=== PATIENT | male | born 1985 | race Caucasian/White ===

== ENCOUNTER → 2018-09-11 | Outpatient (CLI) | payer SELFPAY | LOC: M WUC 11:23 | DX: S63.502A Unspecified sprain of left wrist, initial encounter (principal); X58.XXXA Exposure to other specified factors, initial encounter; Y92.9 Unspecified place or not applicable | CPT/HCPCS: 73110 ==

== ENCOUNTER 2022-01-22 19:00 | Emergency (ER) | payer MEDICAID, SELFPAY ==
[~2022-01-22] VITALS: Ht 180.3 cm; Wt 94.8 kg
[2022-01-22 19:13] VITALS: BP 147/95
[2022-01-22] MEDS ORDERED: OMEP40CA4 PO (19:13)
[2022-01-22] MEDS ORDERED: KETOROLAC 30 MG/ML 1ML VIAL IV ONE (19:35)
[2022-01-22] MEDS ORDERED: NS 1,000 ML IV ONE (19:35)
[2022-01-22 20:32] LABS: BASO # 0.1 10^3/uL (0.0-0.2); BASO % 0.6 % (0.0-1.0); EOS # 0.3 10^3/uL (0.0-0.5); EOS % 2.5 % (0.0-3.0); HEMATOCRIT 43.9 % (42.0-52.0); HEMOGLOBIN 14.5 g/dl (13.5-17.5); LYMPH % 19.6 % (24.0-44.0); MEAN CORPUSCULAR HEMOGLOBIN 29.4 pg (27.0-33.0); MEAN CORPUSCULAR VOLUME 88.9 fl (80.0-96.0); MONO # 1.2 10^3/uL (0.0-0.8); MONO % 11.6 % (2.0-8.0); NEUTROPHILS # 6.5 10^3/uL (1.5-8.5); NEUTROPHILS % 65.3 % (36.0-66.0); PLATELET COUNT, AUTOMATED 345 10^3/uL (150-450); RED BLOOD COUNT 4.94 10^6/uL (4.30-6.10); WHITE BLOOD COUNT 9.9 10^3/uL (4.0-10.0)
[2022-01-22 21:02] LABS: ALBUMIN 3.8 GM/DL (3.2-5.2); BILIRUBIN,DIRECT 0.1 MG/DL (0.0-0.2); BILIRUBIN,TOTAL 0.7 MG/DL (0.2-1.0); TOTAL PROTEIN 8.1 GM/DL (6.4-8.2)
[2022-01-22] MEDS ORDERED: ISOVUE-370 76% 100ML VIAL As Ordered ONE (21:23)
[2022-01-22 22:10] LABS: APPEARANCE, URINE CLEAR (CLEAR); BACTERIA, URINE AUTO NEGATIVE (NEGATIVE); BILIRUBIN, URINE AUTO NEGATIVE (NEGATIVE); BLOOD, URINE BLOOD NEGATIVE (NEGATIVE); COLOR, URINE YELLOW (YELLOW); GLUCOSE, URINE (UA) AUTO NEGATIVE (NEGATIVE); KETONE, URINE AUTO NEGATIVE (NEGATIVE); LEUKOCYTE ESTERASE, URINE AUTO NEGATIVE (NEGATIVE); MUCUS, URINE SMALL (NEGATIVE); NITRITE, URINE AUTO NEGATIVE (NEGATIVE); PROTEIN, URINE AUTO NEGATIVE (NEGATIVE); RBC, URINE AUTO 0 /HPF (0-3); SPECIFIC GRAVITY URINE AUTO 1.013 (1.002-1.035); SQUAMOUS EPITHELIAL CELL UR AU 0 /HPF (0-6); UROBILINOGEN, URINE AUTO 0.2 mg/dL (0.0-2.0); WBC, URINE AUTO 0 /HPF (0-3)
[2022-01-22] MEDS ORDERED: MM S100C PO (22:19)
[2022-01-22] MEDS ORDERED: HYDR-3713 PO (22:19)
== END 2022-01-22 22:35 | disposition home or self-care (01) ==
LOC: M ED 19:00
DX: K63.89 Other specified diseases of intestine (principal); R93.2 Abnormal findings on diagnostic imaging of liver and biliary tract; K21.9 Gastro-esophageal reflux disease without esophagitis
CPT/HCPCS: 71046; 74177; 80047; 80076; 81001; 83605; 83690; 85025; 96361; 96374; 99283; J1885; Q9967

== ENCOUNTER 2022-01-26 07:10 | Day surgery (SDC) | payer MEDICAID, SELFPAY ==
[~2022-01-26] VITALS: Ht 180.3 cm; Wt 90.2 kg
[~2022-01-26 07:10] MED LIST: HYDR-3713 PO; LIDOCAINE 2% 100MG/5ML SDV (FOR ANES.) As Ordered ONE; MM S100C PO; OMEP40CA4 PO; propofoL 200 MG/20 ML VIAL As Ordered ONE
[2022-01-26] MEDS ORDERED: propofoL 200 MG/20 ML VIAL As Ordered ONE ×3 (08:23→09:01)
[2022-01-26 09:40] VITALS: BP 135/68
== END 2022-01-26 10:05 | disposition home or self-care (01) ==
LOC: M OPP 07:10
PROVIDERS: ATTEND Surgery
DX: C18.9 Malignant neoplasm of colon, unspecified (principal); K62.5 Hemorrhage of anus and rectum; R93.3 Abnormal findings on diagnostic imaging of other parts of digestive tract

== ENCOUNTER → 2022-05-26 | Outpatient (CLI) | payer MEDICAID, OTHER ==
[~2022-05-26] VITALS: Ht 182.9 cm; Wt 86.5 kg
[~2022-05-26] MED LIST changes: +DOCU100C16 PO; -LIDOCAINE 2% 100MG/5ML SDV (FOR ANES.) As Ordered ONE; +ONDA-84 PO; +POTA-151 PO; +PROC10TA5 PO; +SENN-80 PO; -propofoL 200 MG/20 ML VIAL As Ordered ONE
[2022-05-26 09:45] VITALS: BP 139/88
== END ==
LOC: M PAL 09:19
PROVIDERS: ATTEND Nurse Practitioner Adult Health
DX: C18.9 Malignant neoplasm of colon, unspecified (principal); C78.7 Secondary malignant neoplasm of liver and intrahepatic bile duct; R91.8 Other nonspecific abnormal finding of lung field; Z79.899 Other long term (current) drug therapy; Z92.21 Personal history of antineoplastic chemotherapy; Z51.5 Encounter for palliative care; G89.3 Neoplasm related pain (acute) (chronic)

== ENCOUNTER → 2023-01-09 | Outpatient (CLI) | payer OTHER ==
[~2023-01-09] MED LIST changes: +BACT800T5 PO
== END ==
LOC: M PLARAD 11:23
PROVIDERS: ATTEND Internal Medicine Medical Oncology
DX: C18.7 Malignant neoplasm of sigmoid colon (principal); C78.7 Secondary malignant neoplasm of liver and intrahepatic bile duct
CPT/HCPCS: 78815; A9552

== ENCOUNTER → 2023-01-10 | Outpatient (CLI) | payer OTHER | LOC: M OUTALCOH 09:05 | PROVIDERS: ATTEND Psychiatry & Neurology Psychiatry | DX: F10.10 Alcohol abuse, uncomplicated (principal) ==

== ENCOUNTER → 2023-02-07 | Outpatient (REF) | payer OTHER ==
[~2023-02-07] MED LIST changes: +D 50CAP2 PO; +RA B1TAB2 PO; +SENN-186 PO; -SENN-80 PO; +VITA100065 PO; +[UNRECOGNIZED DRUG - OTHER] PO
[2023-02-07 16:05] LABS: BASO # 0.1 10^3/uL (0.0-0.2); BASO % 0.8 % (0.0-1.0); EOS # 0.2 10^3/uL (0.0-0.5); EOS % 2.7 % (0.0-3.0); HEMATOCRIT 45.1 % (42.0-52.0); HEMOGLOBIN 15.5 g/dl (13.5-17.5); LYMPH # 2.5 10^3/uL (1.5-5.0); LYMPH % 32.3 % (24.0-44.0); MEAN CORPUSCULAR HEMOGLOBIN 32.5 pg (27.0-33.0); MEAN CORPUSCULAR HGB CONC 34.4 g/dl (32.0-36.5); MEAN CORPUSCULAR VOLUME 94.5 fl (80.0-96.0); MONO # 0.7 10^3/uL (0.0-0.8); MONO % 9.6 % (2.0-8.0); NEUTROPHILS # 4.2 10^3/uL (1.5-8.5); PLATELET COUNT, AUTOMATED 227 10^3/uL (150-450); RED BLOOD COUNT 4.77 10^6/uL (4.30-6.10); WHITE BLOOD COUNT 7.7 10^3/uL (4.0-10.0)
[2023-02-07 16:23] LABS: INR 0.96
[2023-02-07 16:24] LABS: PARTIAL THROMBOPLASTIN TIME 26.3 SECONDS (24.8-34.2)
[2023-02-07 16:40] LABS: ALBUMIN 4.2 G/DL (3.2-5.2); ALKALINE PHOSPHATASE 81 U/L (46-116); ALT/SGPT 48 U/L (7.0-40); AST/SGOT 36 U/L (<34); BILIRUBIN,TOTAL 0.6 MG/DL (0.3-1.2); BLOOD UREA NITROGEN 16 MG/DL (9-23); CALCIUM LEVEL 9.7 MG/DL (8.5-10.1); CARBON DIOXIDE LEVEL 27 MMOL/L (20-31); CARCINOEMBRYONIC ANTIGEN < 2.0 NG/ML (<2.5); CHLORIDE LEVEL 106 MMOL/L (98-107); CREATININE FOR GFR 1.12 MG/DL (0.70-1.30); GLOMERULAR FILTRATION RATE > 60.0 (>60); GLUCOSE, FASTING 88 MG/DL (60-100); SODIUM LEVEL 135 MMOL/L (136-145); TOTAL PROTEIN 7.2 G/DL (5.7-8.2)
== END ==
LOC: M LAB REF 15:26
PROVIDERS: ATTEND Internal Medicine Gastroenterology
DX: K72.10 Chronic hepatic failure without coma (principal); Z79.899 Other long term (current) drug therapy; D68.32 Hemorrhagic disorder due to extrinsic circulating anticoagulants

== ENCOUNTER 2023-02-09 13:00 | Day surgery (SDC) | payer OTHER ==
[~2023-02-09] VITALS: Ht 182.9 cm; Wt 91.6 kg
[~2023-02-09 13:00] MED LIST changes: +LIDOCAINE 2% 100MG/5ML SDV (FOR ANES.) As Ordered ONE; +NS 1,000 ML IV ONE; +propofoL 200 MG/20 ML VIAL As Ordered ONE
[2023-02-09] MEDS ORDERED: fentaNYL 100 MCG/2 ML INJECTION As Ordered ONE (14:05)
[2023-02-09] MEDS ORDERED: propofoL 200 MG/20 ML VIAL As Ordered ONE (14:26)
[2023-02-09 14:52] VITALS: BP 122/68
== END 2023-02-09 15:14 | disposition home or self-care (01) ==
LOC: M OPP 13:00
PROVIDERS: ATTEND Surgery
DX: Z01.818 Encounter for other preprocedural examination (principal); Z85.038 Personal history of other malignant neoplasm of large intestine; K21.00 Gastro-esophageal reflux disease with esophagitis, without bleeding; K31.89 Other diseases of stomach and duodenum; F17.200 Nicotine dependence, unspecified, uncomplicated; Z90.49 Acquired absence of other specified parts of digestive tract
CPT/HCPCS: 43239; 45378; 88305; J3010

== ENCOUNTER → 2023-08-28 | Outpatient (REF) | payer OTHER ==
[~2023-08-28] MED LIST changes: +BACTDSTA PO; +LEVO1TAB39 PO; -LIDOCAINE 2% 100MG/5ML SDV (FOR ANES.) As Ordered ONE; +MAGN400C PO; -NS 1,000 ML IV ONE; +PRED5TA PO; +PROG1CAP11 PO; +SULF400T14; -propofoL 200 MG/20 ML VIAL As Ordered ONE
[2023-08-29 14:09] LABS: CARCINOEMBRYONIC ANTIGEN < 2.0 NG/ML (<2.5)
== END ==
LOC: M LAB REF 13:43
PROVIDERS: ATTEND Internal Medicine Gastroenterology
DX: C22.0 Liver cell carcinoma (principal); C18.7 Malignant neoplasm of sigmoid colon; R94.8 Abnormal results of function studies of other organs and systems; K72.10 Chronic hepatic failure without coma; Z79.899 Other long term (current) drug therapy; R79.0 Abnormal level of blood mineral; T86.40 Unspecified complication of liver transplant; Y83.0 Surgical operation with transplant of whole organ as the cause of abnormal reaction of the patient, or of later complication, without mention of misadventure at the time of the procedure

== ENCOUNTER → 2023-09-04 | Outpatient (REF) | payer OTHER ==
[2023-09-04 09:18] LABS: HEMATOCRIT 40.1 % (42.0-52.0); HEMOGLOBIN 13.3 g/dl (13.5-17.5); MEAN CORPUSCULAR HGB CONC 33.2 g/dl (32.0-36.5); MEAN CORPUSCULAR VOLUME 90.5 fl (80.0-96.0); PLATELET COUNT, AUTOMATED 155 10^3/uL (150-450); RED BLOOD COUNT 4.43 10^6/uL (4.30-6.10); WHITE BLOOD COUNT 5.6 10^3/uL (4.0-10.0)
[2023-09-04 09:35] LABS: ALKALINE PHOSPHATASE 121 U/L (46-116); ALT/SGPT 35 U/L (7.0-40); AST/SGOT 44 U/L (<34); BILIRUBIN,TOTAL 0.7 MG/DL (0.3-1.2); BLOOD UREA NITROGEN 19 MG/DL (9-23); CALCIUM LEVEL 9.4 MG/DL (8.5-10.1); CARBON DIOXIDE LEVEL 27 MMOL/L (20-31); CHLORIDE LEVEL 105 MMOL/L (98-107); CREATININE FOR GFR 1.06 MG/DL (0.70-1.30); GLOMERULAR FILTRATION RATE > 60.0 (>60); GLUCOSE, FASTING 88 MG/DL (60-100); POTASSIUM SERUM 3.9 MMOL/L (3.5-5.1); SODIUM LEVEL 143 MMOL/L (136-145); TOTAL PROTEIN 6.5 G/DL (5.7-8.2)
[2023-09-04 09:40] LABS: CARCINOEMBRYONIC ANTIGEN < 2.0 NG/ML (<2.5)
[2023-09-04 10:00] LABS: ATYPICAL LYMPH 7 % (0-5); EOSINOPHILS 1 % (0-3); LYMPHOCYTES 30 % (16-44); MONOCYTES 11 % (0-5); NEUTROPHILS 50 % (28-66)
[2023-09-04 10:01] LABS: PLATELET ESTIMATE NORMAL (NORMAL)
== END ==
LOC: M LAB REF 08:47
PROVIDERS: ATTEND Internal Medicine Gastroenterology
DX: C22.0 Liver cell carcinoma (principal); C18.7 Malignant neoplasm of sigmoid colon; R94.8 Abnormal results of function studies of other organs and systems; K72.10 Chronic hepatic failure without coma; Z79.899 Other long term (current) drug therapy; T86.40 Unspecified complication of liver transplant; R97.0 Elevated carcinoembryonic antigen [CEA]

== ENCOUNTER → 2023-10-02 | Outpatient (REF) | payer OTHER ==
[~2023-10-02] MED LIST changes: +DIPH2.5T15 PO
[2023-10-02 09:31] LABS: HEMATOCRIT 37.2 % (42.0-52.0); HEMOGLOBIN 12.1 g/dl (13.5-17.5); MEAN CORPUSCULAR HGB CONC 32.5 g/dl (32.0-36.5); MEAN CORPUSCULAR VOLUME 92.3 fl (80.0-96.0); PLATELET COUNT, AUTOMATED 234 10^3/uL (150-450); RED BLOOD COUNT 4.03 10^6/uL (4.30-6.10); WHITE BLOOD COUNT 8.3 10^3/uL (4.0-10.0)
[2023-10-02 09:55] LABS: ALBUMIN 3.8 G/DL (3.2-5.2); ALKALINE PHOSPHATASE 154 U/L (46-116); ALT/SGPT 27 U/L (7.0-40); AST/SGOT 28 U/L (<34); BILIRUBIN,TOTAL 0.5 MG/DL (0.3-1.2); BLOOD UREA NITROGEN 16 MG/DL (9-23); CALCIUM LEVEL 8.9 MG/DL (8.5-10.1); CARBON DIOXIDE LEVEL 24 MMOL/L (20-31); CHLORIDE LEVEL 109 MMOL/L (98-107); CREATININE FOR GFR 1.52 MG/DL (0.70-1.30); GLOMERULAR FILTRATION RATE 54.3 (>60); GLUCOSE, FASTING 88 MG/DL (60-100); POTASSIUM SERUM 4.3 MMOL/L (3.5-5.1); SODIUM LEVEL 142 MMOL/L (136-145); TOTAL PROTEIN 6.4 G/DL (5.7-8.2)
[2023-10-02 10:00] LABS: CARCINOEMBRYONIC ANTIGEN < 2.0 NG/ML (<2.5)
[2023-10-02 10:32] LABS: ATYPICAL LYMPH 2 % (0-5); BASOPHILS 1 % (0-1); LYMPHOCYTES 21 % (16-44); METAMYELOCYTES 1 % (0-0); MONOCYTES 4 % (0-5); NEUTROPHILS 68 % (28-66); PLATELET ESTIMATE NORMAL (NORMAL)
== END ==
LOC: M LAB REF 08:59
PROVIDERS: ATTEND Internal Medicine Gastroenterology
DX: C22.0 Liver cell carcinoma (principal); C18.7 Malignant neoplasm of sigmoid colon; R94.8 Abnormal results of function studies of other organs and systems; K72.10 Chronic hepatic failure without coma; Z79.899 Other long term (current) drug therapy; T86.40 Unspecified complication of liver transplant; R97.0 Elevated carcinoembryonic antigen [CEA]

== ENCOUNTER → 2023-10-10 | Outpatient (REF) | payer OTHER ==
[2023-10-10 09:26] LABS: BASO # 0.1 10^3/uL (0.0-0.2); BASO % 1.3 % (0.0-1.0); EOS % 0.6 % (0.0-3.0); HEMATOCRIT 32.9 % (42.0-52.0); HEMOGLOBIN 10.9 g/dl (13.5-17.5); LYMPH # 1.2 10^3/uL (1.5-5.0); LYMPH % 22.7 % (24.0-44.0); MEAN CORPUSCULAR HEMOGLOBIN 30.8 pg (27.0-33.0); MEAN CORPUSCULAR HGB CONC 33.1 g/dl (32.0-36.5); MEAN CORPUSCULAR VOLUME 92.9 fl (80.0-96.0); MONO # 0.8 10^3/uL (0.0-0.8); NEUTROPHILS % 56.5 % (36.0-66.0); PLATELET COUNT, AUTOMATED 106 10^3/uL (150-450); RED BLOOD COUNT 3.54 10^6/uL (4.30-6.10); WHITE BLOOD COUNT 5.2 10^3/uL (4.0-10.0)
[2023-10-10 10:57] LABS: ALBUMIN 3.8 G/DL (3.2-5.2); ALKALINE PHOSPHATASE 179 U/L (46-116); ALT/SGPT 27 U/L (7.0-40); AST/SGOT 24 U/L (<34); BILIRUBIN,TOTAL 0.9 MG/DL (0.3-1.2); BLOOD UREA NITROGEN 27 MG/DL (9-23); CALCIUM LEVEL 8.8 MG/DL (8.5-10.1); CARBON DIOXIDE LEVEL 20 MMOL/L (20-31); CHLORIDE LEVEL 109 MMOL/L (98-107); CREATININE FOR GFR 1.37 MG/DL (0.70-1.30); GLOMERULAR FILTRATION RATE > 60.0 (>60); GLUCOSE, FASTING 94 MG/DL (60-100); POTASSIUM SERUM 4.5 MMOL/L (3.5-5.1); SODIUM LEVEL 138 MMOL/L (136-145); TOTAL PROTEIN 6.3 G/DL (5.7-8.2)
[2023-10-10 11:31] LABS: CARCINOEMBRYONIC ANTIGEN < 2.0 NG/ML (<2.5)
== END ==
LOC: M LAB REF 08:49
PROVIDERS: ATTEND Internal Medicine Gastroenterology
DX: C22.0 Liver cell carcinoma (principal); C18.7 Malignant neoplasm of sigmoid colon; R94.8 Abnormal results of function studies of other organs and systems; K72.10 Chronic hepatic failure without coma; Z79.899 Other long term (current) drug therapy; T86.40 Unspecified complication of liver transplant; R97.0 Elevated carcinoembryonic antigen [CEA]

== ENCOUNTER → 2023-10-16 | Outpatient (REF) | payer OTHER ==
[~2023-10-16] MED LIST changes: +AUGM500T34 PO
[2023-10-16 09:35] LABS: HEMATOCRIT 34.8 % (42.0-52.0); HEMOGLOBIN 11.3 g/dl (13.5-17.5); MEAN CORPUSCULAR HEMOGLOBIN 30.4 pg (27.0-33.0); MEAN CORPUSCULAR HGB CONC 32.5 g/dl (32.0-36.5); MEAN CORPUSCULAR VOLUME 93.5 fl (80.0-96.0); PLATELET COUNT, AUTOMATED 260 10^3/uL (150-450); RED BLOOD COUNT 3.72 10^6/uL (4.30-6.10); WHITE BLOOD COUNT 14.2 10^3/uL (4.0-10.0)
[2023-10-16 10:06] LABS: ALBUMIN 3.9 G/DL (3.2-5.2); ALKALINE PHOSPHATASE 166 U/L (46-116); ALT/SGPT 26 U/L (7.0-40); AST/SGOT 28 U/L (<34); BILIRUBIN,TOTAL 0.4 MG/DL (0.3-1.2); BLOOD UREA NITROGEN 19 MG/DL (9-23); CALCIUM LEVEL 9.1 MG/DL (8.5-10.1); CARBON DIOXIDE LEVEL 23 MMOL/L (20-31); CHLORIDE LEVEL 108 MMOL/L (98-107); CREATININE FOR GFR 1.67 MG/DL (0.70-1.30); GLOMERULAR FILTRATION RATE 48.8 (>60); GLUCOSE, FASTING 93 MG/DL (60-100); POTASSIUM SERUM 4.3 MMOL/L (3.5-5.1); SODIUM LEVEL 141 MMOL/L (136-145); TOTAL PROTEIN 6.4 G/DL (5.7-8.2)
[2023-10-16 10:10] LABS: CARCINOEMBRYONIC ANTIGEN < 2.0 NG/ML (<2.5)
[2023-10-16 10:11] LABS: ATYPICAL LYMPH 15 % (0-5); BASOPHILS 2 % (0-1); EOSINOPHILS 1 % (0-3); LYMPHOCYTES 1 % (16-44); MONOCYTES 14 % (0-5); NEUTROPHILS 65 % (28-66)
[2023-10-16 10:12] LABS: PLATELET ESTIMATE NORMAL (NORMAL)
[2023-10-16 10:13] LABS: POLYCHROMASIA 1+; TOXIC GRANULATION 1+
== END ==
LOC: M LAB REF 09:02
PROVIDERS: ATTEND Internal Medicine Gastroenterology
DX: C22.0 Liver cell carcinoma (principal); C18.7 Malignant neoplasm of sigmoid colon; R94.8 Abnormal results of function studies of other organs and systems; K72.10 Chronic hepatic failure without coma; Z79.899 Other long term (current) drug therapy; T86.40 Unspecified complication of liver transplant; R97.0 Elevated carcinoembryonic antigen [CEA]

== ENCOUNTER → 2023-10-23 | Outpatient (REF) | payer OTHER ==
[2023-10-23 09:16] LABS: BASO # 0.1 10^3/uL (0.0-0.2); BASO % 0.6 % (0.0-1.0); EOS # 0.1 10^3/uL (0.0-0.5); EOS % 1.8 % (0.0-3.0); HEMATOCRIT 30.6 % (42.0-52.0); HEMOGLOBIN 9.8 g/dl (13.5-17.5); LYMPH # 1.3 10^3/uL (1.5-5.0); LYMPH % 16.6 % (24.0-44.0); MEAN CORPUSCULAR HEMOGLOBIN 30.5 pg (27.0-33.0); MEAN CORPUSCULAR VOLUME 95.3 fl (80.0-96.0); MONO # 0.7 10^3/uL (0.0-0.8); MONO % 8.8 % (2.0-8.0); NEUTROPHILS # 5.3 10^3/uL (1.5-8.5); NEUTROPHILS % 68.1 % (36.0-66.0); PLATELET COUNT, AUTOMATED 154 10^3/uL (150-450); RED BLOOD COUNT 3.21 10^6/uL (4.30-6.10); WHITE BLOOD COUNT 7.8 10^3/uL (4.0-10.0)
[2023-10-23 09:37] LABS: ALBUMIN 3.3 G/DL (3.2-5.2); ALKALINE PHOSPHATASE 118 U/L (46-116); ALT/SGPT 24 U/L (7.0-40); AST/SGOT 27 U/L (<34); BILIRUBIN,TOTAL 0.4 MG/DL (0.3-1.2); BLOOD UREA NITROGEN 12 MG/DL (9-23); CALCIUM LEVEL 9.1 MG/DL (8.5-10.1); CARBON DIOXIDE LEVEL 24 MMOL/L (20-31); CHLORIDE LEVEL 109 MMOL/L (98-107); CREATININE FOR GFR 1.16 MG/DL (0.70-1.30); GLOMERULAR FILTRATION RATE > 60.0 (>60); GLUCOSE, FASTING 92 MG/DL (60-100); SODIUM LEVEL 142 MMOL/L (136-145); TOTAL PROTEIN 5.6 G/DL (5.7-8.2)
[2023-10-23 09:42] LABS: CARCINOEMBRYONIC ANTIGEN < 2.0 NG/ML (<2.5)
== END ==
LOC: M LAB REF 08:37
PROVIDERS: ATTEND Internal Medicine Gastroenterology
DX: C22.0 Liver cell carcinoma (principal); C18.7 Malignant neoplasm of sigmoid colon; R94.8 Abnormal results of function studies of other organs and systems; K72.10 Chronic hepatic failure without coma; Z79.899 Other long term (current) drug therapy; T86.40 Unspecified complication of liver transplant; R97.0 Elevated carcinoembryonic antigen [CEA]

== ENCOUNTER → 2023-11-08 | Outpatient (REF) | payer OTHER ==
[2023-11-08 08:23] LABS: BASO # 0.1 10^3/uL (0.0-0.2); BASO % 0.9 % (0.0-1.0); EOS # 0.3 10^3/uL (0.0-0.5); EOS % 3.6 % (0.0-3.0); HEMATOCRIT 38.3 % (42.0-52.0); HEMOGLOBIN 12.2 g/dl (13.5-17.5); LYMPH # 1.7 10^3/uL (1.5-5.0); LYMPH % 21.4 % (24.0-44.0); MEAN CORPUSCULAR HEMOGLOBIN 30.6 pg (27.0-33.0); MEAN CORPUSCULAR HGB CONC 31.9 g/dl (32.0-36.5); MONO # 0.7 10^3/uL (0.0-0.8); MONO % 8.4 % (2.0-8.0); NEUTROPHILS % 64.2 % (36.0-66.0); PLATELET COUNT, AUTOMATED 123 10^3/uL (150-450); RED BLOOD COUNT 3.99 10^6/uL (4.30-6.10); WHITE BLOOD COUNT 7.9 10^3/uL (4.0-10.0)
[2023-11-08 08:51] LABS: ALKALINE PHOSPHATASE 182 U/L (46-116); ALT/SGPT 24 U/L (7.0-40); AST/SGOT 29 U/L (<34); BILIRUBIN,TOTAL 0.6 MG/DL (0.3-1.2); BLOOD UREA NITROGEN 19 MG/DL (9-23); CALCIUM LEVEL 9.2 MG/DL (8.5-10.1); CARBON DIOXIDE LEVEL 24 MMOL/L (20-31); CHLORIDE LEVEL 107 MMOL/L (98-107); CREATININE FOR GFR 1.13 MG/DL (0.70-1.30); GLOMERULAR FILTRATION RATE > 60.0 (>60); GLUCOSE, FASTING 90 MG/DL (60-100); POTASSIUM SERUM 3.9 MMOL/L (3.5-5.1); SODIUM LEVEL 139 MMOL/L (136-145); TOTAL PROTEIN 6.7 G/DL (5.7-8.2)
[2023-11-08 08:53] LABS: CARCINOEMBRYONIC ANTIGEN < 2.0 NG/ML (<2.5)
== END ==
LOC: M LAB REF 08:00
PROVIDERS: ATTEND Internal Medicine Gastroenterology
DX: C22.0 Liver cell carcinoma (principal); C18.7 Malignant neoplasm of sigmoid colon; R94.8 Abnormal results of function studies of other organs and systems; K72.10 Chronic hepatic failure without coma; Z79.899 Other long term (current) drug therapy; T86.40 Unspecified complication of liver transplant; R97.0 Elevated carcinoembryonic antigen [CEA]

== ENCOUNTER → 2023-11-21 | Outpatient (REF) | payer OTHER ==
[2023-11-21 09:37] LABS: BASO % 0.6 % (0.0-1.0); EOS # 0.2 10^3/uL (0.0-0.5); EOS % 3.4 % (0.0-3.0); HEMATOCRIT 36.8 % (42.0-52.0); HEMOGLOBIN 11.6 g/dl (13.5-17.5); LYMPH # 1.3 10^3/uL (1.5-5.0); LYMPH % 20.1 % (24.0-44.0); MEAN CORPUSCULAR HEMOGLOBIN 30.5 pg (27.0-33.0); MEAN CORPUSCULAR HGB CONC 31.5 g/dl (32.0-36.5); MEAN CORPUSCULAR VOLUME 96.8 fl (80.0-96.0); MONO # 0.5 10^3/uL (0.0-0.8); MONO % 7.4 % (2.0-8.0); NEUTROPHILS # 4.4 10^3/uL (1.5-8.5); NEUTROPHILS % 66.7 % (36.0-66.0); PLATELET COUNT, AUTOMATED 141 10^3/uL (150-450); WHITE BLOOD COUNT 6.5 10^3/uL (4.0-10.0)
[2023-11-21 09:45] LABS: ALKALINE PHOSPHATASE 171 U/L (46-116); ALT/SGPT 27 U/L (7.0-40); AST/SGOT 25 U/L (<34); BILIRUBIN,TOTAL 0.5 MG/DL (0.3-1.2); BLOOD UREA NITROGEN 15 MG/DL (9-23); CALCIUM LEVEL 8.8 MG/DL (8.5-10.1); CARBON DIOXIDE LEVEL 25 MMOL/L (20-31); CHLORIDE LEVEL 109 MMOL/L (98-107); GLOMERULAR FILTRATION RATE > 60.0 (>60); GLUCOSE, FASTING 100 MG/DL (60-100); POTASSIUM SERUM 4.2 MMOL/L (3.5-5.1); SODIUM LEVEL 141 MMOL/L (136-145); TOTAL PROTEIN 6.5 G/DL (5.7-8.2)
[2023-11-21 10:53] LABS: CARCINOEMBRYONIC ANTIGEN < 2.0 NG/ML (<2.5)
== END ==
LOC: M LAB REF 08:50
PROVIDERS: ATTEND Internal Medicine Gastroenterology
DX: C22.0 Liver cell carcinoma (principal); C18.7 Malignant neoplasm of sigmoid colon; R94.8 Abnormal results of function studies of other organs and systems; K72.10 Chronic hepatic failure without coma; Z79.899 Other long term (current) drug therapy; T86.40 Unspecified complication of liver transplant; R97.0 Elevated carcinoembryonic antigen [CEA]

== ENCOUNTER → 2023-12-28 | Outpatient (REF) | payer OTHER ==
[2023-12-28 08:43] LABS: HEMOGLOBIN 12.2 g/dl (13.5-17.5); MEAN CORPUSCULAR HEMOGLOBIN 30.9 pg (27.0-33.0); MEAN CORPUSCULAR HGB CONC 32.1 g/dl (32.0-36.5); MEAN CORPUSCULAR VOLUME 96.2 fl (80.0-96.0); RED BLOOD COUNT 3.95 10^6/uL (4.30-6.10)
[2023-12-28 08:55] LABS: PLATELET COUNT, AUTOMATED 85 10^3/uL (150-450)
[2023-12-28 09:21] LABS: ALBUMIN 3.6 G/DL (3.2-5.2); ALKALINE PHOSPHATASE 99 U/L (46-116); ALT/SGPT 23 U/L (7.0-40); AST/SGOT 31 U/L (<34); BILIRUBIN,TOTAL 0.8 MG/DL (0.3-1.2); BLOOD UREA NITROGEN 11 MG/DL (9-23); CALCIUM LEVEL 8.7 MG/DL (8.5-10.1); CARBON DIOXIDE LEVEL 24 MMOL/L (20-31); CHLORIDE LEVEL 109 MMOL/L (98-107); CREATININE FOR GFR 0.83 MG/DL (0.70-1.30); GLOMERULAR FILTRATION RATE > 60.0 (>60); GLUCOSE, FASTING 85 MG/DL (60-100); POTASSIUM SERUM 3.9 MMOL/L (3.5-5.1); SODIUM LEVEL 138 MMOL/L (136-145); TOTAL PROTEIN 6.3 G/DL (5.7-8.2)
[2023-12-28 09:23] LABS: CARCINOEMBRYONIC ANTIGEN < 2.0 NG/ML (<2.5)
== END ==
LOC: M LAB REF 08:24
PROVIDERS: ATTEND Internal Medicine Gastroenterology
DX: C22.0 Liver cell carcinoma (principal); C18.7 Malignant neoplasm of sigmoid colon; R94.8 Abnormal results of function studies of other organs and systems; K72.10 Chronic hepatic failure without coma; R97.0 Elevated carcinoembryonic antigen [CEA]; T86.40 Unspecified complication of liver transplant; Z79.899 Other long term (current) drug therapy

== ENCOUNTER → 2024-02-01 | Outpatient (REF) | payer OTHER ==
[2024-02-01 09:06] LABS: BASO % 0.7 % (0.0-1.0); EOS # 0.3 10^3/uL (0.0-0.5); EOS % 7.5 % (0.0-3.0); HEMATOCRIT 39.4 % (42.0-52.0); HEMOGLOBIN 12.8 g/dl (13.5-17.5); LYMPH % 24.1 % (24.0-44.0); MEAN CORPUSCULAR HGB CONC 32.5 g/dl (32.0-36.5); MEAN CORPUSCULAR VOLUME 92.3 fl (80.0-96.0); MONO # 0.3 10^3/uL (0.0-0.8); MONO % 7.7 % (2.0-8.0); NEUTROPHILS # 2.5 10^3/uL (1.5-8.5); NEUTROPHILS % 59.5 % (36.0-66.0); PLATELET COUNT, AUTOMATED 107 10^3/uL (150-450); RED BLOOD COUNT 4.27 10^6/uL (4.30-6.10); WHITE BLOOD COUNT 4.3 10^3/uL (4.0-10.0)
[2024-02-01 09:25] LABS: ALBUMIN 3.5 G/DL (3.2-5.2); ALKALINE PHOSPHATASE 103 U/L (46-116); ALT/SGPT 20 U/L (7.0-40); AST/SGOT 28 U/L (<34); BILIRUBIN,TOTAL 0.4 MG/DL (0.3-1.2); BLOOD UREA NITROGEN 17 MG/DL (9-23); CALCIUM LEVEL 8.7 MG/DL (8.5-10.1); CARBON DIOXIDE LEVEL 27 MMOL/L (20-31); CHLORIDE LEVEL 109 MMOL/L (98-107); GLOMERULAR FILTRATION RATE > 60.0 (>60); GLUCOSE, FASTING 112 MG/DL (60-100); POTASSIUM SERUM 4.1 MMOL/L (3.5-5.1); SODIUM LEVEL 140 MMOL/L (136-145); TOTAL PROTEIN 6.1 G/DL (5.7-8.2)
== END ==
LOC: M LAB REF 08:34
PROVIDERS: ATTEND Internal Medicine Gastroenterology
DX: C22.0 Liver cell carcinoma (principal); C18.7 Malignant neoplasm of sigmoid colon; R94.8 Abnormal results of function studies of other organs and systems; R97.0 Elevated carcinoembryonic antigen [CEA]; K72.10 Chronic hepatic failure without coma; T86.90 Unspecified complication of unspecified transplanted organ and tissue; Z79.899 Other long term (current) drug therapy

== ENCOUNTER 2024-02-14 10:32 | Emergency (ER) | payer OTHER ==
[~2024-02-14] VITALS: Ht 180.3 cm; Wt 88.1 kg
[~2024-02-14 10:32] MED LIST changes: +DIPH1TAB81 PO; -DIPH2.5T15 PO
[2024-02-14] MEDS ORDERED: MYCO500T (10:40)
[2024-02-14] MEDS ORDERED: ISOVUE-370 76% 100ML VIAL As Ordered ONE (13:03)
[2024-02-14] MEDS: KETOROLAC 30 MG/ML 1ML VIAL IV ONE (13:03)
[2024-02-14 13:16] LABS: BASO % 0.3 % (0.0-1.0); EOS # 0.3 10^3/uL (0.0-0.5); EOS % 4.7 % (0.0-3.0); HEMATOCRIT 44.1 % (42.0-52.0); HEMOGLOBIN 14.2 g/dl (13.5-17.5); LYMPH # 1.1 10^3/uL (1.5-5.0); LYMPH % 14.9 % (24.0-44.0); MEAN CORPUSCULAR HGB CONC 32.2 g/dl (32.0-36.5); MEAN CORPUSCULAR VOLUME 90.2 fl (80.0-96.0); MONO # 0.7 10^3/uL (0.0-0.8); MONO % 9.7 % (2.0-8.0); NEUTROPHILS # 5.1 10^3/uL (1.5-8.5); NEUTROPHILS % 70.1 % (36.0-66.0); PLATELET COUNT, AUTOMATED 141 10^3/uL (150-450); RED BLOOD COUNT 4.89 10^6/uL (4.30-6.10); WHITE BLOOD COUNT 7.2 10^3/uL (4.0-10.0)
[2024-02-14 13:51] LABS: ALBUMIN 4.2 G/DL (3.2-5.2); BILIRUBIN,DIRECT 0.3 MG/DL (<0.4); BILIRUBIN,TOTAL 0.8 MG/DL (0.3-1.2); TOTAL PROTEIN 7.1 G/DL (5.7-8.2)
[2024-02-14 14:32] VITALS: BP 140/96; TEMP 97.5; O2SAT 98
== END 2024-02-14 14:36 | disposition home or self-care (01) ==
LOC: M ED 10:32
DX: C79.9 Secondary malignant neoplasm of unspecified site (principal); R93.2 Abnormal findings on diagnostic imaging of liver and biliary tract; R16.1 Splenomegaly, not elsewhere classified; R59.0 Localized enlarged lymph nodes; R93.7 Abnormal findings on diagnostic imaging of other parts of musculoskeletal system; Z85.05 Personal history of malignant neoplasm of liver; Z85.038 Personal history of other malignant neoplasm of large intestine; Z94.4 Liver transplant status; Z79.899 Other long term (current) drug therapy
CPT/HCPCS: 71260; 74177; 80047; 80076; 81001; 83690; 85025; 96374; 99284; J1885; Q9967

== ENCOUNTER → 2024-02-28 | Outpatient (CLI) | payer OTHER ==
[~2024-02-28] MED LIST changes: +MYCO500T; +TUCA150T PO
== END ==
LOC: M ONCR 14:24
PROVIDERS: ATTEND General Practice
DX: C20 Malignant neoplasm of rectum (principal); C77.5 Secondary and unspecified malignant neoplasm of intrapelvic lymph nodes; C78.7 Secondary malignant neoplasm of liver and intrahepatic bile duct; C79.51 Secondary malignant neoplasm of bone; Z92.21 Personal history of antineoplastic chemotherapy; Z94.4 Liver transplant status

== ENCOUNTER → 2024-02-28 | Outpatient (REF) | payer OTHER ==
[2024-02-28 14:47] LABS: BASO % 0.2 % (0.0-1.0); HEMATOCRIT 42.2 % (42.0-52.0); LYMPH # 0.9 10^3/uL (1.5-5.0); MEAN CORPUSCULAR HGB CONC 33.2 g/dl (32.0-36.5); MEAN CORPUSCULAR VOLUME 90.4 fl (80.0-96.0); MONO # 0.6 10^3/uL (0.0-0.8); MONO % 5.4 % (2.0-8.0); NEUTROPHILS # 9.6 10^3/uL (1.5-8.5); PLATELET COUNT, AUTOMATED 185 10^3/uL (150-450); RED BLOOD COUNT 4.67 10^6/uL (4.30-6.10); WHITE BLOOD COUNT 11.3 10^3/uL (4.0-10.0)
[2024-02-28 15:13] LABS: ALBUMIN 4.1 G/DL (3.2-5.2); ALKALINE PHOSPHATASE 95 U/L (46-116); ALT/SGPT 25 U/L (7.0-40); AST/SGOT 25 U/L (<34); BILIRUBIN,TOTAL 0.8 MG/DL (0.3-1.2); BLOOD UREA NITROGEN 30 MG/DL (9-23); CALCIUM LEVEL 9.4 MG/DL (8.5-10.1); CARBON DIOXIDE LEVEL 25 MMOL/L (20-31); CHLORIDE LEVEL 103 MMOL/L (98-107); CREATININE FOR GFR 1.08 MG/DL (0.70-1.30); GLOMERULAR FILTRATION RATE > 60.0 (>60); GLUCOSE, FASTING 149 MG/DL (60-100); SODIUM LEVEL 137 MMOL/L (136-145)
== END ==
LOC: M LAB REF 14:10
PROVIDERS: ATTEND Internal Medicine Gastroenterology
DX: C22.0 Liver cell carcinoma (principal); C18.7 Malignant neoplasm of sigmoid colon; R94.8 Abnormal results of function studies of other organs and systems; K72.10 Chronic hepatic failure without coma; Z79.899 Other long term (current) drug therapy; T86.90 Unspecified complication of unspecified transplanted organ and tissue; R97.0 Elevated carcinoembryonic antigen [CEA]

== ENCOUNTER → 2024-03-04 | Outpatient (REF) | payer OTHER ==
[~2024-03-04] MED LIST changes: +DEXA4TA PO; -MYCO500T; +MYCO500T PO
[2024-03-04 09:17] LABS: BASO % 0.2 % (0.0-1.0); EOS % 0.2 % (0.0-3.0); HEMATOCRIT 43.2 % (42.0-52.0); HEMOGLOBIN 14.1 g/dl (13.5-17.5); LYMPH # 1.4 10^3/uL (1.5-5.0); LYMPH % 12.6 % (24.0-44.0); MEAN CORPUSCULAR HEMOGLOBIN 29.3 pg (27.0-33.0); MEAN CORPUSCULAR HGB CONC 32.6 g/dl (32.0-36.5); MEAN CORPUSCULAR VOLUME 89.6 fl (80.0-96.0); MONO % 9.2 % (2.0-8.0); NEUTROPHILS # 8.1 10^3/uL (1.5-8.5); NEUTROPHILS % 75.6 % (36.0-66.0); PLATELET COUNT, AUTOMATED 153 10^3/uL (150-450); RED BLOOD COUNT 4.82 10^6/uL (4.30-6.10); WHITE BLOOD COUNT 10.7 10^3/uL (4.0-10.0)
[2024-03-04 09:28] LABS: INR 1.05; PROTHROMBIN TIME 13.4 SECONDS (12.5-14.5)
[2024-03-04 09:57] LABS: ALBUMIN 3.7 G/DL (3.2-5.2); ALKALINE PHOSPHATASE 83 U/L (46-116); ALT/SGPT 36 U/L (7.0-40); AST/SGOT 34 U/L (<34); BILIRUBIN,TOTAL 0.6 MG/DL (0.3-1.2); BLOOD UREA NITROGEN 21 MG/DL (9-23); CALCIUM LEVEL 8.8 MG/DL (8.5-10.1); CARBON DIOXIDE LEVEL 27 MMOL/L (20-31); CHLORIDE LEVEL 103 MMOL/L (98-107); CREATININE FOR GFR 0.97 MG/DL (0.70-1.30); GLOMERULAR FILTRATION RATE > 60.0 (>60); GLUCOSE, FASTING 78 MG/DL (60-100); POTASSIUM SERUM 3.7 MMOL/L (3.5-5.1); SODIUM LEVEL 138 MMOL/L (136-145); TOTAL PROTEIN 6.6 G/DL (5.7-8.2)
== END ==
LOC: M LAB REF 08:37
PROVIDERS: ATTEND Internal Medicine Gastroenterology
DX: C18.7 Malignant neoplasm of sigmoid colon (principal); C22.8 Malignant neoplasm of liver, primary, unspecified as to type

== ENCOUNTER → 2024-03-06 | Outpatient (CLI) | payer OTHER | LOC: M CARPUL 13:00 | PROVIDERS: ATTEND Internal Medicine Medical Oncology | DX: R79.0 Abnormal level of blood mineral (principal); Z79.69 Long term (current) use of other immunomodulators and immunosuppressants ==

== ENCOUNTER → 2024-03-11 | Outpatient (REF) | payer OTHER ==
[2024-03-11 10:12] LABS: BASO % 0.3 % (0.0-1.0); EOS # 0.5 10^3/uL (0.0-0.5); EOS % 5.3 % (0.0-3.0); HEMATOCRIT 45.8 % (42.0-52.0); LYMPH # 1.1 10^3/uL (1.5-5.0); LYMPH % 11.3 % (24.0-44.0); MEAN CORPUSCULAR HEMOGLOBIN 29.8 pg (27.0-33.0); MEAN CORPUSCULAR HGB CONC 32.8 g/dl (32.0-36.5); MEAN CORPUSCULAR VOLUME 91.1 fl (80.0-96.0); MONO # 0.9 10^3/uL (0.0-0.8); MONO % 8.8 % (2.0-8.0); NEUTROPHILS # 7.2 10^3/uL (1.5-8.5); NEUTROPHILS % 73.9 % (36.0-66.0); PLATELET COUNT, AUTOMATED 134 10^3/uL (150-450); RED BLOOD COUNT 5.03 10^6/uL (4.30-6.10); WHITE BLOOD COUNT 9.7 10^3/uL (4.0-10.0)
[2024-03-11 10:37] LABS: INR 1.09; PROTHROMBIN TIME 13.8 SECONDS (12.5-14.5)
[2024-03-11 10:43] LABS: ALBUMIN 3.8 G/DL (3.2-5.2); BILIRUBIN,TOTAL 1.6 MG/DL (0.3-1.2); CALCIUM LEVEL 9.2 MG/DL (8.5-10.1); CREATININE FOR GFR 1.52 MG/DL (0.70-1.30); GLOMERULAR FILTRATION RATE 54.3 (>60); POTASSIUM SERUM 4.6 MMOL/L (3.5-5.1)
[2024-03-13 20:08] LABS: HBV HBV DNA not detected IU/mL (.)
== END ==
LOC: M LAB REF 08:54
PROVIDERS: ATTEND Internal Medicine Gastroenterology
DX: C22.8 Malignant neoplasm of liver, primary, unspecified as to type (principal); C18.7 Malignant neoplasm of sigmoid colon

== ENCOUNTER → 2024-03-14 | Outpatient (REF) | payer OTHER ==
[2024-03-14 12:42] LABS: BASO % 0.1 % (0.0-1.0); EOS % 0.3 % (0.0-3.0); HEMATOCRIT 40.7 % (42.0-52.0); HEMOGLOBIN 13.2 g/dl (13.5-17.5); LYMPH # 0.9 10^3/uL (1.5-5.0); LYMPH % 10.3 % (24.0-44.0); MEAN CORPUSCULAR HEMOGLOBIN 29.9 pg (27.0-33.0); MEAN CORPUSCULAR HGB CONC 32.4 g/dl (32.0-36.5); MEAN CORPUSCULAR VOLUME 92.1 fl (80.0-96.0); MONO # 0.6 10^3/uL (0.0-0.8); MONO % 6.7 % (2.0-8.0); NEUTROPHILS # 7.2 10^3/uL (1.5-8.5); NEUTROPHILS % 82.1 % (36.0-66.0); PLATELET COUNT, AUTOMATED 129 10^3/uL (150-450); RED BLOOD COUNT 4.42 10^6/uL (4.30-6.10); WHITE BLOOD COUNT 8.7 10^3/uL (4.0-10.0)
[2024-03-14 12:57] LABS: INR 1.06; PROTHROMBIN TIME 13.4 SECONDS (12.5-14.5)
[2024-03-14 13:03] LABS: ALBUMIN 3.6 G/DL (3.2-5.2); ALKALINE PHOSPHATASE 81 U/L (46-116); ALT/SGPT 40 U/L (7.0-40); AST/SGOT 28 U/L (<34); BLOOD UREA NITROGEN 23 MG/DL (9-23); CALCIUM LEVEL 9.1 MG/DL (8.5-10.1); CARBON DIOXIDE LEVEL 28 MMOL/L (20-31); CHLORIDE LEVEL 107 MMOL/L (98-107); CREATININE FOR GFR 1.38 MG/DL (0.70-1.30); GLOMERULAR FILTRATION RATE > 60.0 (>60); GLUCOSE, FASTING 97 MG/DL (60-100); POTASSIUM SERUM 4.5 MMOL/L (3.5-5.1); SODIUM LEVEL 141 MMOL/L (136-145); TOTAL PROTEIN 6.8 G/DL (5.7-8.2)
== END ==
LOC: M LAB REF 10:24
PROVIDERS: ATTEND Internal Medicine Gastroenterology
DX: C18.7 Malignant neoplasm of sigmoid colon (principal); C22.8 Malignant neoplasm of liver, primary, unspecified as to type

== ENCOUNTER 2024-03-19 20:53 | Observation (INO) | payer OTHER ==
[~2024-03-19] VITALS: Ht 180.3 cm; Wt 86.3 kg
[~2024-03-19 20:53] MED LIST changes: +OXYC-517 PO; +TRIA1CR80 TOP
[2024-03-19 21:44] LABS: BASO % 0.3 % (0.0-1.0); EOS # 0.4 10^3/uL (0.0-0.5); EOS % 6.6 % (0.0-3.0); HEMATOCRIT 34.9 % (42.0-52.0); HEMOGLOBIN 11.7 g/dl (13.5-17.5); LYMPH # 0.7 10^3/uL (1.5-5.0); MEAN CORPUSCULAR HEMOGLOBIN 29.7 pg (27.0-33.0); MEAN CORPUSCULAR HGB CONC 33.5 g/dl (32.0-36.5); MEAN CORPUSCULAR VOLUME 88.6 fl (80.0-96.0); MONO # 0.7 10^3/uL (0.0-0.8); NEUTROPHILS # 4.3 10^3/uL (1.5-8.5); NEUTROPHILS % 70.6 % (36.0-66.0); PLATELET COUNT, AUTOMATED 113 10^3/uL (150-450); RED BLOOD COUNT 3.94 10^6/uL (4.30-6.10)
[2024-03-19] MEDS: MORPHINE 4 MG/ML 1ML VIAL IV ONE (21:46)
[2024-03-19] MEDS: NS 1,000 ML IV SCH (21:47)
[2024-03-19 22:09] LABS: ALBUMIN 3.4 G/DL (3.2-5.2); BILIRUBIN,DIRECT 0.8 MG/DL (<0.4); BILIRUBIN,TOTAL 2.1 MG/DL (0.3-1.2); CALCIUM LEVEL 8.4 MG/DL (8.5-10.1); CREATININE FOR GFR 1.63 MG/DL (0.70-1.30); GLOMERULAR FILTRATION RATE 50.1 (>60); POTASSIUM SERUM 4.7 MMOL/L (3.5-5.1); TOTAL PROTEIN 5.9 G/DL (5.7-8.2)
[2024-03-20] MEDS ORDERED: ONDANSETRON 4MG 2ML VIAL IV PRN (01:10)
[2024-03-20] MEDS ORDERED: MORPHINE 4 MG/ML 1ML VIAL IV PRN (01:10)
[2024-03-20] MEDS ORDERED: MOM 30ML SUSPENSION UDC PO PRN (01:10)
[2024-03-20] MEDS: NS 1,000 ML IV SCH (01:35)
[2024-03-20 02:01] VITALS: BP 118/74; TEMP 98.8; O2SAT 99
[2024-03-20] MEDS: ACETAMINOPHEN TAB 650MG DOSE (2X325MG) PO PRN (02:16)
[2024-03-20 02:36] LABS: HEMATOCRIT 34.7 % (42.0-52.0); HEMOGLOBIN 11.8 g/dl (13.5-17.5); MEAN CORPUSCULAR HEMOGLOBIN 30.1 pg (27.0-33.0); MEAN CORPUSCULAR VOLUME 88.5 fl (80.0-96.0); PLATELET COUNT, AUTOMATED 110 10^3/uL (150-450); RED BLOOD COUNT 3.92 10^6/uL (4.30-6.10); WHITE BLOOD COUNT 5.3 10^3/uL (4.0-10.0)
[2024-03-20] MEDS ORDERED: HOME MED LIST COMPLETE! XX SCH (02:45)
[2024-03-20 03:00] LABS: ALBUMIN 3.1 G/DL (3.2-5.2); BILIRUBIN,TOTAL 1.7 MG/DL (0.3-1.2); CALCIUM LEVEL 8.5 MG/DL (8.5-10.1); CREATININE FOR GFR 1.46 MG/DL (0.70-1.30); GLOMERULAR FILTRATION RATE 56.9 (>60); POTASSIUM SERUM 4.9 MMOL/L (3.5-5.1); TOTAL PROTEIN 5.7 G/DL (5.7-8.2)
[2024-03-20 05:13] VITALS: BP 116/83; TEMP 99; O2SAT 99
[2024-03-20] MEDS ORDERED: HEPARIN SOD (PORCINE) 5000UNITS/ML 1ML VIAL/SYRINGE SQ SCH (09:00)
[2024-03-20] MEDS: MYCOPHENOLATE MOFETIL 250 MG CAP (J7517) PO SCH (10:08)
[2024-03-20] MEDS: TRIAMCINOLONE ACET 0.1% CREAM 80GM TOP SCH (10:08)
[2024-03-20] MEDS: TACROLIMUS 1MG CAP PO SCH (10:08)
[2024-03-20] MEDS: MIRALAX *UNIT DOSE* 17GM PACKET PO SCH (10:09)
[2024-03-20] MEDS: [UNRECOGNIZED DRUG - OTHER] PO SCH (10:09)
[2024-03-20] MEDS: DOCUSATE SODIUM 100MG CAPSULE PO SCH (10:09)
[2024-03-20] MEDS: predniSONE 20 MG TAB PO SCH (10:51)
[2024-03-20 14:31] VITALS: BP 125/87; TEMP 98.4; O2SAT 100
[2024-03-20 20:35] VITALS: BP 149/98; TEMP 98.4; O2SAT 100
[2024-03-20] MEDS: oxyCODONE 5MG TAB PO PRN (20:36)
[2024-03-20] MEDS: MORPHINE 2 MG/ML 1ML VIAL IV ONE (23:27)
[2024-03-21 05:19] VITALS: BP 139/99; TEMP 98.1; O2SAT 93
[2024-03-21] MEDS ORDERED: TACROLIMUS 0.5MG CAP PO SCH (09:00)
[2024-03-25] MEDS ORDERED: SENN-186 PO (08:21)
[2024-03-25] MEDS ORDERED: ONDA4TAB6 PO (13:32)
== END 2024-03-21 05:50 | disposition left against medical advice (07) ==
LOC: M ED 20:53 → INTOOBSV 03-20 01:06 → M ED INP 03-20 01:06 → M MSPAV 03-20 02:01
PROVIDERS: ADMIT Internal Medicine; ATTEND Internal Medicine
DX: N17.9 Acute kidney failure, unspecified (principal); E86.0 Dehydration; R10.9 Unspecified abdominal pain; C18.9 Malignant neoplasm of colon, unspecified; Z94.4 Liver transplant status; L30.8 Other specified dermatitis; E87.20 Acidosis, unspecified; Z79.899 Other long term (current) drug therapy
CPT/HCPCS: 36415; 74177; 80048; 80053; 80076; 83605; 83690; 85025; 85027; 93041; 96361; 96374; 96376; 99285; J7507; J7512; J7517

== ENCOUNTER → 2024-03-25 | Outpatient (REF) | payer OTHER ==
[~2024-03-25] MED LIST changes: +ONDA4TAB6 PO
[2024-03-25 08:28] LABS: BASO % 0.4 % (0.0-1.0); EOS # 0.1 10^3/uL (0.0-0.5); EOS % 1.9 % (0.0-3.0); HEMATOCRIT 37.9 % (42.0-52.0); LYMPH # 0.7 10^3/uL (1.5-5.0); LYMPH % 9.9 % (24.0-44.0); MEAN CORPUSCULAR HEMOGLOBIN 30.4 pg (27.0-33.0); MEAN CORPUSCULAR HGB CONC 34.3 g/dl (32.0-36.5); MEAN CORPUSCULAR VOLUME 88.8 fl (80.0-96.0); MONO # 0.7 10^3/uL (0.0-0.8); MONO % 9.3 % (2.0-8.0); NEUTROPHILS # 5.6 10^3/uL (1.5-8.5); NEUTROPHILS % 77.5 % (36.0-66.0); PLATELET COUNT, AUTOMATED 159 10^3/uL (150-450); RED BLOOD COUNT 4.27 10^6/uL (4.30-6.10); WHITE BLOOD COUNT 7.2 10^3/uL (4.0-10.0)
[2024-03-25 09:01] LABS: ALBUMIN 3.9 G/DL (3.2-5.2); ALKALINE PHOSPHATASE 89 U/L (46-116); ALT/SGPT 30 U/L (7.0-40); AST/SGOT 25 U/L (<34); BILIRUBIN,TOTAL 0.9 MG/DL (0.3-1.2); BLOOD UREA NITROGEN 21 MG/DL (9-23); CARBON DIOXIDE LEVEL 26 MMOL/L (20-31); CHLORIDE LEVEL 103 MMOL/L (98-107); CREATININE FOR GFR 1.38 MG/DL (0.70-1.30); GLOMERULAR FILTRATION RATE > 60.0 (>60); GLUCOSE, FASTING 89 MG/DL (60-100); POTASSIUM SERUM 4.4 MMOL/L (3.5-5.1); SODIUM LEVEL 134 MMOL/L (136-145); TOTAL PROTEIN 6.8 G/DL (5.7-8.2)
== END ==
LOC: M LAB REF 08:16
PROVIDERS: ATTEND Internal Medicine Gastroenterology
DX: C18.7 Malignant neoplasm of sigmoid colon (principal); R94.8 Abnormal results of function studies of other organs and systems; Z94.4 Liver transplant status

== ENCOUNTER 2024-04-01 08:29 | Observation (INO) | payer OTHER ==
[~2024-04-01] VITALS: Ht 180.3 cm; Wt 82.0 kg
[~2024-04-01 08:29] MED LIST changes: +ONDA-282 PO; -ONDA4TAB6 PO
[2024-04-01] MEDS: METOCLOPRAMIDE INJ 10MG/2ML VIAL IV ONE (09:39)
[2024-04-01] MEDS: NS 1,000 ML IV ONE ×2 (09:40→11:11)
[2024-04-01 09:44] LABS: BASO % 0.4 % (0.0-1.0); EOS # 0.1 10^3/uL (0.0-0.5); EOS % 2.3 % (0.0-3.0); HEMATOCRIT 32.6 % (42.0-52.0); HEMOGLOBIN 11.2 g/dl (13.5-17.5); LYMPH # 0.2 10^3/uL (1.5-5.0); LYMPH % 3.4 % (24.0-44.0); MEAN CORPUSCULAR HEMOGLOBIN 30.3 pg (27.0-33.0); MEAN CORPUSCULAR HGB CONC 34.4 g/dl (32.0-36.5); MEAN CORPUSCULAR VOLUME 88.1 fl (80.0-96.0); MONO # 0.5 10^3/uL (0.0-0.8); MONO % 9.5 % (2.0-8.0); NEUTROPHILS # 4.4 10^3/uL (1.5-8.5); NEUTROPHILS % 83.5 % (36.0-66.0); PLATELET COUNT, AUTOMATED 115 10^3/uL (150-450); WHITE BLOOD COUNT 5.3 10^3/uL (4.0-10.0)
[2024-04-01 10:28] LABS: ALBUMIN 3.2 G/DL (3.2-5.2); BILIRUBIN,DIRECT 0.5 MG/DL (<0.4); BILIRUBIN,TOTAL 1.2 MG/DL (0.3-1.2); CREATININE FOR GFR 1.72 MG/DL (0.70-1.30); GLOMERULAR FILTRATION RATE 47.1 (>60); MAGNESIUM LEVEL 1.6 MG/DL (1.8-2.4); POTASSIUM SERUM 4.3 MMOL/L (3.5-5.1); TOTAL PROTEIN 6.4 G/DL (5.7-8.2)
[2024-04-01] MEDS: MAG SULF 1GM/100ML (MAG RUN) 1 GM in IV 1 EA IV ONE ×2 (12:33→15:50)
[2024-04-01] MEDS ORDERED: ONDA-282 PO (13:42)
[2024-04-01] MEDS ORDERED: TACR0.5C3 PO (13:42)
[2024-04-01] MEDS ORDERED: TRIA1CR80 TOP (13:42)
[2024-04-01] MEDS ORDERED: TUCA150T PO (13:42)
[2024-04-01] MEDS ORDERED: OXYC-517 PO (13:42)
[2024-04-01] MEDS ORDERED: HOME MED LIST COMPLETE! XX SCH (13:45)
[2024-04-01] MEDS ORDERED: oxyCODONE 5MG TAB PO PRN (14:10)
[2024-04-01 15:27] VITALS: BP 130/82; TEMP 98.1; O2SAT 96
[2024-04-01] MEDS: ONDANSETRON 4MG 2ML VIAL IV PRN (15:50)
[2024-04-01] MEDS: LR 1,000 ML IV SCH (15:50)
[2024-04-01] MEDS: PANTOPRAZOLE 40MG VIAL IV SCH (15:51)
[2024-04-01] MEDS: LOPERAMIDE 2 MG CAPLET PO PRN (15:56)
[2024-04-01 19:30] VITALS: BP 126/83; TEMP 99; O2SAT 98
[2024-04-01] MEDS: HEPARIN SOD (PORCINE) 5000UNITS/ML 1ML VIAL/SYRINGE SC SCH (20:31)
[2024-04-01] MEDS: TACROLIMUS 0.5MG CAP PO SCH (20:31)
[2024-04-01] MEDS: [UNRECOGNIZED DRUG - OTHER] PO SCH (20:32)
[2024-04-02 04:40] VITALS: BP 124/83; TEMP 98.8; O2SAT 98
[2024-04-02 06:26] LABS: HEMATOCRIT 31.8 % (42.0-52.0); HEMOGLOBIN 10.9 g/dl (13.5-17.5); MEAN CORPUSCULAR HEMOGLOBIN 30.4 pg (27.0-33.0); MEAN CORPUSCULAR HGB CONC 34.3 g/dl (32.0-36.5); MEAN CORPUSCULAR VOLUME 88.6 fl (80.0-96.0); PLATELET COUNT, AUTOMATED 119 10^3/uL (150-450); RED BLOOD COUNT 3.59 10^6/uL (4.30-6.10); WHITE BLOOD COUNT 5.2 10^3/uL (4.0-10.0)
[2024-04-02 06:50] LABS: BLOOD UREA NITROGEN 10 MG/DL (9-23); CALCIUM LEVEL 8.7 MG/DL (8.5-10.1); CARBON DIOXIDE LEVEL 22 MMOL/L (20-31); CHLORIDE LEVEL 110 MMOL/L (98-107); CREATININE FOR GFR 1.25 MG/DL (0.70-1.30); GLOMERULAR FILTRATION RATE > 60.0 (>60); GLUCOSE, FASTING 100 MG/DL (60-100); POTASSIUM SERUM 5.1 MMOL/L (3.5-5.1); SODIUM LEVEL 138 MMOL/L (136-145)
[2024-04-02] MEDS: SODIUM CHLORIDE 0.9% INJ 10 ML SYR IV SCH (09:00)
[2024-04-02] MEDS: SODIUM CHLORIDE 0.9% INJ 10 ML SYR IV PRN (10:31)
[2024-04-02 14:00] VITALS: BP 144/90; TEMP 97.9; O2SAT 96
[2024-04-02 14:25] LABS: IONIZED CALCIUM 4.8 MG/DL (4.5-5.3)
[2024-04-02 14:59] LABS: MAGNESIUM LEVEL 1.7 MG/DL (1.8-2.4)
[2024-04-02 15:00] LABS: BLOOD UREA NITROGEN 9 MG/DL (9-23); CALCIUM LEVEL 8.6 MG/DL (8.5-10.1); CARBON DIOXIDE LEVEL 24 MMOL/L (20-31); CHLORIDE LEVEL 110 MMOL/L (98-107); CREATININE FOR GFR 1.18 MG/DL (0.70-1.30); GLOMERULAR FILTRATION RATE > 60.0 (>60); GLUCOSE, FASTING 127 MG/DL (60-100); POTASSIUM SERUM 4.7 MMOL/L (3.5-5.1); SODIUM LEVEL 138 MMOL/L (136-145)
[2024-04-02] MEDS: LOMOTIL 2.5MG/0.025MG TABLET PO ONE (15:27)
[2024-04-02] MEDS ORDERED: SIMETHICONE 80MG CHEW TAB PO PRN (20:15)
[2024-04-02] MEDS: NS 1,000 ML IV SCH (20:46)
[2024-04-02] MEDS: LOMOTIL 2.5MG/0.025MG TABLET PO SCH (20:47)
[2024-04-02] MEDS: MAG SULF 1GM/100ML (MAG RUN) 1 GM in IV 1 EA IV SCH (20:47)
[2024-04-02 20:50] VITALS: BP 123/88; TEMP 98.8; O2SAT 99
[2024-04-03 05:45] VITALS: BP 103/70; TEMP 99; O2SAT 97
[2024-04-03 06:20] LABS: BASO % 0.4 % (0.0-1.0); EOS # 0.1 10^3/uL (0.0-0.5); EOS % 2.5 % (0.0-3.0); HEMATOCRIT 29.9 % (42.0-52.0); HEMOGLOBIN 10.1 g/dl (13.5-17.5); LYMPH # 0.2 10^3/uL (1.5-5.0); LYMPH % 4.4 % (24.0-44.0); MEAN CORPUSCULAR HEMOGLOBIN 30.2 pg (27.0-33.0); MEAN CORPUSCULAR HGB CONC 33.8 g/dl (32.0-36.5); MEAN CORPUSCULAR VOLUME 89.5 fl (80.0-96.0); MONO # 0.6 10^3/uL (0.0-0.8); MONO % 11.9 % (2.0-8.0); NEUTROPHILS # 3.8 10^3/uL (1.5-8.5); RED BLOOD COUNT 3.34 10^6/uL (4.30-6.10); WHITE BLOOD COUNT 4.7 10^3/uL (4.0-10.0)
[2024-04-03 06:42] LABS: BLOOD UREA NITROGEN 6 MG/DL (9-23); CALCIUM LEVEL 8.4 MG/DL (8.5-10.1); CARBON DIOXIDE LEVEL 25 MMOL/L (20-31); CHLORIDE LEVEL 110 MMOL/L (98-107); CREATININE FOR GFR 1.23 MG/DL (0.70-1.30); GLOMERULAR FILTRATION RATE > 60.0 (>60); GLUCOSE, FASTING 89 MG/DL (60-100); POTASSIUM SERUM 4.9 MMOL/L (3.5-5.1); SODIUM LEVEL 138 MMOL/L (136-145)
[2024-04-03 07:01] LABS: PLATELET COUNT, AUTOMATED 95 10^3/uL (150-450)
[2024-04-03] MEDS ORDERED: DIPH1TAB81 PO (11:01)
[2024-04-03] MEDS ORDERED: LOPE2CA PO (11:01)
[2024-04-03] MEDS ORDERED: ONDA-284 PO (11:01)
[2024-04-03] MEDS: MIDODRINE 5 MG TAB PO ONE (11:27)
[2024-04-03] MEDS: NS 1,000 ML IV ONE (11:27)
[2024-04-03 12:32] VITALS: BP 130/88
[2024-04-03 13:40] VITALS: BP 129/87; TEMP 98.8; O2SAT 100
[2024-04-10] MEDS ORDERED: OLAN2.5T25 PO (10:47)
== END 2024-04-03 14:56 | disposition home or self-care (01) ==
LOC: M ED 08:29 → M ED INP 14:08 → M MSPAV 15:28
PROVIDERS: ADMIT Internal Medicine; ATTEND General Practice
DX: N17.9 Acute kidney failure, unspecified (principal); R19.7 Diarrhea, unspecified; E87.8 Other disorders of electrolyte and fluid balance, not elsewhere classified; E87.1 Hypo-osmolality and hyponatremia; E83.42 Hypomagnesemia; K52.0 Gastroenteritis and colitis due to radiation; D63.8 Anemia in other chronic diseases classified elsewhere; Z79.899 Other long term (current) drug therapy; Z92.3 Personal history of irradiation; Z92.21 Personal history of antineoplastic chemotherapy; C18.9 Malignant neoplasm of colon, unspecified; C78.7 Secondary malignant neoplasm of liver and intrahepatic bile duct; C79.51 Secondary malignant neoplasm of bone; C77.9 Secondary and unspecified malignant neoplasm of lymph node, unspecified; Z94.4 Liver transplant status
CPT/HCPCS: 36415; 74176; 77386; 80048; 80076; 80197; 82330; 83690; 83735; 85025; 85027; 85049; 85055; 87507; 96361; 96374; 96375; 96376; 99284; C9113; J2405; J2765; J3475

== ENCOUNTER 2024-04-02 11:51 | Outpatient (RCR) | payer OTHER ==
[2024-03-25] MEDS: ONDANSETRON 4MG ORAL DISINTEGRATING TAB PO ONE (13:16)
[2024-03-25] MEDS: PALONOSETRON 0.25MG/5ML VIAL (ALOXI) (FOR ONCOLOGY) IV ONE (14:10)
[2024-03-25] MEDS: NS 1,000 ML IV ONE (14:12)
[2024-03-25] MEDS: MORPHINE 2 MG/ML 1ML VIAL IV ONE (14:44)
[2024-03-25 15:17] VITALS: O2SAT 98
[~2024-04-02 11:51] MED LIST changes: +TACR0.5C3 PO
[2024-04-03] MEDS ORDERED: ONDA-284 PO (11:01)
[2024-04-03] MEDS ORDERED: LOPE2CA PO (11:01)
[2024-04-03] MEDS ORDERED: DIPH1TAB81 PO (11:01)
[2024-04-10] MEDS ORDERED: OLAN2.5T25 PO (10:47)
== END 2024-04-05 ==
LOC: M ONCR 11:51
PROVIDERS: ATTEND General Practice
DX: Z51.0 Encounter for antineoplastic radiation therapy (principal); C77.2 Secondary and unspecified malignant neoplasm of intra-abdominal lymph nodes
CPT/HCPCS: 77300; 77301; 77334; 77336; 77338; 77386; 96374; 96375; J2469

== ENCOUNTER → 2024-04-04 | Outpatient (REF) | payer OTHER ==
[~2024-04-04] MED LIST changes: +LOPE2CA PO; +OLAN2.5T25 PO; +ONDA-284 PO
== END ==
LOC: M LAB REF 07:58
PROVIDERS: ATTEND Internal Medicine Gastroenterology
DX: C18.7 Malignant neoplasm of sigmoid colon (principal); R94.8 Abnormal results of function studies of other organs and systems; Z94.4 Liver transplant status; Z53.9 Procedure and treatment not carried out, unspecified reason

== ENCOUNTER → 2024-04-10 | Outpatient (CLI) | payer OTHER | LOC: M ONCR 10:29 | PROVIDERS: ATTEND General Practice | DX: R11.2 Nausea with vomiting, unspecified (principal); R19.7 Diarrhea, unspecified; K43.9 Ventral hernia without obstruction or gangrene ==

== ENCOUNTER → 2024-04-15 | Outpatient (REF) | payer OTHER ==
[2024-04-15 08:30] LABS: BASO % 0.9 % (0.0-1.0); EOS # 0.4 10^3/uL (0.0-0.5); EOS % 9.9 % (0.0-3.0); HEMATOCRIT 33.4 % (42.0-52.0); HEMOGLOBIN 11.3 g/dl (13.5-17.5); LYMPH # 0.5 10^3/uL (1.5-5.0); LYMPH % 11.9 % (24.0-44.0); MEAN CORPUSCULAR HEMOGLOBIN 30.3 pg (27.0-33.0); MEAN CORPUSCULAR HGB CONC 33.8 g/dl (32.0-36.5); MEAN CORPUSCULAR VOLUME 89.5 fl (80.0-96.0); MONO # 0.9 10^3/uL (0.0-0.8); MONO % 19.8 % (2.0-8.0); NEUTROPHILS # 2.5 10^3/uL (1.5-8.5); NEUTROPHILS % 56.6 % (36.0-66.0); PLATELET COUNT, AUTOMATED 101 10^3/uL (150-450); RED BLOOD COUNT 3.73 10^6/uL (4.30-6.10); WHITE BLOOD COUNT 4.5 10^3/uL (4.0-10.0)
[2024-04-15 09:36] LABS: ALBUMIN 3.4 G/DL (3.2-5.2); ALKALINE PHOSPHATASE 87 U/L (46-116); ALT/SGPT 23 U/L (7.0-40); AST/SGOT 46 U/L (<34); BILIRUBIN,TOTAL 0.8 MG/DL (0.3-1.2); BLOOD UREA NITROGEN 11 MG/DL (9-23); CALCIUM LEVEL 8.8 MG/DL (8.5-10.1); CARBON DIOXIDE LEVEL 26 MMOL/L (20-31); CHLORIDE LEVEL 105 MMOL/L (98-107); GLOMERULAR FILTRATION RATE 59.8 (>60); GLUCOSE, FASTING 103 MG/DL (60-100); SODIUM LEVEL 138 MMOL/L (136-145); TOTAL PROTEIN 6.2 G/DL (5.7-8.2)
== END ==
LOC: M LAB REF 08:03
PROVIDERS: ATTEND Internal Medicine Gastroenterology
DX: C18.7 Malignant neoplasm of sigmoid colon (principal); R94.8 Abnormal results of function studies of other organs and systems; Z94.4 Liver transplant status

== ENCOUNTER → 2024-04-24 | Outpatient (CLI) | payer OTHER | LOC: M ONCR 09:09 | PROVIDERS: ATTEND General Practice | DX: C19 Malignant neoplasm of rectosigmoid junction (principal); C77.2 Secondary and unspecified malignant neoplasm of intra-abdominal lymph nodes; C79.51 Secondary malignant neoplasm of bone; Z71.2 Person consulting for explanation of examination or test findings; Z92.21 Personal history of antineoplastic chemotherapy; Z92.3 Personal history of irradiation; Z94.4 Liver transplant status; Z79.899 Other long term (current) drug therapy | CPT/HCPCS: G0463 ×2 ==

== ENCOUNTER → 2024-04-24 | Outpatient (REF) | payer OTHER ==
[2024-04-24 10:47] LABS: BASO % 0.4 % (0.0-1.0); EOS # 0.3 10^3/uL (0.0-0.5); EOS % 6.2 % (0.0-3.0); HEMATOCRIT 35.1 % (42.0-52.0); HEMOGLOBIN 11.5 g/dl (13.5-17.5); MEAN CORPUSCULAR HEMOGLOBIN 30.7 pg (27.0-33.0); MEAN CORPUSCULAR HGB CONC 32.8 g/dl (32.0-36.5); MEAN CORPUSCULAR VOLUME 93.6 fl (80.0-96.0); MONO # 0.7 10^3/uL (0.0-0.8); MONO % 13.6 % (2.0-8.0); NEUTROPHILS % 60.4 % (36.0-66.0); PLATELET COUNT, AUTOMATED 103 10^3/uL (150-450); RED BLOOD COUNT 3.75 10^6/uL (4.30-6.10)
[2024-04-24 11:24] LABS: ALBUMIN 3.3 G/DL (3.2-5.2); ALKALINE PHOSPHATASE 96 U/L (46-116); ALT/SGPT 28 U/L (7.0-40); AST/SGOT 64 U/L (<34); BILIRUBIN,TOTAL 0.6 MG/DL (0.3-1.2); BLOOD UREA NITROGEN 14 MG/DL (9-23); CALCIUM LEVEL 9.1 MG/DL (8.5-10.1); CARBON DIOXIDE LEVEL 26 MMOL/L (20-31); CHLORIDE LEVEL 106 MMOL/L (98-107); CREATININE FOR GFR 1.59 MG/DL (0.70-1.30); GLOMERULAR FILTRATION RATE 51.6 (>60); GLUCOSE, FASTING 117 MG/DL (60-100); POTASSIUM SERUM 4.2 MMOL/L (3.5-5.1); SODIUM LEVEL 139 MMOL/L (136-145); TOTAL PROTEIN 6.2 G/DL (5.7-8.2)
== END ==
LOC: M LAB REF 10:12
PROVIDERS: ATTEND Internal Medicine Gastroenterology
DX: C18.7 Malignant neoplasm of sigmoid colon (principal); R94.8 Abnormal results of function studies of other organs and systems; Z94.4 Liver transplant status

== ENCOUNTER → 2024-05-02 | Outpatient (REF) | payer OTHER ==
[2024-05-02 10:30] LABS: BASO % 0.7 % (0.0-1.0); EOS # 0.4 10^3/uL (0.0-0.5); EOS % 9.1 % (0.0-3.0); HEMOGLOBIN 10.8 g/dl (13.5-17.5); LYMPH # 1.2 10^3/uL (1.5-5.0); LYMPH % 25.4 % (24.0-44.0); MEAN CORPUSCULAR HEMOGLOBIN 30.5 pg (27.0-33.0); MEAN CORPUSCULAR HGB CONC 32.7 g/dl (32.0-36.5); MEAN CORPUSCULAR VOLUME 93.2 fl (80.0-96.0); MONO # 0.6 10^3/uL (0.0-0.8); MONO % 12.6 % (2.0-8.0); NEUTROPHILS # 2.4 10^3/uL (1.5-8.5); NEUTROPHILS % 51.8 % (36.0-66.0); PLATELET COUNT, AUTOMATED 120 10^3/uL (150-450); RED BLOOD COUNT 3.54 10^6/uL (4.30-6.10); WHITE BLOOD COUNT 4.6 10^3/uL (4.0-10.0)
[2024-05-02 11:07] LABS: ALBUMIN 3.1 G/DL (3.2-5.2); ALKALINE PHOSPHATASE 108 U/L (46-116); ALT/SGPT 26 U/L (7.0-40); AST/SGOT 62 U/L (<34); BILIRUBIN,TOTAL 0.8 MG/DL (0.3-1.2); BLOOD UREA NITROGEN 10 MG/DL (9-23); CALCIUM LEVEL 8.7 MG/DL (8.5-10.1); CARBON DIOXIDE LEVEL 25 MMOL/L (20-31); CHLORIDE LEVEL 106 MMOL/L (98-107); GLOMERULAR FILTRATION RATE > 60.0 (>60); GLUCOSE, FASTING 86 MG/DL (60-100); POTASSIUM SERUM 3.9 MMOL/L (3.5-5.1); SODIUM LEVEL 138 MMOL/L (136-145)
== END ==
LOC: M LAB REF 08:03
PROVIDERS: ATTEND Internal Medicine Gastroenterology
DX: C18.7 Malignant neoplasm of sigmoid colon (principal); R94.8 Abnormal results of function studies of other organs and systems; Z94.4 Liver transplant status

== ENCOUNTER → 2024-05-06 | Outpatient (REF) | payer MEDICARE, OTHER ==
[~2024-05-06] MED LIST changes: +BACI1CAP PO; +BENA2CRE3 TOP; +CIPR500T39 PO; +DIPH-435 PO; +IVERMECTIN; +MAGICMW SSP; +MAGN400T2 PO; +METR-265 PO; +MIDO5TA PO; +MINO100T6 PO; +POTA8CAP10 PO; +TACR1CAP3 PO
[2024-05-06 08:44] LABS: BASO # 0.1 10^3/uL (0.0-0.2); EOS # 0.4 10^3/uL (0.0-0.5); EOS % 7.9 % (0.0-3.0); HEMATOCRIT 34.2 % (42.0-52.0); HEMOGLOBIN 11.3 g/dl (13.5-17.5); LYMPH # 1.2 10^3/uL (1.5-5.0); MEAN CORPUSCULAR HEMOGLOBIN 31.1 pg (27.0-33.0); MEAN CORPUSCULAR VOLUME 94.2 fl (80.0-96.0); MONO # 0.6 10^3/uL (0.0-0.8); MONO % 11.4 % (2.0-8.0); NEUTROPHILS # 2.8 10^3/uL (1.5-8.5); NEUTROPHILS % 55.1 % (36.0-66.0); PLATELET COUNT, AUTOMATED 107 10^3/uL (150-450); RED BLOOD COUNT 3.63 10^6/uL (4.30-6.10); WHITE BLOOD COUNT 5.1 10^3/uL (4.0-10.0)
[2024-05-06 09:44] LABS: ALBUMIN 3.4 G/DL (3.2-5.2); ALKALINE PHOSPHATASE 113 U/L (46-116); ALT/SGPT 27 U/L (7.0-40); AST/SGOT 70 U/L (<34); BILIRUBIN,TOTAL 1.3 MG/DL (0.3-1.2); BLOOD UREA NITROGEN 14 MG/DL (9-23); CALCIUM LEVEL 8.8 MG/DL (8.5-10.1); CARBON DIOXIDE LEVEL 23 MMOL/L (20-31); CHLORIDE LEVEL 105 MMOL/L (98-107); CREATININE FOR GFR 1.36 MG/DL (0.70-1.30); GLOMERULAR FILTRATION RATE > 60.0 (>60); GLUCOSE, FASTING 79 MG/DL (60-100); SODIUM LEVEL 135 MMOL/L (136-145); TOTAL PROTEIN 5.3 G/DL (5.7-8.2)
== END ==
LOC: M LAB REF 08:19
PROVIDERS: ATTEND Internal Medicine Gastroenterology
DX: C18.7 Malignant neoplasm of sigmoid colon (principal); R94.8 Abnormal results of function studies of other organs and systems; Z94.4 Liver transplant status; Z85.05 Personal history of malignant neoplasm of liver

== ENCOUNTER → 2024-05-07 | Outpatient (CLI) | payer MEDICARE, OTHER ==
[~2024-05-07] MED LIST changes: +GASTROGRAFIN SOLUTION 30ML As Ordered ONE; +ISOVUE-370 76% 100ML VIAL As Ordered ONE
== END ==
LOC: M RAD 08:18
PROVIDERS: ATTEND Internal Medicine Medical Oncology
DX: C18.9 Malignant neoplasm of colon, unspecified (principal); C78.7 Secondary malignant neoplasm of liver and intrahepatic bile duct; R59.0 Localized enlarged lymph nodes; R18.8 Other ascites; K43.9 Ventral hernia without obstruction or gangrene
CPT/HCPCS: 71260; 74177; Q9963; Q9967

== ENCOUNTER → 2024-05-15 | Outpatient (CLI) | payer OTHER ==
[~2024-05-15] MED LIST changes: -BACI1CAP PO; -BENA2CRE3 TOP; -CIPR500T39 PO; -DIPH-435 PO; -GASTROGRAFIN SOLUTION 30ML As Ordered ONE; -ISOVUE-370 76% 100ML VIAL As Ordered ONE; -IVERMECTIN; -METR-265 PO; -MIDO5TA PO; -MINO100T6 PO; -POTA8CAP10 PO; -TACR1CAP3 PO
== END ==
LOC: M ONCR 09:22
PROVIDERS: ATTEND General Practice
DX: C77.2 Secondary and unspecified malignant neoplasm of intra-abdominal lymph nodes (principal); C79.51 Secondary malignant neoplasm of bone; J90 Pleural effusion, not elsewhere classified

== ENCOUNTER → 2024-05-20 | Outpatient (REF) | payer OTHER ==
[~2024-05-20] MED LIST changes: -MAGICMW SSP
[2024-05-20 10:43] LABS: BASO % 0.4 % (0.0-1.0); EOS # 0.6 10^3/uL (0.0-0.5); EOS % 12.5 % (0.0-3.0); HEMATOCRIT 30.6 % (42.0-52.0); HEMOGLOBIN 9.9 g/dl (13.5-17.5); LYMPH # 0.8 10^3/uL (1.5-5.0); LYMPH % 17.1 % (24.0-44.0); MEAN CORPUSCULAR HEMOGLOBIN 30.5 pg (27.0-33.0); MEAN CORPUSCULAR HGB CONC 32.4 g/dl (32.0-36.5); MEAN CORPUSCULAR VOLUME 94.2 fl (80.0-96.0); MONO # 0.6 10^3/uL (0.0-0.8); MONO % 12.9 % (2.0-8.0); NEUTROPHILS # 2.7 10^3/uL (1.5-8.5); NEUTROPHILS % 56.7 % (36.0-66.0); PLATELET COUNT, AUTOMATED 104 10^3/uL (150-450); RED BLOOD COUNT 3.25 10^6/uL (4.30-6.10); WHITE BLOOD COUNT 4.8 10^3/uL (4.0-10.0)
[2024-05-20 11:56] LABS: ALBUMIN 2.8 G/DL (3.2-5.2); ALKALINE PHOSPHATASE 109 U/L (46-116); ALT/SGPT 21 U/L (7.0-40); AST/SGOT 81 U/L (<34); BILIRUBIN,TOTAL 0.4 MG/DL (0.3-1.2); BLOOD UREA NITROGEN 8 MG/DL (9-23); CALCIUM LEVEL 8.7 MG/DL (8.5-10.1); CARBON DIOXIDE LEVEL 26 MMOL/L (20-31); CHLORIDE LEVEL 108 MMOL/L (98-107); CREATININE FOR GFR 0.85 MG/DL (0.70-1.30); GLOMERULAR FILTRATION RATE > 60.0 (>60); GLUCOSE, FASTING 99 MG/DL (60-100); POTASSIUM SERUM 3.7 MMOL/L (3.5-5.1); SODIUM LEVEL 139 MMOL/L (136-145); TOTAL PROTEIN 5.8 G/DL (5.7-8.2)
== END ==
LOC: M LAB REF 08:47
PROVIDERS: ATTEND Internal Medicine Gastroenterology
DX: C22.0 Liver cell carcinoma (principal); C18.7 Malignant neoplasm of sigmoid colon; R94.8 Abnormal results of function studies of other organs and systems; Z94.4 Liver transplant status

== ENCOUNTER → 2024-05-30 | Outpatient (REF) | payer OTHER ==
[2024-05-30 11:05] LABS: EOS # 0.1 10^3/uL (0.0-0.5); EOS % 8.9 % (0.0-3.0); HEMATOCRIT 33.9 % (42.0-52.0); LYMPH # 0.5 10^3/uL (1.5-5.0); LYMPH % 52.5 % (24.0-44.0); MEAN CORPUSCULAR HEMOGLOBIN 29.9 pg (27.0-33.0); MEAN CORPUSCULAR HGB CONC 32.4 g/dl (32.0-36.5); MEAN CORPUSCULAR VOLUME 92.1 fl (80.0-96.0); MONO # 0.2 10^3/uL (0.0-0.8); MONO % 16.8 % (2.0-8.0); NEUTROPHILS % 20.8 % (36.0-66.0); PLATELET COUNT, AUTOMATED 110 10^3/uL (150-450); RED BLOOD COUNT 3.68 10^6/uL (4.30-6.10)
[2024-05-30 11:06] LABS: NEUTROPHILS # 0.2 10^3/uL (1.5-8.5)
[2024-05-30 12:16] LABS: ALBUMIN 3.2 G/DL (3.2-5.2); ALKALINE PHOSPHATASE 122 U/L (46-116); ALT/SGPT 18 U/L (7.0-40); AST/SGOT 32 U/L (<34); BILIRUBIN,TOTAL 1.4 MG/DL (0.3-1.2); BLOOD UREA NITROGEN 15 MG/DL (9-23); CARBON DIOXIDE LEVEL 27 MMOL/L (20-31); CHLORIDE LEVEL 104 MMOL/L (98-107); CREATININE FOR GFR 0.98 MG/DL (0.70-1.30); GLOMERULAR FILTRATION RATE > 60.0 (>60); GLUCOSE, FASTING 94 MG/DL (60-100); POTASSIUM SERUM 4.5 MMOL/L (3.5-5.1); SODIUM LEVEL 136 MMOL/L (136-145); TOTAL PROTEIN 6.5 G/DL (5.7-8.2)
== END ==
LOC: M LAB REF 10:53
PROVIDERS: ATTEND Internal Medicine Gastroenterology
DX: C22.0 Liver cell carcinoma (principal); C18.7 Malignant neoplasm of sigmoid colon; R94.8 Abnormal results of function studies of other organs and systems; Z94.4 Liver transplant status

== ENCOUNTER → 2024-06-03 | Outpatient (REF) | payer OTHER ==
[2024-06-03 10:51] LABS: BASO % 1.5 % (0.0-1.0); EOS # 0.1 10^3/uL (0.0-0.5); EOS % 5.9 % (0.0-3.0); HEMATOCRIT 29.2 % (42.0-52.0); HEMOGLOBIN 9.6 g/dl (13.5-17.5); LYMPH # 0.4 10^3/uL (1.5-5.0); MEAN CORPUSCULAR HGB CONC 32.9 g/dl (32.0-36.5); MEAN CORPUSCULAR VOLUME 91.3 fl (80.0-96.0); MONO # 0.5 10^3/uL (0.0-0.8); MONO % 23.9 % (2.0-8.0); NEUTROPHILS # 0.9 10^3/uL (1.5-8.5); NEUTROPHILS % 41.4 % (36.0-66.0); PLATELET COUNT, AUTOMATED 125 10^3/uL (150-450); WHITE BLOOD COUNT 2.1 10^3/uL (4.0-10.0)
[2024-06-03 11:21] LABS: ALBUMIN 3.1 G/DL (3.2-5.2); ALKALINE PHOSPHATASE 101 U/L (46-116); ALT/SGPT 16 U/L (7.0-40); AST/SGOT 19 U/L (<34); BILIRUBIN,TOTAL 0.6 MG/DL (0.3-1.2); BLOOD UREA NITROGEN 10 MG/DL (9-23); CALCIUM LEVEL 8.7 MG/DL (8.5-10.1); CARBON DIOXIDE LEVEL 26 MMOL/L (20-31); CHLORIDE LEVEL 106 MMOL/L (98-107); CREATININE FOR GFR 0.95 MG/DL (0.70-1.30); GLOMERULAR FILTRATION RATE > 60.0 (>60); GLUCOSE, FASTING 96 MG/DL (60-100); POTASSIUM SERUM 4.2 MMOL/L (3.5-5.1); SODIUM LEVEL 139 MMOL/L (136-145); TOTAL PROTEIN 6.3 G/DL (5.7-8.2)
== END ==
LOC: M LAB REF 10:33
PROVIDERS: ATTEND Internal Medicine Gastroenterology
DX: C22.0 Liver cell carcinoma (principal); C18.7 Malignant neoplasm of sigmoid colon; R94.8 Abnormal results of function studies of other organs and systems; Z94.4 Liver transplant status

== ENCOUNTER → 2024-06-10 | Outpatient (CLI) | payer MEDICARE ==
[~2024-06-10] MED LIST changes: +MAGICMW SSP
== END ==
LOC: M CARPUL 09:35
PROVIDERS: ATTEND Internal Medicine Medical Oncology
DX: C18.7 Malignant neoplasm of sigmoid colon (principal); I08.8 Other rheumatic multiple valve diseases

== ENCOUNTER 2024-06-15 15:50 | Inpatient (IN) | payer MEDICARE ==
[~2024-06-15] VITALS: Ht 180.3 cm; Wt 71.3 kg
[2024-06-15 16:34] LABS: HEMATOCRIT 30.3 % (42.0-52.0); HEMOGLOBIN 9.8 g/dl (13.5-17.5); MEAN CORPUSCULAR HEMOGLOBIN 29.7 pg (27.0-33.0); MEAN CORPUSCULAR HGB CONC 32.3 g/dl (32.0-36.5); MEAN CORPUSCULAR VOLUME 91.8 fl (80.0-96.0); PLATELET COUNT, AUTOMATED 132 10^3/uL (150-450); WHITE BLOOD COUNT 6.3 10^3/uL (4.0-10.0)
[2024-06-15 16:48] LABS: INR 1.34; PROTHROMBIN TIME 16.2 SECONDS (12.5-14.5)
[2024-06-15 17:00] LABS: LIPASE 17 U/L (12-53)
[2024-06-15 17:01] LABS: AMYLASE 32 U/L (30-118)
[2024-06-15 17:02] LABS: ALBUMIN 3.7 G/DL (3.2-5.2); ALKALINE PHOSPHATASE 115 U/L (46-116); ALT/SGPT 14 U/L (7.0-40); AST/SGOT 19 U/L (<34); BILIRUBIN,DIRECT 0.5 MG/DL (<0.4); BLOOD UREA NITROGEN 22 MG/DL (9-23); CALCIUM LEVEL 9.1 MG/DL (8.5-10.1); CARBON DIOXIDE LEVEL 24 MMOL/L (20-31); CHLORIDE LEVEL 103 MMOL/L (98-107); CREATININE FOR GFR 1.37 MG/DL (0.70-1.30); GLOMERULAR FILTRATION RATE > 60.0 (>60); GLUCOSE, FASTING 105 MG/DL (60-100); MAGNESIUM LEVEL 1.6 MG/DL (1.8-2.4); SODIUM LEVEL 136 MMOL/L (136-145); TOTAL PROTEIN 7.2 G/DL (5.7-8.2)
[2024-06-15 17:04] LABS: LYMPHOCYTES 9 % (16-44); METAMYELOCYTES 1 % (0-0); MONOCYTES 10 % (0-5); NEUTROPHILS 78 % (28-66); PLATELET ESTIMATE DECREASED (NORMAL)
[2024-06-15] MEDS: NS 1,000 ML IV ONE ×3 (18:31→22:05)
[2024-06-15] MEDS: MAG SULF 1GM/100ML (MAG RUN) 1 GM in IV 1 EA IV ONE ×2 (18:49→22:15)
[2024-06-15] MEDS: LIDOCAINE VISCOUS 2% SOLN 15ML UDC PO ONE (18:49)
[2024-06-15] MEDS: MAALOX 30 ML SUSP *UDC PO ONE (18:49)
[2024-06-15] MEDS: TACROLIMUS 1MG CAP PO SCH (22:11)
[2024-06-15] MEDS ORDERED: ACETAMINOPHEN TAB 650MG DOSE (2X325MG) PO PRN (22:50)
[2024-06-15] MEDS ORDERED: MOM 30ML SUSPENSION UDC PO PRN (22:50)
[2024-06-15] MEDS ORDERED: ONDANSETRON 4MG 2ML VIAL As Ordered ONE (23:07)
[2024-06-15] MEDS: ONDANSETRON 4MG 2ML VIAL IV ONE (23:10)
[2024-06-15] MEDS: cefTRIAXone SOD 1 GM in D5W MINI-BAG PLUS 50 ML IV SCH (23:11)
[2024-06-15] MEDS: LR 1,000 ML IV SCH (23:11)
[2024-06-16 00:23] VITALS: BP 108/68; TEMP 97.6; O2SAT 98
[2024-06-16] MEDS ORDERED: TACR1CAP3 PO (00:27)
[2024-06-16] MEDS ORDERED: IVERMECTIN (00:30)
[2024-06-16] MEDS: ONDANSETRON 4MG 2ML VIAL IV PRN (03:08)
[2024-06-16 03:12] VITALS: BP 101/62; TEMP 99.9; O2SAT 97
[2024-06-16] MEDS ORDERED: diphenhydrAMINE 50MG/ML VIAL IM ONE (03:30)
[2024-06-16] MEDS: diphenhydrAMINE 25MG CAP PO ONE ×2 (03:40→10:21)
[2024-06-16] MEDS: MAALOX 30 ML SUSP *UDC PO ONE ×2 (04:29→13:38)
[2024-06-16 05:49] LABS: HEMATOCRIT 24.4 % (42.0-52.0); MEAN CORPUSCULAR HEMOGLOBIN 29.8 pg (27.0-33.0); MEAN CORPUSCULAR VOLUME 93.1 fl (80.0-96.0); PLATELET COUNT, AUTOMATED 103 10^3/uL (150-450); RED BLOOD COUNT 2.62 10^6/uL (4.30-6.10); WHITE BLOOD COUNT 4.5 10^3/uL (4.0-10.0)
[2024-06-16 05:58] LABS: HEMOGLOBIN 7.8 g/dl (13.5-17.5)
[2024-06-16 06:33] LABS: ALBUMIN 2.5 G/DL (3.2-5.2); ALKALINE PHOSPHATASE 76 U/L (46-116); ALT/SGPT 10 U/L (7.0-40); AST/SGOT 11 U/L (<34); BILIRUBIN,TOTAL 0.5 MG/DL (0.3-1.2); BLOOD UREA NITROGEN 15 MG/DL (9-23); CALCIUM LEVEL 7.6 MG/DL (8.5-10.1); CARBON DIOXIDE LEVEL 24 MMOL/L (20-31); CHLORIDE LEVEL 109 MMOL/L (98-107); CREATININE FOR GFR 0.93 MG/DL (0.70-1.30); GLOMERULAR FILTRATION RATE > 60.0 (>60); GLUCOSE, FASTING 92 MG/DL (60-100); MAGNESIUM LEVEL 1.9 MG/DL (1.8-2.4); POTASSIUM SERUM 4.6 MMOL/L (3.5-5.1); SODIUM LEVEL 139 MMOL/L (136-145); TOTAL PROTEIN 5.2 G/DL (5.7-8.2)
[2024-06-16] MEDS ORDERED: HOME MED LIST COMPLETE! XX SCH (06:35)
[2024-06-16 07:41] VITALS: BP 98/57; TEMP 98.7; O2SAT 100
[2024-06-16] MEDS: HEPARIN SOD (PORCINE) 5000UNITS/ML 1ML VIAL/SYRINGE SC SCH (09:00)
[2024-06-16] MEDS: PANTOPRAZOLE 40MG TAB (PROTONIX) PO SCH (09:09)
[2024-06-16] MEDS ORDERED: LOPERAMIDE 2 MG CAPLET PO PRN (09:50)
[2024-06-16] MEDS ORDERED: oxyCODONE 5MG TAB PO PRN (09:50)
[2024-06-16] MEDS ORDERED: diphenhydrAMINE 25MG CAP PO PRN (09:50)
[2024-06-16] MEDS: TACROLIMUS 1MG CAP PO ONE (10:20)
[2024-06-16] MEDS: MIDODRINE 5 MG TAB PO SCH ×2 (10:21→16:00)
[2024-06-16] MEDS: LOPERAMIDE 2 MG CAPLET PO ONE (10:22)
[2024-06-16] MEDS: NS 500 ML IV ONE (10:25)
[2024-06-16 11:58] VITALS: BP 100/57; TEMP 98.1; O2SAT 100
[2024-06-16] MEDS: CALCIUM CARBONATE 500 MG CHEW U/D PO ONE ×2 (13:10→13:38)
[2024-06-16] MEDS: metroNIDAZOLE (FLAGYL) 500MG TABLET PO SCH (13:37)
[2024-06-16] MEDS: LR 1,000 ML IV SCH (13:40)
[2024-06-16] MEDS ORDERED: MIDO5TA PO (13:41)
[2024-06-16] MEDS ORDERED: CIPR500T39 PO (13:41)
[2024-06-16] MEDS ORDERED: METR-265 PO (13:41)
[2024-06-16] MEDS ORDERED: LOPE2CA PO (13:41)
[2024-06-16] MEDS ORDERED: BACI1CAP PO (13:42)
[2024-06-16 13:57] LABS: HEMATOCRIT 25.3 % (42.0-52.0); HEMOGLOBIN 8.1 g/dl (13.5-17.5)
[2024-06-16 14:23] LABS: C REACTIVE PROTEIN QUANTITATIV 11.9 MG/DL (<1.0)
[2024-06-16 14:36] LABS: PROCALCITONIN 0.21 ng/ml
[2024-06-16] MEDS: methylPREDNISolone 125MG 2ML VIAL IV ONE (14:43)
[2024-06-16 16:00] VITALS: BP 110/67; TEMP 97.1; O2SAT 100
[2024-06-16] MEDS: diphenhydrAMINE CREAM 30GM TOP SCH (16:42)
[2024-06-16] MEDS ORDERED: MAALOX 30 ML SUSP *UDC PO PRN (17:00)
[2024-06-16] MEDS: CIPROFLOXACIN 500MG TABLET PO SCH (17:44)
[2024-06-16 19:51] VITALS: BP 106/65; TEMP 97.7; O2SAT 97
[2024-06-16] MEDS: predniSONE 20 MG TAB PO SCH (20:20)
[2024-06-16] MEDS: TACROLIMUS 1MG CAP PO SCH (20:21)
[2024-06-17] MEDS ORDERED: LR 1,000 ML IV SCH (00:40)
[2024-06-17] MEDS: LR 1,000 ML IV SCH (01:21)
[2024-06-17 03:09] VITALS: BP 108/69; TEMP 97.7; O2SAT 97
[2024-06-17] MEDS ORDERED: BENA2CRE3 TOP (08:14)
[2024-06-17] MEDS ORDERED: DIPH-435 PO (08:14)
[2024-06-17] MEDS ORDERED: ENTER DRUG NAME HERE (PATIENT'S OWN MED) PO SCH (09:00)
[2024-06-17 09:11] LABS: BASO % 0.5 % (0.0-1.0); HEMATOCRIT 28.2 % (42.0-52.0); LYMPH # 0.7 10^3/uL (1.5-5.0); LYMPH % 8.9 % (24.0-44.0); MEAN CORPUSCULAR HEMOGLOBIN 29.5 pg (27.0-33.0); MEAN CORPUSCULAR HGB CONC 31.9 g/dl (32.0-36.5); MEAN CORPUSCULAR VOLUME 92.5 fl (80.0-96.0); MONO # 0.5 10^3/uL (0.0-0.8); MONO % 6.1 % (2.0-8.0); NEUTROPHILS # 6.7 10^3/uL (1.5-8.5); NEUTROPHILS % 81.9 % (36.0-66.0); PLATELET COUNT, AUTOMATED 186 10^3/uL (150-450); RED BLOOD COUNT 3.05 10^6/uL (4.30-6.10); WHITE BLOOD COUNT 8.2 10^3/uL (4.0-10.0)
[2024-06-17 09:18] LABS: ERYTHROCYTE SEDIMENTATION RATE 70 mm/hr (0-15); PROCALCITONIN 0.16 ng/ml
[2024-06-17 09:23] LABS: ALBUMIN 2.9 G/DL (3.2-5.2); ALKALINE PHOSPHATASE 85 U/L (46-116); ALT/SGPT 10 U/L (7.0-40); AST/SGOT 11 U/L (<34); BILIRUBIN,TOTAL 0.3 MG/DL (0.3-1.2); BLOOD UREA NITROGEN 10 MG/DL (9-23); CALCIUM LEVEL 8.7 MG/DL (8.5-10.1); CARBON DIOXIDE LEVEL 25 MMOL/L (20-31); CHLORIDE LEVEL 110 MMOL/L (98-107); GLOMERULAR FILTRATION RATE > 60.0 (>60); GLUCOSE, FASTING 130 MG/DL (60-100); MAGNESIUM LEVEL 1.9 MG/DL (1.8-2.4); POTASSIUM SERUM 4.1 MMOL/L (3.5-5.1); SODIUM LEVEL 141 MMOL/L (136-145); TOTAL PROTEIN 6.2 G/DL (5.7-8.2)
== END 2024-06-17 11:43 | disposition home or self-care (01) | DRG 394 ==
LOC: M ED 15:50 → M ED INP 22:48 → M PCU 06-16 00:24 → M MSPAV 06-17 02:48
PROVIDERS: ADMIT Internal Medicine; ATTEND General Practice
DX: K52.1 Toxic gastroenteritis and colitis (principal); N17.9 Acute kidney failure, unspecified; Z94.4 Liver transplant status; D84.9 Immunodeficiency, unspecified; C79.51 Secondary malignant neoplasm of bone; C77.9 Secondary and unspecified malignant neoplasm of lymph node, unspecified; E86.0 Dehydration; D69.6 Thrombocytopenia, unspecified; D64.81 Anemia due to antineoplastic chemotherapy; T45.1X5A Adverse effect of antineoplastic and immunosuppressive drugs, initial encounter; E83.51 Hypocalcemia; Z85.038 Personal history of other malignant neoplasm of large intestine; Z90.49 Acquired absence of other specified parts of digestive tract; Z79.899 Other long term (current) drug therapy

== ENCOUNTER → 2024-06-20 | Outpatient (REF) | payer MEDICARE ==
[~2024-06-20] MED LIST changes: +BACI1CAP PO; +BENA2CRE3 TOP; +CIPR500T39 PO; +DIPH-435 PO; +IVERMECTIN; +METR-265 PO; +MIDO5TA PO; +MINO100T6 PO; +POTA8CAP10 PO; +TACR1CAP3 PO
[2024-06-20 08:30] LABS: BASO # 0.1 10^3/uL (0.0-0.2); EOS % 0.5 % (0.0-3.0); HEMOGLOBIN 9.3 g/dl (13.5-17.5); LYMPH # 0.6 10^3/uL (1.5-5.0); LYMPH % 10.2 % (24.0-44.0); MEAN CORPUSCULAR HEMOGLOBIN 29.7 pg (27.0-33.0); MEAN CORPUSCULAR HGB CONC 32.1 g/dl (32.0-36.5); MEAN CORPUSCULAR VOLUME 92.7 fl (80.0-96.0); MONO # 0.7 10^3/uL (0.0-0.8); MONO % 11.1 % (2.0-8.0); NEUTROPHILS # 4.3 10^3/uL (1.5-8.5); NEUTROPHILS % 67.7 % (36.0-66.0); PLATELET COUNT, AUTOMATED 183 10^3/uL (150-450); RED BLOOD COUNT 3.13 10^6/uL (4.30-6.10); WHITE BLOOD COUNT 6.3 10^3/uL (4.0-10.0)
[2024-06-20 09:07] LABS: ALBUMIN 2.9 G/DL (3.2-5.2); ALKALINE PHOSPHATASE 87 U/L (46-116); ALT/SGPT 13 U/L (7.0-40); AST/SGOT 20 U/L (<34); BILIRUBIN,TOTAL 0.4 MG/DL (0.3-1.2); BLOOD UREA NITROGEN 7 MG/DL (9-23); CARBON DIOXIDE LEVEL 24 MMOL/L (20-31); CHLORIDE LEVEL 111 MMOL/L (98-107); CREATININE FOR GFR 0.76 MG/DL (0.70-1.30); GLOMERULAR FILTRATION RATE > 60.0 (>60); GLUCOSE, FASTING 94 MG/DL (60-100); POTASSIUM SERUM 3.2 MMOL/L (3.5-5.1); SODIUM LEVEL 142 MMOL/L (136-145); TOTAL PROTEIN 5.7 G/DL (5.7-8.2)
== END ==
LOC: M LAB REF 08:13
PROVIDERS: ATTEND Internal Medicine Gastroenterology
DX: C22.0 Liver cell carcinoma (principal); C18.7 Malignant neoplasm of sigmoid colon; R94.8 Abnormal results of function studies of other organs and systems; Z94.4 Liver transplant status

== ENCOUNTER → 2024-06-27 | Outpatient (REF) | payer MEDICARE | LOC: M LAB REF 08:11 | PROVIDERS: ATTEND Internal Medicine Gastroenterology | DX: C22.0 Liver cell carcinoma (principal); C18.7 Malignant neoplasm of sigmoid colon; R94.8 Abnormal results of function studies of other organs and systems; Z94.4 Liver transplant status ==

== ENCOUNTER → 2024-07-01 | Outpatient (REF) | payer MEDICARE | LOC: M LAB REF 12:34 | PROVIDERS: ATTEND Internal Medicine Gastroenterology | DX: C22.0 Liver cell carcinoma (principal); C18.7 Malignant neoplasm of sigmoid colon; R94.8 Abnormal results of function studies of other organs and systems; Z94.4 Liver transplant status ==

== ENCOUNTER → 2024-07-04 | Outpatient (REF) | payer MEDICARE ==
[2024-07-04 08:39] LABS: HEMATOCRIT 32.4 % (42.0-52.0); HEMOGLOBIN 10.2 g/dl (13.5-17.5); MEAN CORPUSCULAR HEMOGLOBIN 29.7 pg (27.0-33.0); MEAN CORPUSCULAR HGB CONC 31.5 g/dl (32.0-36.5); MEAN CORPUSCULAR VOLUME 94.2 fl (80.0-96.0); PLATELET COUNT, AUTOMATED 202 10^3/uL (150-450); RED BLOOD COUNT 3.44 10^6/uL (4.30-6.10); WHITE BLOOD COUNT 8.5 10^3/uL (4.0-10.0)
[2024-07-04 08:57] LABS: ALBUMIN 3.2 G/DL (3.2-5.2); ALKALINE PHOSPHATASE 126 U/L (46-116); ALT/SGPT 32 U/L (7.0-40); AST/SGOT 27 U/L (<34); BILIRUBIN,TOTAL 0.5 MG/DL (0.3-1.2); BLOOD UREA NITROGEN 14 MG/DL (9-23); CALCIUM LEVEL 8.4 MG/DL (8.5-10.1); CARBON DIOXIDE LEVEL 26 MMOL/L (20-31); CHLORIDE LEVEL 105 MMOL/L (98-107); GLOMERULAR FILTRATION RATE > 60.0 (>60); GLUCOSE, FASTING 86 MG/DL (60-100); POTASSIUM SERUM 3.6 MMOL/L (3.5-5.1); SODIUM LEVEL 136 MMOL/L (136-145)
[2024-07-04 09:22] LABS: EOSINOPHILS 2 % (0-3); LYMPHOCYTES 19 % (16-44); MONOCYTES 9 % (0-5); NEUTROPHILS 63 % (28-66)
[2024-07-04 09:23] LABS: HYPOCHROMASIA 2+; PLATELET ESTIMATE NORMAL (NORMAL)
== END ==
LOC: M LAB REF 07:52
PROVIDERS: ATTEND Internal Medicine Gastroenterology
DX: C22.0 Liver cell carcinoma (principal); C18.7 Malignant neoplasm of sigmoid colon; R94.8 Abnormal results of function studies of other organs and systems; Z94.4 Liver transplant status

== ENCOUNTER → 2024-07-09 | Outpatient (REF) | payer MEDICARE ==
[2024-07-09 08:45] LABS: HEMATOCRIT 30.1 % (42.0-52.0); HEMOGLOBIN 9.4 g/dl (13.5-17.5); MEAN CORPUSCULAR HEMOGLOBIN 29.7 pg (27.0-33.0); MEAN CORPUSCULAR HGB CONC 31.2 g/dl (32.0-36.5); MEAN CORPUSCULAR VOLUME 95.3 fl (80.0-96.0); RED BLOOD COUNT 3.16 10^6/uL (4.30-6.10); WHITE BLOOD COUNT 4.2 10^3/uL (4.0-10.0)
[2024-07-09 08:52] LABS: PLATELET COUNT, AUTOMATED 81 10^3/uL (150-450)
[2024-07-09 09:52] LABS: ANISOCYTOSIS 1+; EOSINOPHILS 3 % (0-3); HYPOCHROMASIA 1+; LYMPHOCYTES 17 % (16-44); METAMYELOCYTES 1 % (0-0); MONOCYTES 6 % (0-5); NEUTROPHILS 66 % (28-66)
[2024-07-09 09:54] LABS: PLATELET ESTIMATE DECREASED (NORMAL)
[2024-07-09 09:57] LABS: ALBUMIN 2.9 G/DL (3.2-5.2); ALKALINE PHOSPHATASE 163 U/L (46-116); ALT/SGPT 32 U/L (7.0-40); AST/SGOT 39 U/L (<34); BILIRUBIN,TOTAL 0.7 MG/DL (0.3-1.2); BLOOD UREA NITROGEN 11 MG/DL (9-23); CALCIUM LEVEL 8.2 MG/DL (8.5-10.1); CARBON DIOXIDE LEVEL 25 MMOL/L (20-31); CHLORIDE LEVEL 107 MMOL/L (98-107); CREATININE FOR GFR 0.59 MG/DL (0.70-1.30); GLOMERULAR FILTRATION RATE > 60.0 (>60); GLUCOSE, FASTING 94 MG/DL (60-100); POTASSIUM SERUM 4.1 MMOL/L (3.5-5.1); SODIUM LEVEL 138 MMOL/L (136-145); TOTAL PROTEIN 5.6 G/DL (5.7-8.2)
== END ==
LOC: M LAB REF 07:59
PROVIDERS: ATTEND Internal Medicine Gastroenterology
DX: C22.0 Liver cell carcinoma (principal); C18.7 Malignant neoplasm of sigmoid colon; R94.8 Abnormal results of function studies of other organs and systems; Z94.4 Liver transplant status

== ENCOUNTER → 2024-07-16 | Outpatient (REF) | payer MEDICARE ==
[2024-07-16 08:58] LABS: HEMATOCRIT 30.8 % (42.0-52.0); HEMOGLOBIN 9.8 g/dl (13.5-17.5); MEAN CORPUSCULAR HEMOGLOBIN 30.2 pg (27.0-33.0); MEAN CORPUSCULAR HGB CONC 31.8 g/dl (32.0-36.5); MEAN CORPUSCULAR VOLUME 95.1 fl (80.0-96.0); PLATELET COUNT, AUTOMATED 199 10^3/uL (150-450); RED BLOOD COUNT 3.24 10^6/uL (4.30-6.10); WHITE BLOOD COUNT 7.6 10^3/uL (4.0-10.0)
[2024-07-16 09:26] LABS: ALBUMIN 3.1 G/DL (3.2-5.2); ALKALINE PHOSPHATASE 157 U/L (46-116); ALT/SGPT 21 U/L (7.0-40); AST/SGOT 23 U/L (<34); BILIRUBIN,TOTAL 0.5 MG/DL (0.3-1.2); BLOOD UREA NITROGEN 9 MG/DL (9-23); CALCIUM LEVEL 8.5 MG/DL (8.5-10.1); CARBON DIOXIDE LEVEL 24 MMOL/L (20-31); CHLORIDE LEVEL 110 MMOL/L (98-107); CREATININE FOR GFR 0.68 MG/DL (0.70-1.30); GLOMERULAR FILTRATION RATE > 60.0 (>60); GLUCOSE, FASTING 108 MG/DL (60-100); POTASSIUM SERUM 3.7 MMOL/L (3.5-5.1); SODIUM LEVEL 142 MMOL/L (136-145)
[2024-07-16 10:44] LABS: ATYPICAL LYMPH 1 % (0-5); LYMPHOCYTES 18 % (16-44); MONOCYTES 8 % (0-5); MYELOCYTES 1 % (0-0); NEUTROPHILS 71 % (28-66)
[2024-07-16 10:46] LABS: ANISOCYTOSIS 1+; MICROCYTOSIS 1+; PLATELET ESTIMATE NORMAL (NORMAL)
== END ==
LOC: M LAB REF 08:10
PROVIDERS: ATTEND Internal Medicine Gastroenterology
DX: C22.0 Liver cell carcinoma (principal); C18.7 Malignant neoplasm of sigmoid colon; R94.8 Abnormal results of function studies of other organs and systems; Z94.4 Liver transplant status

== ENCOUNTER → 2024-07-22 | Outpatient (REF) | payer MEDICARE ==
[2024-07-22 09:40] LABS: BASO % 0.5 % (0.0-1.0); EOS # 0.2 10^3/uL (0.0-0.5); EOS % 3.2 % (0.0-3.0); HEMATOCRIT 27.4 % (42.0-52.0); HEMOGLOBIN 8.6 g/dl (13.5-17.5); LYMPH # 0.7 10^3/uL (1.5-5.0); LYMPH % 10.7 % (24.0-44.0); MEAN CORPUSCULAR HEMOGLOBIN 29.5 pg (27.0-33.0); MEAN CORPUSCULAR HGB CONC 31.4 g/dl (32.0-36.5); MEAN CORPUSCULAR VOLUME 93.8 fl (80.0-96.0); MONO # 0.6 10^3/uL (0.0-0.8); MONO % 9.6 % (2.0-8.0); NEUTROPHILS # 4.7 10^3/uL (1.5-8.5); NEUTROPHILS % 74.7 % (36.0-66.0); PLATELET COUNT, AUTOMATED 163 10^3/uL (150-450); RED BLOOD COUNT 2.92 10^6/uL (4.30-6.10); WHITE BLOOD COUNT 6.2 10^3/uL (4.0-10.0)
[2024-07-22 10:08] LABS: POTASSIUM SERUM 3.5 MMOL/L (3.5-5.1)
== END ==
LOC: M LAB REF 08:59
PROVIDERS: ATTEND Internal Medicine Gastroenterology
DX: C18.7 Malignant neoplasm of sigmoid colon (principal); R94.8 Abnormal results of function studies of other organs and systems; Z94.4 Liver transplant status; C22.0 Liver cell carcinoma

== ENCOUNTER → 2024-08-05 | Outpatient (REF) | payer MEDICARE ==
[~2024-08-05] MED LIST changes: +FURO20TA2 PO; +LONS0.27 PO; -OLAN2.5T25 PO; +OLAN2.5T53 PO; +POTA-298 PO; +PROG1CAP10 PO
[2024-08-05 09:17] LABS: BASO # 0.1 10^3/uL (0.0-0.2); EOS # 0.6 10^3/uL (0.0-0.5); EOS % 9.7 % (0.0-3.0); HEMATOCRIT 32.6 % (42.0-52.0); HEMOGLOBIN 10.1 g/dl (13.5-17.5); LYMPH # 0.7 10^3/uL (1.5-5.0); LYMPH % 12.1 % (24.0-44.0); MEAN CORPUSCULAR HEMOGLOBIN 29.6 pg (27.0-33.0); MEAN CORPUSCULAR VOLUME 95.6 fl (80.0-96.0); MONO # 0.6 10^3/uL (0.0-0.8); MONO % 10.2 % (2.0-8.0); NEUTROPHILS # 3.8 10^3/uL (1.5-8.5); NEUTROPHILS % 66.3 % (36.0-66.0); PLATELET COUNT, AUTOMATED 194 10^3/uL (150-450); RED BLOOD COUNT 3.41 10^6/uL (4.30-6.10); WHITE BLOOD COUNT 5.8 10^3/uL (4.0-10.0)
[2024-08-05 10:02] LABS: ALBUMIN 2.8 G/DL (3.2-5.2); ALKALINE PHOSPHATASE 106 U/L (46-116); ALT/SGPT 11 U/L (7.0-40); AST/SGOT 24 U/L (<34); BILIRUBIN,TOTAL 0.4 MG/DL (0.3-1.2); BLOOD UREA NITROGEN 8 MG/DL (9-23); CALCIUM LEVEL 8.6 MG/DL (8.5-10.1); CARBON DIOXIDE LEVEL 26 MMOL/L (20-31); CHLORIDE LEVEL 111 MMOL/L (98-107); GLOMERULAR FILTRATION RATE > 60.0 (>60); GLUCOSE, FASTING 84 MG/DL (60-100); POTASSIUM SERUM 4.5 MMOL/L (3.5-5.1); SODIUM LEVEL 142 MMOL/L (136-145); TOTAL PROTEIN 6.2 G/DL (5.7-8.2)
[2024-08-05 11:43] LABS: MAGNESIUM LEVEL 1.1 MG/DL (1.8-2.4)
== END ==
LOC: M LAB REF 08:45
PROVIDERS: ATTEND Internal Medicine Gastroenterology
DX: C22.0 Liver cell carcinoma (principal); C18.7 Malignant neoplasm of sigmoid colon; R94.8 Abnormal results of function studies of other organs and systems; Z94.4 Liver transplant status

== ENCOUNTER → 2024-08-06 | Outpatient (CLI) | payer MEDICARE ==
[~2024-08-06] MED LIST changes: -POTA-298 PO; -PROG1CAP10 PO
== END ==
LOC: M ONCR 13:51
PROVIDERS: ATTEND General Practice
DX: C18.9 Malignant neoplasm of colon, unspecified (principal); C77.2 Secondary and unspecified malignant neoplasm of intra-abdominal lymph nodes; C79.51 Secondary malignant neoplasm of bone; M79.602 Pain in left arm; R18.8 Other ascites; Z79.899 Other long term (current) drug therapy; Z94.4 Liver transplant status

== ENCOUNTER 2024-08-14 16:14 | Outpatient (RCR) | payer MEDICARE ==
[2024-08-15] MEDS ORDERED: POTA-298 PO (12:11)
[2024-08-22] MEDS ORDERED: PROG1CAP10 PO (14:50)
[2024-08-29] MEDS ORDERED: ONDA-284 PO (11:46)
[2024-09-02] MEDS ORDERED: HYDR-3713 PO (15:28)
== END 2024-09-05 ==
LOC: M ONCR 16:14
PROVIDERS: ATTEND General Practice
DX: Z51.0 Encounter for antineoplastic radiation therapy (principal); C79.51 Secondary malignant neoplasm of bone

== ENCOUNTER → 2024-08-15 | Outpatient (REF) | payer MEDICARE ==
[~2024-08-15] MED LIST changes: +POTA-298 PO; +PROG1CAP10 PO
[2024-08-15 11:01] LABS: BASO % 0.2 % (0.0-1.0); EOS # 0.1 10^3/uL (0.0-0.5); EOS % 0.8 % (0.0-3.0); HEMATOCRIT 30.9 % (42.0-52.0); HEMOGLOBIN 9.4 g/dl (13.5-17.5); LYMPH # 0.4 10^3/uL (1.5-5.0); LYMPH % 7.1 % (24.0-44.0); MEAN CORPUSCULAR HEMOGLOBIN 28.7 pg (27.0-33.0); MEAN CORPUSCULAR HGB CONC 30.4 g/dl (32.0-36.5); MEAN CORPUSCULAR VOLUME 94.5 fl (80.0-96.0); MONO # 0.5 10^3/uL (0.0-0.8); MONO % 7.6 % (2.0-8.0); NEUTROPHILS # 5.2 10^3/uL (1.5-8.5); NEUTROPHILS % 83.5 % (36.0-66.0); PLATELET COUNT, AUTOMATED 149 10^3/uL (150-450); RED BLOOD COUNT 3.27 10^6/uL (4.30-6.10); WHITE BLOOD COUNT 6.2 10^3/uL (4.0-10.0)
[2024-08-15 13:55] LABS: ALKALINE PHOSPHATASE 127 U/L (46-116); ALT/SGPT 16 U/L (7.0-40); AST/SGOT 39 U/L (<34); BILIRUBIN,TOTAL 0.4 MG/DL (0.3-1.2); BLOOD UREA NITROGEN 18 MG/DL (9-23); CALCIUM LEVEL 9.1 MG/DL (8.5-10.1); CARBON DIOXIDE LEVEL 25 MMOL/L (20-31); CHLORIDE LEVEL 108 MMOL/L (98-107); CREATININE FOR GFR 0.71 MG/DL (0.70-1.30); GLOMERULAR FILTRATION RATE > 60.0 (>60); GLUCOSE, FASTING 105 MG/DL (60-100); POTASSIUM SERUM 3.6 MMOL/L (3.5-5.1); SODIUM LEVEL 141 MMOL/L (136-145); TOTAL PROTEIN 6.3 G/DL (5.7-8.2)
== END ==
LOC: M LAB REF 10:41
PROVIDERS: ATTEND Internal Medicine Gastroenterology
DX: C22.0 Liver cell carcinoma (principal); C18.7 Malignant neoplasm of sigmoid colon; R94.8 Abnormal results of function studies of other organs and systems; Z94.4 Liver transplant status

== ENCOUNTER → 2024-08-19 | Outpatient (REF) | payer MEDICARE ==
[2024-08-19 08:44] LABS: BASO % 0.3 % (0.0-1.0); HEMATOCRIT 31.1 % (42.0-52.0); HEMOGLOBIN 9.9 g/dl (13.5-17.5); LYMPH # 0.7 10^3/uL (1.5-5.0); LYMPH % 6.4 % (24.0-44.0); MEAN CORPUSCULAR HGB CONC 31.8 g/dl (32.0-36.5); MEAN CORPUSCULAR VOLUME 94.2 fl (80.0-96.0); MONO # 1.2 10^3/uL (0.0-0.8); MONO % 10.6 % (2.0-8.0); NEUTROPHILS # 6.2 10^3/uL (1.5-8.5); NEUTROPHILS % 55.6 % (36.0-66.0); PLATELET COUNT, AUTOMATED 175 10^3/uL (150-450); WHITE BLOOD COUNT 11.1 10^3/uL (4.0-10.0)
[2024-08-19 09:30] LABS: ALBUMIN 2.7 G/DL (3.2-5.2); ALKALINE PHOSPHATASE 155 U/L (46-116); ALT/SGPT 21 U/L (7.0-40); AST/SGOT 55 U/L (<34); BILIRUBIN,TOTAL 0.7 MG/DL (0.3-1.2); BLOOD UREA NITROGEN 14 MG/DL (9-23); CALCIUM LEVEL 8.4 MG/DL (8.5-10.1); CARBON DIOXIDE LEVEL 27 MMOL/L (20-31); CHLORIDE LEVEL 107 MMOL/L (98-107); GLOMERULAR FILTRATION RATE > 60.0 (>60); GLUCOSE, FASTING 86 MG/DL (60-100); POTASSIUM SERUM 3.3 MMOL/L (3.5-5.1); SODIUM LEVEL 138 MMOL/L (136-145); TOTAL PROTEIN 5.8 G/DL (5.7-8.2)
[2024-08-19 10:21] LABS: EOS % 26.6 % (0.0-3.0)
== END ==
LOC: M LAB REF 08:17
PROVIDERS: ATTEND Internal Medicine Gastroenterology
DX: C22.0 Liver cell carcinoma (principal); C18.7 Malignant neoplasm of sigmoid colon; R94.8 Abnormal results of function studies of other organs and systems; Z94.4 Liver transplant status

== ENCOUNTER → 2024-08-23 | Outpatient (CLI) | payer MEDICARE ==
[2024-08-23 10:05] VITALS: TEMP 98.3
[2024-08-23 12:15] VITALS: BP 109/68; O2SAT 99
== END ==
LOC: M IRPRO 09:52
PROVIDERS: ATTEND Internal Medicine Medical Oncology
DX: J90 Pleural effusion, not elsewhere classified (principal); C18.9 Malignant neoplasm of colon, unspecified

== ENCOUNTER → 2024-08-28 | Outpatient (CLI) | payer MEDICARE | LOC: M IRPRO 13:11 | PROVIDERS: ATTEND Internal Medicine Medical Oncology | DX: R18.8 Other ascites (principal); C18.9 Malignant neoplasm of colon, unspecified ==

== ENCOUNTER → 2024-08-29 | Outpatient (REF) | payer MEDICARE ==
[2024-08-29 10:39] LABS: BASO % 0.7 % (0.0-1.0); EOS # 1.1 10^3/uL (0.0-0.5); HEMOGLOBIN 9.6 g/dl (13.5-17.5); LYMPH # 0.5 10^3/uL (1.5-5.0); LYMPH % 9.5 % (24.0-44.0); MEAN CORPUSCULAR HEMOGLOBIN 28.7 pg (27.0-33.0); MEAN CORPUSCULAR VOLUME 92.5 fl (80.0-96.0); MONO # 0.5 10^3/uL (0.0-0.8); MONO % 9.5 % (2.0-8.0); NEUTROPHILS # 3.2 10^3/uL (1.5-8.5); NEUTROPHILS % 59.2 % (36.0-66.0); PLATELET COUNT, AUTOMATED 149 10^3/uL (150-450); RED BLOOD COUNT 3.35 10^6/uL (4.30-6.10); WHITE BLOOD COUNT 5.5 10^3/uL (4.0-10.0)
[2024-08-29 11:03] LABS: EOS % 20.7 % (0.0-3.0)
[2024-08-29 11:13] LABS: ALBUMIN 2.7 G/DL (3.2-5.2); ALKALINE PHOSPHATASE 132 U/L (46-116); ALT/SGPT 9 U/L (7.0-40); AST/SGOT 37 U/L (<34); BILIRUBIN,TOTAL 0.4 MG/DL (0.3-1.2); BLOOD UREA NITROGEN 11 MG/DL (9-23); CALCIUM LEVEL 9.2 MG/DL (8.5-10.1); CARBON DIOXIDE LEVEL 24 MMOL/L (20-31); CHLORIDE LEVEL 110 MMOL/L (98-107); CREATININE FOR GFR 0.78 MG/DL (0.70-1.30); GLOMERULAR FILTRATION RATE > 60.0 (>60); GLUCOSE, FASTING 97 MG/DL (60-100); POTASSIUM SERUM 3.9 MMOL/L (3.5-5.1); SODIUM LEVEL 141 MMOL/L (136-145); TOTAL PROTEIN 5.8 G/DL (5.7-8.2)
== END ==
LOC: M LAB REF 09:35
PROVIDERS: ATTEND Internal Medicine Gastroenterology
DX: C22.0 Liver cell carcinoma (principal); C18.7 Malignant neoplasm of sigmoid colon; R94.8 Abnormal results of function studies of other organs and systems; Z94.4 Liver transplant status

== ENCOUNTER → 2024-09-05 | Outpatient (REF) | payer MEDICARE ==
[2024-09-05 09:17] LABS: BASO % 0.5 % (0.0-1.0); EOS # 0.3 10^3/uL (0.0-0.5); EOS % 8.1 % (0.0-3.0); HEMATOCRIT 32.6 % (42.0-52.0); HEMOGLOBIN 10.2 g/dl (13.5-17.5); LYMPH # 0.4 10^3/uL (1.5-5.0); LYMPH % 8.6 % (24.0-44.0); MEAN CORPUSCULAR HEMOGLOBIN 27.9 pg (27.0-33.0); MEAN CORPUSCULAR HGB CONC 31.3 g/dl (32.0-36.5); MEAN CORPUSCULAR VOLUME 89.1 fl (80.0-96.0); MONO # 0.3 10^3/uL (0.0-0.8); MONO % 5.9 % (2.0-8.0); NEUTROPHILS # 3.2 10^3/uL (1.5-8.5); NEUTROPHILS % 75.9 % (36.0-66.0); PLATELET COUNT, AUTOMATED 182 10^3/uL (150-450); RED BLOOD COUNT 3.66 10^6/uL (4.30-6.10); WHITE BLOOD COUNT 4.2 10^3/uL (4.0-10.0)
[2024-09-05 09:23] LABS: ALBUMIN 2.7 G/DL (3.2-5.2); ALKALINE PHOSPHATASE 118 U/L (40-129); ALT/SGPT < 9 U/L (7.0-40); AST/SGOT 35 U/L (<34); BLOOD UREA NITROGEN 19 MG/DL (9-23); CARBON DIOXIDE LEVEL 25 MMOL/L (20-31); CHLORIDE LEVEL 100 MMOL/L (98-107); CREATININE FOR GFR 1.36 MG/DL (0.70-1.30); GLOMERULAR FILTRATION RATE > 60.0 (>60); GLUCOSE, FASTING 89 MG/DL (60-100); POTASSIUM SERUM 4.2 MMOL/L (3.5-5.1); SODIUM LEVEL 130 MMOL/L (136-145); TOTAL PROTEIN 6.6 G/DL (5.7-8.2)
== END ==
LOC: M LAB REF 08:11
PROVIDERS: ATTEND Internal Medicine Gastroenterology
DX: C22.0 Liver cell carcinoma (principal); C18.7 Malignant neoplasm of sigmoid colon; R94.8 Abnormal results of function studies of other organs and systems; Z94.4 Liver transplant status

== ENCOUNTER → 2024-09-06 | Outpatient (CLI) | payer MEDICARE ==
[~2024-09-06] MED LIST changes: +NORCO, ANEXSIA 5/325MG TABLET (HYDROcodone/ACETAMINOPHEN) As Ordered ONE
[2024-09-06 12:16] VITALS: TEMP 98.4
[2024-09-06] MEDS: NORCO, ANEXSIA 5/325MG TABLET (HYDROcodone/ACETAMINOPHEN) PO ONE (13:23)
[2024-09-06 14:30] VITALS: BP 142/102; O2SAT 99
== END ==
LOC: M IRPRO 11:59
PROVIDERS: ATTEND Internal Medicine Medical Oncology
DX: J90 Pleural effusion, not elsewhere classified (principal); C18.9 Malignant neoplasm of colon, unspecified

== ENCOUNTER → 2024-09-12 | Outpatient (REF) | payer MEDICARE ==
[~2024-09-12] MED LIST changes: -NORCO, ANEXSIA 5/325MG TABLET (HYDROcodone/ACETAMINOPHEN) As Ordered ONE
[2024-09-12 09:30] LABS: BASO % 0.4 % (0.0-1.0); EOS # 0.2 10^3/uL (0.0-0.5); EOS % 5.3 % (0.0-3.0); HEMATOCRIT 25.8 % (42.0-52.0); HEMOGLOBIN 8.4 g/dl (13.5-17.5); LYMPH # 0.2 10^3/uL (1.5-5.0); MEAN CORPUSCULAR HEMOGLOBIN 28.1 pg (27.0-33.0); MEAN CORPUSCULAR HGB CONC 32.6 g/dl (32.0-36.5); MEAN CORPUSCULAR VOLUME 86.3 fl (80.0-96.0); MONO # 0.2 10^3/uL (0.0-0.8); MONO % 5.3 % (2.0-8.0); NEUTROPHILS # 2.3 10^3/uL (1.5-8.5); NEUTROPHILS % 80.9 % (36.0-66.0); PLATELET COUNT, AUTOMATED 108 10^3/uL (150-450); RED BLOOD COUNT 2.99 10^6/uL (4.30-6.10); WHITE BLOOD COUNT 2.8 10^3/uL (4.0-10.0)
[2024-09-12 10:00] LABS: ALBUMIN 2.6 G/DL (3.2-5.2); ALKALINE PHOSPHATASE 97 U/L (40-129); ALT/SGPT < 9 U/L (7.0-40); AST/SGOT 23 U/L (<34); BILIRUBIN,TOTAL 0.8 MG/DL (0.3-1.2); BLOOD UREA NITROGEN 16 MG/DL (9-23); CALCIUM LEVEL 8.9 MG/DL (8.5-10.1); CARBON DIOXIDE LEVEL 22 MMOL/L (20-31); CHLORIDE LEVEL 102 MMOL/L (98-107); CREATININE FOR GFR 0.84 MG/DL (0.70-1.30); GLOMERULAR FILTRATION RATE > 60.0 (>60); GLUCOSE, FASTING 104 MG/DL (60-100); POTASSIUM SERUM 4.3 MMOL/L (3.5-5.1); SODIUM LEVEL 130 MMOL/L (136-145); TOTAL PROTEIN 6.1 G/DL (5.7-8.2)
== END ==
LOC: M LAB REF 08:47
PROVIDERS: ATTEND Internal Medicine Gastroenterology
DX: C22.8 Malignant neoplasm of liver, primary, unspecified as to type (principal); C18.7 Malignant neoplasm of sigmoid colon; R94.8 Abnormal results of function studies of other organs and systems; Z94.4 Liver transplant status

== ENCOUNTER → 2024-09-19 | Outpatient (REF) | payer MEDICARE ==
[2024-09-19 10:06] LABS: EOS # 0.1 10^3/uL (0.0-0.5); EOS % 8.2 % (0.0-3.0); HEMATOCRIT 27.2 % (42.0-52.0); HEMOGLOBIN 8.4 g/dl (13.5-17.5); LYMPH # 0.3 10^3/uL (1.5-5.0); MEAN CORPUSCULAR HEMOGLOBIN 27.6 pg (27.0-33.0); MEAN CORPUSCULAR HGB CONC 30.9 g/dl (32.0-36.5); MEAN CORPUSCULAR VOLUME 89.5 fl (80.0-96.0); MONO # 0.1 10^3/uL (0.0-0.8); MONO % 14.8 % (2.0-8.0); RED BLOOD COUNT 3.04 10^6/uL (4.30-6.10)
[2024-09-19 10:10] LABS: ALBUMIN 2.8 G/DL (3.2-5.2); ALKALINE PHOSPHATASE 88 U/L (40-129); ALT/SGPT < 9 U/L (7.0-40); AST/SGOT 24 U/L (<34); BILIRUBIN,TOTAL 0.5 MG/DL (0.3-1.2); BLOOD UREA NITROGEN 14 MG/DL (9-23); CALCIUM LEVEL 9.1 MG/DL (8.5-10.1); CARBON DIOXIDE LEVEL 25 MMOL/L (20-31); CHLORIDE LEVEL 111 MMOL/L (98-107); CREATININE FOR GFR 1.11 MG/DL (0.70-1.30); GLOMERULAR FILTRATION RATE > 60.0 (>60); GLUCOSE, FASTING 87 MG/DL (60-100); POTASSIUM SERUM 4.3 MMOL/L (3.5-5.1); SODIUM LEVEL 140 MMOL/L (136-145); TOTAL PROTEIN 6.6 G/DL (5.7-8.2)
[2024-09-19 10:40] LABS: NEUTROPHILS # 0.2 10^3/uL (1.5-8.5)
[2024-09-19 10:43] LABS: INR 1.16; PROTHROMBIN TIME 15.1 SECONDS (12.5-14.5); WHITE BLOOD COUNT 0.6 10^3/uL (4.0-10.0)
[2024-09-19 10:46] LABS: PLATELET COUNT, AUTOMATED 75 10^3/uL (150-450)
== END ==
LOC: M LAB REF 09:47
PROVIDERS: ATTEND Internal Medicine Gastroenterology
DX: K72.10 Chronic hepatic failure without coma (principal); D68.32 Hemorrhagic disorder due to extrinsic circulating anticoagulants; C22.0 Liver cell carcinoma; Z79.899 Other long term (current) drug therapy; T86.40 Unspecified complication of liver transplant; E87.5 Hyperkalemia

== ENCOUNTER → 2024-09-26 | Outpatient (REF) | payer MEDICARE ==
[2024-09-26 08:56] LABS: BASO % 0.3 % (0.0-1.0); EOS # 0.1 10^3/uL (0.0-0.5); EOS % 2.5 % (0.0-3.0); HEMATOCRIT 29.2 % (42.0-52.0); HEMOGLOBIN 9.1 g/dl (13.5-17.5); LYMPH # 0.4 10^3/uL (1.5-5.0); LYMPH % 10.4 % (24.0-44.0); MEAN CORPUSCULAR HEMOGLOBIN 28.6 pg (27.0-33.0); MEAN CORPUSCULAR HGB CONC 31.2 g/dl (32.0-36.5); MEAN CORPUSCULAR VOLUME 91.8 fl (80.0-96.0); MONO # 0.4 10^3/uL (0.0-0.8); MONO % 10.2 % (2.0-8.0); NEUTROPHILS # 2.9 10^3/uL (1.5-8.5); NEUTROPHILS % 73.8 % (36.0-66.0); PLATELET COUNT, AUTOMATED 132 10^3/uL (150-450); RED BLOOD COUNT 3.18 10^6/uL (4.30-6.10); WHITE BLOOD COUNT 3.9 10^3/uL (4.0-10.0)
[2024-09-26 09:38] LABS: INR 1.22; PROTHROMBIN TIME 15.7 SECONDS (12.5-14.5)
[2024-09-26 11:02] LABS: ALBUMIN 2.8 G/DL (3.2-5.2); ALKALINE PHOSPHATASE 122 U/L (40-129); ALT/SGPT < 9 U/L (7.0-40); AST/SGOT 25 U/L (<34); BILIRUBIN,TOTAL 0.7 MG/DL (0.3-1.2); BLOOD UREA NITROGEN 12 MG/DL (9-23); CALCIUM LEVEL 8.8 MG/DL (8.5-10.1); CARBON DIOXIDE LEVEL 26 MMOL/L (20-31); CHLORIDE LEVEL 108 MMOL/L (98-107); CREATININE FOR GFR 1.13 MG/DL (0.70-1.30); GLOMERULAR FILTRATION RATE > 60.0 (>60); GLUCOSE, FASTING 100 MG/DL (60-100); SODIUM LEVEL 142 MMOL/L (136-145); TOTAL PROTEIN 6.2 G/DL (5.7-8.2)
== END ==
LOC: M LAB REF 08:11
PROVIDERS: ATTEND Internal Medicine Gastroenterology
DX: K72.10 Chronic hepatic failure without coma (principal); D68.32 Hemorrhagic disorder due to extrinsic circulating anticoagulants; C22.0 Liver cell carcinoma; Z79.899 Other long term (current) drug therapy; T86.40 Unspecified complication of liver transplant; E87.5 Hyperkalemia; Z94.4 Liver transplant status

== ENCOUNTER → 2024-10-01 | Outpatient (CLI) | payer MEDICARE | LOC: M ONCM 07:38 | PROVIDERS: ATTEND Dietitian, Registered | DX: C18.9 Malignant neoplasm of colon, unspecified (principal); Z71.3 Dietary counseling and surveillance; Z68.20 Body mass index [BMI] 20.0-20.9, adult ==

== ENCOUNTER → 2024-10-02 | Outpatient (REF) | payer MEDICARE ==
[2024-10-02 08:43] LABS: BASO % 0.5 % (0.0-1.0); HEMATOCRIT 22.2 % (42.0-52.0); LYMPH # 0.3 10^3/uL (1.5-5.0); LYMPH % 15.3 % (24.0-44.0); MEAN CORPUSCULAR HEMOGLOBIN 28.3 pg (27.0-33.0); MEAN CORPUSCULAR HGB CONC 31.5 g/dl (32.0-36.5); MEAN CORPUSCULAR VOLUME 89.9 fl (80.0-96.0); MONO # 0.2 10^3/uL (0.0-0.8); MONO % 8.1 % (2.0-8.0); NEUTROPHILS # 1.6 10^3/uL (1.5-8.5); NEUTROPHILS % 74.1 % (36.0-66.0); RED BLOOD COUNT 2.47 10^6/uL (4.30-6.10); WHITE BLOOD COUNT 2.1 10^3/uL (4.0-10.0)
[2024-10-02 09:08] LABS: ALBUMIN 2.6 G/DL (3.2-5.2); ALKALINE PHOSPHATASE 108 U/L (40-129); ALT/SGPT < 9 U/L (7.0-40); AST/SGOT 22 U/L (<34); BILIRUBIN,TOTAL 0.6 MG/DL (0.3-1.2); BLOOD UREA NITROGEN 19 MG/DL (9-23); CALCIUM LEVEL 8.7 MG/DL (8.5-10.1); CARBON DIOXIDE LEVEL 26 MMOL/L (20-31); CHLORIDE LEVEL 109 MMOL/L (98-107); CREATININE FOR GFR 1.18 MG/DL (0.70-1.30); GLOMERULAR FILTRATION RATE > 60.0 (>60); GLUCOSE, FASTING 91 MG/DL (60-100); POTASSIUM SERUM 4.8 MMOL/L (3.5-5.1); SODIUM LEVEL 138 MMOL/L (136-145); TOTAL PROTEIN 5.8 G/DL (5.7-8.2)
[2024-10-02 09:28] LABS: INR 1.23; PLATELET COUNT, AUTOMATED 82 10^3/uL (150-450); PROTHROMBIN TIME 15.7 SECONDS (12.5-14.5)
== END ==
LOC: M LAB REF 08:18
PROVIDERS: ATTEND Internal Medicine Gastroenterology
DX: K72.10 Chronic hepatic failure without coma (principal); D68.32 Hemorrhagic disorder due to extrinsic circulating anticoagulants; C22.0 Liver cell carcinoma; E87.5 Hyperkalemia; Z94.4 Liver transplant status; Z79.899 Other long term (current) drug therapy

== ENCOUNTER 2024-10-04 10:27 | Observation (INO) | payer MEDICARE ==
[2024-10-04] VITALS (13 sets, daily range): BP systolic 100–118; BP diastolic 75–81; TEMP 97.7–98.6; O2SAT 95–99
[~2024-10-04] VITALS: Ht 180.3 cm; Wt 97.4 kg
[2024-10-04 12:06] LABS: PERCENT SATURATION 43.8 % (19.7-50.0)
[2024-10-04 12:08] LABS: FERRITIN 451.3 NG/ML (10.5-307.3); FOLATE 7.93 NG/ML (>5.4)
[2024-10-04] MEDS ORDERED: HOME MED LIST COMPLETE! XX SCH (12:20)
[2024-10-04] MEDS ORDERED: ONDANSETRON 4MG ORAL DISINTEGRATING TAB PO PRN (12:30)
[2024-10-04] MEDS ORDERED: PROCHLORPERAZINE 5MG TAB PO PRN (12:30)
[2024-10-04] MEDS ORDERED: LOPERAMIDE 2 MG CAPLET PO PRN (12:30)
[2024-10-04] MEDS ORDERED: NORCO, ANEXSIA 5/325MG TABLET (HYDROcodone/ACETAMINOPHEN) PO PRN (12:30)
[2024-10-04] MEDS ORDERED: ISOVUE-370 76% 100ML VIAL As Ordered ONE (12:38)
[2024-10-04 12:59] LABS: TOTAL PROTEIN 5.9 G/DL (5.7-8.2)
[2024-10-04] MEDS: metOLazone 5 MG TAB PO ONE (13:50)
[2024-10-04] MEDS: MIDODRINE 5 MG TAB PO ONE (13:51)
[2024-10-04] MEDS: FUROSEMIDE 40MG/4ML VIAL IV ONE (14:36)
[2024-10-04] MEDS: TACROLIMUS 0.5MG CAP PO SCH (20:43)
[2024-10-04] MEDS: SUCRALFATE 1 GM TAB PO SCH (20:43)
[2024-10-04] MEDS: LONSURF PO SCH (20:44)
[2024-10-04 23:15] LABS: HEMATOCRIT 23.8 % (42.0-52.0); HEMOGLOBIN 7.9 g/dl (13.5-17.5)
[2024-10-05 00:30] VITALS: BP 108/76; TEMP 98.1; O2SAT 96
[2024-10-05 03:36] VITALS: BP 109/72; TEMP 98.1; O2SAT 99
[2024-10-05 04:00] VITALS: BP 107/77; TEMP 97.7; O2SAT 96
[2024-10-05 06:11] LABS: EOS % 0.6 % (0.0-3.0); HEMATOCRIT 23.8 % (42.0-52.0); HEMOGLOBIN 7.8 g/dl (13.5-17.5); LYMPH # 0.2 10^3/uL (1.5-5.0); LYMPH % 12.6 % (24.0-44.0); MEAN CORPUSCULAR HEMOGLOBIN 28.9 pg (27.0-33.0); MEAN CORPUSCULAR HGB CONC 32.8 g/dl (32.0-36.5); MEAN CORPUSCULAR VOLUME 88.1 fl (80.0-96.0); MONO # 0.2 10^3/uL (0.0-0.8); MONO % 9.8 % (2.0-8.0); NEUTROPHILS # 1.3 10^3/uL (1.5-8.5); NEUTROPHILS % 75.9 % (36.0-66.0); WHITE BLOOD COUNT 1.7 10^3/uL (4.0-10.0)
[2024-10-05 06:48] LABS: ALBUMIN 2.7 G/DL (3.2-5.2); ALKALINE PHOSPHATASE 81 U/L (40-129); ALT/SGPT < 9 U/L (7.0-40); AST/SGOT 13 U/L (<34); BILIRUBIN,TOTAL 1.4 MG/DL (0.3-1.2); BLOOD UREA NITROGEN 17 MG/DL (9-23); CALCIUM LEVEL 8.6 MG/DL (8.5-10.1); CARBON DIOXIDE LEVEL 25 MMOL/L (20-31); CHLORIDE LEVEL 111 MMOL/L (98-107); CREATININE FOR GFR 1.18 MG/DL (0.70-1.30); GLOMERULAR FILTRATION RATE > 60.0 (>60); GLUCOSE, FASTING 78 MG/DL (60-100); POTASSIUM SERUM 4.7 MMOL/L (3.5-5.1); SODIUM LEVEL 140 MMOL/L (136-145); TOTAL PROTEIN 5.2 G/DL (5.7-8.2)
[2024-10-05 07:27] LABS: PLATELET COUNT, AUTOMATED 67 10^3/uL (150-450)
[2024-10-05] MEDS: PANTOPRAZOLE 40MG TAB (PROTONIX) PO SCH (08:23)
[2024-10-05 08:40] LABS: HEMATOCRIT 25.7 % (42.0-52.0); HEMOGLOBIN 8.5 g/dl (13.5-17.5)
[2024-10-18] MEDS ORDERED: MINO100C4 PO (11:02)
== END 2024-10-05 10:32 | disposition home or self-care (01) ==
LOC: M ED 10:27 → M ED INP 10:28 → M MSPAV 13:02
PROVIDERS: ADMIT General Practice; ATTEND General Practice
DX: D64.81 Anemia due to antineoplastic chemotherapy (principal); D61.810 Antineoplastic chemotherapy induced pancytopenia; J91.0 Malignant pleural effusion; K92.2 Gastrointestinal hemorrhage, unspecified; N17.9 Acute kidney failure, unspecified; K52.89 Other specified noninfective gastroenteritis and colitis; C19 Malignant neoplasm of rectosigmoid junction; C78.7 Secondary malignant neoplasm of liver and intrahepatic bile duct; E83.51 Hypocalcemia; R16.1 Splenomegaly, not elsewhere classified; Z79.899 Other long term (current) drug therapy; Z79.51 Long term (current) use of inhaled steroids
CPT/HCPCS: 36415; 71045; 71275; 80053; 82607; 82728; 82746; 83550; 83615; 83880; 84155; 85014; 85018; 85025; 85049; 85055; 86850; 86900; 86901; 86920; 93005; 96374; 99285; G0378; J1940; P9016; P9047; Q9967

== ENCOUNTER → 2024-10-10 | Outpatient (CLI) | payer MEDICARE ==
[~2024-10-10] MED LIST changes: +ISOVUE-370 76% 100ML VIAL As Ordered ONE
== END ==
LOC: M RAD 15:43
PROVIDERS: ATTEND Internal Medicine Medical Oncology
DX: C18.9 Malignant neoplasm of colon, unspecified (principal); M84.58XD Pathological fracture in neoplastic disease, other specified site, subsequent encounter for fracture with routine healing; R18.8 Other ascites; R16.1 Splenomegaly, not elsewhere classified; Z90.49 Acquired absence of other specified parts of digestive tract

== ENCOUNTER → 2024-10-10 | Outpatient (REF) | payer MEDICARE, MEDICAID ==
[~2024-10-10] MED LIST changes: -ISOVUE-370 76% 100ML VIAL As Ordered ONE
[2024-10-10 09:00] LABS: BASO % 0.7 % (0.0-1.0); EOS % 1.4 % (0.0-3.0); HEMATOCRIT 28.2 % (42.0-52.0); HEMOGLOBIN 9.2 g/dl (13.5-17.5); LYMPH # 0.4 10^3/uL (1.5-5.0); LYMPH % 14.2 % (24.0-44.0); MEAN CORPUSCULAR HEMOGLOBIN 29.6 pg (27.0-33.0); MEAN CORPUSCULAR HGB CONC 32.6 g/dl (32.0-36.5); MEAN CORPUSCULAR VOLUME 90.7 fl (80.0-96.0); MONO # 0.5 10^3/uL (0.0-0.8); MONO % 17.6 % (2.0-8.0); NEUTROPHILS # 1.8 10^3/uL (1.5-8.5); NEUTROPHILS % 60.7 % (36.0-66.0); RED BLOOD COUNT 3.11 10^6/uL (4.30-6.10)
[2024-10-10 09:03] LABS: PLATELET COUNT, AUTOMATED 93 10^3/uL (150-450)
[2024-10-10 09:46] LABS: ALKALINE PHOSPHATASE 96 U/L (40-129); ALT/SGPT < 9 U/L (7.0-40); AST/SGOT 14 U/L (<34); BILIRUBIN,TOTAL 1.5 MG/DL (0.3-1.2); BLOOD UREA NITROGEN 19 MG/DL (9-23); CALCIUM LEVEL 9.2 MG/DL (8.5-10.1); CARBON DIOXIDE LEVEL 26 MMOL/L (20-31); CHLORIDE LEVEL 106 MMOL/L (98-107); CREATININE FOR GFR 1.07 MG/DL (0.70-1.30); GLOMERULAR FILTRATION RATE > 60.0 (>60); GLUCOSE, FASTING 93 MG/DL (60-100); POTASSIUM SERUM 4.5 MMOL/L (3.5-5.1); SODIUM LEVEL 141 MMOL/L (136-145); TOTAL PROTEIN 6.2 G/DL (5.7-8.2)
[2024-10-10 09:53] LABS: INR 1.24; PROTHROMBIN TIME 15.9 SECONDS (12.5-14.5)
== END ==
LOC: M LAB REF 10-07 10:23
PROVIDERS: ATTEND Internal Medicine Gastroenterology
DX: K72.10 Chronic hepatic failure without coma (principal); D68.32 Hemorrhagic disorder due to extrinsic circulating anticoagulants; C22.0 Liver cell carcinoma; Z79.899 Other long term (current) drug therapy; T86.40 Unspecified complication of liver transplant; E87.5 Hyperkalemia

== ENCOUNTER → 2024-10-14 | Outpatient (REF) | payer MEDICARE ==
[~2024-10-14] MED LIST changes: +MINO100C4 PO
[2024-10-14 14:04] LABS: TOTAL PROTEIN 24 HOUR URINE 703.3 MG/24HR (50-80); URINE TOTAL PROTEIN 156.3 MG/DL (0-14)
== END ==
LOC: M LAB REF 12:49
PROVIDERS: ATTEND Internal Medicine Medical Oncology
DX: C78.5 Secondary malignant neoplasm of large intestine and rectum (principal)

== ENCOUNTER → 2024-10-17 | Outpatient (REF) | payer MEDICARE ==
[2024-10-17 09:02] LABS: BASO % 0.4 % (0.0-1.0); EOS # 0.1 10^3/uL (0.0-0.5); EOS % 1.4 % (0.0-3.0); HEMOGLOBIN 9.5 g/dl (13.5-17.5); LYMPH # 0.5 10^3/uL (1.5-5.0); LYMPH % 5.3 % (24.0-44.0); MEAN CORPUSCULAR HEMOGLOBIN 29.8 pg (27.0-33.0); MEAN CORPUSCULAR HGB CONC 31.7 g/dl (32.0-36.5); MONO # 0.6 10^3/uL (0.0-0.8); MONO % 6.9 % (2.0-8.0); NEUTROPHILS # 7.8 10^3/uL (1.5-8.5); PLATELET COUNT, AUTOMATED 136 10^3/uL (150-450); RED BLOOD COUNT 3.19 10^6/uL (4.30-6.10); WHITE BLOOD COUNT 9.2 10^3/uL (4.0-10.0)
[2024-10-17 09:22] LABS: INR 1.27; PROTHROMBIN TIME 16.2 SECONDS (12.5-14.5)
[2024-10-17 09:39] LABS: ALBUMIN 2.9 G/DL (3.2-5.2); ALKALINE PHOSPHATASE 123 U/L (40-129); ALT/SGPT < 9 U/L (7.0-40); AST/SGOT 23 U/L (<34); BILIRUBIN,TOTAL 0.7 MG/DL (0.3-1.2); BLOOD UREA NITROGEN 18 MG/DL (9-23); CALCIUM LEVEL 9.2 MG/DL (8.5-10.1); CARBON DIOXIDE LEVEL 26 MMOL/L (20-31); CHLORIDE LEVEL 108 MMOL/L (98-107); GLOMERULAR FILTRATION RATE 59.5 (>60); GLUCOSE, FASTING 81 MG/DL (60-100); POTASSIUM SERUM 4.2 MMOL/L (3.5-5.1); SODIUM LEVEL 142 MMOL/L (136-145); TOTAL PROTEIN 6.3 G/DL (5.7-8.2)
== END ==
LOC: M LAB REF 08:41
PROVIDERS: ATTEND Internal Medicine Gastroenterology
DX: K72.10 Chronic hepatic failure without coma (principal); D68.32 Hemorrhagic disorder due to extrinsic circulating anticoagulants; C22.0 Liver cell carcinoma; Z79.899 Other long term (current) drug therapy; E87.5 Hyperkalemia; Z94.4 Liver transplant status

== ENCOUNTER → 2024-10-23 | Outpatient (REF) | payer MEDICARE, MEDICAID ==
[2024-10-23 08:47] LABS: BASO # 0.1 10^3/uL (0.0-0.2); BASO % 0.4 % (0.0-1.0); EOS # 0.2 10^3/uL (0.0-0.5); EOS % 1.9 % (0.0-3.0); HEMATOCRIT 30.9 % (42.0-52.0); LYMPH # 0.8 10^3/uL (1.5-5.0); LYMPH % 6.5 % (24.0-44.0); MEAN CORPUSCULAR HEMOGLOBIN 31.1 pg (27.0-33.0); MEAN CORPUSCULAR HGB CONC 32.4 g/dl (32.0-36.5); MONO # 1.1 10^3/uL (0.0-0.8); MONO % 8.8 % (2.0-8.0); NEUTROPHILS # 9.9 10^3/uL (1.5-8.5); NEUTROPHILS % 81.4 % (36.0-66.0); PLATELET COUNT, AUTOMATED 164 10^3/uL (150-450); RED BLOOD COUNT 3.22 10^6/uL (4.30-6.10); WHITE BLOOD COUNT 12.2 10^3/uL (4.0-10.0)
[2024-10-23 09:24] LABS: ALBUMIN 2.9 G/DL (3.2-5.2); ALKALINE PHOSPHATASE 159 U/L (40-129); ALT/SGPT < 9 U/L (7.0-40); AST/SGOT 28 U/L (<34); BILIRUBIN,TOTAL 0.9 MG/DL (0.3-1.2); BLOOD UREA NITROGEN 27 MG/DL (9-23); CARBON DIOXIDE LEVEL 24 MMOL/L (20-31); CHLORIDE LEVEL 108 MMOL/L (98-107); CREATININE FOR GFR 1.21 MG/DL (0.70-1.30); GLOMERULAR FILTRATION RATE > 60.0 (>60); GLUCOSE, FASTING 100 MG/DL (60-100); POTASSIUM SERUM 3.8 MMOL/L (3.5-5.1); SODIUM LEVEL 143 MMOL/L (136-145); TOTAL PROTEIN 6.3 G/DL (5.7-8.2)
[2024-10-23 09:28] LABS: INR 1.13; PROTHROMBIN TIME 14.8 SECONDS (12.5-14.5)
== END ==
LOC: M LAB REF 08:22
PROVIDERS: ATTEND Internal Medicine Gastroenterology
DX: K72.10 Chronic hepatic failure without coma (principal); D68.32 Hemorrhagic disorder due to extrinsic circulating anticoagulants; C22.0 Liver cell carcinoma; Z79.899 Other long term (current) drug therapy; T86.40 Unspecified complication of liver transplant; E87.5 Hyperkalemia

== ENCOUNTER → 2024-11-01 | Outpatient (CLI) | payer MEDICAID, MEDICARE ==
[2024-11-01 07:30] VITALS: TEMP 98.3
[2024-11-01 10:00] VITALS: BP 139/94; O2SAT 100
== END ==
LOC: M IRPRO 07:19
PROVIDERS: ATTEND Internal Medicine Medical Oncology
DX: R18.8 Other ascites (principal); C18.9 Malignant neoplasm of colon, unspecified

== ENCOUNTER → 2024-11-07 | Outpatient (REF) | payer MEDICARE ==
[2024-11-07 08:34] LABS: BASO # 0.1 10^3/uL (0.0-0.2); BASO % 0.5 % (0.0-1.0); EOS # 0.2 10^3/uL (0.0-0.5); EOS % 1.7 % (0.0-3.0); HEMATOCRIT 29.9 % (42.0-52.0); HEMOGLOBIN 9.4 g/dl (13.5-17.5); LYMPH # 0.9 10^3/uL (1.5-5.0); LYMPH % 6.9 % (24.0-44.0); MEAN CORPUSCULAR HEMOGLOBIN 31.4 pg (27.0-33.0); MEAN CORPUSCULAR HGB CONC 31.4 g/dl (32.0-36.5); MONO # 1.1 10^3/uL (0.0-0.8); MONO % 8.1 % (2.0-8.0); NEUTROPHILS # 10.5 10^3/uL (1.5-8.5); NEUTROPHILS % 79.2 % (36.0-66.0); PLATELET COUNT, AUTOMATED 166 10^3/uL (150-450); RED BLOOD COUNT 2.99 10^6/uL (4.30-6.10); WHITE BLOOD COUNT 13.3 10^3/uL (4.0-10.0)
[2024-11-07 08:55] LABS: INR 1.05
[2024-11-07 09:18] LABS: ALKALINE PHOSPHATASE 195 U/L (40-129); ALT/SGPT < 9 U/L (7.0-40); AST/SGOT 25 U/L (<34); BILIRUBIN,TOTAL 0.5 MG/DL (0.3-1.2); BLOOD UREA NITROGEN 20 MG/DL (9-23); CALCIUM LEVEL 9.5 MG/DL (8.5-10.1); CARBON DIOXIDE LEVEL 26 MMOL/L (20-31); CHLORIDE LEVEL 108 MMOL/L (98-107); CREATININE FOR GFR 1.02 MG/DL (0.70-1.30); GLOMERULAR FILTRATION RATE > 60.0 (>60); GLUCOSE, FASTING 100 MG/DL (60-100); POTASSIUM SERUM 3.9 MMOL/L (3.5-5.1); SODIUM LEVEL 143 MMOL/L (136-145)
== END ==
LOC: M LAB REF 08:15
PROVIDERS: ATTEND Internal Medicine Gastroenterology
DX: K72.10 Chronic hepatic failure without coma (principal); D68.32 Hemorrhagic disorder due to extrinsic circulating anticoagulants; C22.0 Liver cell carcinoma; Z79.899 Other long term (current) drug therapy; T86.40 Unspecified complication of liver transplant; E87.5 Hyperkalemia; Z94.4 Liver transplant status

== ENCOUNTER → 2024-11-13 | Outpatient (REF) | payer MEDICARE ==
[2024-11-13 08:24] LABS: BASO # 0.1 10^3/uL (0.0-0.2); BASO % 0.6 % (0.0-1.0); EOS # 0.3 10^3/uL (0.0-0.5); EOS % 3.1 % (0.0-3.0); HEMATOCRIT 25.8 % (42.0-52.0); HEMOGLOBIN 8.2 g/dl (13.5-17.5); LYMPH # 0.9 10^3/uL (1.5-5.0); MEAN CORPUSCULAR HEMOGLOBIN 32.5 pg (27.0-33.0); MEAN CORPUSCULAR HGB CONC 31.8 g/dl (32.0-36.5); MEAN CORPUSCULAR VOLUME 102.4 fl (80.0-96.0); MONO # 1.2 10^3/uL (0.0-0.8); MONO % 10.6 % (2.0-8.0); NEUTROPHILS # 8.4 10^3/uL (1.5-8.5); NEUTROPHILS % 76.8 % (36.0-66.0); PLATELET COUNT, AUTOMATED 140 10^3/uL (150-450); RED BLOOD COUNT 2.52 10^6/uL (4.30-6.10); WHITE BLOOD COUNT 10.9 10^3/uL (4.0-10.0)
[2024-11-13 09:38] LABS: ALBUMIN 2.6 G/DL (3.2-5.2); ALKALINE PHOSPHATASE 144 U/L (40-129); ALT/SGPT < 9 U/L (7.0-40); AST/SGOT 30 U/L (<34); BILIRUBIN,TOTAL 0.5 MG/DL (0.3-1.2); BLOOD UREA NITROGEN 28 MG/DL (9-23); CARBON DIOXIDE LEVEL 24 MMOL/L (20-31); CHLORIDE LEVEL 109 MMOL/L (98-107); CREATININE FOR GFR 1.08 MG/DL (0.70-1.30); GLOMERULAR FILTRATION RATE > 60.0 (>60); GLUCOSE, FASTING 107 MG/DL (60-100); POTASSIUM SERUM 3.4 MMOL/L (3.5-5.1); SODIUM LEVEL 142 MMOL/L (136-145); TOTAL PROTEIN 5.8 G/DL (5.7-8.2)
== END ==
LOC: M LAB REF 08:07
PROVIDERS: ATTEND Internal Medicine Gastroenterology
DX: K72.10 Chronic hepatic failure without coma (principal); D68.32 Hemorrhagic disorder due to extrinsic circulating anticoagulants; C22.0 Liver cell carcinoma; Z79.899 Other long term (current) drug therapy; T86.40 Unspecified complication of liver transplant; E87.5 Hyperkalemia

== ENCOUNTER → 2024-12-04 | Outpatient (REF) | payer MEDICARE, OTHER, MEDICAID ==
[~2024-12-04] MED LIST changes: +SENO8.6T5 PO
[2024-12-04 08:15] LABS: BASO # 0.1 10^3/uL (0.0-0.2); BASO % 0.6 % (0.0-1.0); EOS # 0.3 10^3/uL (0.0-0.5); EOS % 2.3 % (0.0-3.0); HEMATOCRIT 31.1 % (42.0-52.0); HEMOGLOBIN 10.3 g/dl (13.5-17.5); LYMPH # 0.8 10^3/uL (1.5-5.0); LYMPH % 5.8 % (24.0-44.0); MEAN CORPUSCULAR HGB CONC 33.1 g/dl (32.0-36.5); MEAN CORPUSCULAR VOLUME 99.7 fl (80.0-96.0); MONO # 0.9 10^3/uL (0.0-0.8); MONO % 7.1 % (2.0-8.0); NEUTROPHILS % 83.1 % (36.0-66.0); PLATELET COUNT, AUTOMATED 105 10^3/uL (150-450); RED BLOOD COUNT 3.12 10^6/uL (4.30-6.10); WHITE BLOOD COUNT 13.2 10^3/uL (4.0-10.0)
[2024-12-04 08:56] LABS: ALBUMIN 2.6 G/DL (3.2-5.2); ALKALINE PHOSPHATASE 381 U/L (40-129); ALT/SGPT 14 U/L (7.0-40); AST/SGOT 61 U/L (<34); BLOOD UREA NITROGEN 25 MG/DL (9-23); CALCIUM LEVEL 8.5 MG/DL (8.5-10.1); CARBON DIOXIDE LEVEL 22 MMOL/L (20-31); CHLORIDE LEVEL 109 MMOL/L (98-107); CREATININE FOR GFR 1.16 MG/DL (0.70-1.30); GLOMERULAR FILTRATION RATE > 60.0 (>60); GLUCOSE, FASTING 97 MG/DL (60-100); POTASSIUM SERUM 3.8 MMOL/L (3.5-5.1); SODIUM LEVEL 142 MMOL/L (136-145); TOTAL PROTEIN 5.5 G/DL (5.7-8.2)
== END ==
LOC: M LAB REF 07:50
PROVIDERS: ATTEND Internal Medicine Gastroenterology
DX: K72.10 Chronic hepatic failure without coma (principal); D68.32 Hemorrhagic disorder due to extrinsic circulating anticoagulants; C22.0 Liver cell carcinoma; Z79.899 Other long term (current) drug therapy; T86.40 Unspecified complication of liver transplant; E87.5 Hyperkalemia

== ENCOUNTER → 2024-12-10 | Outpatient (CLI) | payer MEDICARE, OTHER ==
[2024-12-10 14:25] VITALS: TEMP 98.2
[2024-12-10 15:58] VITALS: BP 118/83; O2SAT 100
== END ==
LOC: M IRPRO 14:10
PROVIDERS: ATTEND Internal Medicine Medical Oncology
DX: R18.8 Other ascites (principal); C18.9 Malignant neoplasm of colon, unspecified

== ENCOUNTER → 2024-12-11 | Outpatient (REF) | payer MEDICARE ==
[2024-12-11 08:44] LABS: BASO # 0.1 10^3/uL (0.0-0.2); BASO % 0.6 % (0.0-1.0); EOS # 0.4 10^3/uL (0.0-0.5); EOS % 3.8 % (0.0-3.0); HEMATOCRIT 30.2 % (42.0-52.0); HEMOGLOBIN 9.9 g/dl (13.5-17.5); LYMPH # 0.5 10^3/uL (1.5-5.0); LYMPH % 4.7 % (24.0-44.0); MEAN CORPUSCULAR HEMOGLOBIN 32.6 pg (27.0-33.0); MEAN CORPUSCULAR HGB CONC 32.8 g/dl (32.0-36.5); MEAN CORPUSCULAR VOLUME 99.3 fl (80.0-96.0); MONO % 8.4 % (2.0-8.0); NEUTROPHILS # 9.5 10^3/uL (1.5-8.5); NEUTROPHILS % 81.9 % (36.0-66.0); PLATELET COUNT, AUTOMATED 122 10^3/uL (150-450); RED BLOOD COUNT 3.04 10^6/uL (4.30-6.10); WHITE BLOOD COUNT 11.6 10^3/uL (4.0-10.0)
[2024-12-11 09:33] LABS: ALBUMIN 2.3 G/DL (3.2-5.2); ALKALINE PHOSPHATASE 223 U/L (40-129); ALT/SGPT < 9 U/L (7.0-40); AST/SGOT 50 U/L (<34); BILIRUBIN,TOTAL 0.5 MG/DL (0.3-1.2); BLOOD UREA NITROGEN 25 MG/DL (9-23); CARBON DIOXIDE LEVEL 24 MMOL/L (20-31); CHLORIDE LEVEL 104 MMOL/L (98-107); CREATININE FOR GFR 1.19 MG/DL (0.70-1.30); GLOMERULAR FILTRATION RATE > 60.0 (>60); GLUCOSE, FASTING 119 MG/DL (60-100); POTASSIUM SERUM 3.7 MMOL/L (3.5-5.1); SODIUM LEVEL 140 MMOL/L (136-145); TOTAL PROTEIN 5.6 G/DL (5.7-8.2)
== END ==
LOC: M LAB REF 08:23
PROVIDERS: ATTEND Internal Medicine Gastroenterology
DX: K72.10 Chronic hepatic failure without coma (principal); D68.32 Hemorrhagic disorder due to extrinsic circulating anticoagulants; C22.0 Liver cell carcinoma; Z79.899 Other long term (current) drug therapy; T86.40 Unspecified complication of liver transplant; E87.5 Hyperkalemia

== ENCOUNTER → 2024-12-18 | Outpatient (REF) | payer MEDICARE ==
[2024-12-18 10:15] LABS: ALBUMIN 2.1 G/DL (3.2-5.2); ALKALINE PHOSPHATASE 223 U/L (40-129); ALT/SGPT < 9 U/L (7.0-40); AST/SGOT 48 U/L (<34); BILIRUBIN,TOTAL 0.4 MG/DL (0.3-1.2); BLOOD UREA NITROGEN 32 MG/DL (9-23); CALCIUM LEVEL 8.2 MG/DL (8.5-10.1); CARBON DIOXIDE LEVEL 24 MMOL/L (20-31); CHLORIDE LEVEL 108 MMOL/L (98-107); CREATININE FOR GFR 1.03 MG/DL (0.70-1.30); GLOMERULAR FILTRATION RATE > 60.0 (>60); GLUCOSE, FASTING 104 MG/DL (60-100); POTASSIUM SERUM 4.2 MMOL/L (3.5-5.1); SODIUM LEVEL 140 MMOL/L (136-145); TOTAL PROTEIN 5.6 G/DL (5.7-8.2)
[2024-12-18 10:33] LABS: BASO # 0.1 10^3/uL (0.0-0.2); BASO % 0.5 % (0.0-1.0); EOS # 0.7 10^3/uL (0.0-0.5); EOS % 5.9 % (0.0-3.0); HEMATOCRIT 28.7 % (42.0-52.0); HEMOGLOBIN 9.3 g/dl (13.5-17.5); LYMPH # 0.7 10^3/uL (1.5-5.0); LYMPH % 5.7 % (24.0-44.0); MEAN CORPUSCULAR HEMOGLOBIN 32.7 pg (27.0-33.0); MEAN CORPUSCULAR HGB CONC 32.4 g/dl (32.0-36.5); MEAN CORPUSCULAR VOLUME 101.1 fl (80.0-96.0); MONO # 1.1 10^3/uL (0.0-0.8); MONO % 9.7 % (2.0-8.0); NEUTROPHILS # 8.9 10^3/uL (1.5-8.5); NEUTROPHILS % 77.7 % (36.0-66.0); PLATELET COUNT, AUTOMATED 178 10^3/uL (150-450); RED BLOOD COUNT 2.84 10^6/uL (4.30-6.10); WHITE BLOOD COUNT 11.4 10^3/uL (4.0-10.0)
== END ==
LOC: M LAB REF 08:23
PROVIDERS: ATTEND Internal Medicine Gastroenterology
DX: K72.10 Chronic hepatic failure without coma (principal); D68.32 Hemorrhagic disorder due to extrinsic circulating anticoagulants; C22.0 Liver cell carcinoma; Z79.899 Other long term (current) drug therapy; T86.40 Unspecified complication of liver transplant; E87.5 Hyperkalemia

== ENCOUNTER → 2024-12-25 | Outpatient (REF) | payer MEDICARE ==
[2024-12-25 09:10] LABS: BASO # 0.1 10^3/uL (0.0-0.2); BASO % 0.6 % (0.0-1.0); EOS # 0.8 10^3/uL (0.0-0.5); EOS % 9.1 % (0.0-3.0); HEMATOCRIT 28.6 % (42.0-52.0); LYMPH # 0.4 10^3/uL (1.5-5.0); LYMPH % 4.7 % (24.0-44.0); MEAN CORPUSCULAR HEMOGLOBIN 31.5 pg (27.0-33.0); MEAN CORPUSCULAR HGB CONC 31.5 g/dl (32.0-36.5); MONO # 0.8 10^3/uL (0.0-0.8); MONO % 9.3 % (2.0-8.0); NEUTROPHILS # 6.5 10^3/uL (1.5-8.5); NEUTROPHILS % 75.8 % (36.0-66.0); PLATELET COUNT, AUTOMATED 149 10^3/uL (150-450); RED BLOOD COUNT 2.86 10^6/uL (4.30-6.10); WHITE BLOOD COUNT 8.6 10^3/uL (4.0-10.0)
[2024-12-25 09:45] LABS: ALBUMIN 2.2 G/DL (3.2-5.2); ALKALINE PHOSPHATASE 172 U/L (40-129); ALT/SGPT 12 U/L (7.0-40); AST/SGOT 54 U/L (<34); BILIRUBIN,TOTAL 0.5 MG/DL (0.3-1.2); BLOOD UREA NITROGEN 35 MG/DL (9-23); CALCIUM LEVEL 8.2 MG/DL (8.5-10.1); CARBON DIOXIDE LEVEL 22 MMOL/L (20-31); CHLORIDE LEVEL 107 MMOL/L (98-107); CREATININE FOR GFR 1.02 MG/DL (0.70-1.30); GLOMERULAR FILTRATION RATE > 60.0 (>60); GLUCOSE, FASTING 95 MG/DL (60-100); SODIUM LEVEL 140 MMOL/L (136-145); TOTAL PROTEIN 5.6 G/DL (5.7-8.2)
== END ==
LOC: M LAB REF 08:20
PROVIDERS: ATTEND Internal Medicine Gastroenterology
DX: K72.10 Chronic hepatic failure without coma (principal); D68.32 Hemorrhagic disorder due to extrinsic circulating anticoagulants; C22.0 Liver cell carcinoma; Z79.899 Other long term (current) drug therapy; E87.5 Hyperkalemia; Z94.4 Liver transplant status

== ENCOUNTER → 2024-12-27 | Outpatient (CLI) | payer MEDICARE ==
[~2024-12-27] MED LIST changes: +ACETAMINOPHEN 325 MG TAB PO PRN
[2024-12-27 14:03] VITALS: TEMP 98.5
[2024-12-27 16:30] VITALS: BP 124/89; O2SAT 98
== END ==
LOC: M IRPRO 13:55
PROVIDERS: ATTEND Internal Medicine Medical Oncology
DX: J90 Pleural effusion, not elsewhere classified (principal)

== ENCOUNTER → 2024-12-31 | Outpatient (REF) | payer MEDICARE ==
[~2024-12-31] MED LIST changes: -ACETAMINOPHEN 325 MG TAB PO PRN; +DULO30CA9 PO; +HYDR-643 PO; +MORP1SOL5 PO; +OLAN5ZYD PO
[2024-12-31 08:34] LABS: BASO # 0.1 10^3/uL (0.0-0.2); BASO % 0.5 % (0.0-1.0); EOS # 0.4 10^3/uL (0.0-0.5); EOS % 3.7 % (0.0-3.0); HEMOGLOBIN 8.8 g/dl (13.5-17.5); LYMPH # 0.7 10^3/uL (1.5-5.0); LYMPH % 6.2 % (24.0-44.0); MEAN CORPUSCULAR HEMOGLOBIN 31.7 pg (27.0-33.0); MEAN CORPUSCULAR HGB CONC 31.4 g/dl (32.0-36.5); MEAN CORPUSCULAR VOLUME 100.7 fl (80.0-96.0); MONO # 1.1 10^3/uL (0.0-0.8); MONO % 10.3 % (2.0-8.0); NEUTROPHILS # 8.8 10^3/uL (1.5-8.5); NEUTROPHILS % 78.8 % (36.0-66.0); PLATELET COUNT, AUTOMATED 159 10^3/uL (150-450); RED BLOOD COUNT 2.78 10^6/uL (4.30-6.10); WHITE BLOOD COUNT 11.1 10^3/uL (4.0-10.0)
[2024-12-31 09:11] LABS: ALBUMIN 2.1 G/DL (3.2-5.2); ALKALINE PHOSPHATASE 189 U/L (40-129); ALT/SGPT 12 U/L (7.0-40); AST/SGOT 67 U/L (<34); BILIRUBIN,TOTAL 0.7 MG/DL (0.3-1.2); BLOOD UREA NITROGEN 48 MG/DL (9-23); CALCIUM LEVEL 8.5 MG/DL (8.5-10.1); CARBON DIOXIDE LEVEL 21 MMOL/L (20-31); CHLORIDE LEVEL 108 MMOL/L (98-107); CREATININE FOR GFR 1.53 MG/DL (0.70-1.30); GLOMERULAR FILTRATION RATE 53.7 (>60); GLUCOSE, FASTING 111 MG/DL (60-100); POTASSIUM SERUM 4.4 MMOL/L (3.5-5.1); SODIUM LEVEL 142 MMOL/L (136-145); TOTAL PROTEIN 5.6 G/DL (5.7-8.2)
== END ==
LOC: M LAB REF 08:08
PROVIDERS: ATTEND Internal Medicine Gastroenterology
DX: K72.10 Chronic hepatic failure without coma (principal); D68.32 Hemorrhagic disorder due to extrinsic circulating anticoagulants; C22.0 Liver cell carcinoma; Z79.899 Other long term (current) drug therapy; T86.40 Unspecified complication of liver transplant; E87.5 Hyperkalemia; Z94.4 Liver transplant status

== ENCOUNTER → 2024-12-31 | Outpatient (CLI) | payer MEDICARE ==
[~2024-12-31] MED LIST changes: -DULO30CA9 PO; -HYDR-643 PO; -MORP1SOL5 PO; -OLAN5ZYD PO
[2024-12-31 11:09] VITALS: TEMP 98.3
[2024-12-31 11:53] VITALS: BP 111/78; O2SAT 100
== END ==
LOC: M IRPRO 10:56
PROVIDERS: ATTEND Internal Medicine Medical Oncology
DX: R18.8 Other ascites (principal); C18.9 Malignant neoplasm of colon, unspecified; J90 Pleural effusion, not elsewhere classified

== ENCOUNTER → 2025-01-02 | Outpatient (CLI) | payer MEDICARE ==
[~2025-01-02] MED LIST changes: +DULO30CA9 PO; +HYDR-643 PO; +MORP1SOL5 PO; +OLAN5ZYD PO
[2025-01-02 13:00] VITALS: TEMP 97.7
[2025-01-02 15:35] VITALS: BP 121/83; O2SAT 98
== END ==
LOC: M IRPRO 12:49
PROVIDERS: ATTEND Internal Medicine Medical Oncology
DX: J90 Pleural effusion, not elsewhere classified (principal); C18.9 Malignant neoplasm of colon, unspecified; J98.11 Atelectasis

== ENCOUNTER → 2025-01-03 | Outpatient (CLI) | payer MEDICARE ==
[~2025-01-03] VITALS: Ht 180.3 cm; Wt 58.3 kg
[~2025-01-03] MED LIST changes: +DRON2.5C11 PO; +HYDR-3363 PO
[2025-01-03 13:11] VITALS: BP 98/54; O2SAT 95
== END ==
LOC: M PAL 12:58
PROVIDERS: ATTEND Family Medicine
DX: Z51.5 Encounter for palliative care (principal); C18.7 Malignant neoplasm of sigmoid colon; Z79.891 Long term (current) use of opiate analgesic; Z79.899 Other long term (current) drug therapy; F41.9 Anxiety disorder, unspecified; Z92.21 Personal history of antineoplastic chemotherapy
CPT/HCPCS: G0463; G2212

== ENCOUNTER 2025-01-08 07:46 | Outpatient (RCR) | payer MEDICAID, MEDICARE, OTHER ==
[2022-02-11 09:27] VITALS: BP 121/80; O2SAT 97
[2022-02-11 11:07] LABS: BASO # 0.1 10^3/uL (0.0-0.2); BASO % 0.6 % (0.0-1.0); EOS # 0.2 10^3/uL (0.0-0.5); EOS % 2.9 % (0.0-3.0); HEMATOCRIT 43.2 % (42.0-52.0); HEMOGLOBIN 14.4 g/dl (13.5-17.5); LYMPH # 1.5 10^3/uL (1.5-5.0); LYMPH % 17.8 % (24.0-44.0); MEAN CORPUSCULAR HEMOGLOBIN 29.1 pg (27.0-33.0); MEAN CORPUSCULAR HGB CONC 33.3 g/dl (32.0-36.5); MEAN CORPUSCULAR VOLUME 87.3 fl (80.0-96.0); MONO # 0.8 10^3/uL (0.0-0.8); NEUTROPHILS # 5.6 10^3/uL (1.5-8.5); NEUTROPHILS % 68.5 % (36.0-66.0); PLATELET COUNT, AUTOMATED 347 10^3/uL (150-450); RED BLOOD COUNT 4.95 10^6/uL (4.30-6.10); WHITE BLOOD COUNT 8.2 10^3/uL (4.0-10.0)
[2022-02-11 11:34] LABS: ALBUMIN 3.5 GM/DL (3.2-5.2); ALKALINE PHOSPHATASE 197 U/L (45-117); ALT/SGPT 48 U/L (12-78); AST/SGOT 90 U/L (7-37); BILIRUBIN,TOTAL 0.8 MG/DL (0.2-1.0); BLOOD UREA NITROGEN 11 MG/DL (7-18); CALCIUM LEVEL 9.7 MG/DL (8.5-10.1); CARBON DIOXIDE LEVEL 30 MEQ/L (21-32); CHLORIDE LEVEL 104 MEQ/L (98-107); CREATININE FOR GFR 1.01 MG/DL (0.70-1.30); GLOMERULAR FILTRATION RATE > 60.0 (>60); GLUCOSE, FASTING 93 MG/DL (70-100); POTASSIUM SERUM 4.4 MEQ/L (3.5-5.1); SODIUM LEVEL 139 MEQ/L (136-145); TOTAL PROTEIN 8.1 GM/DL (6.4-8.2)
[2022-02-11 12:15] LABS: CARCINOEMBRYONIC ANTIGEN 315.7 NG/ML (<2.5)
[2022-02-23 08:59] LABS: BASO # 0.1 10^3/uL (0.0-0.2); BASO % 0.7 % (0.0-1.0); EOS # 0.3 10^3/uL (0.0-0.5); EOS % 4.1 % (0.0-3.0); HEMATOCRIT 41.6 % (42.0-52.0); HEMOGLOBIN 13.9 g/dl (13.5-17.5); LYMPH # 1.9 10^3/uL (1.5-5.0); LYMPH % 23.7 % (24.0-44.0); MEAN CORPUSCULAR HEMOGLOBIN 29.1 pg (27.0-33.0); MEAN CORPUSCULAR HGB CONC 33.4 g/dl (32.0-36.5); MEAN CORPUSCULAR VOLUME 87.2 fl (80.0-96.0); MONO # 0.7 10^3/uL (0.0-0.8); MONO % 8.2 % (2.0-8.0); NEUTROPHILS % 62.9 % (36.0-66.0); PLATELET COUNT, AUTOMATED 328 10^3/uL (150-450); RED BLOOD COUNT 4.77 10^6/uL (4.30-6.10)
[2022-02-23 09:03] LABS: APPEARANCE, URINE CLEAR (CLEAR); BACTERIA, URINE AUTO NEGATIVE (NEGATIVE); BILIRUBIN, URINE AUTO NEGATIVE (NEGATIVE); BLOOD, URINE BLOOD NEGATIVE (NEGATIVE); COLOR, URINE YELLOW (YELLOW); GLUCOSE, URINE (UA) AUTO NEGATIVE (NEGATIVE); KETONE, URINE AUTO NEGATIVE (NEGATIVE); LEUKOCYTE ESTERASE, URINE AUTO NEGATIVE (NEGATIVE); NITRITE, URINE AUTO NEGATIVE (NEGATIVE); PROTEIN, URINE AUTO NEGATIVE (NEGATIVE); RBC, URINE AUTO 1 /HPF (0-3); SPECIFIC GRAVITY URINE AUTO 1.013 (1.002-1.035); SQUAMOUS EPITHELIAL CELL UR AU 0 /HPF (0-6); UROBILINOGEN, URINE AUTO 0.2 mg/dL (0.0-2.0); WBC, URINE AUTO 0 /HPF (0-3)
[2022-02-23 09:32] LABS: ALBUMIN 3.3 GM/DL (3.2-5.2); ALKALINE PHOSPHATASE 188 U/L (45-117); ALT/SGPT 33 U/L (12-78); AST/SGOT 72 U/L (7-37); BILIRUBIN,TOTAL 0.7 MG/DL (0.2-1.0); BLOOD UREA NITROGEN 10 MG/DL (7-18); CALCIUM LEVEL 9.7 MG/DL (8.5-10.1); CARBON DIOXIDE LEVEL 28 MEQ/L (21-32); CHLORIDE LEVEL 103 MEQ/L (98-107); CREATININE FOR GFR 0.91 MG/DL (0.70-1.30); GLOMERULAR FILTRATION RATE > 60.0 (>60); GLUCOSE, FASTING 113 MG/DL (70-100); POTASSIUM SERUM 3.8 MEQ/L (3.5-5.1); SODIUM LEVEL 138 MEQ/L (136-145)
[2022-02-23] MEDS: dexameTHASONE 10 MG IV IV ONE (10:30)
[2022-02-23] MEDS: PALONOSETRON 250 MCG IV IV ONE (10:30)
[2022-02-23] MEDS: FOSAPREPITANT PERIPHERAL LINE 30 MIN INFUSION (PREMIX) IV ONE (10:31)
[2022-02-23 11:08] VITALS: BP 115/69; O2SAT 100
[2022-02-25] MEDS: SODIUM CHLORIDE 0.9% INJ 10 ML SYR IV PRN (14:16)
[2022-02-25 14:21] VITALS: BP 113/72; O2SAT 100
[2022-03-09] MEDS: FOSAPREPITANT PERIPHERAL LINE 30 MIN INFUSION IV ONE (08:30)
[2022-03-09] MEDS: dexameTHASONE 10 MG IV IV ONE (08:30)
[2022-03-09] MEDS: PALONOSETRON 250 MCG IV IV ONE (08:30)
[2022-03-09 09:04] LABS: BASO % 0.9 % (0.0-1.0); EOS # 0.1 10^3/uL (0.0-0.5); EOS % 3.6 % (0.0-3.0); HEMATOCRIT 34.7 % (42.0-52.0); HEMOGLOBIN 11.7 g/dl (13.5-17.5); LYMPH # 1.2 10^3/uL (1.5-5.0); LYMPH % 51.6 % (24.0-44.0); MEAN CORPUSCULAR HEMOGLOBIN 28.2 pg (27.0-33.0); MEAN CORPUSCULAR HGB CONC 33.7 g/dl (32.0-36.5); MEAN CORPUSCULAR VOLUME 83.6 fl (80.0-96.0); MONO # 0.5 10^3/uL (0.0-0.8); MONO % 23.3 % (2.0-8.0); NEUTROPHILS % 20.2 % (36.0-66.0); PLATELET COUNT, AUTOMATED 439 10^3/uL (150-450); RED BLOOD COUNT 4.15 10^6/uL (4.30-6.10); WHITE BLOOD COUNT 2.2 10^3/uL (4.0-10.0)
[2022-03-09 09:05] LABS: APPEARANCE, URINE HAZY (CLEAR); BACTERIA, URINE AUTO 1+ (NEGATIVE); BILIRUBIN, URINE AUTO NEGATIVE (NEGATIVE); BLOOD, URINE BLOOD 1+ (NEGATIVE); COLOR, URINE AMBER (YELLOW); GLUCOSE, URINE (UA) AUTO NEGATIVE (NEGATIVE); KETONE, URINE AUTO NEGATIVE (NEGATIVE); LEUKOCYTE ESTERASE, URINE AUTO NEGATIVE (NEGATIVE); MUCUS, URINE SMALL (NEGATIVE); NITRITE, URINE AUTO NEGATIVE (NEGATIVE); PROTEIN, URINE AUTO 1+ mg/dL (NEGATIVE); RBC, URINE AUTO 5 /HPF (0-3); SQUAMOUS EPITHELIAL CELL UR AU 0 /HPF (0-6); WBC, URINE AUTO 5 /HPF (0-3)
[2022-03-09 09:08] LABS: NEUTROPHILS # 0.5 10^3/uL (1.5-8.5)
[2022-03-09 09:17] VITALS: BP 128/83; O2SAT 97
[2022-03-09 09:24] LABS: ALBUMIN 2.7 GM/DL (3.2-5.2); ALKALINE PHOSPHATASE 194 U/L (45-117); ALT/SGPT 76 U/L (12-78); AST/SGOT 56 U/L (7-37); BILIRUBIN,TOTAL 0.6 MG/DL (0.2-1.0); BLOOD UREA NITROGEN 10 MG/DL (7-18); CALCIUM LEVEL 9.6 MG/DL (8.5-10.1); CARBON DIOXIDE LEVEL 26 MEQ/L (21-32); CHLORIDE LEVEL 103 MEQ/L (98-107); CREATININE FOR GFR 0.86 MG/DL (0.70-1.30); GLOMERULAR FILTRATION RATE > 60.0 (>60); GLUCOSE, FASTING 140 MG/DL (70-100); POTASSIUM SERUM 3.2 MEQ/L (3.5-5.1); SODIUM LEVEL 136 MEQ/L (136-145)
[2022-03-09 10:35] LABS: MAGNESIUM LEVEL 2.3 MG/DL (1.8-2.4)
[2022-03-09] MEDS: POTASSIUM CHLORIDE 10MEQ SR TABLET PO ONE (10:36)
[2022-03-09] MEDS: KCL 10MEQ/100ML SWI (KRUN) 100 ML IV ONE (10:36)
[2022-03-09] MEDS: FILGRASTIM 480 MCG/0.8 ML SYRINGE **SC ADMINISTRATION ONLY SC SCH (12:40)
[2022-03-10] MEDS: FILGRASTIM 480 MCG/0.8 ML SYRINGE **SC ADMINISTRATION ONLY SC SCH (09:57)
[2022-03-11] MEDS: FILGRASTIM 480 MCG/0.8 ML SYRINGE **SC ADMINISTRATION ONLY SC SCH (10:05)
[2022-03-16 09:13] LABS: BASO % 0.2 % (0.0-1.0); EOS # 0.2 10^3/uL (0.0-0.5); EOS % 1.5 % (0.0-3.0); LYMPH # 2.6 10^3/uL (1.5-5.0); LYMPH % 20.8 % (24.0-44.0); MEAN CORPUSCULAR HEMOGLOBIN 28.7 pg (27.0-33.0); MEAN CORPUSCULAR HGB CONC 33.3 g/dl (32.0-36.5); MEAN CORPUSCULAR VOLUME 86.1 fl (80.0-96.0); MONO # 1.2 10^3/uL (0.0-0.8); MONO % 9.4 % (2.0-8.0); NEUTROPHILS # 6.4 10^3/uL (1.5-8.5); NEUTROPHILS % 52.3 % (36.0-66.0); PLATELET COUNT, AUTOMATED 398 10^3/uL (150-450); RED BLOOD COUNT 4.18 10^6/uL (4.30-6.10); WHITE BLOOD COUNT 12.3 10^3/uL (4.0-10.0)
[2022-03-16 09:19] VITALS: BP 124/88; O2SAT 98
[2022-03-16 09:22] LABS: APPEARANCE, URINE CLEAR (CLEAR); BACTERIA, URINE AUTO NEGATIVE (NEGATIVE); BILIRUBIN, URINE AUTO NEGATIVE (NEGATIVE); BLOOD, URINE BLOOD 1+ (NEGATIVE); COLOR, URINE YELLOW (YELLOW); GLUCOSE, URINE (UA) AUTO NEGATIVE (NEGATIVE); KETONE, URINE AUTO NEGATIVE (NEGATIVE); LEUKOCYTE ESTERASE, URINE AUTO NEGATIVE (NEGATIVE); MUCUS, URINE SMALL (NEGATIVE); NITRITE, URINE AUTO NEGATIVE (NEGATIVE); PROTEIN, URINE AUTO 1+ mg/dL (NEGATIVE); RBC, URINE AUTO 6 /HPF (0-3); SQUAMOUS EPITHELIAL CELL UR AU 0 /HPF (0-6); WBC, URINE AUTO 4 /HPF (0-3)
[2022-03-16 09:47] LABS: ALBUMIN 2.7 GM/DL (3.2-5.2); ALKALINE PHOSPHATASE 179 U/L (45-117); ALT/SGPT 39 U/L (12-78); AST/SGOT 35 U/L (7-37); BILIRUBIN,TOTAL 0.4 MG/DL (0.2-1.0); BLOOD UREA NITROGEN 8 MG/DL (7-18); CALCIUM LEVEL 8.7 MG/DL (8.5-10.1); CARBON DIOXIDE LEVEL 27 MEQ/L (21-32); CHLORIDE LEVEL 109 MEQ/L (98-107); GLOMERULAR FILTRATION RATE > 60.0 (>60); GLUCOSE, FASTING 104 MG/DL (70-100); POTASSIUM SERUM 3.5 MEQ/L (3.5-5.1); SODIUM LEVEL 141 MEQ/L (136-145); TOTAL PROTEIN 7.3 GM/DL (6.4-8.2)
[2022-03-16] MEDS: dexameTHASONE 10 MG IV IV ONE (10:12)
[2022-03-16] MEDS: PALONOSETRON 250 MCG IV IV ONE (10:12)
[2022-03-16] MEDS: FOSAPREPITANT PERIPHERAL LINE 30 MIN INFUSION IV ONE (10:12)
[2022-03-18] MEDS: SODIUM CHLORIDE 0.9% INJ 10 ML SYR IV PRN (16:10)
[2022-03-18] MEDS: PEGFILGRASTIM 6 MG SC ONE (16:12)
[2022-03-18 16:25] VITALS: BP 122/74; O2SAT 100
[2022-03-30] MEDS: SODIUM CHLORIDE 0.9% INJ 10 ML SYR IV PRN (08:48)
[2022-03-30 08:52] VITALS: BP 130/92; O2SAT 100
[2022-03-30 09:08] LABS: APPEARANCE, URINE CLEAR (CLEAR); BACTERIA, URINE AUTO NEGATIVE (NEGATIVE); BILIRUBIN, URINE AUTO NEGATIVE (NEGATIVE); BLOOD, URINE BLOOD 1+ (NEGATIVE); COLOR, URINE YELLOW (YELLOW); GLUCOSE, URINE (UA) AUTO NEGATIVE (NEGATIVE); KETONE, URINE AUTO NEGATIVE (NEGATIVE); LEUKOCYTE ESTERASE, URINE AUTO NEGATIVE (NEGATIVE); NITRITE, URINE AUTO NEGATIVE (NEGATIVE); PROTEIN, URINE AUTO NEGATIVE (NEGATIVE); RBC, URINE AUTO 1 /HPF (0-3); SPECIFIC GRAVITY URINE AUTO 1.012 (1.002-1.035); SQUAMOUS EPITHELIAL CELL UR AU 0 /HPF (0-6); UROBILINOGEN, URINE AUTO 0.2 mg/dL (0.0-2.0); WBC, URINE AUTO 0 /HPF (0-3)
[2022-03-30 09:12] LABS: BASO % 0.3 % (0.0-1.0); EOS # 0.2 10^3/uL (0.0-0.5); EOS % 1.7 % (0.0-3.0); HEMATOCRIT 39.6 % (42.0-52.0); LYMPH # 2.4 10^3/uL (1.5-5.0); LYMPH % 19.6 % (24.0-44.0); MEAN CORPUSCULAR HEMOGLOBIN 28.5 pg (27.0-33.0); MEAN CORPUSCULAR HGB CONC 32.8 g/dl (32.0-36.5); MEAN CORPUSCULAR VOLUME 86.8 fl (80.0-96.0); MONO # 0.8 10^3/uL (0.0-0.8); MONO % 6.3 % (2.0-8.0); NEUTROPHILS # 7.5 10^3/uL (1.5-8.5); NEUTROPHILS % 62.7 % (36.0-66.0); PLATELET COUNT, AUTOMATED 228 10^3/uL (150-450); RED BLOOD COUNT 4.56 10^6/uL (4.30-6.10)
[2022-03-30 09:19] LABS: MAGNESIUM LEVEL 1.9 MG/DL (1.8-2.4)
[2022-03-30 09:27] LABS: ALBUMIN 3.2 GM/DL (3.2-5.2); ALKALINE PHOSPHATASE 174 U/L (45-117); ALT/SGPT 36 U/L (12-78); AST/SGOT 23 U/L (7-37); BILIRUBIN,TOTAL 0.2 MG/DL (0.2-1.0); BLOOD UREA NITROGEN 12 MG/DL (7-18); CALCIUM LEVEL 9.2 MG/DL (8.5-10.1); CARBON DIOXIDE LEVEL 25 MEQ/L (21-32); CHLORIDE LEVEL 108 MEQ/L (98-107); CREATININE FOR GFR 0.92 MG/DL (0.70-1.30); GLOMERULAR FILTRATION RATE > 60.0 (>60); GLUCOSE, FASTING 133 MG/DL (70-100); POTASSIUM SERUM 3.8 MEQ/L (3.5-5.1); SODIUM LEVEL 140 MEQ/L (136-145); TOTAL PROTEIN 7.3 GM/DL (6.4-8.2)
[2022-03-30 09:35] LABS: CARCINOEMBRYONIC ANTIGEN 37.1 NG/ML (<2.5)
[2022-03-30] MEDS: FOSAPREPITANT PERIPHERAL LINE 30 MIN INFUSION IV ONE (09:51)
[2022-03-30] MEDS: dexameTHASONE 10 MG IV IV ONE (09:52)
[2022-03-30] MEDS: PALONOSETRON 250 MCG IV IV ONE (09:52)
[2022-04-01] MEDS: SODIUM CHLORIDE 0.9% INJ 10 ML SYR IV PRN (13:30)
[2022-04-01] MEDS: PEGFILGRASTIM 6 MG SC ONE (13:30)
[2022-04-01 13:52] VITALS: BP 124/88; O2SAT 100
[2022-04-13 08:28] VITALS: BP 120/81; O2SAT 99
[2022-04-13 08:39] LABS: BASO # 0.1 10^3/uL (0.0-0.2); BASO % 0.5 % (0.0-1.0); EOS # 0.2 10^3/uL (0.0-0.5); EOS % 1.2 % (0.0-3.0); HEMATOCRIT 37.2 % (42.0-52.0); HEMOGLOBIN 12.5 g/dl (13.5-17.5); LYMPH # 2.3 10^3/uL (1.5-5.0); MEAN CORPUSCULAR HEMOGLOBIN 29.6 pg (27.0-33.0); MEAN CORPUSCULAR HGB CONC 33.6 g/dl (32.0-36.5); MEAN CORPUSCULAR VOLUME 88.2 fl (80.0-96.0); MONO # 1.1 10^3/uL (0.0-0.8); MONO % 6.9 % (2.0-8.0); NEUTROPHILS # 9.9 10^3/uL (1.5-8.5); NEUTROPHILS % 63.9 % (36.0-66.0); PLATELET COUNT, AUTOMATED 240 10^3/uL (150-450); RED BLOOD COUNT 4.22 10^6/uL (4.30-6.10); WHITE BLOOD COUNT 15.5 10^3/uL (4.0-10.0)
[2022-04-13 08:43] LABS: APPEARANCE, URINE CLEAR (CLEAR); BACTERIA, URINE AUTO NEGATIVE (NEGATIVE); BILIRUBIN, URINE AUTO NEGATIVE (NEGATIVE); BLOOD, URINE BLOOD NEGATIVE (NEGATIVE); COLOR, URINE YELLOW (YELLOW); GLUCOSE, URINE (UA) AUTO NEGATIVE (NEGATIVE); KETONE, URINE AUTO TRACE mg/dL (NEGATIVE); LEUKOCYTE ESTERASE, URINE AUTO NEGATIVE (NEGATIVE); MUCUS, URINE SMALL (NEGATIVE); NITRITE, URINE AUTO NEGATIVE (NEGATIVE); PROTEIN, URINE AUTO NEGATIVE (NEGATIVE); RBC, URINE AUTO 2 /HPF (0-3); SPECIFIC GRAVITY URINE AUTO 1.018 (1.002-1.035); SQUAMOUS EPITHELIAL CELL UR AU 0 /HPF (0-6); UROBILINOGEN, URINE AUTO 0.2 mg/dL (0.0-2.0); WBC, URINE AUTO 2 /HPF (0-3)
[2022-04-13 09:03] LABS: ALBUMIN 3.2 GM/DL (3.2-5.2); ALKALINE PHOSPHATASE 167 U/L (45-117); ALT/SGPT 43 U/L (12-78); AST/SGOT 31 U/L (7-37); BILIRUBIN,TOTAL 0.2 MG/DL (0.2-1.0); BLOOD UREA NITROGEN 11 MG/DL (7-18); CALCIUM LEVEL 8.7 MG/DL (8.5-10.1); CARBON DIOXIDE LEVEL 27 MEQ/L (21-32); CHLORIDE LEVEL 111 MEQ/L (98-107); CREATININE FOR GFR 0.89 MG/DL (0.70-1.30); GLOMERULAR FILTRATION RATE > 60.0 (>60); GLUCOSE, FASTING 91 MG/DL (70-100); POTASSIUM SERUM 3.5 MEQ/L (3.5-5.1); SODIUM LEVEL 143 MEQ/L (136-145); TOTAL PROTEIN 6.9 GM/DL (6.4-8.2)
[2022-04-13] MEDS: dexameTHASONE 10 MG IV IV ONE (09:42)
[2022-04-13] MEDS: PALONOSETRON 250 MCG IV IV ONE (09:42)
[2022-04-13] MEDS: FOSAPREPITANT PERIPHERAL LINE 30 MIN INFUSION IV ONE (09:42)
[2022-04-15 15:05] VITALS: BP 117/79; O2SAT 99
[2022-04-15] MEDS: PEGFILGRASTIM 6 MG SC ONE (15:07)
[2022-04-15] MEDS: SODIUM CHLORIDE 0.9% INJ 10 ML SYR IV PRN (15:07)
[2022-04-27 09:37] LABS: APPEARANCE, URINE HAZY (CLEAR); BACTERIA, URINE AUTO NEGATIVE (NEGATIVE); BILIRUBIN, URINE AUTO NEGATIVE (NEGATIVE); BLOOD, URINE BLOOD 1+ (NEGATIVE); COLOR, URINE YELLOW (YELLOW); GLUCOSE, URINE (UA) AUTO NEGATIVE (NEGATIVE); KETONE, URINE AUTO NEGATIVE (NEGATIVE); LEUKOCYTE ESTERASE, URINE AUTO NEGATIVE (NEGATIVE); MUCUS, URINE SMALL (NEGATIVE); NITRITE, URINE AUTO NEGATIVE (NEGATIVE); PROTEIN, URINE AUTO NEGATIVE (NEGATIVE); RBC, URINE AUTO 3 /HPF (0-3); SPECIFIC GRAVITY URINE AUTO 1.018 (1.002-1.035); SQUAMOUS EPITHELIAL CELL UR AU 0 /HPF (0-6); UROBILINOGEN, URINE AUTO 0.2 mg/dL (0.0-2.0); WBC, URINE AUTO 1 /HPF (0-3)
[2022-04-27 09:41] LABS: BASO # 0.1 10^3/uL (0.0-0.2); BASO % 0.3 % (0.0-1.0); EOS # 0.1 10^3/uL (0.0-0.5); EOS % 0.9 % (0.0-3.0); HEMATOCRIT 37.5 % (42.0-52.0); HEMOGLOBIN 12.3 g/dl (13.5-17.5); LYMPH # 2.3 10^3/uL (1.5-5.0); LYMPH % 14.1 % (24.0-44.0); MEAN CORPUSCULAR HEMOGLOBIN 29.3 pg (27.0-33.0); MEAN CORPUSCULAR HGB CONC 32.8 g/dl (32.0-36.5); MEAN CORPUSCULAR VOLUME 89.3 fl (80.0-96.0); MONO # 1.3 10^3/uL (0.0-0.8); MONO % 8.1 % (2.0-8.0); NEUTROPHILS % 67.5 % (36.0-66.0); PLATELET COUNT, AUTOMATED 235 10^3/uL (150-450); WHITE BLOOD COUNT 16.2 10^3/uL (4.0-10.0)
[2022-04-27 09:54] LABS: ALBUMIN 3.3 GM/DL (3.2-5.2); ALKALINE PHOSPHATASE 161 U/L (45-117); ALT/SGPT 27 U/L (12-78); AST/SGOT 18 U/L (7-37); BILIRUBIN,TOTAL 0.4 MG/DL (0.2-1.0); BLOOD UREA NITROGEN 8 MG/DL (7-18); CALCIUM LEVEL 9.4 MG/DL (8.5-10.1); CARBON DIOXIDE LEVEL 26 MEQ/L (21-32); CHLORIDE LEVEL 110 MEQ/L (98-107); CREATININE FOR GFR 0.95 MG/DL (0.70-1.30); GLOMERULAR FILTRATION RATE > 60.0 (>60); GLUCOSE, FASTING 98 MG/DL (70-100); POTASSIUM SERUM 3.4 MEQ/L (3.5-5.1); SODIUM LEVEL 143 MEQ/L (136-145); TOTAL PROTEIN 7.4 GM/DL (6.4-8.2)
[2022-04-27 10:14] VITALS: BP 126/83; O2SAT 98
[2022-04-27] MEDS: FOSAPREPITANT PERIPHERAL LINE 30 MIN INFUSION IV ONE (11:22)
[2022-04-27] MEDS: dexameTHASONE 10 MG IV IV ONE (11:22)
[2022-04-27] MEDS: PALONOSETRON 250 MCG IV IV ONE (11:22)
[2022-04-27] MEDS: POTASSIUM CHLORIDE 10MEQ SR TABLET PO ONE (11:53)
[2022-04-29] MEDS: PEGFILGRASTIM 6 MG SC ONE (14:50)
[2022-04-29] MEDS: SODIUM CHLORIDE 0.9% INJ 10 ML SYR IV PRN (14:52)
[2022-04-29 14:57] VITALS: BP 119/78; O2SAT 98
[2022-05-11 09:37] LABS: BASO # 0.1 10^3/uL (0.0-0.2); BASO % 0.4 % (0.0-1.0); EOS # 0.2 10^3/uL (0.0-0.5); EOS % 1.3 % (0.0-3.0); HEMATOCRIT 38.1 % (42.0-52.0); HEMOGLOBIN 12.4 g/dl (13.5-17.5); LYMPH # 2.2 10^3/uL (1.5-5.0); LYMPH % 13.1 % (24.0-44.0); MEAN CORPUSCULAR HEMOGLOBIN 30.1 pg (27.0-33.0); MEAN CORPUSCULAR HGB CONC 32.5 g/dl (32.0-36.5); MEAN CORPUSCULAR VOLUME 92.5 fl (80.0-96.0); MONO % 6.1 % (2.0-8.0); NEUTROPHILS # 11.2 10^3/uL (1.5-8.5); NEUTROPHILS % 67.8 % (36.0-66.0); PLATELET COUNT, AUTOMATED 202 10^3/uL (150-450); RED BLOOD COUNT 4.12 10^6/uL (4.30-6.10); WHITE BLOOD COUNT 16.5 10^3/uL (4.0-10.0)
[2022-05-11 09:49] VITALS: BP 136/88; O2SAT 98
[2022-05-11 09:54] LABS: APPEARANCE, URINE HAZY (CLEAR); BACTERIA, URINE AUTO NEGATIVE (NEGATIVE); BILIRUBIN, URINE AUTO 1+ (NEGATIVE); BLOOD, URINE BLOOD NEGATIVE (NEGATIVE); COLOR, URINE AMBER (YELLOW); GLUCOSE, URINE (UA) AUTO NEGATIVE (NEGATIVE); KETONE, URINE AUTO TRACE mg/dL (NEGATIVE); LEUKOCYTE ESTERASE, URINE AUTO NEGATIVE (NEGATIVE); MUCUS, URINE LARGE (NEGATIVE); NITRITE, URINE AUTO NEGATIVE (NEGATIVE); PROTEIN, URINE AUTO 1+ mg/dL (NEGATIVE); RBC, URINE AUTO 2 /HPF (0-3); SQUAMOUS EPITHELIAL CELL UR AU 0 /HPF (0-6); WBC, URINE AUTO 2 /HPF (0-3)
[2022-05-11 10:01] LABS: ALBUMIN 3.5 GM/DL (3.2-5.2); ALKALINE PHOSPHATASE 154 U/L (45-117); ALT/SGPT 30 U/L (12-78); AST/SGOT 22 U/L (7-37); BILIRUBIN,TOTAL 0.3 MG/DL (0.2-1.0); BLOOD UREA NITROGEN 13 MG/DL (7-18); CALCIUM LEVEL 9.2 MG/DL (8.5-10.1); CARBON DIOXIDE LEVEL 27 MEQ/L (21-32); CHLORIDE LEVEL 108 MEQ/L (98-107); CREATININE FOR GFR 1.04 MG/DL (0.70-1.30); GLOMERULAR FILTRATION RATE > 60.0 (>60); GLUCOSE, FASTING 115 MG/DL (70-100); POTASSIUM SERUM 3.6 MEQ/L (3.5-5.1); SODIUM LEVEL 140 MEQ/L (136-145); TOTAL PROTEIN 7.6 GM/DL (6.4-8.2)
[2022-05-11] MEDS: PALONOSETRON 250 MCG IV IV ONE (11:17)
[2022-05-11] MEDS: dexameTHASONE 10 MG IV IV ONE (11:17)
[2022-05-11] MEDS: FOSAPREPITANT PERIPHERAL LINE 30 MIN INFUSION IV ONE (11:17)
[2022-05-13 14:52] VITALS: BP 129/78; O2SAT 99
[2022-05-13] MEDS: PEGFILGRASTIM 6 MG SC ONE (14:52)
[2022-05-25 08:01] VITALS: BP 135/87; O2SAT 96
[2022-05-25 08:05] LABS: BASO # 0.1 10^3/uL (0.0-0.2); BASO % 0.4 % (0.0-1.0); EOS # 0.2 10^3/uL (0.0-0.5); EOS % 1.2 % (0.0-3.0); HEMATOCRIT 35.2 % (42.0-52.0); HEMOGLOBIN 11.7 g/dl (13.5-17.5); LYMPH # 1.8 10^3/uL (1.5-5.0); LYMPH % 14.2 % (24.0-44.0); MEAN CORPUSCULAR HEMOGLOBIN 31.2 pg (27.0-33.0); MEAN CORPUSCULAR HGB CONC 33.2 g/dl (32.0-36.5); MEAN CORPUSCULAR VOLUME 93.9 fl (80.0-96.0); MONO # 1.1 10^3/uL (0.0-0.8); MONO % 8.8 % (2.0-8.0); NEUTROPHILS # 8.4 10^3/uL (1.5-8.5); NEUTROPHILS % 66.9 % (36.0-66.0); PLATELET COUNT, AUTOMATED 177 10^3/uL (150-450); RED BLOOD COUNT 3.75 10^6/uL (4.30-6.10); WHITE BLOOD COUNT 12.5 10^3/uL (4.0-10.0)
[2022-05-25 08:15] LABS: APPEARANCE, URINE CLEAR (CLEAR); BACTERIA, URINE AUTO NEGATIVE (NEGATIVE); BILIRUBIN, URINE AUTO NEGATIVE (NEGATIVE); BLOOD, URINE BLOOD 1+ (NEGATIVE); COLOR, URINE YELLOW (YELLOW); GLUCOSE, URINE (UA) AUTO NEGATIVE (NEGATIVE); KETONE, URINE AUTO TRACE mg/dL (NEGATIVE); LEUKOCYTE ESTERASE, URINE AUTO NEGATIVE (NEGATIVE); MUCUS, URINE MODERATE (NEGATIVE); NITRITE, URINE AUTO NEGATIVE (NEGATIVE); PROTEIN, URINE AUTO NEGATIVE (NEGATIVE); RBC, URINE AUTO 2 /HPF (0-3); SPECIFIC GRAVITY URINE AUTO 1.023 (1.002-1.035); SQUAMOUS EPITHELIAL CELL UR AU 0 /HPF (0-6); WBC, URINE AUTO 2 /HPF (0-3)
[2022-05-25 08:29] LABS: ALBUMIN 3.5 GM/DL (3.2-5.2); ALKALINE PHOSPHATASE 151 U/L (45-117); ALT/SGPT 27 U/L (12-78); AST/SGOT 21 U/L (7-37); BILIRUBIN,TOTAL 0.4 MG/DL (0.2-1.0); BLOOD UREA NITROGEN 9 MG/DL (7-18); CALCIUM LEVEL 8.9 MG/DL (8.5-10.1); CARBON DIOXIDE LEVEL 28 MEQ/L (21-32); CHLORIDE LEVEL 109 MEQ/L (98-107); CREATININE FOR GFR 0.95 MG/DL (0.70-1.30); GLOMERULAR FILTRATION RATE > 60.0 (>60); GLUCOSE, FASTING 86 MG/DL (70-100); POTASSIUM SERUM 3.3 MEQ/L (3.5-5.1); SODIUM LEVEL 141 MEQ/L (136-145); TOTAL PROTEIN 7.4 GM/DL (6.4-8.2)
[2022-05-25] MEDS: PALONOSETRON 250 MCG IV IV ONE (09:43)
[2022-05-25] MEDS: FOSAPREPITANT PERIPHERAL LINE 30 MIN INFUSION IV ONE (09:43)
[2022-05-25] MEDS: dexameTHASONE 10 MG IV IV ONE (09:44)
[2022-05-27] MEDS: SODIUM CHLORIDE 0.9% INJ 10 ML SYR IV PRN (14:27)
[2022-05-27] MEDS: PEGFILGRASTIM 6 MG SC ONE (14:27)
[2022-06-08 09:53] LABS: BASO # 0.1 10^3/uL (0.0-0.2); BASO % 0.4 % (0.0-1.0); EOS # 0.2 10^3/uL (0.0-0.5); EOS % 1.3 % (0.0-3.0); HEMATOCRIT 35.6 % (42.0-52.0); HEMOGLOBIN 11.8 g/dl (13.5-17.5); LYMPH % 15.6 % (24.0-44.0); MEAN CORPUSCULAR HEMOGLOBIN 30.9 pg (27.0-33.0); MEAN CORPUSCULAR HGB CONC 33.1 g/dl (32.0-36.5); MEAN CORPUSCULAR VOLUME 93.2 fl (80.0-96.0); MONO # 1.2 10^3/uL (0.0-0.8); MONO % 9.7 % (2.0-8.0); NEUTROPHILS # 8.7 10^3/uL (1.5-8.5); NEUTROPHILS % 68.6 % (36.0-66.0); PLATELET COUNT, AUTOMATED 176 10^3/uL (150-450); RED BLOOD COUNT 3.82 10^6/uL (4.30-6.10); WHITE BLOOD COUNT 12.7 10^3/uL (4.0-10.0)
[2022-06-08 09:54] VITALS: BP 122/81; O2SAT 97
[2022-06-08 09:58] LABS: APPEARANCE, URINE CLEAR (CLEAR); BACTERIA, URINE AUTO NEGATIVE (NEGATIVE); BILIRUBIN, URINE AUTO NEGATIVE (NEGATIVE); BLOOD, URINE BLOOD 1+ (NEGATIVE); COLOR, URINE YELLOW (YELLOW); GLUCOSE, URINE (UA) AUTO NEGATIVE (NEGATIVE); KETONE, URINE AUTO NEGATIVE (NEGATIVE); LEUKOCYTE ESTERASE, URINE AUTO NEGATIVE (NEGATIVE); NITRITE, URINE AUTO NEGATIVE (NEGATIVE); PROTEIN, URINE AUTO NEGATIVE (NEGATIVE); RBC, URINE AUTO 1 /HPF (0-3); SPECIFIC GRAVITY URINE AUTO 1.009 (1.002-1.035); SQUAMOUS EPITHELIAL CELL UR AU 0 /HPF (0-6); UROBILINOGEN, URINE AUTO 0.2 mg/dL (0.0-2.0); WBC, URINE AUTO 0 /HPF (0-3)
[2022-06-08 10:25] LABS: ALBUMIN 3.2 GM/DL (3.2-5.2); ALKALINE PHOSPHATASE 152 U/L (45-117); ALT/SGPT 33 U/L (12-78); AST/SGOT 29 U/L (7-37); BILIRUBIN,TOTAL 0.5 MG/DL (0.2-1.0); BLOOD UREA NITROGEN 7 MG/DL (7-18); CALCIUM LEVEL 8.6 MG/DL (8.5-10.1); CARBON DIOXIDE LEVEL 28 MEQ/L (21-32); CHLORIDE LEVEL 106 MEQ/L (98-107); CREATININE FOR GFR 0.94 MG/DL (0.70-1.30); GLOMERULAR FILTRATION RATE > 60.0 (>60); GLUCOSE, FASTING 108 MG/DL (70-100); POTASSIUM SERUM 3.6 MEQ/L (3.5-5.1); SODIUM LEVEL 138 MEQ/L (136-145); TOTAL PROTEIN 7.5 GM/DL (6.4-8.2)
[2022-06-08] MEDS: dexameTHASONE 10 MG IV IV ONE (10:41)
[2022-06-08] MEDS: FOSAPREPITANT PERIPHERAL LINE 30 MIN INFUSION IV ONE (10:41)
[2022-06-08] MEDS: PALONOSETRON 250 MCG IV IV ONE (10:41)
[2022-06-10] MEDS: SODIUM CHLORIDE 0.9% INJ 10 ML SYR IV PRN (14:20)
[2022-06-10] MEDS: PEGFILGRASTIM 6 MG SC ONE (14:20)
[2022-06-10 14:26] VITALS: BP 120/69; O2SAT 98
[2022-06-22 09:24] VITALS: BP 136/86; O2SAT 100
[2022-06-22 09:33] LABS: BASO # 0.1 10^3/uL (0.0-0.2); BASO % 0.4 % (0.0-1.0); EOS # 0.2 10^3/uL (0.0-0.5); EOS % 1.3 % (0.0-3.0); HEMATOCRIT 33.3 % (42.0-52.0); HEMOGLOBIN 10.7 g/dl (13.5-17.5); LYMPH # 1.8 10^3/uL (1.5-5.0); LYMPH % 13.5 % (24.0-44.0); MEAN CORPUSCULAR HEMOGLOBIN 31.8 pg (27.0-33.0); MEAN CORPUSCULAR HGB CONC 32.1 g/dl (32.0-36.5); MEAN CORPUSCULAR VOLUME 99.1 fl (80.0-96.0); MONO # 1.1 10^3/uL (0.0-0.8); MONO % 8.5 % (2.0-8.0); NEUTROPHILS # 8.4 10^3/uL (1.5-8.5); NEUTROPHILS % 64.8 % (36.0-66.0); PLATELET COUNT, AUTOMATED 172 10^3/uL (150-450); RED BLOOD COUNT 3.36 10^6/uL (4.30-6.10)
[2022-06-22 09:41] LABS: ALKALINE PHOSPHATASE 142 U/L (45-117); ALT/SGPT 25 U/L (12-78); AST/SGOT 24 U/L (7-37); BILIRUBIN,TOTAL 0.3 MG/DL (0.2-1.0); BLOOD UREA NITROGEN 8 MG/DL (7-18); CALCIUM LEVEL 8.8 MG/DL (8.5-10.1); CARBON DIOXIDE LEVEL 25 MEQ/L (21-32); CHLORIDE LEVEL 109 MEQ/L (98-107); CREATININE FOR GFR 0.87 MG/DL (0.70-1.30); GLOMERULAR FILTRATION RATE > 60.0 (>60); GLUCOSE, FASTING 92 MG/DL (70-100); POTASSIUM SERUM 3.4 MEQ/L (3.5-5.1); SODIUM LEVEL 139 MEQ/L (136-145); TOTAL PROTEIN 6.9 GM/DL (6.4-8.2)
[2022-06-22] MEDS: FOSAPREPITANT PERIPHERAL LINE 30 MIN INFUSION IV ONE (10:14)
[2022-06-22] MEDS: dexameTHASONE 10 MG IV IV ONE (10:14)
[2022-06-22] MEDS: PALONOSETRON 250 MCG IV IV ONE (10:14)
[2022-06-22 10:27] LABS: APPEARANCE, URINE MANUAL CLEAR (CLEAR); BILIRUBIN, URINE MANUAL NEGATIVE (NEGATIVE); BLOOD URINE MANUAL NEGATIVE (NEGATIVE); COLOR, URINE MANUAL YELLOW (YELLOW); GLUCOSE, URINE (UA) MANUAL NEGATIVE (NEGATIVE); KETONE, URINE MANUAL NEGATIVE (NEGATIVE); LEUKOCYTE ESTERASE, URINE MAN NEGATIVE (NEGATIVE); NITRITE, URINE MANUAL NEGATIVE (NEGATIVE); PROTEIN, URINE MANUAL NEGATIVE (NEGATIVE); UROBILINOGEN, URINE MANUAL NORMAL (NORMAL)
[2022-06-24] MEDS: PEGFILGRASTIM 6 MG SC ONE (13:05)
[2022-06-24] MEDS: SODIUM CHLORIDE 0.9% INJ 10 ML SYR IV PRN (13:05)
[2022-06-24 13:13] VITALS: BP 119/76; O2SAT 99
[2022-08-10] MEDS: SODIUM CHLORIDE 0.9% INJ 10 ML SYR IV PRN (15:15)
[2022-08-10 15:22] LABS: BASO % 0.7 % (0.0-1.0); EOS # 0.3 10^3/uL (0.0-0.5); EOS % 4.2 % (0.0-3.0); HEMATOCRIT 38.2 % (42.0-52.0); HEMOGLOBIN 12.1 g/dl (13.5-17.5); LYMPH # 1.6 10^3/uL (1.5-5.0); MEAN CORPUSCULAR HEMOGLOBIN 30.4 pg (27.0-33.0); MEAN CORPUSCULAR HGB CONC 31.7 g/dl (32.0-36.5); MONO # 0.5 10^3/uL (0.0-0.8); MONO % 7.5 % (2.0-8.0); NEUTROPHILS # 3.6 10^3/uL (1.5-8.5); NEUTROPHILS % 60.4 % (36.0-66.0); PLATELET COUNT, AUTOMATED 211 10^3/uL (150-450); RED BLOOD COUNT 3.98 10^6/uL (4.30-6.10)
[2022-08-10 16:07] LABS: ALBUMIN 3.3 GM/DL (3.2-5.2); ALKALINE PHOSPHATASE 78 U/L (45-117); ALT/SGPT 22 U/L (12-78); AST/SGOT 18 U/L (7-37); BILIRUBIN,TOTAL 0.5 MG/DL (0.2-1.0); BLOOD UREA NITROGEN 14 MG/DL (7-18); CALCIUM LEVEL 8.9 MG/DL (8.5-10.1); CARBON DIOXIDE LEVEL 27 MEQ/L (21-32); CHLORIDE LEVEL 109 MEQ/L (98-107); CREATININE FOR GFR 0.75 MG/DL (0.70-1.30); GLOMERULAR FILTRATION RATE > 60.0 (>60); GLUCOSE, FASTING 99 MG/DL (70-100); POTASSIUM SERUM 4.2 MEQ/L (3.5-5.1); SODIUM LEVEL 140 MEQ/L (136-145); TOTAL PROTEIN 7.1 GM/DL (6.4-8.2)
[2022-08-10 18:01] LABS: CARCINOEMBRYONIC ANTIGEN 1.8 NG/ML (<2.5)
[2022-08-29] MEDS: PALONOSETRON 250 MCG IV IV ONE (14:52)
[2022-08-29] MEDS: dexameTHASONE 10 MG IV IV ONE (14:52)
[2022-08-29] MEDS: FOSAPREPITANT PERIPHERAL LINE 30 MIN INFUSION IV ONE (14:52)
[2022-09-05 09:07] LABS: BASO # 0.1 10^3/uL (0.0-0.2); BASO % 0.9 % (0.0-1.0); EOS # 0.3 10^3/uL (0.0-0.5); EOS % 4.9 % (0.0-3.0); HEMOGLOBIN 13.9 g/dl (13.5-17.5); LYMPH # 1.7 10^3/uL (1.5-5.0); LYMPH % 29.1 % (24.0-44.0); MEAN CORPUSCULAR HEMOGLOBIN 30.5 pg (27.0-33.0); MEAN CORPUSCULAR HGB CONC 32.3 g/dl (32.0-36.5); MEAN CORPUSCULAR VOLUME 94.3 fl (80.0-96.0); MONO # 0.6 10^3/uL (0.0-0.8); MONO % 9.6 % (2.0-8.0); NEUTROPHILS # 3.1 10^3/uL (1.5-8.5); NEUTROPHILS % 55.1 % (36.0-66.0); PLATELET COUNT, AUTOMATED 174 10^3/uL (150-450); RED BLOOD COUNT 4.56 10^6/uL (4.30-6.10); WHITE BLOOD COUNT 5.7 10^3/uL (4.0-10.0)
[2022-09-05 09:08] VITALS: BP 142/92; O2SAT 99
[2022-09-05 09:40] LABS: ALBUMIN 3.5 GM/DL (3.2-5.2); ALKALINE PHOSPHATASE 70 U/L (45-117); ALT/SGPT 27 U/L (12-78); AST/SGOT 19 U/L (7-37); BILIRUBIN,TOTAL 0.6 MG/DL (0.2-1.0); BLOOD UREA NITROGEN 15 MG/DL (7-18); CALCIUM LEVEL 9.2 MG/DL (8.5-10.1); CARBON DIOXIDE LEVEL 28 MEQ/L (21-32); CHLORIDE LEVEL 104 MEQ/L (98-107); CREATININE FOR GFR 0.98 MG/DL (0.70-1.30); GLOMERULAR FILTRATION RATE > 60.0 (>60); GLUCOSE, FASTING 112 MG/DL (70-100); POTASSIUM SERUM 3.7 MEQ/L (3.5-5.1); SODIUM LEVEL 135 MEQ/L (136-145); TOTAL PROTEIN 7.7 GM/DL (6.4-8.2)
[2022-09-05 09:47] LABS: MAGNESIUM LEVEL 1.8 MG/DL (1.8-2.4)
[2022-09-05 10:13] LABS: APPEARANCE, URINE MANUAL CLEAR (CLEAR); COLOR, URINE MANUAL YELLOW (YELLOW)
[2022-09-05 10:14] LABS: BILIRUBIN, URINE MANUAL NEGATIVE (NEGATIVE); BLOOD URINE MANUAL NEGATIVE (NEGATIVE); GLUCOSE, URINE (UA) MANUAL NEGATIVE (NEGATIVE); KETONE, URINE MANUAL NEGATIVE (NEGATIVE); LEUKOCYTE ESTERASE, URINE MAN NEGATIVE (NEGATIVE); NITRITE, URINE MANUAL NEGATIVE (NEGATIVE); PROTEIN, URINE MANUAL NEGATIVE (NEGATIVE); SPECIFIC GRAVITY,URINE MANUAL 1.005 (1.002-1.035); UROBILINOGEN, URINE MANUAL NORMAL (NORMAL)
[2022-09-05 10:57] LABS: CARCINOEMBRYONIC ANTIGEN 1.6 NG/ML (<2.5)
[2022-09-05] MEDS: PALONOSETRON 0.25MG/5ML VIAL (ALOXI) IV SCH (11:21)
[2022-09-05] MEDS: FOSAPREPITANT 150 MG in NS 245 ML IV SCH (11:32)
[2022-09-05] MEDS: FLUOROURACIL IVP SCH (13:30)
[2022-09-07 11:43] VITALS: BP 136/92; O2SAT 99
[2022-09-19 10:09] VITALS: BP 123/83; O2SAT 99
[2022-09-19 10:15] LABS: BASO % 0.7 % (0.0-1.0); EOS # 0.2 10^3/uL (0.0-0.5); EOS % 3.6 % (0.0-3.0); HEMATOCRIT 43.7 % (42.0-52.0); HEMOGLOBIN 14.3 g/dl (13.5-17.5); LYMPH # 1.5 10^3/uL (1.5-5.0); LYMPH % 33.6 % (24.0-44.0); MEAN CORPUSCULAR HEMOGLOBIN 30.4 pg (27.0-33.0); MEAN CORPUSCULAR HGB CONC 32.7 g/dl (32.0-36.5); MEAN CORPUSCULAR VOLUME 92.8 fl (80.0-96.0); MONO # 0.5 10^3/uL (0.0-0.8); MONO % 10.3 % (2.0-8.0); NEUTROPHILS # 2.3 10^3/uL (1.5-8.5); NEUTROPHILS % 51.6 % (36.0-66.0); PLATELET COUNT, AUTOMATED 183 10^3/uL (150-450); RED BLOOD COUNT 4.71 10^6/uL (4.30-6.10); WHITE BLOOD COUNT 4.5 10^3/uL (4.0-10.0)
[2022-09-19 10:26] LABS: APPEARANCE, URINE MANUAL CLEAR (CLEAR); BILIRUBIN, URINE MANUAL NEGATIVE (NEGATIVE); BLOOD URINE MANUAL NEGATIVE (NEGATIVE); COLOR, URINE MANUAL COLORLESS (YELLOW); GLUCOSE, URINE (UA) MANUAL NEGATIVE (NEGATIVE); KETONE, URINE MANUAL NEGATIVE (NEGATIVE); LEUKOCYTE ESTERASE, URINE MAN NEGATIVE (NEGATIVE); NITRITE, URINE MANUAL NEGATIVE (NEGATIVE); PROTEIN, URINE MANUAL NEGATIVE (NEGATIVE); SPECIFIC GRAVITY,URINE MANUAL 1.007 (1.002-1.035); UROBILINOGEN, URINE MANUAL NORMAL (NORMAL)
[2022-09-19 10:53] LABS: MAGNESIUM LEVEL 2.1 MG/DL (1.8-2.4)
[2022-09-19 11:01] LABS: ALBUMIN 3.9 GM/DL (3.2-5.2); ALKALINE PHOSPHATASE 73 U/L (45-117); ALT/SGPT 32 U/L (12-78); AST/SGOT 21 U/L (7-37); BILIRUBIN,TOTAL 0.6 MG/DL (0.2-1.0); BLOOD UREA NITROGEN 13 MG/DL (7-18); CALCIUM LEVEL 9.3 MG/DL (8.5-10.1); CARBON DIOXIDE LEVEL 29 MEQ/L (21-32); CHLORIDE LEVEL 102 MEQ/L (98-107); CREATININE FOR GFR 0.94 MG/DL (0.70-1.30); GLOMERULAR FILTRATION RATE > 60.0 (>60); GLUCOSE, FASTING 91 MG/DL (70-100); SODIUM LEVEL 133 MEQ/L (136-145); TOTAL PROTEIN 7.8 GM/DL (6.4-8.2)
[2022-09-19] MEDS: PALONOSETRON 0.25MG/5ML VIAL (ALOXI) IV SCH (11:19)
[2022-09-19] MEDS: FOSAPREPITANT 150 MG in NS 245 ML IV SCH (11:30)
[2022-09-19 11:41] LABS: CARCINOEMBRYONIC ANTIGEN 1.8 NG/ML (<2.5)
[2022-09-19] MEDS: FLUOROURACIL IVP SCH (14:29)
[2022-09-21 14:00] VITALS: BP 141/88; O2SAT 99
[2022-10-03 08:56] VITALS: BP 129/85; O2SAT 97
[2022-10-03 08:57] LABS: BASO % 0.2 % (0.0-1.0); EOS # 0.1 10^3/uL (0.0-0.5); EOS % 1.4 % (0.0-3.0); HEMATOCRIT 37.4 % (42.0-52.0); HEMOGLOBIN 12.4 g/dl (13.5-17.5); LYMPH # 1.2 10^3/uL (1.5-5.0); LYMPH % 23.7 % (24.0-44.0); MEAN CORPUSCULAR HEMOGLOBIN 29.8 pg (27.0-33.0); MEAN CORPUSCULAR HGB CONC 33.2 g/dl (32.0-36.5); MEAN CORPUSCULAR VOLUME 89.9 fl (80.0-96.0); MONO # 0.8 10^3/uL (0.0-0.8); MONO % 15.9 % (2.0-8.0); NEUTROPHILS # 2.9 10^3/uL (1.5-8.5); NEUTROPHILS % 58.4 % (36.0-66.0); PLATELET COUNT, AUTOMATED 208 10^3/uL (150-450); RED BLOOD COUNT 4.16 10^6/uL (4.30-6.10)
[2022-10-03 09:11] LABS: APPEARANCE, URINE MANUAL CLEAR (CLEAR); BILIRUBIN, URINE MANUAL NEGATIVE (NEGATIVE); BLOOD URINE MANUAL POSITIVE (NEGATIVE); COLOR, URINE MANUAL DK YELLOW (YELLOW); GLUCOSE, URINE (UA) MANUAL NEGATIVE (NEGATIVE); KETONE, URINE MANUAL NEGATIVE (NEGATIVE); LEUKOCYTE ESTERASE, URINE MAN TRACE (NEGATIVE); NITRITE, URINE MANUAL NEGATIVE (NEGATIVE); PROTEIN, URINE MANUAL 1+ mg/dL (NEGATIVE); SPECIFIC GRAVITY,URINE MANUAL 1.015 (1.002-1.035); UROBILINOGEN, URINE MANUAL 4 MG mg/dl (NORMAL)
[2022-10-03 09:20] LABS: CHLORIDE LEVEL 100 MMOL/L (98-107); POTASSIUM SERUM 3.6 MMOL/L (3.5-5.1); SODIUM LEVEL 135 MMOL/L (136-145)
[2022-10-03 09:21] LABS: ALBUMIN 3.4 G/DL (3.2-5.2); CARBON DIOXIDE LEVEL 24 MMOL/L (20-31)
[2022-10-03 09:25] LABS: BACTERIA, URINE SMALL AMOUNT; HYALINE CAST, URINE NONE SEEN /lpf (0-1); MUCUS, URINE LARGE AMOUNT (NEGATIVE); SQUAMOUS EPITHELIAL CELL URINE SMALL AMOUNT /hpf (SMALL AMT)
[2022-10-03 09:26] LABS: CALCIUM LEVEL 8.7 MG/DL (8.5-10.1); GLUCOSE, FASTING 111 MG/DL (60-100)
[2022-10-03 09:27] LABS: ALKALINE PHOSPHATASE 138 U/L (46-116); BLOOD UREA NITROGEN 11 MG/DL (9-23)
[2022-10-03 09:28] LABS: ALT/SGPT 60 U/L (7.0-40); AST/SGOT 53 U/L (<34)
[2022-10-03 09:29] LABS: BILIRUBIN,TOTAL 0.7 MG/DL (0.3-1.2); CREATININE FOR GFR 0.93 MG/DL (0.70-1.30); GLOMERULAR FILTRATION RATE > 60.0 (>60); TOTAL PROTEIN 8.2 G/DL (5.7-8.2)
[2022-10-03] MEDS: SODIUM CHLORIDE 0.9% INJ 10 ML SYR IV PRN (09:36)
[2022-10-10 08:07] VITALS: BP 122/81; O2SAT 100
[2022-10-10 08:08] LABS: BASO % 0.9 % (0.0-1.0); EOS # 0.2 10^3/uL (0.0-0.5); EOS % 4.6 % (0.0-3.0); HEMATOCRIT 39.7 % (42.0-52.0); HEMOGLOBIN 13.1 g/dl (13.5-17.5); LYMPH # 2.1 10^3/uL (1.5-5.0); LYMPH % 45.1 % (24.0-44.0); MEAN CORPUSCULAR HEMOGLOBIN 30.5 pg (27.0-33.0); MEAN CORPUSCULAR VOLUME 92.3 fl (80.0-96.0); MONO # 0.5 10^3/uL (0.0-0.8); MONO % 11.8 % (2.0-8.0); NEUTROPHILS # 1.7 10^3/uL (1.5-8.5); NEUTROPHILS % 37.2 % (36.0-66.0); PLATELET COUNT, AUTOMATED 422 10^3/uL (150-450); WHITE BLOOD COUNT 4.6 10^3/uL (4.0-10.0)
[2022-10-10 08:26] LABS: ALBUMIN 3.5 G/DL (3.2-5.2); ALKALINE PHOSPHATASE 119 U/L (46-116); ALT/SGPT 26 U/L (7.0-40); AST/SGOT 20 U/L (<34); BILIRUBIN,TOTAL 0.3 MG/DL (0.3-1.2); BLOOD UREA NITROGEN 15 MG/DL (9-23); CALCIUM LEVEL 9.1 MG/DL (8.5-10.1); CARBON DIOXIDE LEVEL 24 MMOL/L (20-31); CHLORIDE LEVEL 105 MMOL/L (98-107); CREATININE FOR GFR 1.01 MG/DL (0.70-1.30); GLOMERULAR FILTRATION RATE > 60.0 (>60); GLUCOSE, FASTING 83 MG/DL (60-100); POTASSIUM SERUM 4.4 MMOL/L (3.5-5.1); SODIUM LEVEL 137 MMOL/L (136-145); TOTAL PROTEIN 7.9 G/DL (5.7-8.2)
[2022-10-10 08:31] LABS: APPEARANCE, URINE MANUAL CLEAR (CLEAR); COLOR, URINE MANUAL YELLOW (YELLOW)
[2022-10-10 08:32] LABS: GLUCOSE, URINE (UA) MANUAL NEGATIVE (NEGATIVE); KETONE, URINE MANUAL 1+ mg/dL (NEGATIVE); PROTEIN, URINE MANUAL NEGATIVE (NEGATIVE)
[2022-10-10 08:33] LABS: BILIRUBIN, URINE MANUAL NEGATIVE (NEGATIVE); BLOOD URINE MANUAL TRACE (NEGATIVE); LEUKOCYTE ESTERASE, URINE MAN NEGATIVE (NEGATIVE); NITRITE, URINE MANUAL NEGATIVE (NEGATIVE); UROBILINOGEN, URINE MANUAL NORMAL (NORMAL)
[2022-10-10 08:48] LABS: RBC, URINE 0-1 /hpf (0-3); WBC, URINE 0-1 /hpf (0-3)
[2022-10-10 08:49] LABS: BACTERIA, URINE SMALL AMOUNT; HYALINE CAST, URINE NONE SEEN /lpf (0-1); MUCUS, URINE SMALL AMOUNT (NEGATIVE); SQUAMOUS EPITHELIAL CELL URINE SMALL AMOUNT /hpf (SMALL AMT)
[2022-10-10] MEDS: FOSAPREPITANT 150 MG in NS 245 ML IV SCH (09:13)
[2022-10-10] MEDS: PALONOSETRON 0.25MG/5ML VIAL (ALOXI) IV SCH (09:13)
[2022-10-10] MEDS: FLUOROURACIL IVP SCH (11:54)
[2022-10-12] MEDS: SODIUM CHLORIDE 0.9% INJ 10 ML SYR IV PRN (11:05)
[2022-10-12 11:08] VITALS: BP 102/57; O2SAT 99
[2022-10-24 10:05] VITALS: BP 134/87; O2SAT 96
[2022-10-24 10:38] LABS: BASO % 0.9 % (0.0-1.0); EOS # 0.1 10^3/uL (0.0-0.5); HEMATOCRIT 39.2 % (42.0-52.0); LYMPH # 1.7 10^3/uL (1.5-5.0); LYMPH % 36.2 % (24.0-44.0); MEAN CORPUSCULAR HEMOGLOBIN 30.4 pg (27.0-33.0); MEAN CORPUSCULAR HGB CONC 33.2 g/dl (32.0-36.5); MEAN CORPUSCULAR VOLUME 91.6 fl (80.0-96.0); MONO # 0.5 10^3/uL (0.0-0.8); MONO % 10.1 % (2.0-8.0); NEUTROPHILS # 2.3 10^3/uL (1.5-8.5); NEUTROPHILS % 49.6 % (36.0-66.0); PLATELET COUNT, AUTOMATED 139 10^3/uL (150-450); RED BLOOD COUNT 4.28 10^6/uL (4.30-6.10); WHITE BLOOD COUNT 4.6 10^3/uL (4.0-10.0)
[2022-10-24 10:49] LABS: ALBUMIN 3.5 G/DL (3.2-5.2); ALKALINE PHOSPHATASE 75 U/L (46-116); ALT/SGPT 17 U/L (7.0-40); AST/SGOT 27 U/L (<34); BILIRUBIN,TOTAL 0.5 MG/DL (0.3-1.2); BLOOD UREA NITROGEN 16 MG/DL (9-23); CALCIUM LEVEL 8.8 MG/DL (8.5-10.1); CARBON DIOXIDE LEVEL 27 MMOL/L (20-31); CHLORIDE LEVEL 104 MMOL/L (98-107); CREATININE FOR GFR 0.95 MG/DL (0.70-1.30); GLOMERULAR FILTRATION RATE > 60.0 (>60); GLUCOSE, FASTING 85 MG/DL (60-100); POTASSIUM SERUM 3.9 MMOL/L (3.5-5.1); SODIUM LEVEL 138 MMOL/L (136-145); TOTAL PROTEIN 7.1 G/DL (5.7-8.2)
[2022-10-24 11:00] LABS: APPEARANCE, URINE MANUAL CLEAR (CLEAR); COLOR, URINE MANUAL YELLOW (YELLOW)
[2022-10-24 11:02] LABS: MAGNESIUM LEVEL 1.5 MG/DL (1.8-2.4)
[2022-10-24 11:03] LABS: PH,URINE MAN 5.5 UNITS (5.0 - 7.0)
[2022-10-24 11:04] LABS: GLUCOSE, URINE (UA) MANUAL NEGATIVE (NEGATIVE); KETONE, URINE MANUAL NEGATIVE (NEGATIVE); PROTEIN, URINE MANUAL NEGATIVE (NEGATIVE); UROBILINOGEN, URINE MANUAL NORMAL (NORMAL)
[2022-10-24 11:05] LABS: BILIRUBIN, URINE MANUAL 1+ (NEGATIVE); BLOOD URINE MANUAL TRACE (NEGATIVE); LEUKOCYTE ESTERASE, URINE MAN NEGATIVE (NEGATIVE); NITRITE, URINE MANUAL NEGATIVE (NEGATIVE)
[2022-10-24 11:16] LABS: SQUAMOUS EPITHELIAL CELL URINE NONE SEEN /hpf (SMALL AMT)
[2022-10-24 11:17] LABS: BACTERIA, URINE NONE SEEN; HYALINE CAST, URINE NONE SEEN /lpf (0-1); MUCUS, URINE LARGE AMOUNT (NEGATIVE)
[2022-10-24] MEDS: MAG SULF 1GM/100ML (MAG RUN) 100 ML IV ONE (11:28)
[2022-10-24] MEDS: PALONOSETRON 0.25MG/5ML VIAL (ALOXI) IV SCH (12:10)
[2022-10-24] MEDS: FOSAPREPITANT 150 MG in NS 245 ML IV SCH (12:11)
[2022-10-24] MEDS: FLUOROURACIL IVP SCH (14:09)
[2022-10-26] MEDS: SODIUM CHLORIDE 0.9% INJ 10 ML SYR IV PRN (12:14)
[2022-10-26 12:19] VITALS: BP 130/78; O2SAT 100
[2022-11-08 09:38] VITALS: BP 134/85; O2SAT 99
[2022-11-08 09:51] LABS: BASO % 0.8 % (0.0-1.0); EOS # 0.1 10^3/uL (0.0-0.5); EOS % 2.3 % (0.0-3.0); HEMATOCRIT 38.6 % (42.0-52.0); HEMOGLOBIN 12.9 g/dl (13.5-17.5); LYMPH # 1.3 10^3/uL (1.5-5.0); LYMPH % 26.4 % (24.0-44.0); MEAN CORPUSCULAR HEMOGLOBIN 30.7 pg (27.0-33.0); MEAN CORPUSCULAR HGB CONC 33.4 g/dl (32.0-36.5); MEAN CORPUSCULAR VOLUME 91.9 fl (80.0-96.0); MONO # 0.4 10^3/uL (0.0-0.8); MONO % 8.9 % (2.0-8.0); NEUTROPHILS % 61.2 % (36.0-66.0); PLATELET COUNT, AUTOMATED 190 10^3/uL (150-450); WHITE BLOOD COUNT 4.9 10^3/uL (4.0-10.0)
[2022-11-08 09:59] LABS: APPEARANCE, URINE MANUAL CLEAR (CLEAR); COLOR, URINE MANUAL YELLOW (YELLOW)
[2022-11-08 10:00] LABS: PH,URINE MAN 5.5 UNITS (5.0 - 7.0); PROTEIN, URINE MANUAL NEGATIVE (NEGATIVE); SPECIFIC GRAVITY,URINE MANUAL 1.015 (1.002-1.035)
[2022-11-08 10:01] LABS: BILIRUBIN, URINE MANUAL NEGATIVE (NEGATIVE); KETONE, URINE MANUAL NEGATIVE (NEGATIVE); NITRITE, URINE MANUAL NEGATIVE (NEGATIVE); UROBILINOGEN, URINE MANUAL NORMAL (NORMAL)
[2022-11-08 10:02] LABS: LEUKOCYTE ESTERASE, URINE MAN NEGATIVE (NEGATIVE)
[2022-11-08 10:05] LABS: GLUCOSE, URINE (UA) MANUAL NEGATIVE (NEGATIVE)
[2022-11-08 10:12] LABS: ALBUMIN 3.5 G/DL (3.2-5.2); ALKALINE PHOSPHATASE 84 U/L (46-116); ALT/SGPT 18 U/L (7.0-40); AST/SGOT 23 U/L (<34); BILIRUBIN,TOTAL 0.4 MG/DL (0.3-1.2); BLOOD UREA NITROGEN 14 MG/DL (9-23); CALCIUM LEVEL 8.9 MG/DL (8.5-10.1); CARBON DIOXIDE LEVEL 24 MMOL/L (20-31); CHLORIDE LEVEL 106 MMOL/L (98-107); CREATININE FOR GFR 0.88 MG/DL (0.70-1.30); GLOMERULAR FILTRATION RATE > 60.0 (>60); GLUCOSE, FASTING 119 MG/DL (60-100); POTASSIUM SERUM 3.9 MMOL/L (3.5-5.1); SODIUM LEVEL 141 MMOL/L (136-145); TOTAL PROTEIN 6.5 G/DL (5.7-8.2)
[2022-11-08 10:21] LABS: BLOOD URINE MANUAL NEGATIVE (NEGATIVE)
[2022-11-08] MEDS: FOSAPREPITANT PERIPHERAL LINE 30 MIN INFUSION (PREMIX) IV ONE (10:44)
[2022-11-08] MEDS: PALONOSETRON 0.25MG/5ML VIAL (ALOXI) IV SCH (10:44)
[2022-11-08] MEDS: MAG SULF 1GM/100ML (MAG RUN) 100 ML IV ONE (11:00)
[2022-11-08] MEDS: FLUOROURACIL IVP SCH (14:29)
[2022-11-10 12:50] VITALS: BP 136/76; O2SAT 100
[2022-12-05 09:20] VITALS: BP 130/91; O2SAT 97
[2022-12-05 09:27] LABS: BASO % 0.7 % (0.0-1.0); EOS # 0.2 10^3/uL (0.0-0.5); EOS % 3.3 % (0.0-3.0); HEMATOCRIT 43.5 % (42.0-52.0); HEMOGLOBIN 14.4 g/dl (13.5-17.5); LYMPH # 1.7 10^3/uL (1.5-5.0); LYMPH % 30.9 % (24.0-44.0); MEAN CORPUSCULAR HEMOGLOBIN 31.2 pg (27.0-33.0); MEAN CORPUSCULAR HGB CONC 33.1 g/dl (32.0-36.5); MEAN CORPUSCULAR VOLUME 94.2 fl (80.0-96.0); MONO # 0.6 10^3/uL (0.0-0.8); MONO % 10.4 % (2.0-8.0); NEUTROPHILS # 2.9 10^3/uL (1.5-8.5); NEUTROPHILS % 54.1 % (36.0-66.0); PLATELET COUNT, AUTOMATED 207 10^3/uL (150-450); RED BLOOD COUNT 4.62 10^6/uL (4.30-6.10); WHITE BLOOD COUNT 5.4 10^3/uL (4.0-10.0)
[2022-12-05 09:28] LABS: APPEARANCE, URINE MANUAL CLEAR (CLEAR); COLOR, URINE MANUAL YELLOW (YELLOW)
[2022-12-05 09:30] LABS: SPECIFIC GRAVITY,URINE MANUAL 1.005 (1.002-1.035)
[2022-12-05 09:31] LABS: BILIRUBIN, URINE MANUAL NEGATIVE (NEGATIVE); GLUCOSE, URINE (UA) MANUAL NEGATIVE (NEGATIVE); KETONE, URINE MANUAL NEGATIVE (NEGATIVE); LEUKOCYTE ESTERASE, URINE MAN NEGATIVE (NEGATIVE); NITRITE, URINE MANUAL NEGATIVE (NEGATIVE); PROTEIN, URINE MANUAL NEGATIVE (NEGATIVE); UROBILINOGEN, URINE MANUAL NORMAL (NORMAL)
[2022-12-05 09:32] LABS: BLOOD URINE MANUAL NEGATIVE (NEGATIVE)
[2022-12-05 09:50] LABS: ALKALINE PHOSPHATASE 70 U/L (46-116); ALT/SGPT 29 U/L (7.0-40); AST/SGOT 31 U/L (<34); BLOOD UREA NITROGEN 13 MG/DL (9-23); CALCIUM LEVEL 9.2 MG/DL (8.5-10.1); CARBON DIOXIDE LEVEL 29 MMOL/L (20-31); CHLORIDE LEVEL 102 MMOL/L (98-107); CREATININE FOR GFR 1.06 MG/DL (0.70-1.30); GLOMERULAR FILTRATION RATE > 60.0 (>60); GLUCOSE, FASTING 86 MG/DL (60-100); POTASSIUM SERUM 4.3 MMOL/L (3.5-5.1); SODIUM LEVEL 137 MMOL/L (136-145); TOTAL PROTEIN 7.2 G/DL (5.7-8.2)
[2022-12-05] MEDS: PALONOSETRON 0.25MG/5ML VIAL (ALOXI) IV SCH (10:19)
[2022-12-05] MEDS: FOSAPREPITANT 150 MG in NS 245 ML IV ONE (12:21)
[2022-12-05] MEDS: FLUOROURACIL IVP SCH (13:38)
[2022-12-07 13:01] VITALS: BP 107/69; O2SAT 98
[2022-12-19 08:49] LABS: APPEARANCE, URINE MANUAL CLEAR (CLEAR); BASO % 0.7 % (0.0-1.0); BILIRUBIN, URINE MANUAL NEGATIVE (NEGATIVE); BLOOD URINE MANUAL TRACE (NEGATIVE); COLOR, URINE MANUAL YELLOW (YELLOW); EOS # 0.2 10^3/uL (0.0-0.5); EOS % 4.2 % (0.0-3.0); GLUCOSE, URINE (UA) MANUAL NEGATIVE (NEGATIVE); HEMATOCRIT 39.9 % (42.0-52.0); HEMOGLOBIN 13.7 g/dl (13.5-17.5); KETONE, URINE MANUAL NEGATIVE (NEGATIVE); LEUKOCYTE ESTERASE, URINE MAN NEGATIVE (NEGATIVE); LYMPH # 1.5 10^3/uL (1.5-5.0); MEAN CORPUSCULAR HEMOGLOBIN 32.9 pg (27.0-33.0); MEAN CORPUSCULAR HGB CONC 34.3 g/dl (32.0-36.5); MEAN CORPUSCULAR VOLUME 95.7 fl (80.0-96.0); MONO # 0.5 10^3/uL (0.0-0.8); MONO % 11.3 % (2.0-8.0); NEUTROPHILS # 2.1 10^3/uL (1.5-8.5); NEUTROPHILS % 48.6 % (36.0-66.0); NITRITE, URINE MANUAL NEGATIVE (NEGATIVE); PLATELET COUNT, AUTOMATED 174 10^3/uL (150-450); PROTEIN, URINE MANUAL TRACE mg/dL (NEGATIVE); RED BLOOD COUNT 4.17 10^6/uL (4.30-6.10); SPECIFIC GRAVITY,URINE MANUAL 1.015 (1.002-1.035); UROBILINOGEN, URINE MANUAL NORMAL (NORMAL); WHITE BLOOD COUNT 4.3 10^3/uL (4.0-10.0)
[2022-12-19 08:50] VITALS: BP 127/85; O2SAT 99
[2022-12-19 08:58] LABS: BACTERIA, URINE SMALL AMOUNT; HYALINE CAST, URINE NONE SEEN /lpf (0-1); MUCUS, URINE LARGE AMOUNT (NEGATIVE); SQUAMOUS EPITHELIAL CELL URINE SMALL AMOUNT /hpf (SMALL AMT)
[2022-12-19 09:27] LABS: MAGNESIUM LEVEL 1.8 MG/DL (1.8-2.4)
[2022-12-19 09:29] LABS: ALBUMIN 3.7 G/DL (3.2-5.2); ALKALINE PHOSPHATASE 68 U/L (46-116); ALT/SGPT 21 U/L (7.0-40); AST/SGOT 25 U/L (<34); BILIRUBIN,TOTAL 0.9 MG/DL (0.3-1.2); BLOOD UREA NITROGEN 13 MG/DL (9-23); CALCIUM LEVEL 8.2 MG/DL (8.5-10.1); CARBON DIOXIDE LEVEL 28 MMOL/L (20-31); CHLORIDE LEVEL 106 MMOL/L (98-107); CREATININE FOR GFR 0.96 MG/DL (0.70-1.30); GLOMERULAR FILTRATION RATE > 60.0 (>60); GLUCOSE, FASTING 90 MG/DL (60-100); POTASSIUM SERUM 3.6 MMOL/L (3.5-5.1); SODIUM LEVEL 140 MMOL/L (136-145); TOTAL PROTEIN 6.7 G/DL (5.7-8.2)
[2022-12-19] MEDS: PALONOSETRON 0.25MG/5ML VIAL (ALOXI) IV SCH (09:57)
[2022-12-19] MEDS: FOSAPREPITANT 150 MG in NS 245 ML IV ONE (09:58)
[2022-12-19] MEDS: FLUOROURACIL IVP SCH (12:28)
[2022-12-21 12:59] VITALS: BP 114/78; O2SAT 98
[2023-01-02 08:15] VITALS: BP 142/92; O2SAT 98
[2023-01-02 08:38] LABS: APPEARANCE, URINE HAZY (CLEAR); BACTERIA, URINE AUTO NEGATIVE (NEGATIVE); BILIRUBIN, URINE AUTO NEGATIVE (NEGATIVE); BLOOD, URINE BLOOD NEGATIVE (NEGATIVE); COLOR, URINE AMBER (YELLOW); GLUCOSE, URINE (UA) AUTO NEGATIVE (NEGATIVE); KETONE, URINE AUTO TRACE mg/dL (NEGATIVE); LEUKOCYTE ESTERASE, URINE AUTO NEGATIVE (NEGATIVE); MUCUS, URINE SMALL (NEGATIVE); NITRITE, URINE AUTO NEGATIVE (NEGATIVE); PROTEIN, URINE AUTO 1+ mg/dL (NEGATIVE); RBC, URINE AUTO 5 /HPF (0-3); SPECIFIC GRAVITY URINE AUTO 1.031 (1.002-1.035); SQUAMOUS EPITHELIAL CELL UR AU 0 /HPF (0-6); WBC, URINE AUTO 1 /HPF (0-3)
[2023-01-02 08:44] LABS: BASO % 0.5 % (0.0-1.0); EOS # 0.1 10^3/uL (0.0-0.5); EOS % 1.2 % (0.0-3.0); HEMATOCRIT 40.7 % (42.0-52.0); HEMOGLOBIN 13.8 g/dl (13.5-17.5); LYMPH # 1.5 10^3/uL (1.5-5.0); LYMPH % 19.1 % (24.0-44.0); MEAN CORPUSCULAR HEMOGLOBIN 32.8 pg (27.0-33.0); MEAN CORPUSCULAR HGB CONC 33.9 g/dl (32.0-36.5); MEAN CORPUSCULAR VOLUME 96.7 fl (80.0-96.0); MONO # 1.2 10^3/uL (0.0-0.8); MONO % 14.8 % (2.0-8.0); PLATELET COUNT, AUTOMATED 208 10^3/uL (150-450); RED BLOOD COUNT 4.21 10^6/uL (4.30-6.10); WHITE BLOOD COUNT 7.8 10^3/uL (4.0-10.0)
[2023-01-02 08:53] LABS: ALBUMIN 3.8 G/DL (3.2-5.2); ALKALINE PHOSPHATASE 99 U/L (46-116); ALT/SGPT 29 U/L (7.0-40); AST/SGOT 33 U/L (<34); BILIRUBIN,TOTAL 1.2 MG/DL (0.3-1.2); BLOOD UREA NITROGEN 16 MG/DL (9-23); CALCIUM LEVEL 8.9 MG/DL (8.5-10.1); CARBON DIOXIDE LEVEL 26 MMOL/L (20-31); CHLORIDE LEVEL 103 MMOL/L (98-107); CREATININE FOR GFR 1.02 MG/DL (0.70-1.30); GLOMERULAR FILTRATION RATE > 60.0 (>60); GLUCOSE, FASTING 95 MG/DL (60-100); POTASSIUM SERUM 3.8 MMOL/L (3.5-5.1); SODIUM LEVEL 137 MMOL/L (136-145); TOTAL PROTEIN 7.8 G/DL (5.7-8.2)
[2023-01-02] MEDS: PALONOSETRON 0.25MG/5ML VIAL (ALOXI) IV SCH (09:30)
[2023-01-02] MEDS: FOSAPREPITANT 150 MG in NS 245 ML IV ONE (09:59)
[2023-01-02] MEDS: FLUOROURACIL IVP SCH (12:03)
[2023-01-04 10:10] VITALS: BP 122/77; O2SAT 98
[2023-01-04] MEDS: SODIUM CHLORIDE 0.9% INJ 10 ML SYR IV PRN (10:16)
[2023-01-16 08:25] VITALS: BP 137/85; O2SAT 99
[2023-01-16 08:31] LABS: BASO # 0.1 10^3/uL (0.0-0.2); EOS # 0.2 10^3/uL (0.0-0.5); EOS % 4.6 % (0.0-3.0); HEMATOCRIT 39.3 % (42.0-52.0); HEMOGLOBIN 13.3 g/dl (13.5-17.5); LYMPH # 1.7 10^3/uL (1.5-5.0); LYMPH % 34.7 % (24.0-44.0); MEAN CORPUSCULAR HEMOGLOBIN 32.9 pg (27.0-33.0); MEAN CORPUSCULAR HGB CONC 33.8 g/dl (32.0-36.5); MEAN CORPUSCULAR VOLUME 97.3 fl (80.0-96.0); MONO # 0.6 10^3/uL (0.0-0.8); MONO % 11.6 % (2.0-8.0); NEUTROPHILS # 2.4 10^3/uL (1.5-8.5); NEUTROPHILS % 47.5 % (36.0-66.0); PLATELET COUNT, AUTOMATED 203 10^3/uL (150-450); RED BLOOD COUNT 4.04 10^6/uL (4.30-6.10)
[2023-01-16 08:32] LABS: APPEARANCE, URINE CLEAR (CLEAR); BACTERIA, URINE AUTO NEGATIVE (NEGATIVE); BILIRUBIN, URINE AUTO NEGATIVE (NEGATIVE); BLOOD, URINE BLOOD NEGATIVE (NEGATIVE); COLOR, URINE YELLOW (YELLOW); GLUCOSE, URINE (UA) AUTO NEGATIVE (NEGATIVE); KETONE, URINE AUTO NEGATIVE (NEGATIVE); LEUKOCYTE ESTERASE, URINE AUTO NEGATIVE (NEGATIVE); NITRITE, URINE AUTO NEGATIVE (NEGATIVE); PROTEIN, URINE AUTO NEGATIVE (NEGATIVE); RBC, URINE AUTO 1 /HPF (0-3); SPECIFIC GRAVITY URINE AUTO 1.018 (1.002-1.035); SQUAMOUS EPITHELIAL CELL UR AU 0 /HPF (0-6); UROBILINOGEN, URINE AUTO 0.2 mg/dL (0.0-2.0); WBC, URINE AUTO 1 /HPF (0-3)
[2023-01-16 09:09] LABS: ALBUMIN 3.7 G/DL (3.2-5.2); ALKALINE PHOSPHATASE 81 U/L (46-116); ALT/SGPT 19 U/L (7.0-40); AST/SGOT 30 U/L (<34); BILIRUBIN,TOTAL 0.3 MG/DL (0.3-1.2); BLOOD UREA NITROGEN 9 MG/DL (9-23); CALCIUM LEVEL 8.7 MG/DL (8.5-10.1); CARBON DIOXIDE LEVEL 27 MMOL/L (20-31); CHLORIDE LEVEL 108 MMOL/L (98-107); CREATININE FOR GFR 0.91 MG/DL (0.70-1.30); GLOMERULAR FILTRATION RATE > 60.0 (>60); GLUCOSE, FASTING 99 MG/DL (60-100); POTASSIUM SERUM 3.8 MMOL/L (3.5-5.1); SODIUM LEVEL 141 MMOL/L (136-145); TOTAL PROTEIN 6.9 G/DL (5.7-8.2)
[2023-01-16] MEDS: MAG SULF 1GM/100ML (MAG RUN) 100 ML IV ONE (09:44)
[2023-01-16] MEDS: FOSAPREPITANT 150 MG in NS 245 ML IV ONE (11:02)
[2023-01-16] MEDS: PALONOSETRON 0.25MG/5ML VIAL (ALOXI) IV SCH (11:08)
[2023-01-16] MEDS: FLUOROURACIL IVP SCH (12:58)
[2023-01-18] MEDS: SODIUM CHLORIDE 0.9% INJ 10 ML SYR IV PRN (12:03)
[2023-01-30 09:00] VITALS: BP 141/89; O2SAT 98
[2023-01-30 09:35] LABS: BASO % 0.6 % (0.0-1.0); EOS # 0.3 10^3/uL (0.0-0.5); EOS % 4.8 % (0.0-3.0); HEMATOCRIT 41.2 % (42.0-52.0); HEMOGLOBIN 14.2 g/dl (13.5-17.5); LYMPH # 1.8 10^3/uL (1.5-5.0); LYMPH % 34.4 % (24.0-44.0); MEAN CORPUSCULAR HEMOGLOBIN 33.1 pg (27.0-33.0); MEAN CORPUSCULAR HGB CONC 34.5 g/dl (32.0-36.5); MONO # 0.6 10^3/uL (0.0-0.8); MONO % 12.4 % (2.0-8.0); NEUTROPHILS # 2.5 10^3/uL (1.5-8.5); NEUTROPHILS % 47.6 % (36.0-66.0); PLATELET COUNT, AUTOMATED 181 10^3/uL (150-450); RED BLOOD COUNT 4.29 10^6/uL (4.30-6.10); WHITE BLOOD COUNT 5.2 10^3/uL (4.0-10.0)
[2023-01-30 09:39] LABS: APPEARANCE, URINE CLEAR (CLEAR); BACTERIA, URINE AUTO NEGATIVE (NEGATIVE); BILIRUBIN, URINE AUTO NEGATIVE (NEGATIVE); BLOOD, URINE BLOOD 1+ (NEGATIVE); COLOR, URINE YELLOW (YELLOW); GLUCOSE, URINE (UA) AUTO NEGATIVE (NEGATIVE); KETONE, URINE AUTO NEGATIVE (NEGATIVE); LEUKOCYTE ESTERASE, URINE AUTO NEGATIVE (NEGATIVE); MUCUS, URINE SMALL (NEGATIVE); NITRITE, URINE AUTO NEGATIVE (NEGATIVE); PROTEIN, URINE AUTO NEGATIVE (NEGATIVE); RBC, URINE AUTO 1 /HPF (0-3); SQUAMOUS EPITHELIAL CELL UR AU 0 /HPF (0-6); UROBILINOGEN, URINE AUTO 0.2 mg/dL (0.0-2.0); WBC, URINE AUTO 0 /HPF (0-3)
[2023-01-30 10:09] LABS: ALBUMIN 3.9 G/DL (3.2-5.2); ALKALINE PHOSPHATASE 92 U/L (46-116); ALT/SGPT 41 U/L (7.0-40); AST/SGOT 38 U/L (<34); BILIRUBIN,TOTAL 0.5 MG/DL (0.3-1.2); BLOOD UREA NITROGEN 14 MG/DL (9-23); CALCIUM LEVEL 8.7 MG/DL (8.5-10.1); CARBON DIOXIDE LEVEL 24 MMOL/L (20-31); CHLORIDE LEVEL 107 MMOL/L (98-107); CREATININE FOR GFR 1.01 MG/DL (0.70-1.30); GLOMERULAR FILTRATION RATE > 60.0 (>60); GLUCOSE, FASTING 86 MG/DL (60-100); POTASSIUM SERUM 3.9 MMOL/L (3.5-5.1); SODIUM LEVEL 138 MMOL/L (136-145); TOTAL PROTEIN 6.9 G/DL (5.7-8.2)
[2023-01-30] MEDS: FOSAPREPITANT 150 MG in NS 245 ML IV ONE (11:04)
[2023-01-30] MEDS: PALONOSETRON 0.25MG/5ML VIAL (ALOXI) IV SCH (11:04)
[2023-01-30] MEDS: FLUOROURACIL IVP SCH (13:56)
[2023-02-01] MEDS: SODIUM CHLORIDE 0.9% INJ 10 ML SYR IV PRN (12:01)
[2023-02-01 12:15] VITALS: BP 123/83; O2SAT 99
[2023-02-13 09:29] VITALS: BP 131/83; O2SAT 95
[2023-02-13 09:51] LABS: BASO % 0.6 % (0.0-1.0); EOS # 0.2 10^3/uL (0.0-0.5); EOS % 3.5 % (0.0-3.0); HEMOGLOBIN 14.3 g/dl (13.5-17.5); LYMPH # 1.8 10^3/uL (1.5-5.0); LYMPH % 26.6 % (24.0-44.0); MEAN CORPUSCULAR HEMOGLOBIN 32.4 pg (27.0-33.0); MEAN CORPUSCULAR VOLUME 95.2 fl (80.0-96.0); MONO # 0.9 10^3/uL (0.0-0.8); MONO % 12.7 % (2.0-8.0); NEUTROPHILS # 3.9 10^3/uL (1.5-8.5); NEUTROPHILS % 56.5 % (36.0-66.0); PLATELET COUNT, AUTOMATED 182 10^3/uL (150-450); RED BLOOD COUNT 4.41 10^6/uL (4.30-6.10); WHITE BLOOD COUNT 6.9 10^3/uL (4.0-10.0)
[2023-02-13 10:00] LABS: APPEARANCE, URINE HAZY (CLEAR); BACTERIA, URINE AUTO NEGATIVE (NEGATIVE); BILIRUBIN, URINE AUTO NEGATIVE (NEGATIVE); BLOOD, URINE BLOOD 1+ (NEGATIVE); COLOR, URINE AMBER (YELLOW); GLUCOSE, URINE (UA) AUTO NEGATIVE (NEGATIVE); KETONE, URINE AUTO NEGATIVE (NEGATIVE); LEUKOCYTE ESTERASE, URINE AUTO NEGATIVE (NEGATIVE); MUCUS, URINE SMALL (NEGATIVE); NITRITE, URINE AUTO NEGATIVE (NEGATIVE); PROTEIN, URINE AUTO 1+ mg/dL (NEGATIVE); RBC, URINE AUTO 1 /HPF (0-3); SPECIFIC GRAVITY URINE AUTO 1.025 (1.002-1.035); SQUAMOUS EPITHELIAL CELL UR AU 0 /HPF (0-6); UROBILINOGEN, URINE AUTO 0.2 mg/dL (0.0-2.0); WBC, URINE AUTO 2 /HPF (0-3)
[2023-02-13 10:14] LABS: ALBUMIN 3.9 G/DL (3.2-5.2); ALKALINE PHOSPHATASE 94 U/L (46-116); ALT/SGPT 44 U/L (7.0-40); AST/SGOT 39 U/L (<34); BILIRUBIN,TOTAL 0.9 MG/DL (0.3-1.2); BLOOD UREA NITROGEN 12 MG/DL (9-23); CALCIUM LEVEL 9.1 MG/DL (8.5-10.1); CARBON DIOXIDE LEVEL 26 MMOL/L (20-31); CHLORIDE LEVEL 105 MMOL/L (98-107); GLOMERULAR FILTRATION RATE > 60.0 (>60); GLUCOSE, FASTING 106 MG/DL (60-100); POTASSIUM SERUM 3.5 MMOL/L (3.5-5.1); SODIUM LEVEL 140 MMOL/L (136-145); TOTAL PROTEIN 7.3 G/DL (5.7-8.2)
[2023-02-13] MEDS: PALONOSETRON 0.25MG/5ML VIAL (ALOXI) IV SCH (10:51)
[2023-02-13] MEDS: FOSAPREPITANT 150 MG in NS 245 ML IV ONE (10:51)
[2023-02-13] MEDS: FLUOROURACIL IVP SCH (13:27)
[2023-02-15 11:50] VITALS: BP 120/82; O2SAT 100
[2023-02-15] MEDS: SODIUM CHLORIDE 0.9% INJ 10 ML SYR IV PRN (11:54)
[2023-02-27 08:52] LABS: BASO % 0.1 % (0.0-1.0); EOS # 0.1 10^3/uL (0.0-0.5); EOS % 1.9 % (0.0-3.0); HEMATOCRIT 41.1 % (42.0-52.0); HEMOGLOBIN 13.8 g/dl (13.5-17.5); LYMPH # 1.6 10^3/uL (1.5-5.0); LYMPH % 23.4 % (24.0-44.0); MEAN CORPUSCULAR HEMOGLOBIN 32.1 pg (27.0-33.0); MEAN CORPUSCULAR HGB CONC 33.6 g/dl (32.0-36.5); MEAN CORPUSCULAR VOLUME 95.6 fl (80.0-96.0); MONO # 1.1 10^3/uL (0.0-0.8); MONO % 15.9 % (2.0-8.0); NEUTROPHILS # 3.9 10^3/uL (1.5-8.5); NEUTROPHILS % 58.3 % (36.0-66.0); PLATELET COUNT, AUTOMATED 190 10^3/uL (150-450); WHITE BLOOD COUNT 6.8 10^3/uL (4.0-10.0)
[2023-02-27 09:21] LABS: ALBUMIN 3.5 G/DL (3.2-5.2); ALKALINE PHOSPHATASE 136 U/L (46-116); ALT/SGPT 68 U/L (7.0-40); AST/SGOT 44 U/L (<34); BILIRUBIN,TOTAL 1.8 MG/DL (0.3-1.2); BLOOD UREA NITROGEN 15 MG/DL (9-23); CALCIUM LEVEL 8.6 MG/DL (8.5-10.1); CARBON DIOXIDE LEVEL 25 MMOL/L (20-31); CHLORIDE LEVEL 105 MMOL/L (98-107); CREATININE FOR GFR 1.06 MG/DL (0.70-1.30); GLOMERULAR FILTRATION RATE > 60.0 (>60); GLUCOSE, FASTING 91 MG/DL (60-100); POTASSIUM SERUM 4.2 MMOL/L (3.5-5.1); SODIUM LEVEL 138 MMOL/L (136-145); TOTAL PROTEIN 7.1 G/DL (5.7-8.2)
[2023-03-13 08:47] VITALS: BP 122/84; O2SAT 97
[2023-03-13 08:51] LABS: BASO # 0.1 10^3/uL (0.0-0.2); BASO % 0.9 % (0.0-1.0); EOS # 0.4 10^3/uL (0.0-0.5); EOS % 6.4 % (0.0-3.0); HEMATOCRIT 42.5 % (42.0-52.0); HEMOGLOBIN 14.3 g/dl (13.5-17.5); LYMPH # 1.9 10^3/uL (1.5-5.0); LYMPH % 29.6 % (24.0-44.0); MEAN CORPUSCULAR HEMOGLOBIN 32.1 pg (27.0-33.0); MEAN CORPUSCULAR HGB CONC 33.6 g/dl (32.0-36.5); MEAN CORPUSCULAR VOLUME 95.5 fl (80.0-96.0); MONO # 0.6 10^3/uL (0.0-0.8); NEUTROPHILS # 3.5 10^3/uL (1.5-8.5); NEUTROPHILS % 53.2 % (36.0-66.0); PLATELET COUNT, AUTOMATED 285 10^3/uL (150-450); RED BLOOD COUNT 4.45 10^6/uL (4.30-6.10); WHITE BLOOD COUNT 6.6 10^3/uL (4.0-10.0)
[2023-03-13 09:24] LABS: ALBUMIN 3.4 G/DL (3.2-5.2); ALKALINE PHOSPHATASE 86 U/L (46-116); ALT/SGPT 24 U/L (7.0-40); AST/SGOT 23 U/L (<34); BILIRUBIN,TOTAL 0.3 MG/DL (0.3-1.2); BLOOD UREA NITROGEN 9 MG/DL (9-23); CALCIUM LEVEL 9.3 MG/DL (8.5-10.1); CARBON DIOXIDE LEVEL 28 MMOL/L (20-31); CHLORIDE LEVEL 105 MMOL/L (98-107); CREATININE FOR GFR 1.05 MG/DL (0.70-1.30); GLOMERULAR FILTRATION RATE > 60.0 (>60); GLUCOSE, FASTING 86 MG/DL (60-100); POTASSIUM SERUM 4.1 MMOL/L (3.5-5.1); SODIUM LEVEL 140 MMOL/L (136-145); TOTAL PROTEIN 7.1 G/DL (5.7-8.2)
[2023-03-13 09:35] LABS: MAGNESIUM LEVEL 1.8 MG/DL (1.8-2.4)
[2023-03-13 09:39] LABS: CARCINOEMBRYONIC ANTIGEN < 2.0 NG/ML (<2.5)
[2023-03-13 09:59] LABS: APPEARANCE, URINE HAZY (CLEAR); BACTERIA, URINE AUTO NEGATIVE (NEGATIVE); BILIRUBIN, URINE AUTO NEGATIVE (NEGATIVE); BLOOD, URINE BLOOD NEGATIVE (NEGATIVE); COLOR, URINE AMBER (YELLOW); GLUCOSE, URINE (UA) AUTO NEGATIVE (NEGATIVE); KETONE, URINE AUTO TRACE mg/dL (NEGATIVE); LEUKOCYTE ESTERASE, URINE AUTO NEGATIVE (NEGATIVE); MUCUS, URINE MODERATE (NEGATIVE); NITRITE, URINE AUTO NEGATIVE (NEGATIVE); PROTEIN, URINE AUTO 1+ mg/dL (NEGATIVE); RBC, URINE AUTO 1 /HPF (0-3); SPECIFIC GRAVITY URINE AUTO 1.026 (1.002-1.035); SQUAMOUS EPITHELIAL CELL UR AU 0 /HPF (0-6); WBC, URINE AUTO 3 /HPF (0-3)
[2023-03-13] MEDS: FOSAPREPITANT 150 MG in NS 245 ML IV ONE (10:37)
[2023-03-13] MEDS: PALONOSETRON 0.25MG/5ML VIAL (ALOXI) IV SCH (10:40)
[2023-03-13] MEDS: FLUOROURACIL IVP SCH (13:26)
[2023-03-15] MEDS: SODIUM CHLORIDE 0.9% INJ 10 ML SYR IV PRN (11:55)
[2023-03-15 12:00] VITALS: BP 115/68; O2SAT 97
[2023-03-27 08:45] VITALS: BP 124/84; O2SAT 99
[2023-03-27 09:23] LABS: APPEARANCE, URINE CLEAR (CLEAR); BACTERIA, URINE AUTO NEGATIVE (NEGATIVE); BILIRUBIN, URINE AUTO NEGATIVE (NEGATIVE); BLOOD, URINE BLOOD NEGATIVE (NEGATIVE); COLOR, URINE YELLOW (YELLOW); GLUCOSE, URINE (UA) AUTO NEGATIVE (NEGATIVE); KETONE, URINE AUTO NEGATIVE (NEGATIVE); LEUKOCYTE ESTERASE, URINE AUTO NEGATIVE (NEGATIVE); MUCUS, URINE SMALL (NEGATIVE); NITRITE, URINE AUTO NEGATIVE (NEGATIVE); PROTEIN, URINE AUTO NEGATIVE (NEGATIVE); RBC, URINE AUTO 2 /HPF (0-3); SPECIFIC GRAVITY URINE AUTO 1.019 (1.002-1.035); SQUAMOUS EPITHELIAL CELL UR AU 0 /HPF (0-6); WBC, URINE AUTO 0 /HPF (0-3)
[2023-03-27 09:24] LABS: BASO % 0.4 % (0.0-1.0); EOS # 0.3 10^3/uL (0.0-0.5); EOS % 6.7 % (0.0-3.0); HEMATOCRIT 41.2 % (42.0-52.0); HEMOGLOBIN 13.8 g/dl (13.5-17.5); LYMPH # 1.6 10^3/uL (1.5-5.0); MEAN CORPUSCULAR HEMOGLOBIN 31.9 pg (27.0-33.0); MEAN CORPUSCULAR HGB CONC 33.5 g/dl (32.0-36.5); MEAN CORPUSCULAR VOLUME 95.4 fl (80.0-96.0); MONO # 0.4 10^3/uL (0.0-0.8); MONO % 9.9 % (2.0-8.0); NEUTROPHILS # 2.1 10^3/uL (1.5-8.5); NEUTROPHILS % 47.8 % (36.0-66.0); PLATELET COUNT, AUTOMATED 148 10^3/uL (150-450); RED BLOOD COUNT 4.32 10^6/uL (4.30-6.10); WHITE BLOOD COUNT 4.5 10^3/uL (4.0-10.0)
[2023-03-27 09:48] LABS: ALBUMIN 3.5 G/DL (3.2-5.2); ALKALINE PHOSPHATASE 77 U/L (46-116); ALT/SGPT 26 U/L (7.0-40); AST/SGOT 25 U/L (<34); BILIRUBIN,TOTAL 0.8 MG/DL (0.3-1.2); BLOOD UREA NITROGEN 12 MG/DL (9-23); CALCIUM LEVEL 8.5 MG/DL (8.5-10.1); CARBON DIOXIDE LEVEL 26 MMOL/L (20-31); CHLORIDE LEVEL 106 MMOL/L (98-107); CREATININE FOR GFR 1.03 MG/DL (0.70-1.30); GLOMERULAR FILTRATION RATE > 60.0 (>60); GLUCOSE, FASTING 93 MG/DL (60-100); POTASSIUM SERUM 4.1 MMOL/L (3.5-5.1); SODIUM LEVEL 137 MMOL/L (136-145); TOTAL PROTEIN 6.5 G/DL (5.7-8.2)
[2023-03-27] MEDS: MAG SULF 1GM/100ML (MAG RUN) 100 ML IV ONE (09:53)
[2023-03-27] MEDS: FOSAPREPITANT 150 MG in NS 245 ML IV ONE (11:13)
[2023-03-27] MEDS: PALONOSETRON 0.25MG/5ML VIAL (ALOXI) IV SCH (11:14)
[2023-03-27] MEDS: FLUOROURACIL IVP SCH (13:29)
[2023-03-29] MEDS: SODIUM CHLORIDE 0.9% INJ 10 ML SYR IV PRN (11:47)
[2023-07-05 09:41] VITALS: BP 120/81; O2SAT 100
[2023-08-10 11:07] VITALS: BP 142/92; O2SAT 98
[2023-08-10 12:04] LABS: BASO % 0.6 % (0.0-1.0); EOS # 0.1 10^3/uL (0.0-0.5); EOS % 1.8 % (0.0-3.0); HEMATOCRIT 40.3 % (42.0-52.0); HEMOGLOBIN 13.3 g/dl (13.5-17.5); LYMPH # 1.4 10^3/uL (1.5-5.0); LYMPH % 19.8 % (24.0-44.0); MEAN CORPUSCULAR HEMOGLOBIN 30.6 pg (27.0-33.0); MEAN CORPUSCULAR VOLUME 92.6 fl (80.0-96.0); MONO # 0.7 10^3/uL (0.0-0.8); MONO % 9.2 % (2.0-8.0); NEUTROPHILS # 4.9 10^3/uL (1.5-8.5); PLATELET COUNT, AUTOMATED 192 10^3/uL (150-450); RED BLOOD COUNT 4.35 10^6/uL (4.30-6.10); WHITE BLOOD COUNT 7.2 10^3/uL (4.0-10.0)
[2023-08-10 12:05] LABS: APPEARANCE, URINE CLEAR (CLEAR); BACTERIA, URINE AUTO NEGATIVE (NEGATIVE); BILIRUBIN, URINE AUTO NEGATIVE (NEGATIVE); BLOOD, URINE BLOOD NEGATIVE (NEGATIVE); COLOR, URINE YELLOW (YELLOW); GLUCOSE, URINE (UA) AUTO NEGATIVE (NEGATIVE); KETONE, URINE AUTO TRACE mg/dL (NEGATIVE); LEUKOCYTE ESTERASE, URINE AUTO NEGATIVE (NEGATIVE); NITRITE, URINE AUTO NEGATIVE (NEGATIVE); PROTEIN, URINE AUTO NEGATIVE (NEGATIVE); RBC, URINE AUTO 0 /HPF (0-3); SQUAMOUS EPITHELIAL CELL UR AU 0 /HPF (0-6); UROBILINOGEN, URINE AUTO 0.2 mg/dL (0.0-2.0); WBC, URINE AUTO 0 /HPF (0-3)
[2023-08-10 12:33] LABS: ALBUMIN 4.2 G/DL (3.2-5.2); ALKALINE PHOSPHATASE 98 U/L (46-116); ALT/SGPT 36 U/L (7.0-40); AST/SGOT 31 U/L (<34); BILIRUBIN,TOTAL 0.7 MG/DL (0.3-1.2); BLOOD UREA NITROGEN 15 MG/DL (9-23); CALCIUM LEVEL 9.3 MG/DL (8.5-10.1); CARBON DIOXIDE LEVEL 26 MMOL/L (20-31); CHLORIDE LEVEL 108 MMOL/L (98-107); CREATININE FOR GFR 1.05 MG/DL (0.70-1.30); GLOMERULAR FILTRATION RATE > 60.0 (>60); GLUCOSE, FASTING 84 MG/DL (60-100); POTASSIUM SERUM 4.2 MMOL/L (3.5-5.1); SODIUM LEVEL 140 MMOL/L (136-145); TOTAL PROTEIN 6.9 G/DL (5.7-8.2)
[2023-08-14 08:37] LABS: BASO % 0.5 % (0.0-1.0); EOS # 0.2 10^3/uL (0.0-0.5); EOS % 3.8 % (0.0-3.0); HEMATOCRIT 41.1 % (42.0-52.0); HEMOGLOBIN 13.6 g/dl (13.5-17.5); LYMPH # 1.4 10^3/uL (1.5-5.0); MEAN CORPUSCULAR HEMOGLOBIN 30.6 pg (27.0-33.0); MEAN CORPUSCULAR HGB CONC 33.1 g/dl (32.0-36.5); MEAN CORPUSCULAR VOLUME 92.4 fl (80.0-96.0); MONO # 0.5 10^3/uL (0.0-0.8); MONO % 8.3 % (2.0-8.0); NEUTROPHILS # 3.9 10^3/uL (1.5-8.5); NEUTROPHILS % 63.9 % (36.0-66.0); PLATELET COUNT, AUTOMATED 185 10^3/uL (150-450); RED BLOOD COUNT 4.45 10^6/uL (4.30-6.10)
[2023-08-14 08:42] VITALS: BP 119/86; O2SAT 98
[2023-08-14 08:48] LABS: APPEARANCE, URINE CLEAR (CLEAR); BACTERIA, URINE AUTO NEGATIVE (NEGATIVE); BILIRUBIN, URINE AUTO NEGATIVE (NEGATIVE); BLOOD, URINE BLOOD NEGATIVE (NEGATIVE); COLOR, URINE YELLOW (YELLOW); GLUCOSE, URINE (UA) AUTO NEGATIVE (NEGATIVE); KETONE, URINE AUTO NEGATIVE (NEGATIVE); LEUKOCYTE ESTERASE, URINE AUTO NEGATIVE (NEGATIVE); MUCUS, URINE SMALL (NEGATIVE); NITRITE, URINE AUTO NEGATIVE (NEGATIVE); PROTEIN, URINE AUTO NEGATIVE (NEGATIVE); RBC, URINE AUTO 0 /HPF (0-3); SPECIFIC GRAVITY URINE AUTO 1.019 (1.002-1.035); SQUAMOUS EPITHELIAL CELL UR AU 0 /HPF (0-6); UROBILINOGEN, URINE AUTO 0.2 mg/dL (0.0-2.0); WBC, URINE AUTO 1 /HPF (0-3)
[2023-08-14 09:07] LABS: ALKALINE PHOSPHATASE 100 U/L (46-116); ALT/SGPT 34 U/L (7.0-40); AST/SGOT 29 U/L (<34); BILIRUBIN,TOTAL 0.8 MG/DL (0.3-1.2); BLOOD UREA NITROGEN 12 MG/DL (9-23); CARBON DIOXIDE LEVEL 27 MMOL/L (20-31); CHLORIDE LEVEL 107 MMOL/L (98-107); CREATININE FOR GFR 0.97 MG/DL (0.70-1.30); GLOMERULAR FILTRATION RATE > 60.0 (>60); GLUCOSE, FASTING 84 MG/DL (60-100); POTASSIUM SERUM 3.8 MMOL/L (3.5-5.1); SODIUM LEVEL 141 MMOL/L (136-145); TOTAL PROTEIN 6.7 G/DL (5.7-8.2)
[2023-08-14 09:11] LABS: HEPATITIS B SURFACE ANTIBODY POSITIVE (POSITIVE)
[2023-08-14] MEDS: MAG SULF 1GM/100ML (MAG RUN) 100 ML IV SCH (09:19)
[2023-08-14 09:23] LABS: HEPATITIS B SURFACE ANTIGEN NEGATIVE (NEGATIVE)
[2023-08-14 09:45] LABS: HEPATITIS B CORE ANTIBODY IGM NEGATIVE (NEGATIVE)
[2023-08-14] MEDS: PALONOSETRON 0.25MG/5ML VIAL (ALOXI) IV SCH (10:37)
[2023-08-14] MEDS: FOSAPREPITANT 150 MG in NS 245 ML IV SCH (10:37)
[2023-08-14] MEDS: FLUOROURACIL IVP SCH (13:45)
[2023-08-16 13:12] VITALS: BP 123/81; O2SAT 98
[2023-08-28 09:11] LABS: BASO % 1.1 % (0.0-1.0); EOS # 0.1 10^3/uL (0.0-0.5); EOS % 3.8 % (0.0-3.0); HEMATOCRIT 38.9 % (42.0-52.0); HEMOGLOBIN 13.1 g/dl (13.5-17.5); LYMPH # 1.1 10^3/uL (1.5-5.0); LYMPH % 57.9 % (24.0-44.0); MEAN CORPUSCULAR HEMOGLOBIN 30.4 pg (27.0-33.0); MEAN CORPUSCULAR HGB CONC 33.7 g/dl (32.0-36.5); MEAN CORPUSCULAR VOLUME 90.3 fl (80.0-96.0); MONO # 0.3 10^3/uL (0.0-0.8); MONO % 17.5 % (2.0-8.0); NEUTROPHILS % 16.4 % (36.0-66.0); PLATELET COUNT, AUTOMATED 172 10^3/uL (150-450); RED BLOOD COUNT 4.31 10^6/uL (4.30-6.10); WHITE BLOOD COUNT 1.8 10^3/uL (4.0-10.0)
[2023-08-28 09:27] LABS: NEUTROPHILS # 0.3 10^3/uL (1.5-8.5)
[2023-08-28 09:35] LABS: APPEARANCE, URINE CLEAR (CLEAR); BACTERIA, URINE AUTO NEGATIVE (NEGATIVE); BILIRUBIN, URINE AUTO NEGATIVE (NEGATIVE); BLOOD, URINE BLOOD NEGATIVE (NEGATIVE); COLOR, URINE YELLOW (YELLOW); GLUCOSE, URINE (UA) AUTO NEGATIVE (NEGATIVE); KETONE, URINE AUTO NEGATIVE (NEGATIVE); LEUKOCYTE ESTERASE, URINE AUTO NEGATIVE (NEGATIVE); MUCUS, URINE SMALL (NEGATIVE); NITRITE, URINE AUTO NEGATIVE (NEGATIVE); PROTEIN, URINE AUTO NEGATIVE (NEGATIVE); RBC, URINE AUTO 0 /HPF (0-3); SPECIFIC GRAVITY URINE AUTO 1.024 (1.002-1.035); SQUAMOUS EPITHELIAL CELL UR AU 0 /HPF (0-6); UROBILINOGEN, URINE AUTO 0.2 mg/dL (0.0-2.0); WBC, URINE AUTO 1 /HPF (0-3)
[2023-08-28 12:55] LABS: GLUCOSE, FASTING 99 MG/DL (70-99)
[2023-08-28 12:56] LABS: ALKALINE PHOSPHATASE 114 U/L (40-129); ALT/SGPT 25 U/L (1-41); AST/SGOT 33 U/L (5-40); BLOOD UREA NITROGEN 16 MG/DL (7-21); CALCIUM LEVEL 9.2 MG/DL (8.4-10.2); CARBON DIOXIDE LEVEL 23 MEQ/L (22-30); CHLORIDE LEVEL 102 MEQ/L (98-107); GLOMERULAR FILTRATION RATE > 60.0 (>60); POTASSIUM SERUM 3.9 MEQ/L (3.6-5.0); SODIUM LEVEL 137 MEQ/L (134-153)
[2023-08-28 13:02] LABS: BILIRUBIN,TOTAL 0.8 MG/DL (0.2-1.3)
[2023-08-28 13:03] LABS: ALBUMIN 4.3 G/DL (3.9-5.0); TOTAL PROTEIN 6.4 G/DL (6.3-8.2)
[2023-08-29] MEDS: FILGRASTIM 480 MCG/0.8 ML SYRINGE **SC ADMINISTRATION ONLY SC SCH (11:50)
[2023-08-30] MEDS: FILGRASTIM 480 MCG/0.8 ML SYRINGE **SC ADMINISTRATION ONLY SC SCH (08:29)
[2023-08-31] MEDS: FILGRASTIM 480 MCG/0.8 ML SYRINGE **SC ADMINISTRATION ONLY SC SCH (08:19)
[2023-08-31] MEDS: SODIUM CHLORIDE 0.9% INJ 10 ML SYR IV PRN (08:19)
[2023-08-31 08:38] LABS: BASO # 0.1 10^3/uL (0.0-0.2); BASO % 1.6 % (0.0-1.0); EOS # 0.1 10^3/uL (0.0-0.5); EOS % 2.8 % (0.0-3.0); HEMATOCRIT 39.5 % (42.0-52.0); HEMOGLOBIN 13.4 g/dl (13.5-17.5); LYMPH # 1.5 10^3/uL (1.5-5.0); LYMPH % 29.6 % (24.0-44.0); MEAN CORPUSCULAR HEMOGLOBIN 30.6 pg (27.0-33.0); MEAN CORPUSCULAR HGB CONC 33.9 g/dl (32.0-36.5); MEAN CORPUSCULAR VOLUME 90.2 fl (80.0-96.0); MONO % 20.3 % (2.0-8.0); NEUTROPHILS # 2.1 10^3/uL (1.5-8.5); NEUTROPHILS % 42.9 % (36.0-66.0); PLATELET COUNT, AUTOMATED 151 10^3/uL (150-450); RED BLOOD COUNT 4.38 10^6/uL (4.30-6.10); WHITE BLOOD COUNT 4.9 10^3/uL (4.0-10.0)
[2023-09-04 09:08] LABS: APPEARANCE, URINE CLEAR (CLEAR); BACTERIA, URINE AUTO NEGATIVE (NEGATIVE); BILIRUBIN, URINE AUTO NEGATIVE (NEGATIVE); BLOOD, URINE BLOOD NEGATIVE (NEGATIVE); COLOR, URINE YELLOW (YELLOW); GLUCOSE, URINE (UA) AUTO NEGATIVE (NEGATIVE); KETONE, URINE AUTO NEGATIVE (NEGATIVE); LEUKOCYTE ESTERASE, URINE AUTO NEGATIVE (NEGATIVE); MUCUS, URINE SMALL (NEGATIVE); NITRITE, URINE AUTO NEGATIVE (NEGATIVE); PROTEIN, URINE AUTO NEGATIVE (NEGATIVE); RBC, URINE AUTO 0 /HPF (0-3); SPECIFIC GRAVITY URINE AUTO 1.023 (1.002-1.035); SQUAMOUS EPITHELIAL CELL UR AU 0 /HPF (0-6); UROBILINOGEN, URINE AUTO 0.2 mg/dL (0.0-2.0); WBC, URINE AUTO 1 /HPF (0-3)
[2023-09-04 09:17] LABS: BASO % 0.7 % (0.0-1.0); EOS # 0.1 10^3/uL (0.0-0.5); EOS % 0.9 % (0.0-3.0); HEMOGLOBIN 13.3 g/dl (13.5-17.5); LYMPH # 1.7 10^3/uL (1.5-5.0); MEAN CORPUSCULAR HEMOGLOBIN 30.4 pg (27.0-33.0); MEAN CORPUSCULAR HGB CONC 33.3 g/dl (32.0-36.5); MEAN CORPUSCULAR VOLUME 91.3 fl (80.0-96.0); MONO % 17.6 % (2.0-8.0); NEUTROPHILS # 2.4 10^3/uL (1.5-8.5); NEUTROPHILS % 43.9 % (36.0-66.0); PLATELET COUNT, AUTOMATED 157 10^3/uL (150-450); RED BLOOD COUNT 4.38 10^6/uL (4.30-6.10); WHITE BLOOD COUNT 5.5 10^3/uL (4.0-10.0)
[2023-09-04 09:36] LABS: ALBUMIN 4.1 G/DL (3.2-5.2); ALKALINE PHOSPHATASE 120 U/L (46-116); ALT/SGPT 30 U/L (7.0-40); AST/SGOT 42 U/L (<34); BILIRUBIN,TOTAL 0.7 MG/DL (0.3-1.2); BLOOD UREA NITROGEN 17 MG/DL (9-23); CARBON DIOXIDE LEVEL 28 MMOL/L (20-31); CHLORIDE LEVEL 103 MMOL/L (98-107); CREATININE FOR GFR 1.06 MG/DL (0.70-1.30); GLOMERULAR FILTRATION RATE > 60.0 (>60); GLUCOSE, FASTING 88 MG/DL (60-100); POTASSIUM SERUM 3.7 MMOL/L (3.5-5.1); SODIUM LEVEL 140 MMOL/L (136-145); TOTAL PROTEIN 6.7 G/DL (5.7-8.2)
[2023-09-04 09:52] VITALS: BP 127/84; O2SAT 98
[2023-09-04] MEDS: PALONOSETRON 0.25MG/5ML VIAL (ALOXI) IV SCH (10:41)
[2023-09-04] MEDS: FOSAPREPITANT 150 MG in NS 245 ML IV SCH (10:43)
[2023-09-04] MEDS: FLUOROURACIL IVP SCH (13:48)
[2023-09-06] MEDS: PEGFILGRASTIM 6 MG SC SCH (13:26)
[2023-09-06] MEDS: SODIUM CHLORIDE 0.9% INJ 10 ML SYR IV PRN (13:26)
[2023-09-06 13:30] VITALS: BP 135/85; O2SAT 98
[2023-09-18] MEDS: ATROPINE SULF 0.4 MG/ML 1ML VIAL IVP ONE
[2023-09-18 09:09] VITALS: BP 120/84; O2SAT 98
[2023-09-18 09:27] LABS: BASO # 0.1 10^3/uL (0.0-0.2); BASO % 1.2 % (0.0-1.0); EOS % 0.5 % (0.0-3.0); HEMOGLOBIN 12.4 g/dl (13.5-17.5); LYMPH % 13.6 % (24.0-44.0); MEAN CORPUSCULAR HEMOGLOBIN 30.3 pg (27.0-33.0); MEAN CORPUSCULAR HGB CONC 32.6 g/dl (32.0-36.5); MEAN CORPUSCULAR VOLUME 92.9 fl (80.0-96.0); MONO # 0.9 10^3/uL (0.0-0.8); NEUTROPHILS # 4.9 10^3/uL (1.5-8.5); NEUTROPHILS % 63.4 % (36.0-66.0); PLATELET COUNT, AUTOMATED 165 10^3/uL (150-450); RED BLOOD COUNT 4.09 10^6/uL (4.30-6.10); WHITE BLOOD COUNT 7.7 10^3/uL (4.0-10.0)
[2023-09-18 09:28] LABS: APPEARANCE, URINE HAZY (CLEAR); BACTERIA, URINE AUTO NEGATIVE (NEGATIVE); BILIRUBIN, URINE AUTO NEGATIVE (NEGATIVE); BLOOD, URINE BLOOD NEGATIVE (NEGATIVE); COLOR, URINE AMBER (YELLOW); GLUCOSE, URINE (UA) AUTO NEGATIVE (NEGATIVE); KETONE, URINE AUTO TRACE mg/dL (NEGATIVE); LEUKOCYTE ESTERASE, URINE AUTO NEGATIVE (NEGATIVE); MUCUS, URINE SMALL (NEGATIVE); NITRITE, URINE AUTO NEGATIVE (NEGATIVE); PROTEIN, URINE AUTO NEGATIVE (NEGATIVE); RBC, URINE AUTO 0 /HPF (0-3); SPECIFIC GRAVITY URINE AUTO 1.027 (1.002-1.035); SQUAMOUS EPITHELIAL CELL UR AU 0 /HPF (0-6); WBC, URINE AUTO 2 /HPF (0-3)
[2023-09-18 09:48] LABS: ALBUMIN 3.9 G/DL (3.2-5.2); ALKALINE PHOSPHATASE 141 U/L (46-116); ALT/SGPT 29 U/L (7.0-40); AST/SGOT 23 U/L (<34); BILIRUBIN,TOTAL 0.5 MG/DL (0.3-1.2); BLOOD UREA NITROGEN 12 MG/DL (9-23); CARBON DIOXIDE LEVEL 26 MMOL/L (20-31); CHLORIDE LEVEL 105 MMOL/L (98-107); CREATININE FOR GFR 1.16 MG/DL (0.70-1.30); GLOMERULAR FILTRATION RATE > 60.0 (>60); GLUCOSE, FASTING 94 MG/DL (60-100); MAGNESIUM LEVEL 1.6 MG/DL (1.8-2.4); POTASSIUM SERUM 4.1 MMOL/L (3.5-5.1); SODIUM LEVEL 140 MMOL/L (136-145); TOTAL PROTEIN 6.4 G/DL (5.7-8.2)
[2023-09-18] MEDS: FOSAPREPITANT 150 MG in NS 245 ML IV SCH (10:12)
[2023-09-18] MEDS: PALONOSETRON 0.25MG/5ML VIAL (ALOXI) IV SCH (10:12)
[2023-09-18] MEDS: MAG SULF 1GM/100ML (MAG RUN) 100 ML IV SCH (10:58)
[2023-09-18] MEDS: FLUOROURACIL IVP SCH (15:39)
[2023-09-20 13:40] VITALS: BP 133/82; O2SAT 99
[2023-09-20] MEDS: SODIUM CHLORIDE 0.9% INJ 10 ML SYR IV PRN (13:44)
[2023-09-20] MEDS: PEGFILGRASTIM 6 MG SC SCH (13:44)
[2023-10-02 09:15] VITALS: BP 120/82; O2SAT 98
[2023-10-02 09:32] LABS: BASO # 0.1 10^3/uL (0.0-0.2); BASO % 0.8 % (0.0-1.0); EOS % 0.2 % (0.0-3.0); HEMATOCRIT 36.6 % (42.0-52.0); HEMOGLOBIN 11.9 g/dl (13.5-17.5); LYMPH # 1.9 10^3/uL (1.5-5.0); LYMPH % 21.6 % (24.0-44.0); MEAN CORPUSCULAR HEMOGLOBIN 30.5 pg (27.0-33.0); MEAN CORPUSCULAR HGB CONC 32.5 g/dl (32.0-36.5); MEAN CORPUSCULAR VOLUME 93.8 fl (80.0-96.0); NEUTROPHILS # 4.9 10^3/uL (1.5-8.5); NEUTROPHILS % 56.3 % (36.0-66.0); PLATELET COUNT, AUTOMATED 230 10^3/uL (150-450); WHITE BLOOD COUNT 8.6 10^3/uL (4.0-10.0)
[2023-10-02 09:36] LABS: APPEARANCE, URINE HAZY (CLEAR); BACTERIA, URINE AUTO NEGATIVE (NEGATIVE); BILIRUBIN, URINE AUTO NEGATIVE (NEGATIVE); BLOOD, URINE BLOOD NEGATIVE (NEGATIVE); COLOR, URINE AMBER (YELLOW); GLUCOSE, URINE (UA) AUTO NEGATIVE (NEGATIVE); KETONE, URINE AUTO NEGATIVE (NEGATIVE); LEUKOCYTE ESTERASE, URINE AUTO NEGATIVE (NEGATIVE); MUCUS, URINE MODERATE (NEGATIVE); NITRITE, URINE AUTO NEGATIVE (NEGATIVE); PROTEIN, URINE AUTO 1+ mg/dL (NEGATIVE); RBC, URINE AUTO 1 /HPF (0-3); SPECIFIC GRAVITY URINE AUTO 1.024 (1.002-1.035); SQUAMOUS EPITHELIAL CELL UR AU 1 /HPF (0-6); UROBILINOGEN, URINE AUTO 0.2 mg/dL (0.0-2.0); WBC, URINE AUTO 4 /HPF (0-3)
[2023-10-02 09:55] LABS: ALBUMIN 3.9 G/DL (3.2-5.2); BILIRUBIN,TOTAL 0.5 MG/DL (0.3-1.2); CALCIUM LEVEL 8.9 MG/DL (8.5-10.1); CREATININE FOR GFR 1.51 MG/DL (0.70-1.30); GLOMERULAR FILTRATION RATE 54.8 (>60); POTASSIUM SERUM 4.2 MMOL/L (3.5-5.1); TOTAL PROTEIN 6.7 G/DL (5.7-8.2)
[2023-10-02] MEDS: FOSAPREPITANT 150 MG in NS 245 ML IV SCH (10:42)
[2023-10-02] MEDS: PALONOSETRON 0.25MG/5ML VIAL (ALOXI) IV SCH (10:43)
[2023-10-02] MEDS: PROCHLORPERAZINE 5MG TAB PO ONE (10:45)
[2023-10-02] MEDS: diphenhydrAMINE 50MG/ML VIAL IV ONE (11:00)
[2023-10-02] MEDS: FAMOTIDINE 20MG/2ML VIAL IV ONE (11:26)
[2023-10-02] MEDS: ATROPINE SULF 0.4 MG/ML 1ML VIAL IVP ONE (11:35)
[2023-10-02] MEDS: FLUOROURACIL IVP SCH (14:11)
[2023-10-04] MEDS: PEGFILGRASTIM 6 MG SC ONE (13:28)
[2023-10-04 13:34] VITALS: BP 111/72; O2SAT 97
[2023-10-16 09:17] LABS: BASO # 0.1 10^3/uL (0.0-0.2); EOS # 0.1 10^3/uL (0.0-0.5); EOS % 0.5 % (0.0-3.0); HEMATOCRIT 34.4 % (42.0-52.0); HEMOGLOBIN 11.4 g/dl (13.5-17.5); LYMPH # 2.6 10^3/uL (1.5-5.0); LYMPH % 19.5 % (24.0-44.0); MEAN CORPUSCULAR HEMOGLOBIN 30.7 pg (27.0-33.0); MEAN CORPUSCULAR HGB CONC 33.1 g/dl (32.0-36.5); MEAN CORPUSCULAR VOLUME 92.7 fl (80.0-96.0); MONO # 1.5 10^3/uL (0.0-0.8); MONO % 11.4 % (2.0-8.0); NEUTROPHILS # 7.8 10^3/uL (1.5-8.5); NEUTROPHILS % 58.5 % (36.0-66.0); PLATELET COUNT, AUTOMATED 256 10^3/uL (150-450); RED BLOOD COUNT 3.71 10^6/uL (4.30-6.10); WHITE BLOOD COUNT 13.4 10^3/uL (4.0-10.0)
[2023-10-16 09:35] LABS: APPEARANCE, URINE HAZY (CLEAR); BACTERIA, URINE AUTO NEGATIVE (NEGATIVE); BILIRUBIN, URINE AUTO NEGATIVE (NEGATIVE); BLOOD, URINE BLOOD NEGATIVE (NEGATIVE); COLOR, URINE AMBER (YELLOW); GLUCOSE, URINE (UA) AUTO NEGATIVE (NEGATIVE); KETONE, URINE AUTO NEGATIVE (NEGATIVE); LEUKOCYTE ESTERASE, URINE AUTO NEGATIVE (NEGATIVE); MUCUS, URINE SMALL (NEGATIVE); NITRITE, URINE AUTO NEGATIVE (NEGATIVE); PROTEIN, URINE AUTO 1+ mg/dL (NEGATIVE); RBC, URINE AUTO 0 /HPF (0-3); SPECIFIC GRAVITY URINE AUTO 1.028 (1.002-1.035); SQUAMOUS EPITHELIAL CELL UR AU 0 /HPF (0-6); UROBILINOGEN, URINE AUTO 0.2 mg/dL (0.0-2.0); WBC, URINE AUTO 2 /HPF (0-3)
[2023-10-16 09:51] LABS: ALBUMIN 3.8 G/DL (3.2-5.2); BILIRUBIN,TOTAL 0.4 MG/DL (0.3-1.2); CALCIUM LEVEL 8.7 MG/DL (8.5-10.1); CREATININE FOR GFR 1.61 MG/DL (0.70-1.30); GLOMERULAR FILTRATION RATE 50.9 (>60); MAGNESIUM LEVEL 1.9 MG/DL (1.8-2.4); TOTAL PROTEIN 6.7 G/DL (5.7-8.2)
[2023-10-16 09:55] LABS: CARCINOEMBRYONIC ANTIGEN < 2.0 NG/ML (<2.5)
[2023-10-16 10:07] VITALS: BP 114/83; O2SAT 100
[2023-10-23 09:16] LABS: BASO # 0.1 10^3/uL (0.0-0.2); BASO % 0.7 % (0.0-1.0); EOS # 0.1 10^3/uL (0.0-0.5); EOS % 1.6 % (0.0-3.0); HEMATOCRIT 30.4 % (42.0-52.0); HEMOGLOBIN 9.8 g/dl (13.5-17.5); LYMPH # 1.4 10^3/uL (1.5-5.0); LYMPH % 16.6 % (24.0-44.0); MEAN CORPUSCULAR HEMOGLOBIN 30.8 pg (27.0-33.0); MEAN CORPUSCULAR HGB CONC 32.2 g/dl (32.0-36.5); MEAN CORPUSCULAR VOLUME 95.6 fl (80.0-96.0); MONO # 0.8 10^3/uL (0.0-0.8); MONO % 10.1 % (2.0-8.0); NEUTROPHILS # 5.6 10^3/uL (1.5-8.5); NEUTROPHILS % 67.5 % (36.0-66.0); PLATELET COUNT, AUTOMATED 155 10^3/uL (150-450); RED BLOOD COUNT 3.18 10^6/uL (4.30-6.10); WHITE BLOOD COUNT 8.3 10^3/uL (4.0-10.0)
[2023-10-23 09:22] LABS: APPEARANCE, URINE HAZY (CLEAR); BACTERIA, URINE AUTO NEGATIVE (NEGATIVE); BILIRUBIN, URINE AUTO NEGATIVE (NEGATIVE); BLOOD, URINE BLOOD NEGATIVE (NEGATIVE); COLOR, URINE AMBER (YELLOW); GLUCOSE, URINE (UA) AUTO NEGATIVE (NEGATIVE); KETONE, URINE AUTO NEGATIVE (NEGATIVE); LEUKOCYTE ESTERASE, URINE AUTO NEGATIVE (NEGATIVE); MUCUS, URINE SMALL (NEGATIVE); NITRITE, URINE AUTO NEGATIVE (NEGATIVE); PROTEIN, URINE AUTO 1+ mg/dL (NEGATIVE); RBC, URINE AUTO 2 /HPF (0-3); SPECIFIC GRAVITY URINE AUTO 1.023 (1.002-1.035); SQUAMOUS EPITHELIAL CELL UR AU 0 /HPF (0-6); WBC, URINE AUTO 1 /HPF (0-3)
[2023-10-23 09:23] VITALS: BP 112/73; O2SAT 98
[2023-10-23 09:37] LABS: ALBUMIN 3.4 G/DL (3.2-5.2); ALKALINE PHOSPHATASE 119 U/L (46-116); ALT/SGPT 21 U/L (7.0-40); AST/SGOT 25 U/L (<34); BILIRUBIN,TOTAL 0.4 MG/DL (0.3-1.2); BLOOD UREA NITROGEN 10 MG/DL (9-23); CALCIUM LEVEL 8.7 MG/DL (8.5-10.1); CARBON DIOXIDE LEVEL 26 MMOL/L (20-31); CHLORIDE LEVEL 108 MMOL/L (98-107); CREATININE FOR GFR 1.14 MG/DL (0.70-1.30); GLOMERULAR FILTRATION RATE > 60.0 (>60); GLUCOSE, FASTING 93 MG/DL (60-100); POTASSIUM SERUM 3.9 MMOL/L (3.5-5.1); SODIUM LEVEL 140 MMOL/L (136-145); TOTAL PROTEIN 5.8 G/DL (5.7-8.2)
[2023-10-23] MEDS: FOSAPREPITANT 150 MG in NS 245 ML IV SCH (10:27)
[2023-10-23] MEDS: FAMOTIDINE 20MG/2ML VIAL IV ONE (10:28)
[2023-10-23] MEDS: PALONOSETRON 0.25MG/5ML VIAL (ALOXI) IV SCH (10:28)
[2023-10-23] MEDS: PROCHLORPERAZINE 5MG TAB PO ONE (10:58)
[2023-10-23] MEDS: diphenhydrAMINE 50MG/ML VIAL IV ONE (10:58)
[2023-10-23] MEDS: ATROPINE SULF 0.4 MG/ML 1ML VIAL IVP ONE (12:18)
[2023-10-23] MEDS: FLUOROURACIL IVP SCH (14:04)
[2023-10-25] MEDS: PEGFILGRASTIM 6 MG SC ONE (13:40)
[2023-10-25] MEDS: SODIUM CHLORIDE 0.9% INJ 10 ML SYR IV PRN (13:40)
[2023-10-25 13:45] VITALS: BP 115/74; O2SAT 100
[2023-11-08 08:06] VITALS: BP 121/87; O2SAT 99
[2023-11-08 08:23] LABS: BASO # 0.1 10^3/uL (0.0-0.2); EOS # 0.3 10^3/uL (0.0-0.5); EOS % 3.7 % (0.0-3.0); HEMATOCRIT 37.8 % (42.0-52.0); HEMOGLOBIN 12.1 g/dl (13.5-17.5); LYMPH # 1.7 10^3/uL (1.5-5.0); MEAN CORPUSCULAR HEMOGLOBIN 30.7 pg (27.0-33.0); MEAN CORPUSCULAR VOLUME 95.9 fl (80.0-96.0); MONO # 0.7 10^3/uL (0.0-0.8); MONO % 8.7 % (2.0-8.0); NEUTROPHILS # 5.1 10^3/uL (1.5-8.5); NEUTROPHILS % 64.3 % (36.0-66.0); PLATELET COUNT, AUTOMATED 117 10^3/uL (150-450); RED BLOOD COUNT 3.94 10^6/uL (4.30-6.10); WHITE BLOOD COUNT 7.9 10^3/uL (4.0-10.0)
[2023-11-08 08:50] LABS: ALKALINE PHOSPHATASE 174 U/L (46-116); ALT/SGPT 21 U/L (7.0-40); AST/SGOT 27 U/L (<34); BILIRUBIN,TOTAL 0.6 MG/DL (0.3-1.2); BLOOD UREA NITROGEN 17 MG/DL (9-23); CARBON DIOXIDE LEVEL 25 MMOL/L (20-31); CHLORIDE LEVEL 108 MMOL/L (98-107); CREATININE FOR GFR 1.12 MG/DL (0.70-1.30); GLOMERULAR FILTRATION RATE > 60.0 (>60); GLUCOSE, FASTING 89 MG/DL (60-100); POTASSIUM SERUM 3.8 MMOL/L (3.5-5.1); SODIUM LEVEL 141 MMOL/L (136-145); TOTAL PROTEIN 6.9 G/DL (5.7-8.2)
[2023-11-08 08:54] LABS: CARCINOEMBRYONIC ANTIGEN < 2.0 NG/ML (<2.5)
[2023-11-08 09:04] LABS: APPEARANCE, URINE CLEAR (CLEAR); BACTERIA, URINE AUTO NEGATIVE (NEGATIVE); BILIRUBIN, URINE AUTO NEGATIVE (NEGATIVE); BLOOD, URINE BLOOD NEGATIVE (NEGATIVE); COLOR, URINE YELLOW (YELLOW); GLUCOSE, URINE (UA) AUTO NEGATIVE (NEGATIVE); KETONE, URINE AUTO NEGATIVE (NEGATIVE); LEUKOCYTE ESTERASE, URINE AUTO NEGATIVE (NEGATIVE); NITRITE, URINE AUTO NEGATIVE (NEGATIVE); PROTEIN, URINE AUTO NEGATIVE (NEGATIVE); RBC, URINE AUTO 0 /HPF (0-3); SQUAMOUS EPITHELIAL CELL UR AU 0 /HPF (0-6); UROBILINOGEN, URINE AUTO 0.2 mg/dL (0.0-2.0); WBC, URINE AUTO 2 /HPF (0-3)
[2023-11-08] MEDS: FOSAPREPITANT 150 MG in NS 245 ML IV SCH (09:36)
[2023-11-08] MEDS: PALONOSETRON 0.25MG/5ML VIAL (ALOXI) IV SCH (09:37)
[2023-11-08] MEDS: FAMOTIDINE 20MG/2ML VIAL IV ONE (09:37)
[2023-11-08] MEDS: diphenhydrAMINE 50MG/ML VIAL IV ONE (09:37)
[2023-11-08] MEDS: PROCHLORPERAZINE 5MG TAB PO ONE (09:38)
[2023-11-08] MEDS: ATROPINE SULF 0.4 MG/ML 1ML VIAL IVP ONE (11:05)
[2023-11-08] MEDS: FLUOROURACIL IVP SCH (13:01)
[2023-11-10] MEDS: PEGFILGRASTIM 6 MG SC ONE (12:25)
[2023-11-10] MEDS: SODIUM CHLORIDE 0.9% INJ 10 ML SYR IV PRN (12:32)
[2023-11-10 12:34] VITALS: BP 119/74; O2SAT 100
[2023-11-21 08:42] VITALS: BP 127/90; O2SAT 96
[2023-11-21 09:25] LABS: APPEARANCE, URINE HAZY (CLEAR); BACTERIA, URINE AUTO NEGATIVE (NEGATIVE); BILIRUBIN, URINE AUTO NEGATIVE (NEGATIVE); BLOOD, URINE BLOOD NEGATIVE (NEGATIVE); COLOR, URINE AMBER (YELLOW); GLUCOSE, URINE (UA) AUTO NEGATIVE (NEGATIVE); KETONE, URINE AUTO NEGATIVE (NEGATIVE); LEUKOCYTE ESTERASE, URINE AUTO NEGATIVE (NEGATIVE); MUCUS, URINE SMALL (NEGATIVE); NITRITE, URINE AUTO NEGATIVE (NEGATIVE); PROTEIN, URINE AUTO 1+ mg/dL (NEGATIVE); RBC, URINE AUTO 0 /HPF (0-3); SPECIFIC GRAVITY URINE AUTO 1.024 (1.002-1.035); SQUAMOUS EPITHELIAL CELL UR AU 0 /HPF (0-6); UROBILINOGEN, URINE AUTO 0.2 mg/dL (0.0-2.0); WBC, URINE AUTO 0 /HPF (0-3)
[2023-11-21 09:35] LABS: BASO # 0.1 10^3/uL (0.0-0.2); BASO % 0.8 % (0.0-1.0); EOS # 0.2 10^3/uL (0.0-0.5); EOS % 3.3 % (0.0-3.0); HEMATOCRIT 36.8 % (42.0-52.0); HEMOGLOBIN 11.7 g/dl (13.5-17.5); LYMPH # 1.3 10^3/uL (1.5-5.0); LYMPH % 19.7 % (24.0-44.0); MEAN CORPUSCULAR HEMOGLOBIN 30.8 pg (27.0-33.0); MEAN CORPUSCULAR HGB CONC 31.8 g/dl (32.0-36.5); MEAN CORPUSCULAR VOLUME 96.8 fl (80.0-96.0); MONO # 0.5 10^3/uL (0.0-0.8); MONO % 7.1 % (2.0-8.0); NEUTROPHILS # 4.2 10^3/uL (1.5-8.5); PLATELET COUNT, AUTOMATED 139 10^3/uL (150-450); WHITE BLOOD COUNT 6.3 10^3/uL (4.0-10.0)
[2023-11-21 09:44] LABS: ALBUMIN 3.9 G/DL (3.2-5.2); ALKALINE PHOSPHATASE 169 U/L (46-116); ALT/SGPT 28 U/L (7.0-40); AST/SGOT 25 U/L (<34); BILIRUBIN,TOTAL 0.5 MG/DL (0.3-1.2); BLOOD UREA NITROGEN 12 MG/DL (9-23); CALCIUM LEVEL 8.8 MG/DL (8.5-10.1); CARBON DIOXIDE LEVEL 25 MMOL/L (20-31); CHLORIDE LEVEL 109 MMOL/L (98-107); CREATININE FOR GFR 1.24 MG/DL (0.70-1.30); GLOMERULAR FILTRATION RATE > 60.0 (>60); GLUCOSE, FASTING 102 MG/DL (60-100); MAGNESIUM LEVEL 1.7 MG/DL (1.8-2.4); POTASSIUM SERUM 4.3 MMOL/L (3.5-5.1); SODIUM LEVEL 142 MMOL/L (136-145); TOTAL PROTEIN 6.4 G/DL (5.7-8.2)
[2023-11-21 10:56] LABS: CARCINOEMBRYONIC ANTIGEN < 2.0 NG/ML (<2.5)
[2023-11-21 11:11] LABS: CA19-9 TUMOR MARKER,CARBOHYDRA 27.3 U/ML (<35.0)
[2023-11-21] MEDS: NS (Normal Saline) 0.9% 1,000 ML IV ONE (12:20)
[2023-12-28] MEDS: SODIUM CHLORIDE 0.9% INJ 10 ML SYR IV PRN (08:28)
[2023-12-28 08:37] VITALS: BP 145/84; O2SAT 99
[2023-12-28 08:43] LABS: EOS # 0.4 10^3/uL (0.0-0.5); EOS % 9.4 % (0.0-3.0); HEMATOCRIT 38.3 % (42.0-52.0); HEMOGLOBIN 12.2 g/dl (13.5-17.5); LYMPH # 0.7 10^3/uL (1.5-5.0); LYMPH % 16.7 % (24.0-44.0); MEAN CORPUSCULAR HEMOGLOBIN 30.4 pg (27.0-33.0); MEAN CORPUSCULAR HGB CONC 31.9 g/dl (32.0-36.5); MEAN CORPUSCULAR VOLUME 95.5 fl (80.0-96.0); MONO # 0.4 10^3/uL (0.0-0.8); MONO % 10.6 % (2.0-8.0); NEUTROPHILS # 2.5 10^3/uL (1.5-8.5); NEUTROPHILS % 62.1 % (36.0-66.0); RED BLOOD COUNT 4.01 10^6/uL (4.30-6.10); WHITE BLOOD COUNT 4.1 10^3/uL (4.0-10.0)
[2023-12-28 08:49] LABS: APPEARANCE, URINE CLEAR (CLEAR); BACTERIA, URINE AUTO NEGATIVE (NEGATIVE); BILIRUBIN, URINE AUTO NEGATIVE (NEGATIVE); BLOOD, URINE BLOOD NEGATIVE (NEGATIVE); COLOR, URINE YELLOW (YELLOW); GLUCOSE, URINE (UA) AUTO NEGATIVE (NEGATIVE); KETONE, URINE AUTO NEGATIVE (NEGATIVE); LEUKOCYTE ESTERASE, URINE AUTO NEGATIVE (NEGATIVE); MUCUS, URINE SMALL (NEGATIVE); NITRITE, URINE AUTO NEGATIVE (NEGATIVE); PROTEIN, URINE AUTO NEGATIVE (NEGATIVE); RBC, URINE AUTO 1 /HPF (0-3); SQUAMOUS EPITHELIAL CELL UR AU 0 /HPF (0-6); UROBILINOGEN, URINE AUTO 0.2 mg/dL (0.0-2.0); WBC, URINE AUTO 0 /HPF (0-3)
[2023-12-28 08:55] LABS: PLATELET COUNT, AUTOMATED 93 10^3/uL (150-450)
[2023-12-28 09:07] LABS: ALBUMIN 3.7 G/DL (3.2-5.2); ALKALINE PHOSPHATASE 96 U/L (46-116); ALT/SGPT 21 U/L (7.0-40); AST/SGOT 31 U/L (<34); BILIRUBIN,TOTAL 0.7 MG/DL (0.3-1.2); BLOOD UREA NITROGEN 10 MG/DL (9-23); CALCIUM LEVEL 8.6 MG/DL (8.5-10.1); CARBON DIOXIDE LEVEL 25 MMOL/L (20-31); CHLORIDE LEVEL 110 MMOL/L (98-107); CREATININE FOR GFR 0.82 MG/DL (0.70-1.30); GLOMERULAR FILTRATION RATE > 60.0 (>60); GLUCOSE, FASTING 84 MG/DL (60-100); POTASSIUM SERUM 3.9 MMOL/L (3.5-5.1); SODIUM LEVEL 141 MMOL/L (136-145); TOTAL PROTEIN 6.5 G/DL (5.7-8.2)
[2023-12-28 09:17] LABS: MAGNESIUM LEVEL 1.6 MG/DL (1.8-2.4)
[2023-12-28 09:24] LABS: CARCINOEMBRYONIC ANTIGEN < 2.0 NG/ML (<2.5)
[2024-02-01 09:06] LABS: BASO % 0.5 % (0.0-1.0); EOS # 0.3 10^3/uL (0.0-0.5); EOS % 7.4 % (0.0-3.0); HEMATOCRIT 39.4 % (42.0-52.0); HEMOGLOBIN 12.7 g/dl (13.5-17.5); LYMPH % 22.2 % (24.0-44.0); MEAN CORPUSCULAR HEMOGLOBIN 29.5 pg (27.0-33.0); MEAN CORPUSCULAR HGB CONC 32.2 g/dl (32.0-36.5); MEAN CORPUSCULAR VOLUME 91.6 fl (80.0-96.0); MONO # 0.4 10^3/uL (0.0-0.8); MONO % 9.2 % (2.0-8.0); NEUTROPHILS # 2.6 10^3/uL (1.5-8.5); NEUTROPHILS % 60.5 % (36.0-66.0); PLATELET COUNT, AUTOMATED 112 10^3/uL (150-450); WHITE BLOOD COUNT 4.3 10^3/uL (4.0-10.0)
[2024-02-01] MEDS: SODIUM CHLORIDE 0.9% INJ 10 ML SYR IV PRN (09:14)
[2024-02-01 09:24] LABS: ALBUMIN 3.6 G/DL (3.2-5.2); ALKALINE PHOSPHATASE 103 U/L (46-116); ALT/SGPT 18 U/L (7.0-40); AST/SGOT 27 U/L (<34); BILIRUBIN,TOTAL 0.4 MG/DL (0.3-1.2); BLOOD UREA NITROGEN 16 MG/DL (9-23); CALCIUM LEVEL 8.7 MG/DL (8.5-10.1); CARBON DIOXIDE LEVEL 27 MMOL/L (20-31); CHLORIDE LEVEL 108 MMOL/L (98-107); CREATININE FOR GFR 0.91 MG/DL (0.70-1.30); GLOMERULAR FILTRATION RATE > 60.0 (>60); GLUCOSE, FASTING 113 MG/DL (60-100); POTASSIUM SERUM 4.1 MMOL/L (3.5-5.1); SODIUM LEVEL 141 MMOL/L (136-145); TOTAL PROTEIN 6.4 G/DL (5.7-8.2)
[2024-02-21 13:56] VITALS: BP 142/91; O2SAT 99
[2024-02-28] MEDS: SODIUM CHLORIDE 0.9% INJ 10 ML SYR IV PRN (14:39)
[2024-02-28 14:45] LABS: BASO % 0.2 % (0.0-1.0); EOS % 0.1 % (0.0-3.0); HEMATOCRIT 42.7 % (42.0-52.0); HEMOGLOBIN 14.1 g/dl (13.5-17.5); LYMPH # 0.9 10^3/uL (1.5-5.0); LYMPH % 7.8 % (24.0-44.0); MEAN CORPUSCULAR HEMOGLOBIN 29.5 pg (27.0-33.0); MEAN CORPUSCULAR VOLUME 89.3 fl (80.0-96.0); MONO # 0.5 10^3/uL (0.0-0.8); MONO % 4.8 % (2.0-8.0); NEUTROPHILS # 9.7 10^3/uL (1.5-8.5); PLATELET COUNT, AUTOMATED 191 10^3/uL (150-450); RED BLOOD COUNT 4.78 10^6/uL (4.30-6.10); WHITE BLOOD COUNT 11.3 10^3/uL (4.0-10.0)
[2024-02-28 15:10] LABS: ALBUMIN 4.1 G/DL (3.2-5.2); ALKALINE PHOSPHATASE 92 U/L (46-116); ALT/SGPT 29 U/L (7.0-40); AST/SGOT 27 U/L (<34); BILIRUBIN,TOTAL 0.8 MG/DL (0.3-1.2); BLOOD UREA NITROGEN 27 MG/DL (9-23); CALCIUM LEVEL 9.2 MG/DL (8.5-10.1); CARBON DIOXIDE LEVEL 26 MMOL/L (20-31); CHLORIDE LEVEL 103 MMOL/L (98-107); CREATININE FOR GFR 1.08 MG/DL (0.70-1.30); GLOMERULAR FILTRATION RATE > 60.0 (>60); GLUCOSE, FASTING 152 MG/DL (60-100); POTASSIUM SERUM 3.9 MMOL/L (3.5-5.1); SODIUM LEVEL 137 MMOL/L (136-145); TOTAL PROTEIN 7.2 G/DL (5.7-8.2)
[2024-02-28 15:37] LABS: CA19-9 TUMOR MARKER,CARBOHYDRA 36.7 U/ML (<35.0)
[2024-03-04 08:38] LABS: BASO % 0.2 % (0.0-1.0); EOS % 0.2 % (0.0-3.0); HEMATOCRIT 42.6 % (42.0-52.0); HEMOGLOBIN 14.1 g/dl (13.5-17.5); LYMPH # 1.4 10^3/uL (1.5-5.0); LYMPH % 12.6 % (24.0-44.0); MEAN CORPUSCULAR HEMOGLOBIN 29.7 pg (27.0-33.0); MEAN CORPUSCULAR HGB CONC 33.1 g/dl (32.0-36.5); MEAN CORPUSCULAR VOLUME 89.7 fl (80.0-96.0); MONO % 9.2 % (2.0-8.0); NEUTROPHILS # 8.3 10^3/uL (1.5-8.5); NEUTROPHILS % 75.7 % (36.0-66.0); PLATELET COUNT, AUTOMATED 145 10^3/uL (150-450); RED BLOOD COUNT 4.75 10^6/uL (4.30-6.10)
[2024-03-04 08:46] VITALS: BP 135/93; O2SAT 100
[2024-03-04 09:07] LABS: ALBUMIN 3.8 G/DL (3.2-5.2); ALKALINE PHOSPHATASE 82 U/L (46-116); ALT/SGPT 35 U/L (7.0-40); AST/SGOT 30 U/L (<34); BILIRUBIN,TOTAL 0.7 MG/DL (0.3-1.2); BLOOD UREA NITROGEN 20 MG/DL (9-23); CALCIUM LEVEL 8.9 MG/DL (8.5-10.1); CARBON DIOXIDE LEVEL 27 MMOL/L (20-31); CHLORIDE LEVEL 104 MMOL/L (98-107); GLOMERULAR FILTRATION RATE > 60.0 (>60); GLUCOSE, FASTING 85 MG/DL (60-100); POTASSIUM SERUM 3.7 MMOL/L (3.5-5.1); SODIUM LEVEL 139 MMOL/L (136-145); TOTAL PROTEIN 6.7 G/DL (5.7-8.2)
[2024-03-04 11:52] LABS: CA19-9 TUMOR MARKER,CARBOHYDRA 36.4 U/ML (<35.0); MAGNESIUM LEVEL 1.8 MG/DL (1.8-2.4)
[2024-03-25 08:17] VITALS: BP 131/93; O2SAT 98
[2024-03-25 08:17] LABS: BASO % 0.4 % (0.0-1.0); EOS # 0.2 10^3/uL (0.0-0.5); EOS % 2.2 % (0.0-3.0); HEMATOCRIT 37.9 % (42.0-52.0); HEMOGLOBIN 12.9 g/dl (13.5-17.5); LYMPH # 0.7 10^3/uL (1.5-5.0); LYMPH % 10.1 % (24.0-44.0); MEAN CORPUSCULAR HEMOGLOBIN 30.1 pg (27.0-33.0); MEAN CORPUSCULAR VOLUME 88.6 fl (80.0-96.0); MONO # 0.7 10^3/uL (0.0-0.8); MONO % 9.2 % (2.0-8.0); NEUTROPHILS # 5.5 10^3/uL (1.5-8.5); PLATELET COUNT, AUTOMATED 149 10^3/uL (150-450); RED BLOOD COUNT 4.28 10^6/uL (4.30-6.10); WHITE BLOOD COUNT 7.2 10^3/uL (4.0-10.0)
[2024-03-25 08:46] LABS: ALBUMIN 3.9 G/DL (3.2-5.2); BILIRUBIN,TOTAL 0.8 MG/DL (0.3-1.2); CALCIUM LEVEL 9.1 MG/DL (8.5-10.1); CREATININE FOR GFR 1.4 MG/DL (0.70-1.30); GLOMERULAR FILTRATION RATE 59.8 (>60); POTASSIUM SERUM 4.3 MMOL/L (3.5-5.1); TOTAL PROTEIN 7.1 G/DL (5.7-8.2)
[2024-03-25 09:28] LABS: CA19-9 TUMOR MARKER,CARBOHYDRA 25.2 U/ML (<35.0)
[2024-03-25] MEDS: FOSAPREPITANT 150 MG in NS 245 ML IV ONE (09:41)
[2024-03-25] MEDS: ATROPINE SULF 0.4 MG/ML 1ML VIAL IVP ONE (09:42)
[2024-03-25] MEDS: FAMOTIDINE 20MG/2ML VIAL IV ONE (09:42)
[2024-03-25] MEDS: PROCHLORPERAZINE 5MG TAB PO ONE (09:42)
[2024-03-25] MEDS: diphenhydrAMINE 50MG/ML VIAL IV ONE (09:42)
[2024-03-25] MEDS: PEGFILGRASTIM 6 MG SC ONE (09:43)
[2024-03-25] MEDS: NS (Normal Saline) 0.9% 1,000 ML IV ONE (09:44)
[2024-03-25] MEDS: MAG SULF 1GM/100ML (MAG RUN) 100 ML IV ONE (11:11)
[2024-03-25] MEDS: SODIUM CHLORIDE 0.9% INJ 10 ML SYR IV PRN (12:11)
[2024-03-28] MEDS: NS (Normal Saline) 0.9% 1,000 ML IV ONE (08:00)
[2024-04-02] MEDS: NS (Normal Saline) 0.9% 1,000 ML IV ONE (08:00)
[2024-04-15 08:17] VITALS: BP 107/80; O2SAT 100
[2024-04-15 08:29] LABS: BASO % 0.7 % (0.0-1.0); EOS # 0.5 10^3/uL (0.0-0.5); EOS % 10.6 % (0.0-3.0); HEMATOCRIT 32.4 % (42.0-52.0); HEMOGLOBIN 11.1 g/dl (13.5-17.5); LYMPH # 0.5 10^3/uL (1.5-5.0); MEAN CORPUSCULAR HEMOGLOBIN 30.8 pg (27.0-33.0); MEAN CORPUSCULAR HGB CONC 34.3 g/dl (32.0-36.5); MONO # 0.8 10^3/uL (0.0-0.8); MONO % 19.5 % (2.0-8.0); NEUTROPHILS # 2.4 10^3/uL (1.5-8.5); NEUTROPHILS % 57.3 % (36.0-66.0); WHITE BLOOD COUNT 4.3 10^3/uL (4.0-10.0)
[2024-04-15 08:30] LABS: PLATELET COUNT, AUTOMATED 88 10^3/uL (150-450)
[2024-04-15 08:56] LABS: ALBUMIN 3.6 G/DL (3.2-5.2); BILIRUBIN,TOTAL 0.8 MG/DL (0.3-1.2); CREATININE FOR GFR 1.42 MG/DL (0.70-1.30); GLOMERULAR FILTRATION RATE 58.8 (>60); POTASSIUM SERUM 3.9 MMOL/L (3.5-5.1); TOTAL PROTEIN 6.6 G/DL (5.7-8.2)
[2024-04-15] MEDS: MAG SULF 1GM/100ML (MAG RUN) 100 ML IV ONE (11:00)
[2024-04-15] MEDS: NS (Normal Saline) 0.9% 1,000 ML IV ONE (11:00)
[2024-04-15] MEDS: SODIUM CHLORIDE 0.9% INJ 10 ML SYR IV PRN (12:13)
[2024-04-24 10:39] LABS: BASO % 0.6 % (0.0-1.0); EOS # 0.3 10^3/uL (0.0-0.5); EOS % 6.3 % (0.0-3.0); HEMATOCRIT 34.9 % (42.0-52.0); HEMOGLOBIN 11.6 g/dl (13.5-17.5); LYMPH # 0.9 10^3/uL (1.5-5.0); LYMPH % 17.2 % (24.0-44.0); MEAN CORPUSCULAR HEMOGLOBIN 31.1 pg (27.0-33.0); MEAN CORPUSCULAR HGB CONC 33.2 g/dl (32.0-36.5); MEAN CORPUSCULAR VOLUME 93.6 fl (80.0-96.0); MONO # 0.7 10^3/uL (0.0-0.8); MONO % 14.2 % (2.0-8.0); NEUTROPHILS # 3.1 10^3/uL (1.5-8.5); NEUTROPHILS % 61.1 % (36.0-66.0); PLATELET COUNT, AUTOMATED 104 10^3/uL (150-450); RED BLOOD COUNT 3.73 10^6/uL (4.30-6.10); WHITE BLOOD COUNT 5.1 10^3/uL (4.0-10.0)
[2024-04-24 11:07] LABS: CALCIUM LEVEL 9.1 MG/DL (8.5-10.1); CREATININE FOR GFR 1.61 MG/DL (0.70-1.30); GLOMERULAR FILTRATION RATE 50.9 (>60); MAGNESIUM LEVEL 1.9 MG/DL (1.8-2.4); POTASSIUM SERUM 4.2 MMOL/L (3.5-5.1)
[2024-04-25 09:35] VITALS: BP 107/69; O2SAT 100
[2024-04-25] MEDS: NS (Normal Saline) 0.9% 1,000 ML IV ONE (09:45)
[2024-04-25] MEDS: SODIUM CHLORIDE 0.9% INJ 10 ML SYR IV PRN (11:00)
[2024-05-02 10:20] VITALS: BP 115/79; O2SAT 100
[2024-05-02] MEDS: NS (Normal Saline) 0.9% 1,000 ML IV ONE ×3 (10:59→12:56)
[2024-05-02 11:06] LABS: BLOOD UREA NITROGEN 10 MG/DL (9-23); CALCIUM LEVEL 8.8 MG/DL (8.5-10.1); CARBON DIOXIDE LEVEL 26 MMOL/L (20-31); CHLORIDE LEVEL 109 MMOL/L (98-107); CREATININE FOR GFR 1.11 MG/DL (0.70-1.30); GLOMERULAR FILTRATION RATE > 60.0 (>60); GLUCOSE, FASTING 87 MG/DL (60-100); MAGNESIUM LEVEL 1.7 MG/DL (1.8-2.4); POTASSIUM SERUM 3.9 MMOL/L (3.5-5.1); SODIUM LEVEL 139 MMOL/L (136-145)
[2024-05-02] MEDS: MAG SULF 1GM/100ML (MAG RUN) 100 ML IV ONE (11:54)
[2024-05-02] MEDS: SODIUM CHLORIDE 0.9% INJ 10 ML SYR IV PRN (12:54)
[2024-05-06 08:36] VITALS: BP 115/83; O2SAT 100
[2024-05-06 08:38] LABS: BASO % 0.6 % (0.0-1.0); EOS # 0.4 10^3/uL (0.0-0.5); HEMATOCRIT 34.2 % (42.0-52.0); HEMOGLOBIN 11.2 g/dl (13.5-17.5); LYMPH # 1.2 10^3/uL (1.5-5.0); LYMPH % 24.1 % (24.0-44.0); MEAN CORPUSCULAR HEMOGLOBIN 30.9 pg (27.0-33.0); MEAN CORPUSCULAR HGB CONC 32.7 g/dl (32.0-36.5); MEAN CORPUSCULAR VOLUME 94.2 fl (80.0-96.0); MONO # 0.6 10^3/uL (0.0-0.8); MONO % 11.8 % (2.0-8.0); NEUTROPHILS # 2.8 10^3/uL (1.5-8.5); NEUTROPHILS % 54.9 % (36.0-66.0); PLATELET COUNT, AUTOMATED 103 10^3/uL (150-450); RED BLOOD COUNT 3.63 10^6/uL (4.30-6.10); WHITE BLOOD COUNT 5.2 10^3/uL (4.0-10.0)
[2024-05-06 09:13] LABS: ALBUMIN 3.5 G/DL (3.2-5.2); ALKALINE PHOSPHATASE 112 U/L (46-116); ALT/SGPT 25 U/L (7.0-40); AST/SGOT 68 U/L (<34); BILIRUBIN,TOTAL 1.3 MG/DL (0.3-1.2); BLOOD UREA NITROGEN 13 MG/DL (9-23); CARBON DIOXIDE LEVEL 24 MMOL/L (20-31); CHLORIDE LEVEL 105 MMOL/L (98-107); CREATININE FOR GFR 1.32 MG/DL (0.70-1.30); GLOMERULAR FILTRATION RATE > 60.0 (>60); GLUCOSE, FASTING 80 MG/DL (60-100); SODIUM LEVEL 136 MMOL/L (136-145); TOTAL PROTEIN 6.4 G/DL (5.7-8.2)
[2024-05-06 09:36] LABS: CA19-9 TUMOR MARKER,CARBOHYDRA 24.1 U/ML (<35.0)
[2024-05-06] MEDS: PALONOSETRON 0.25MG/5ML VIAL (ALOXI) IV ONE (09:41)
[2024-05-06] MEDS: NS (Normal Saline) 0.9% 1,000 ML IV ONE (09:41)
[2024-05-06] MEDS: MAG SULF 1GM/100ML (MAG RUN) 100 ML IV ONE (09:41)
[2024-05-06] MEDS: SODIUM CHLORIDE 0.9% INJ 10 ML SYR IV PRN (11:27)
[2024-05-10] MEDS: NS (Normal Saline) 0.9% 1,000 ML IV ONE (10:43)
[2024-05-10 10:45] VITALS: BP 112/81; O2SAT 98
[2024-05-10 11:16] LABS: BLOOD UREA NITROGEN 10 MG/DL (9-23); CARBON DIOXIDE LEVEL 26 MMOL/L (20-31); CHLORIDE LEVEL 105 MMOL/L (98-107); CREATININE FOR GFR 0.85 MG/DL (0.70-1.30); GLOMERULAR FILTRATION RATE > 60.0 (>60); GLUCOSE, FASTING 97 MG/DL (60-100); MAGNESIUM LEVEL 1.8 MG/DL (1.8-2.4); POTASSIUM SERUM 4.2 MMOL/L (3.5-5.1); SODIUM LEVEL 137 MMOL/L (136-145)
[2024-05-10] MEDS: SODIUM CHLORIDE 0.9% INJ 10 ML SYR IV PRN (11:51)
[2024-05-16 10:32] VITALS: BP 137/72; O2SAT 99
[2024-05-16 11:20] LABS: BLOOD UREA NITROGEN 12 MG/DL (9-23); CARBON DIOXIDE LEVEL 22 MMOL/L (20-31); CHLORIDE LEVEL 103 MMOL/L (98-107); CREATININE FOR GFR 0.91 MG/DL (0.70-1.30); GLOMERULAR FILTRATION RATE > 60.0 (>60); GLUCOSE, FASTING 86 MG/DL (60-100); POTASSIUM SERUM 3.7 MMOL/L (3.5-5.1); SODIUM LEVEL 138 MMOL/L (136-145)
[2024-05-16] MEDS: NS (Normal Saline) 0.9% 1,000 ML IV ONE (11:36)
[2024-05-16] MEDS: PALONOSETRON 0.25MG/5ML VIAL (ALOXI) IV ONE (12:18)
[2024-05-16] MEDS: SODIUM CHLORIDE 0.9% INJ 10 ML SYR IV PRN (13:29)
[2024-05-20 11:10] LABS: BLOOD UREA NITROGEN 9 MG/DL (9-23); CALCIUM LEVEL 8.6 MG/DL (8.5-10.1); CARBON DIOXIDE LEVEL 27 MMOL/L (20-31); CHLORIDE LEVEL 108 MMOL/L (98-107); CREATININE FOR GFR 0.87 MG/DL (0.70-1.30); GLOMERULAR FILTRATION RATE > 60.0 (>60); GLUCOSE, FASTING 101 MG/DL (60-100); MAGNESIUM LEVEL 1.7 MG/DL (1.8-2.4); POTASSIUM SERUM 3.6 MMOL/L (3.5-5.1); SODIUM LEVEL 139 MMOL/L (136-145)
[2024-05-20] MEDS: NS (Normal Saline) 0.9% 1,000 ML IV ONE (12:06)
[2024-05-20] MEDS: MAG SULF 1GM/100ML (MAG RUN) 100 ML IV ONE (12:06)
[2024-05-20] MEDS: PALONOSETRON 0.25MG/5ML VIAL (ALOXI) IV ONE (12:09)
[2024-05-20 13:00] VITALS: BP 107/70; O2SAT 99
[2024-05-20] MEDS: SODIUM CHLORIDE 0.9% INJ 10 ML SYR IV PRN (14:02)
[2024-05-23 10:20] VITALS: BP 112/75; O2SAT 95
[2024-05-23] MEDS: PALONOSETRON 0.25MG/5ML VIAL (ALOXI) IV SCH (10:56)
[2024-05-23] MEDS: FOSAPREPITANT 150 MG in NS 245 ML IV SCH (11:26)
[2024-05-23] MEDS: ATROPINE SULF 0.4 MG/ML 1ML VIAL IVP ONE (13:15)
[2024-05-23] MEDS: SODIUM CHLORIDE 0.9% INJ 10 ML SYR IV PRN (14:53)
[2024-05-30 11:38] LABS: ALBUMIN 3.5 G/DL (3.2-5.2); ALKALINE PHOSPHATASE 124 U/L (46-116); ALT/SGPT 19 U/L (7.0-40); AST/SGOT 35 U/L (<34); BILIRUBIN,TOTAL 1.4 MG/DL (0.3-1.2); BLOOD UREA NITROGEN 15 MG/DL (9-23); CALCIUM LEVEL 9.3 MG/DL (8.5-10.1); CARBON DIOXIDE LEVEL 27 MMOL/L (20-31); CHLORIDE LEVEL 102 MMOL/L (98-107); CREATININE FOR GFR 0.99 MG/DL (0.70-1.30); GLOMERULAR FILTRATION RATE > 60.0 (>60); GLUCOSE, FASTING 95 MG/DL (60-100); POTASSIUM SERUM 4.4 MMOL/L (3.5-5.1); SODIUM LEVEL 135 MMOL/L (136-145); TOTAL PROTEIN 7.3 G/DL (5.7-8.2)
[2024-05-30] MEDS: MAG SULF 1GM/100ML (MAG RUN) 100 ML IV ONE (12:00)
[2024-05-31] MEDS: MAG SULF 1GM/100ML (MAG RUN) 100 ML IV ONE (09:10)
[2024-05-31 10:30] VITALS: BP 118/75; O2SAT 98
[2024-05-31] MEDS: FILGRASTIM 300MCG 0.5ML SYRINGE **SC ADMINISTRATION ONLY SC SCH (14:17)
[2024-06-01] MEDS: FILGRASTIM 300MCG 0.5ML SYRINGE **SC ADMINISTRATION ONLY SC SCH (09:17)
[2024-06-02] MEDS: FILGRASTIM 300MCG 0.5ML SYRINGE **SC ADMINISTRATION ONLY SC SCH (09:06)
[2024-06-06] MEDS: SODIUM CHLORIDE 0.9% INJ 10 ML SYR IV PRN (08:16)
[2024-06-06 08:27] VITALS: BP 104/72; O2SAT 95
[2024-06-06 08:27] LABS: BASO # 0.1 10^3/uL (0.0-0.2); EOS # 0.2 10^3/uL (0.0-0.5); EOS % 4.6 % (0.0-3.0); HEMATOCRIT 29.6 % (42.0-52.0); HEMOGLOBIN 9.6 g/dl (13.5-17.5); LYMPH % 19.7 % (24.0-44.0); MEAN CORPUSCULAR HEMOGLOBIN 29.8 pg (27.0-33.0); MEAN CORPUSCULAR HGB CONC 32.4 g/dl (32.0-36.5); MEAN CORPUSCULAR VOLUME 91.9 fl (80.0-96.0); MONO # 0.7 10^3/uL (0.0-0.8); MONO % 13.4 % (2.0-8.0); NEUTROPHILS # 2.6 10^3/uL (1.5-8.5); PLATELET COUNT, AUTOMATED 170 10^3/uL (150-450); RED BLOOD COUNT 3.22 10^6/uL (4.30-6.10); WHITE BLOOD COUNT 5.2 10^3/uL (4.0-10.0)
[2024-06-06 09:05] LABS: ALBUMIN 3.2 G/DL (3.2-5.2); ALKALINE PHOSPHATASE 100 U/L (46-116); ALT/SGPT 11 U/L (7.0-40); AST/SGOT 20 U/L (<34); BILIRUBIN,TOTAL 0.5 MG/DL (0.3-1.2); BLOOD UREA NITROGEN 9 MG/DL (9-23); CALCIUM LEVEL 8.7 MG/DL (8.5-10.1); CARBON DIOXIDE LEVEL 24 MMOL/L (20-31); CHLORIDE LEVEL 106 MMOL/L (98-107); CREATININE FOR GFR 0.89 MG/DL (0.70-1.30); GLOMERULAR FILTRATION RATE > 60.0 (>60); GLUCOSE, FASTING 95 MG/DL (60-100); MAGNESIUM LEVEL 1.8 MG/DL (1.8-2.4); POTASSIUM SERUM 3.1 MMOL/L (3.5-5.1); SODIUM LEVEL 139 MMOL/L (136-145); TOTAL PROTEIN 6.7 G/DL (5.7-8.2)
[2024-06-06] MEDS: PALONOSETRON 0.25MG/5ML VIAL (ALOXI) IV SCH (09:44)
[2024-06-06] MEDS: KCL 10MEQ/100ML SWI (KRUN) 100 ML IV ONE (09:45)
[2024-06-06] MEDS: POTASSIUM CHLORIDE 10MEQ SR TABLET PO ONE (09:49)
[2024-06-06] MEDS: FOSAPREPITANT 150 MG in NS 245 ML IV SCH (09:50)
[2024-06-06 10:12] LABS: PERCENT SATURATION 20.4 % (19.7-50.0)
[2024-06-06 10:14] LABS: FERRITIN 484.4 NG/ML (10.5-307.3)
[2024-06-06 10:29] LABS: CA19-9 TUMOR MARKER,CARBOHYDRA 19.6 U/ML (<35.0)
[2024-06-06] MEDS: ATROPINE SULF 0.4 MG/ML 1ML VIAL IVP ONE (11:59)
[2024-06-06] MEDS: PEGFILGRASTIM 6 MG SC SCH (13:39)
[2024-06-20 08:19] VITALS: BP 108/75; O2SAT 96
[2024-06-20 08:30] LABS: BASO % 0.5 % (0.0-1.0); EOS % 0.5 % (0.0-3.0); HEMATOCRIT 29.1 % (42.0-52.0); HEMOGLOBIN 9.3 g/dl (13.5-17.5); LYMPH # 0.7 10^3/uL (1.5-5.0); LYMPH % 10.8 % (24.0-44.0); MEAN CORPUSCULAR HEMOGLOBIN 29.9 pg (27.0-33.0); MEAN CORPUSCULAR VOLUME 93.6 fl (80.0-96.0); MONO # 0.7 10^3/uL (0.0-0.8); MONO % 10.9 % (2.0-8.0); NEUTROPHILS # 4.4 10^3/uL (1.5-8.5); NEUTROPHILS % 68.2 % (36.0-66.0); PLATELET COUNT, AUTOMATED 195 10^3/uL (150-450); RED BLOOD COUNT 3.11 10^6/uL (4.30-6.10); WHITE BLOOD COUNT 6.4 10^3/uL (4.0-10.0)
[2024-06-20 08:57] LABS: MAGNESIUM LEVEL 1.4 MG/DL (1.8-2.4)
[2024-06-20 09:03] LABS: ALBUMIN 3.1 G/DL (3.2-5.2); ALKALINE PHOSPHATASE 87 U/L (46-116); ALT/SGPT 13 U/L (7.0-40); AST/SGOT 21 U/L (<34); BILIRUBIN,TOTAL 0.4 MG/DL (0.3-1.2); BLOOD UREA NITROGEN 7 MG/DL (9-23); CALCIUM LEVEL 8.2 MG/DL (8.5-10.1); CARBON DIOXIDE LEVEL 25 MMOL/L (20-31); CHLORIDE LEVEL 110 MMOL/L (98-107); CREATININE FOR GFR 0.76 MG/DL (0.70-1.30); GLOMERULAR FILTRATION RATE > 60.0 (>60); GLUCOSE, FASTING 93 MG/DL (60-100); POTASSIUM SERUM 3.1 MMOL/L (3.5-5.1); SODIUM LEVEL 142 MMOL/L (136-145); TOTAL PROTEIN 6.1 G/DL (5.7-8.2)
[2024-06-20 09:05] LABS: CARCINOEMBRYONIC ANTIGEN < 2.0 NG/ML (<2.5)
[2024-06-20 09:19] LABS: CA19-9 TUMOR MARKER,CARBOHYDRA 22.7 U/ML (<35.0)
[2024-06-20] MEDS: POTASSIUM CHLORIDE 10MEQ SR TABLET PO ONE (09:27)
[2024-06-20] MEDS: KCL 10MEQ/100ML SWI (KRUN) 100 ML IV ONE (09:28)
[2024-06-20] MEDS: MAG SULF 1GM/100ML (MAG RUN) 100 ML IV SCH (09:32)
[2024-06-20] MEDS: PALONOSETRON 0.25MG/5ML VIAL (ALOXI) IV SCH (11:12)
[2024-06-20] MEDS: FOSAPREPITANT 150 MG in NS 245 ML IV SCH (11:12)
[2024-06-20] MEDS: ATROPINE SULF 0.4 MG/ML 1ML VIAL IVP ONE (12:46)
[2024-06-20] MEDS: PEGFILGRASTIM 6 MG SC SCH (14:32)
[2024-06-20] MEDS: SODIUM CHLORIDE 0.9% INJ 10 ML SYR IV PRN (14:32)
[2024-06-24 08:02] VITALS: BP 114/77; O2SAT 97
[2024-06-24] MEDS: NS (Normal Saline) 0.9% 1,000 ML IV ONE (08:15)
[2024-06-24 08:28] LABS: BASO # 0.1 10^3/uL (0.0-0.2); BASO % 0.6 % (0.0-1.0); EOS # 0.1 10^3/uL (0.0-0.5); EOS % 0.9 % (0.0-3.0); HEMATOCRIT 29.8 % (42.0-52.0); HEMOGLOBIN 9.6 g/dl (13.5-17.5); LYMPH # 0.8 10^3/uL (1.5-5.0); MEAN CORPUSCULAR HEMOGLOBIN 30.1 pg (27.0-33.0); MEAN CORPUSCULAR HGB CONC 32.2 g/dl (32.0-36.5); MEAN CORPUSCULAR VOLUME 93.4 fl (80.0-96.0); MONO # 0.7 10^3/uL (0.0-0.8); MONO % 4.7 % (2.0-8.0); NEUTROPHILS # 9.4 10^3/uL (1.5-8.5); NEUTROPHILS % 61.8 % (36.0-66.0); PLATELET COUNT, AUTOMATED 160 10^3/uL (150-450); RED BLOOD COUNT 3.19 10^6/uL (4.30-6.10); WHITE BLOOD COUNT 15.2 10^3/uL (4.0-10.0)
[2024-06-24 09:00] LABS: ALBUMIN 3.2 G/DL (3.2-5.2); ALKALINE PHOSPHATASE 151 U/L (46-116); ALT/SGPT 18 U/L (7.0-40); AST/SGOT 24 U/L (<34); BILIRUBIN,TOTAL 0.6 MG/DL (0.3-1.2); BLOOD UREA NITROGEN 12 MG/DL (9-23); CALCIUM LEVEL 8.6 MG/DL (8.5-10.1); CARBON DIOXIDE LEVEL 24 MMOL/L (20-31); CHLORIDE LEVEL 107 MMOL/L (98-107); CREATININE FOR GFR 0.67 MG/DL (0.70-1.30); GLOMERULAR FILTRATION RATE > 60.0 (>60); GLUCOSE, FASTING 97 MG/DL (60-100); POTASSIUM SERUM 3.6 MMOL/L (3.5-5.1); SODIUM LEVEL 139 MMOL/L (136-145); TOTAL PROTEIN 6.3 G/DL (5.7-8.2)
[2024-06-24] MEDS: SODIUM CHLORIDE 0.9% INJ 10 ML SYR IV PRN (09:28)
[2024-06-24 09:31] LABS: MAGNESIUM LEVEL 1.2 MG/DL (1.8-2.4)
[2024-06-24 09:47] LABS: CARCINOEMBRYONIC ANTIGEN < 2.0 NG/ML (<2.5)
[2024-06-27 08:15] VITALS: BP 105/74; O2SAT 98
[2024-06-27] MEDS: PALONOSETRON 0.25MG/5ML VIAL (ALOXI) IV ONE (08:54)
[2024-06-27] MEDS: NS (Normal Saline) 0.9% 1,000 ML IV ONE (08:54)
[2024-06-27 09:27] LABS: BLOOD UREA NITROGEN 10 MG/DL (9-23); CALCIUM LEVEL 8.7 MG/DL (8.5-10.1); CARBON DIOXIDE LEVEL 27 MMOL/L (20-31); CHLORIDE LEVEL 107 MMOL/L (98-107); GLOMERULAR FILTRATION RATE > 60.0 (>60); GLUCOSE, FASTING 95 MG/DL (60-100); MAGNESIUM LEVEL 1.6 MG/DL (1.8-2.4); SODIUM LEVEL 139 MMOL/L (136-145)
[2024-06-27] MEDS: MAG SULF 1GM/100ML (MAG RUN) 100 ML IV ONE (09:38)
[2024-06-27] MEDS: SODIUM CHLORIDE 0.9% INJ 10 ML SYR IV PRN (10:46)
[2024-07-01 12:45] VITALS: BP 118/75; O2SAT 98
[2024-07-01 13:29] LABS: BLOOD UREA NITROGEN 19 MG/DL (9-23); CALCIUM LEVEL 8.9 MG/DL (8.5-10.1); CARBON DIOXIDE LEVEL 25 MMOL/L (20-31); CHLORIDE LEVEL 110 MMOL/L (98-107); GLOMERULAR FILTRATION RATE > 60.0 (>60); GLUCOSE, FASTING 116 MG/DL (60-100); POTASSIUM SERUM 3.8 MMOL/L (3.5-5.1); SODIUM LEVEL 138 MMOL/L (136-145)
[2024-07-01] MEDS: NS (Normal Saline) 0.9% 1,000 ML IV ONE ×2 (13:55→14:01)
[2024-07-01] MEDS: SODIUM CHLORIDE 0.9% INJ 10 ML SYR IV PRN (15:04)
[2024-07-04 08:20] VITALS: BP 107/74; O2SAT 98
[2024-07-04 08:28] LABS: BASO % 0.5 % (0.0-1.0); EOS # 0.1 10^3/uL (0.0-0.5); EOS % 1.3 % (0.0-3.0); HEMATOCRIT 32.4 % (42.0-52.0); HEMOGLOBIN 10.4 g/dl (13.5-17.5); LYMPH # 0.9 10^3/uL (1.5-5.0); LYMPH % 10.4 % (24.0-44.0); MEAN CORPUSCULAR HEMOGLOBIN 30.3 pg (27.0-33.0); MEAN CORPUSCULAR HGB CONC 32.1 g/dl (32.0-36.5); MEAN CORPUSCULAR VOLUME 94.5 fl (80.0-96.0); MONO % 12.5 % (2.0-8.0); NEUTROPHILS # 5.7 10^3/uL (1.5-8.5); NEUTROPHILS % 68.9 % (36.0-66.0); PLATELET COUNT, AUTOMATED 206 10^3/uL (150-450); RED BLOOD COUNT 3.43 10^6/uL (4.30-6.10); WHITE BLOOD COUNT 8.3 10^3/uL (4.0-10.0)
[2024-07-04 09:08] LABS: ALBUMIN 3.3 G/DL (3.2-5.2); ALKALINE PHOSPHATASE 123 U/L (46-116); ALT/SGPT 28 U/L (7.0-40); AST/SGOT 24 U/L (<34); BILIRUBIN,TOTAL 0.5 MG/DL (0.3-1.2); BLOOD UREA NITROGEN 11 MG/DL (9-23); CALCIUM LEVEL 8.5 MG/DL (8.5-10.1); CARBON DIOXIDE LEVEL 27 MMOL/L (20-31); CHLORIDE LEVEL 107 MMOL/L (98-107); GLOMERULAR FILTRATION RATE > 60.0 (>60); GLUCOSE, FASTING 87 MG/DL (60-100); MAGNESIUM LEVEL 1.3 MG/DL (1.8-2.4); POTASSIUM SERUM 3.6 MMOL/L (3.5-5.1); SODIUM LEVEL 138 MMOL/L (136-145); TOTAL PROTEIN 6.4 G/DL (5.7-8.2)
[2024-07-04] MEDS: D5W/0.9% SODIUM CHLORIDE 1,000 ML IV ONE (09:11)
[2024-07-04] MEDS: MAG SULF 1GM/100ML (MAG RUN) 100 ML IV ONE (09:39)
[2024-07-04] MEDS: FOSAPREPITANT 150 MG in NS 245 ML IV SCH (10:28)
[2024-07-04] MEDS: PALONOSETRON 0.25MG/5ML VIAL (ALOXI) IV SCH (10:28)
[2024-07-04] MEDS: ATROPINE SULF 0.4 MG/ML 1ML VIAL IVP ONE (11:57)
[2024-07-04] MEDS: SODIUM CHLORIDE 0.9% INJ 10 ML SYR IV PRN (13:40)
[2024-07-04] MEDS: PEGFILGRASTIM 6 MG SC SCH (13:40)
[2024-07-09 08:10] VITALS: BP 106/75; O2SAT 99
[2024-07-09] MEDS: D5W/0.9% SODIUM CHLORIDE 1,000 ML IV ONE (08:45)
[2024-07-09 09:16] LABS: BLOOD UREA NITROGEN 11 MG/DL (9-23); CALCIUM LEVEL 8.3 MG/DL (8.5-10.1); CARBON DIOXIDE LEVEL 26 MMOL/L (20-31); CHLORIDE LEVEL 107 MMOL/L (98-107); CREATININE FOR GFR 0.59 MG/DL (0.70-1.30); GLOMERULAR FILTRATION RATE > 60.0 (>60); GLUCOSE, FASTING 93 MG/DL (60-100); MAGNESIUM LEVEL 1.2 MG/DL (1.8-2.4); SODIUM LEVEL 136 MMOL/L (136-145)
[2024-07-09] MEDS: MAG SULF 1GM/100ML (MAG RUN) 100 ML IV SCH (10:18)
[2024-07-09] MEDS: SODIUM CHLORIDE 0.9% INJ 10 ML SYR IV PRN (12:22)
[2024-07-11 08:25] VITALS: BP 113/77; O2SAT 97
[2024-07-11] MEDS: NS (Normal Saline) 0.9% 1,000 ML IV ONE (08:31)
[2024-07-11 09:03] LABS: BLOOD UREA NITROGEN 10 MG/DL (9-23); CALCIUM LEVEL 8.3 MG/DL (8.5-10.1); CARBON DIOXIDE LEVEL 25 MMOL/L (20-31); CHLORIDE LEVEL 108 MMOL/L (98-107); CREATININE FOR GFR 0.62 MG/DL (0.70-1.30); GLOMERULAR FILTRATION RATE > 60.0 (>60); GLUCOSE, FASTING 89 MG/DL (60-100); MAGNESIUM LEVEL 1.2 MG/DL (1.8-2.4); POTASSIUM SERUM 4.1 MMOL/L (3.5-5.1); SODIUM LEVEL 138 MMOL/L (136-145)
[2024-07-11] MEDS: MAG SULF 1GM/100ML (MAG RUN) 100 ML IV SCH (09:37)
[2024-07-11] MEDS: SODIUM CHLORIDE 0.9% INJ 10 ML SYR IV PRN (11:40)
[2024-07-16 08:20] VITALS: BP 111/83; O2SAT 100
[2024-07-16] MEDS: NS (Normal Saline) 0.9% 1,000 ML IV SCH (09:02)
[2024-07-16 09:12] LABS: ALBUMIN 3.3 G/DL (3.2-5.2); ALKALINE PHOSPHATASE 154 U/L (46-116); ALT/SGPT 21 U/L (7.0-40); AST/SGOT 24 U/L (<34); BILIRUBIN,TOTAL 0.5 MG/DL (0.3-1.2); BLOOD UREA NITROGEN 9 MG/DL (9-23); CALCIUM LEVEL 8.1 MG/DL (8.5-10.1); CARBON DIOXIDE LEVEL 24 MMOL/L (20-31); CHLORIDE LEVEL 109 MMOL/L (98-107); CREATININE FOR GFR 0.71 MG/DL (0.70-1.30); GLOMERULAR FILTRATION RATE > 60.0 (>60); GLUCOSE, FASTING 109 MG/DL (60-100); POTASSIUM SERUM 3.5 MMOL/L (3.5-5.1); SODIUM LEVEL 139 MMOL/L (136-145); TOTAL PROTEIN 6.4 G/DL (5.7-8.2)
[2024-07-16] MEDS: SODIUM CHLORIDE 0.9% INJ 10 ML SYR IV PRN (10:15)
[2024-07-16 10:32] LABS: MAGNESIUM LEVEL 0.9 MG/DL (1.8-2.4)
[2024-07-18 08:10] VITALS: BP 105/80; O2SAT 100
[2024-07-18 08:10] LABS: BASO % 0.3 % (0.0-1.0); EOS # 0.2 10^3/uL (0.0-0.5); EOS % 2.5 % (0.0-3.0); HEMATOCRIT 30.8 % (42.0-52.0); HEMOGLOBIN 9.7 g/dl (13.5-17.5); LYMPH # 1.2 10^3/uL (1.5-5.0); LYMPH % 12.6 % (24.0-44.0); MEAN CORPUSCULAR HEMOGLOBIN 29.6 pg (27.0-33.0); MEAN CORPUSCULAR HGB CONC 31.5 g/dl (32.0-36.5); MEAN CORPUSCULAR VOLUME 93.9 fl (80.0-96.0); MONO # 1.2 10^3/uL (0.0-0.8); MONO % 12.3 % (2.0-8.0); NEUTROPHILS # 6.8 10^3/uL (1.5-8.5); PLATELET COUNT, AUTOMATED 254 10^3/uL (150-450); RED BLOOD COUNT 3.28 10^6/uL (4.30-6.10); WHITE BLOOD COUNT 9.6 10^3/uL (4.0-10.0)
[2024-07-18 08:38] LABS: ALBUMIN 2.9 G/DL (3.2-5.2); ALKALINE PHOSPHATASE 136 U/L (46-116); ALT/SGPT 15 U/L (7.0-40); AST/SGOT 19 U/L (<34); BILIRUBIN,TOTAL 0.7 MG/DL (0.3-1.2); BLOOD UREA NITROGEN 8 MG/DL (9-23); CARBON DIOXIDE LEVEL 25 MMOL/L (20-31); CHLORIDE LEVEL 109 MMOL/L (98-107); CREATININE FOR GFR 0.61 MG/DL (0.70-1.30); GLOMERULAR FILTRATION RATE > 60.0 (>60); GLUCOSE, FASTING 99 MG/DL (60-100); POTASSIUM SERUM 3.6 MMOL/L (3.5-5.1); SODIUM LEVEL 140 MMOL/L (136-145); TOTAL PROTEIN 6.1 G/DL (5.7-8.2)
[2024-07-18] MEDS: NS (Normal Saline) 0.9% 1,000 ML IV ONE (09:13)
[2024-07-18] MEDS: MAG SULF 1GM/100ML (MAG RUN) 100 ML IV SCH (09:14)
[2024-07-18] MEDS: MAG SULF 1GM/100ML (MAG RUN) 100 ML IV ONE (11:10)
[2024-07-18] MEDS: SODIUM CHLORIDE 0.9% INJ 10 ML SYR IV PRN (12:21)
[2024-07-22 08:39] VITALS: BP 106/71; O2SAT 100
[2024-07-22 10:21] LABS: ALBUMIN 2.7 G/DL (3.2-5.2); ALKALINE PHOSPHATASE 112 U/L (46-116); ALT/SGPT 12 U/L (7.0-40); AST/SGOT 17 U/L (<34); BILIRUBIN,TOTAL 0.5 MG/DL (0.3-1.2); BLOOD UREA NITROGEN 8 MG/DL (9-23); CALCIUM LEVEL 7.9 MG/DL (8.5-10.1); CARBON DIOXIDE LEVEL 25 MMOL/L (20-31); CHLORIDE LEVEL 111 MMOL/L (98-107); GLOMERULAR FILTRATION RATE > 60.0 (>60); GLUCOSE, FASTING 86 MG/DL (60-100); POTASSIUM SERUM 3.4 MMOL/L (3.5-5.1); SODIUM LEVEL 143 MMOL/L (136-145); TOTAL PROTEIN 5.7 G/DL (5.7-8.2)
[2024-07-22] MEDS: POTASSIUM CHLORIDE 10MEQ SR TABLET PO ONE (10:44)
[2024-07-22] MEDS: MAG SULF 1GM/100ML (MAG RUN) 100 ML IV ONE (10:45)
[2024-07-22] MEDS: MAG SULF 1GM/100ML (MAG RUN) 100 ML IV SCH (11:51)
[2024-07-22] MEDS: NS (Normal Saline) 0.9% 1,000 ML IV ONE (12:51)
[2024-07-25 08:40] VITALS: BP 124/87; O2SAT 100
[2024-07-25 08:46] LABS: BASO % 0.4 % (0.0-1.0); EOS # 0.3 10^3/uL (0.0-0.5); EOS % 4.4 % (0.0-3.0); HEMATOCRIT 29.1 % (42.0-52.0); HEMOGLOBIN 9.3 g/dl (13.5-17.5); LYMPH # 0.8 10^3/uL (1.5-5.0); LYMPH % 10.5 % (24.0-44.0); MEAN CORPUSCULAR HEMOGLOBIN 29.9 pg (27.0-33.0); MEAN CORPUSCULAR VOLUME 93.6 fl (80.0-96.0); MONO # 0.7 10^3/uL (0.0-0.8); MONO % 9.8 % (2.0-8.0); NEUTROPHILS # 5.5 10^3/uL (1.5-8.5); NEUTROPHILS % 73.4 % (36.0-66.0); PLATELET COUNT, AUTOMATED 179 10^3/uL (150-450); RED BLOOD COUNT 3.11 10^6/uL (4.30-6.10); WHITE BLOOD COUNT 7.5 10^3/uL (4.0-10.0)
[2024-07-25 09:21] LABS: ALBUMIN 2.8 G/DL (3.2-5.2); ALKALINE PHOSPHATASE 114 U/L (46-116); ALT/SGPT 12 U/L (7.0-40); AST/SGOT 18 U/L (<34); BILIRUBIN,TOTAL 0.5 MG/DL (0.3-1.2); BLOOD UREA NITROGEN 9 MG/DL (9-23); CALCIUM LEVEL 7.2 MG/DL (8.5-10.1); CARBON DIOXIDE LEVEL 24 MMOL/L (20-31); CHLORIDE LEVEL 110 MMOL/L (98-107); CREATININE FOR GFR 0.58 MG/DL (0.70-1.30); GLOMERULAR FILTRATION RATE > 60.0 (>60); GLUCOSE, FASTING 109 MG/DL (60-100); POTASSIUM SERUM 3.2 MMOL/L (3.5-5.1); SODIUM LEVEL 141 MMOL/L (136-145)
[2024-07-25 09:48] LABS: CA19-9 TUMOR MARKER,CARBOHYDRA 23.6 U/ML (<35.0); CARCINOEMBRYONIC ANTIGEN < 2.0 NG/ML (<2.5); MAGNESIUM LEVEL 0.7 MG/DL (1.8-2.4)
[2024-07-25] MEDS: NS (Normal Saline) 0.9% 1,000 ML IV ONE (10:09)
[2024-07-25] MEDS: MAG SULF 1GM/100ML (MAG RUN) 100 ML IV SCH (10:09)
[2024-07-25] MEDS: PEGFILGRASTIM 6 MG SC SCH (10:14)
[2024-07-25] MEDS: ATROPINE SULF 0.4 MG/ML 1ML VIAL IVP ONE (10:14)
[2024-07-25] MEDS: PALONOSETRON 0.25MG/5ML VIAL (ALOXI) IV SCH (10:14)
[2024-07-25] MEDS: FOSAPREPITANT 150 MG in NS 245 ML IV SCH (10:14)
[2024-07-25] MEDS: KCL 10MEQ/100ML SWI (KRUN) 100 ML IV ONE (11:03)
[2024-07-25] MEDS: SODIUM CHLORIDE 0.9% INJ 10 ML SYR IV PRN (12:57)
[2024-07-31 12:01] VITALS: BP 120/84; O2SAT 100
[2024-07-31] MEDS: MAG SULF 1GM/100ML (MAG RUN) 100 ML IV SCH (12:45)
[2024-07-31] MEDS: SODIUM CHLORIDE 0.9% INJ 10 ML SYR IV PRN (15:37)
[2024-08-01 08:31] VITALS: BP 108/81; O2SAT 100
[2024-08-05] MEDS: MAG SULF 1GM/100ML (MAG RUN) 100 ML IV SCH (12:45)
[2024-08-05 14:02] VITALS: BP 120/79; O2SAT 98
[2024-08-08 08:51] VITALS: BP 111/84; O2SAT 99
[2024-08-08 08:58] LABS: BASO # 0.1 10^3/uL (0.0-0.2); BASO % 1.3 % (0.0-1.0); EOS # 1.2 10^3/uL (0.0-0.5); EOS % 17.6 % (0.0-3.0); HEMATOCRIT 30.4 % (42.0-52.0); HEMOGLOBIN 9.5 g/dl (13.5-17.5); LYMPH # 1.1 10^3/uL (1.5-5.0); MEAN CORPUSCULAR HEMOGLOBIN 29.8 pg (27.0-33.0); MEAN CORPUSCULAR HGB CONC 31.3 g/dl (32.0-36.5); MEAN CORPUSCULAR VOLUME 95.3 fl (80.0-96.0); MONO # 0.8 10^3/uL (0.0-0.8); MONO % 11.5 % (2.0-8.0); NEUTROPHILS # 3.7 10^3/uL (1.5-8.5); NEUTROPHILS % 53.2 % (36.0-66.0); PLATELET COUNT, AUTOMATED 203 10^3/uL (150-450); RED BLOOD COUNT 3.19 10^6/uL (4.30-6.10); WHITE BLOOD COUNT 6.9 10^3/uL (4.0-10.0)
[2024-08-08 09:30] LABS: ALBUMIN 2.9 G/DL (3.2-5.2); ALKALINE PHOSPHATASE 110 U/L (46-116); ALT/SGPT < 9 U/L (7.0-40); AST/SGOT 27 U/L (<34); BILIRUBIN,TOTAL 0.4 MG/DL (0.3-1.2); BLOOD UREA NITROGEN 8 MG/DL (9-23); CALCIUM LEVEL 9.1 MG/DL (8.5-10.1); CARBON DIOXIDE LEVEL 24 MMOL/L (20-31); CHLORIDE LEVEL 109 MMOL/L (98-107); CREATININE FOR GFR 0.63 MG/DL (0.70-1.30); GLOMERULAR FILTRATION RATE > 60.0 (>60); GLUCOSE, FASTING 80 MG/DL (60-100); MAGNESIUM LEVEL 1.2 MG/DL (1.8-2.4); POTASSIUM SERUM 3.4 MMOL/L (3.5-5.1); SODIUM LEVEL 139 MMOL/L (136-145); TOTAL PROTEIN 6.4 G/DL (5.7-8.2)
[2024-08-08] MEDS: POTASSIUM CHLORIDE 10MEQ SR TABLET PO ONE (09:55)
[2024-08-08] MEDS: MAG SULF 1GM/100ML (MAG RUN) 100 ML IV SCH (09:56)
[2024-08-08] MEDS: SODIUM CHLORIDE 0.9% INJ 10 ML SYR IV PRN (12:04)
[2024-08-08 14:35] LABS: APPEARANCE, URINE CLEAR (CLEAR); BACTERIA, URINE AUTO NEGATIVE (NEGATIVE); BILIRUBIN, URINE AUTO NEGATIVE (NEGATIVE); BLOOD, URINE BLOOD 1+ (NEGATIVE); COLOR, URINE YELLOW (YELLOW); GLUCOSE, URINE (UA) AUTO NEGATIVE (NEGATIVE); KETONE, URINE AUTO NEGATIVE (NEGATIVE); LEUKOCYTE ESTERASE, URINE AUTO NEGATIVE (NEGATIVE); MUCUS, URINE SMALL (NEGATIVE); NITRITE, URINE AUTO NEGATIVE (NEGATIVE); PROTEIN, URINE AUTO NEGATIVE (NEGATIVE); RBC, URINE AUTO 1 /HPF (0-3); SPECIFIC GRAVITY URINE AUTO 1.016 (1.002-1.035); SQUAMOUS EPITHELIAL CELL UR AU 0 /HPF (0-6); UROBILINOGEN, URINE AUTO 0.2 mg/dL (0.0-2.0); WBC, URINE AUTO 3 /HPF (0-3)
[2024-08-12 09:12] LABS: BLOOD UREA NITROGEN 13 MG/DL (9-23); CALCIUM LEVEL 8.5 MG/DL (8.5-10.1); CARBON DIOXIDE LEVEL 25 MMOL/L (20-31); CHLORIDE LEVEL 108 MMOL/L (98-107); CREATININE FOR GFR 0.74 MG/DL (0.70-1.30); GLOMERULAR FILTRATION RATE > 60.0 (>60); GLUCOSE, FASTING 88 MG/DL (60-100); MAGNESIUM LEVEL 1.4 MG/DL (1.8-2.4); POTASSIUM SERUM 3.4 MMOL/L (3.5-5.1); SODIUM LEVEL 141 MMOL/L (136-145)
[2024-08-12 09:33] VITALS: BP 123/81; O2SAT 100
[2024-08-12] MEDS: POTASSIUM CHLORIDE 10MEQ SR TABLET PO ONE (09:41)
[2024-08-12] MEDS: MAG SULF 1GM/100ML (MAG RUN) 100 ML IV SCH (09:41)
[2024-08-12] MEDS: SODIUM CHLORIDE 0.9% INJ 10 ML SYR IV PRN (11:42)
[2024-08-15 11:31] LABS: BLOOD UREA NITROGEN 17 MG/DL (9-23); CHLORIDE LEVEL 108 MMOL/L (98-107); CREATININE FOR GFR 0.73 MG/DL (0.70-1.30); GLOMERULAR FILTRATION RATE > 60.0 (>60); GLUCOSE, FASTING 105 MG/DL (60-100); POTASSIUM SERUM 3.4 MMOL/L (3.5-5.1); SODIUM LEVEL 141 MMOL/L (136-145)
[2024-08-15 11:32] LABS: CALCIUM LEVEL 9.1 MG/DL (8.5-10.1); CARBON DIOXIDE LEVEL 25.9 MMOL/L (20-31); MAGNESIUM LEVEL 1.4 MG/DL (1.8-2.4)
[2024-08-15] MEDS: MAG SULF 1GM/100ML (MAG RUN) 1 GM in IV 1 EA IV SCH (12:24)
[2024-08-15] MEDS: SODIUM CHLORIDE 0.9% INJ 10 ML SYR IV PRN (15:38)
[2024-08-15] MEDS: MAG SULF 1GM/100ML (MAG RUN) IV ONE (15:41)
[2024-08-19 09:20] VITALS: BP 136/77; O2SAT 96
[2024-08-19] MEDS: POTASSIUM CHLORIDE 10MEQ SR TABLET PO ONE (10:06)
[2024-08-19] MEDS: MAG SULF 1GM/100ML (MAG RUN) 100 ML IV ONE (10:06)
[2024-08-19] MEDS: SODIUM CHLORIDE 0.9% INJ 10 ML SYR IV PRN (11:07)
[2024-08-22 08:09] VITALS: BP 107/80; O2SAT 99
[2024-08-22 08:13] LABS: BASO % 0.5 % (0.0-1.0); HEMATOCRIT 31.3 % (42.0-52.0); HEMOGLOBIN 9.8 g/dl (13.5-17.5); LYMPH # 0.8 10^3/uL (1.5-5.0); LYMPH % 9.4 % (24.0-44.0); MEAN CORPUSCULAR HEMOGLOBIN 29.3 pg (27.0-33.0); MEAN CORPUSCULAR HGB CONC 31.3 g/dl (32.0-36.5); MEAN CORPUSCULAR VOLUME 93.4 fl (80.0-96.0); MONO # 1.1 10^3/uL (0.0-0.8); MONO % 12.5 % (2.0-8.0); NEUTROPHILS # 4.7 10^3/uL (1.5-8.5); PLATELET COUNT, AUTOMATED 165 10^3/uL (150-450); RED BLOOD COUNT 3.35 10^6/uL (4.30-6.10); WHITE BLOOD COUNT 8.6 10^3/uL (4.0-10.0)
[2024-08-22 08:14] LABS: EOS % 23.3 % (0.0-3.0)
[2024-08-22 08:18] LABS: APPEARANCE, URINE MANUAL CLEAR (CLEAR); BILIRUBIN, URINE MANUAL NEGATIVE (NEGATIVE); COLOR, URINE MANUAL YELLOW (YELLOW); GLUCOSE, URINE (UA) MANUAL NEGATIVE (NEGATIVE); KETONE, URINE MANUAL NEGATIVE (NEGATIVE); PROTEIN, URINE MANUAL TRACE mg/dL (NEGATIVE); UROBILINOGEN, URINE MANUAL NORMAL (NORMAL)
[2024-08-22 08:19] LABS: BLOOD URINE MANUAL TRACE (NEGATIVE); LEUKOCYTE ESTERASE, URINE MAN TRACE (NEGATIVE); NITRITE, URINE MANUAL NEGATIVE (NEGATIVE)
[2024-08-22 08:27] LABS: SQUAMOUS EPITHELIAL CELL URINE SMALL AMOUNT /hpf (SMALL AMT)
[2024-08-22 08:28] LABS: BACTERIA, URINE NONE SEEN; HYALINE CAST, URINE NONE SEEN /lpf (0-1); MUCUS, URINE SMALL AMOUNT (NEGATIVE)
[2024-08-22 08:51] LABS: ALKALINE PHOSPHATASE 146 U/L (46-116); ALT/SGPT 11 U/L (7.0-40); AST/SGOT 35 U/L (<34); BILIRUBIN,TOTAL 0.8 MG/DL (0.3-1.2); BLOOD UREA NITROGEN 11 MG/DL (9-23); CALCIUM LEVEL 8.6 MG/DL (8.5-10.1); CARBON DIOXIDE LEVEL 25 MMOL/L (20-31); CHLORIDE LEVEL 109 MMOL/L (98-107); CREATININE FOR GFR 0.71 MG/DL (0.70-1.30); GLOMERULAR FILTRATION RATE > 60.0 (>60); GLUCOSE, FASTING 97 MG/DL (60-100); MAGNESIUM LEVEL 1.8 MG/DL (1.8-2.4); POTASSIUM SERUM 3.5 MMOL/L (3.5-5.1); SODIUM LEVEL 138 MMOL/L (136-145); TOTAL PROTEIN 6.3 G/DL (5.7-8.2)
[2024-08-22 09:44] LABS: INR 1.2; PARTIAL THROMBOPLASTIN TIME 35.6 SECONDS (24.8-34.2); PROTHROMBIN TIME 14.8 SECONDS (12.5-14.5)
[2024-08-29 10:30] VITALS: BP 101/74; O2SAT 99
[2024-08-29 10:36] LABS: BASO % 0.7 % (0.0-1.0); EOS # 1.1 10^3/uL (0.0-0.5); EOS % 21.1 % (0.0-3.0); HEMATOCRIT 31.3 % (42.0-52.0); HEMOGLOBIN 9.6 g/dl (13.5-17.5); LYMPH # 0.5 10^3/uL (1.5-5.0); LYMPH % 8.4 % (24.0-44.0); MEAN CORPUSCULAR HEMOGLOBIN 28.3 pg (27.0-33.0); MEAN CORPUSCULAR HGB CONC 30.7 g/dl (32.0-36.5); MEAN CORPUSCULAR VOLUME 92.3 fl (80.0-96.0); MONO # 0.5 10^3/uL (0.0-0.8); MONO % 9.1 % (2.0-8.0); NEUTROPHILS # 3.2 10^3/uL (1.5-8.5); NEUTROPHILS % 60.5 % (36.0-66.0); PLATELET COUNT, AUTOMATED 152 10^3/uL (150-450); RED BLOOD COUNT 3.39 10^6/uL (4.30-6.10); WHITE BLOOD COUNT 5.4 10^3/uL (4.0-10.0)
[2024-08-29 11:02] LABS: APPEARANCE, URINE HAZY (CLEAR); BACTERIA, URINE AUTO NEGATIVE (NEGATIVE); BILIRUBIN, URINE AUTO NEGATIVE (NEGATIVE); BLOOD, URINE BLOOD NEGATIVE (NEGATIVE); COLOR, URINE YELLOW (YELLOW); GLUCOSE, URINE (UA) AUTO NEGATIVE (NEGATIVE); KETONE, URINE AUTO NEGATIVE (NEGATIVE); LEUKOCYTE ESTERASE, URINE AUTO NEGATIVE (NEGATIVE); MUCUS, URINE SMALL (NEGATIVE); NITRITE, URINE AUTO NEGATIVE (NEGATIVE); PROTEIN, URINE AUTO 1+ mg/dL (NEGATIVE); RBC, URINE AUTO 0 /HPF (0-3); SPECIFIC GRAVITY URINE AUTO 1.025 (1.002-1.035); SQUAMOUS EPITHELIAL CELL UR AU 0 /HPF (0-6); UROBILINOGEN, URINE AUTO 0.2 mg/dL (0.0-2.0); WBC, URINE AUTO 5 /HPF (0-3)
[2024-08-29 11:26] LABS: ALBUMIN 2.8 G/DL (3.2-5.2); ALKALINE PHOSPHATASE 129 U/L (46-116); ALT/SGPT < 9 U/L (7.0-40); AST/SGOT 35 U/L (<34); BILIRUBIN,TOTAL 0.4 MG/DL (0.3-1.2); BLOOD UREA NITROGEN 10 MG/DL (9-23); CALCIUM LEVEL 9.4 MG/DL (8.5-10.1); CARBON DIOXIDE LEVEL 25 MMOL/L (20-31); CHLORIDE LEVEL 110 MMOL/L (98-107); GLOMERULAR FILTRATION RATE > 60.0 (>60); GLUCOSE, FASTING 96 MG/DL (60-100); MAGNESIUM LEVEL 1.7 MG/DL (1.8-2.4); POTASSIUM SERUM 3.8 MMOL/L (3.5-5.1); SODIUM LEVEL 140 MMOL/L (136-145); TOTAL PROTEIN 6.2 G/DL (5.7-8.2)
[2024-08-29] MEDS: MAG SULF 1GM/100ML (MAG RUN) 100 ML IV ONE (12:19)
[2024-08-29] MEDS: SODIUM CHLORIDE 0.9% INJ 10 ML SYR IV PRN (14:59)
[2024-09-05 09:10] LABS: BLOOD UREA NITROGEN 19 MG/DL (9-23); CALCIUM LEVEL 8.9 MG/DL (8.5-10.1); CARBON DIOXIDE LEVEL 24 MMOL/L (20-31); CHLORIDE LEVEL 101 MMOL/L (98-107); CREATININE FOR GFR 1.36 MG/DL (0.70-1.30); GLOMERULAR FILTRATION RATE > 60.0 (>60); GLUCOSE, FASTING 90 MG/DL (60-100); MAGNESIUM LEVEL 1.8 MG/DL (1.8-2.4); POTASSIUM SERUM 4.4 MMOL/L (3.5-5.1); SODIUM LEVEL 129 MMOL/L (136-145)
[2024-09-05 09:22] LABS: APPEARANCE, URINE MANUAL CLEAR (CLEAR); COLOR, URINE MANUAL YELLOW (YELLOW)
[2024-09-05 09:23] LABS: BILIRUBIN, URINE MANUAL NEGATIVE (NEGATIVE); BLOOD URINE MANUAL TRACE (NEGATIVE); GLUCOSE, URINE (UA) MANUAL NEGATIVE (NEGATIVE); KETONE, URINE MANUAL NEGATIVE (NEGATIVE); LEUKOCYTE ESTERASE, URINE MAN TRACE (NEGATIVE); NITRITE, URINE MANUAL NEGATIVE (NEGATIVE); PROTEIN, URINE MANUAL 2+ mg/dL (NEGATIVE); UROBILINOGEN, URINE MANUAL NORMAL (NORMAL)
[2024-09-05 09:44] LABS: BACTERIA, URINE SMALL AMOUNT; HYALINE CAST, URINE 0-1 /lpf (0-1); RBC, URINE 0-1 /hpf (0-3); SQUAMOUS EPITHELIAL CELL URINE SMALL AMOUNT /hpf (SMALL AMT)
[2024-09-05 09:44] LABS: CA19-9 TUMOR MARKER,CARBOHYDRA 29.1 U/ML (<35.0)
[2024-09-12 08:10] VITALS: BP 117/80; O2SAT 99
[2024-09-12 08:47] LABS: BASO % 0.3 % (0.0-1.0); EOS # 0.2 10^3/uL (0.0-0.5); EOS % 5.4 % (0.0-3.0); HEMATOCRIT 25.7 % (42.0-52.0); HEMOGLOBIN 8.4 g/dl (13.5-17.5); LYMPH # 0.2 10^3/uL (1.5-5.0); LYMPH % 7.1 % (24.0-44.0); MEAN CORPUSCULAR HEMOGLOBIN 27.9 pg (27.0-33.0); MEAN CORPUSCULAR HGB CONC 32.7 g/dl (32.0-36.5); MEAN CORPUSCULAR VOLUME 85.4 fl (80.0-96.0); MONO # 0.1 10^3/uL (0.0-0.8); MONO % 3.7 % (2.0-8.0); NEUTROPHILS # 2.4 10^3/uL (1.5-8.5); NEUTROPHILS % 82.5 % (36.0-66.0); PLATELET COUNT, AUTOMATED 118 10^3/uL (150-450); RED BLOOD COUNT 3.01 10^6/uL (4.30-6.10)
[2024-09-12 08:55] LABS: APPEARANCE, URINE HAZY (CLEAR); BACTERIA, URINE AUTO NEGATIVE (NEGATIVE); BILIRUBIN, URINE AUTO NEGATIVE (NEGATIVE); BLOOD, URINE BLOOD NEGATIVE (NEGATIVE); COLOR, URINE YELLOW (YELLOW); GLUCOSE, URINE (UA) AUTO NEGATIVE (NEGATIVE); KETONE, URINE AUTO TRACE mg/dL (NEGATIVE); LEUKOCYTE ESTERASE, URINE AUTO NEGATIVE (NEGATIVE); NITRITE, URINE AUTO NEGATIVE (NEGATIVE); PROTEIN, URINE AUTO NEGATIVE (NEGATIVE); RBC, URINE AUTO 3 /HPF (0-3); SPECIFIC GRAVITY URINE AUTO 1.016 (1.002-1.035); SQUAMOUS EPITHELIAL CELL UR AU 1 /HPF (0-6); UROBILINOGEN, URINE AUTO 0.2 mg/dL (0.0-2.0); WBC, URINE AUTO 3 /HPF (0-3)
[2024-09-12 09:22] LABS: ALBUMIN 2.7 G/DL (3.2-5.2); ALKALINE PHOSPHATASE 92 U/L (40-129); ALT/SGPT < 9 U/L (7.0-40); AST/SGOT 24 U/L (<34); BILIRUBIN,TOTAL 0.8 MG/DL (0.3-1.2); BLOOD UREA NITROGEN 16 MG/DL (9-23); CALCIUM LEVEL 9.2 MG/DL (8.5-10.1); CARBON DIOXIDE LEVEL 22 MMOL/L (20-31); CHLORIDE LEVEL 101 MMOL/L (98-107); CREATININE FOR GFR 0.85 MG/DL (0.70-1.30); GLOMERULAR FILTRATION RATE > 60.0 (>60); GLUCOSE, FASTING 109 MG/DL (60-100); MAGNESIUM LEVEL 1.8 MG/DL (1.8-2.4); POTASSIUM SERUM 4.2 MMOL/L (3.5-5.1); SODIUM LEVEL 130 MMOL/L (136-145); TOTAL PROTEIN 6.3 G/DL (5.7-8.2)
[2024-09-12] MEDS: POTASSIUM CHLORIDE 10MEQ SR TABLET PO ONE (09:52)
[2024-09-12] MEDS: MAG SULF 1GM/100ML (MAG RUN) 100 ML IV ONE (09:52)
[2024-09-12] MEDS: SODIUM CHLORIDE 0.9% INJ 10 ML SYR IV PRN (11:19)
[2024-09-19 09:50] LABS: BLOOD UREA NITROGEN 14 MG/DL (9-23); CALCIUM LEVEL 8.9 MG/DL (8.5-10.1); CARBON DIOXIDE LEVEL 24 MMOL/L (20-31); CHLORIDE LEVEL 111 MMOL/L (98-107); CREATININE FOR GFR 1.14 MG/DL (0.70-1.30); GLOMERULAR FILTRATION RATE > 60.0 (>60); GLUCOSE, FASTING 87 MG/DL (60-100); MAGNESIUM LEVEL 1.7 MG/DL (1.8-2.4); POTASSIUM SERUM 4.4 MMOL/L (3.5-5.1); SODIUM LEVEL 142 MMOL/L (136-145)
[2024-09-19] MEDS: FILGRASTIM SNDZ SC SCH (15:42)
[2024-09-19] MEDS: ONLY SC SCH (15:42)
[2024-09-20] MEDS: FILGRASTIM SNDZ SC SCH (09:25)
[2024-09-20] MEDS: ONLY SC SCH (09:25)
[2024-09-23] MEDS: FILGRASTIM SNDZ SC SCH (09:33)
[2024-09-23] MEDS: ONLY SC SCH (09:33)
[2024-09-26 08:51] VITALS: BP 112/79; O2SAT 100
[2024-09-26 08:57] LABS: BASO % 0.2 % (0.0-1.0); EOS # 0.1 10^3/uL (0.0-0.5); EOS % 2.7 % (0.0-3.0); HEMATOCRIT 29.5 % (42.0-52.0); HEMOGLOBIN 9.1 g/dl (13.5-17.5); LYMPH # 0.4 10^3/uL (1.5-5.0); LYMPH % 9.1 % (24.0-44.0); MEAN CORPUSCULAR HGB CONC 30.8 g/dl (32.0-36.5); MEAN CORPUSCULAR VOLUME 90.8 fl (80.0-96.0); MONO # 0.4 10^3/uL (0.0-0.8); MONO % 10.3 % (2.0-8.0); NEUTROPHILS # 3.1 10^3/uL (1.5-8.5); PLATELET COUNT, AUTOMATED 141 10^3/uL (150-450); RED BLOOD COUNT 3.25 10^6/uL (4.30-6.10); WHITE BLOOD COUNT 4.1 10^3/uL (4.0-10.0)
[2024-09-26 09:06] LABS: APPEARANCE, URINE MANUAL CLEAR (CLEAR)
[2024-09-26 09:07] LABS: COLOR, URINE MANUAL YELLOW (YELLOW)
[2024-09-26 09:08] LABS: GLUCOSE, URINE (UA) MANUAL NEGATIVE (NEGATIVE); KETONE, URINE MANUAL NEGATIVE (NEGATIVE); PROTEIN, URINE MANUAL 1+ mg/dL (NEGATIVE); UROBILINOGEN, URINE MANUAL 1 MG mg/dl (NORMAL)
[2024-09-26 09:09] LABS: BILIRUBIN, URINE MANUAL 1+ (NEGATIVE); LEUKOCYTE ESTERASE, URINE MAN TRACE (NEGATIVE); NITRITE, URINE MANUAL NEGATIVE (NEGATIVE)
[2024-09-26 09:10] LABS: BLOOD URINE MANUAL POSITIVE (NEGATIVE)
[2024-09-26 09:22] LABS: AMORPHOUS SEDIMENT, URINE MOD AMOUNT (NEGATIVE); RBC, URINE 0-1 /hpf (0-3); SQUAMOUS EPITHELIAL CELL URINE SMALL AMOUNT /hpf (SMALL AMT)
[2024-09-26 09:23] LABS: BACTERIA, URINE NONE SEEN
[2024-09-26 09:25] LABS: HYALINE CAST, URINE 20-30 /lpf (0-1)
[2024-09-26 09:26] LABS: MUCUS, URINE MOD AMOUNT (NEGATIVE)
[2024-09-26 09:30] LABS: MAGNESIUM LEVEL 1.5 MG/DL (1.8-2.4)
[2024-09-26 09:34] LABS: ALBUMIN 3.1 G/DL (3.2-5.2); ALKALINE PHOSPHATASE 122 U/L (40-129); ALT/SGPT < 9 U/L (7.0-40); AST/SGOT 24 U/L (<34); BILIRUBIN,TOTAL 0.7 MG/DL (0.3-1.2); BLOOD UREA NITROGEN 11 MG/DL (9-23); CARBON DIOXIDE LEVEL 25 MMOL/L (20-31); CHLORIDE LEVEL 108 MMOL/L (98-107); CREATININE FOR GFR 1.12 MG/DL (0.70-1.30); GLOMERULAR FILTRATION RATE > 60.0 (>60); GLUCOSE, FASTING 100 MG/DL (60-100); POTASSIUM SERUM 3.9 MMOL/L (3.5-5.1); SODIUM LEVEL 141 MMOL/L (136-145); TOTAL PROTEIN 6.8 G/DL (5.7-8.2)
[2024-09-26] MEDS: MAG SULF 1GM/100ML (MAG RUN) 100 ML IV ONE (09:56)
[2024-09-26] MEDS: SODIUM CHLORIDE 0.9% INJ 10 ML SYR IV PRN (11:27)
[2024-10-02 09:08] LABS: BLOOD UREA NITROGEN 18 MG/DL (9-23); CALCIUM LEVEL 8.9 MG/DL (8.5-10.1); CARBON DIOXIDE LEVEL 26 MMOL/L (20-31); CHLORIDE LEVEL 107 MMOL/L (98-107); CREATININE FOR GFR 1.21 MG/DL (0.70-1.30); GLOMERULAR FILTRATION RATE > 60.0 (>60); GLUCOSE, FASTING 89 MG/DL (60-100); MAGNESIUM LEVEL 1.9 MG/DL (1.8-2.4); POTASSIUM SERUM 4.6 MMOL/L (3.5-5.1); SODIUM LEVEL 137 MMOL/L (136-145)
[2024-10-07 09:37] VITALS: BP 108/82; O2SAT 97
[2024-10-07] MEDS: PEGFILGRASTIM 6 MG 0.6ML SYR (NEULASTA) SC ONE (10:34)
[2024-10-07 10:44] LABS: BASO % 0.9 % (0.0-1.0); EOS % 0.9 % (0.0-3.0); LYMPH # 0.3 10^3/uL (1.5-5.0); LYMPH % 13.3 % (24.0-44.0); MEAN CORPUSCULAR HEMOGLOBIN 28.8 pg (27.0-33.0); MEAN CORPUSCULAR HGB CONC 32.3 g/dl (32.0-36.5); MEAN CORPUSCULAR VOLUME 89.3 fl (80.0-96.0); MONO # 0.2 10^3/uL (0.0-0.8); MONO % 10.9 % (2.0-8.0); NEUTROPHILS # 1.5 10^3/uL (1.5-8.5); NEUTROPHILS % 73.1 % (36.0-66.0); PLATELET COUNT, AUTOMATED 123 10^3/uL (150-450); RED BLOOD COUNT 3.47 10^6/uL (4.30-6.10); WHITE BLOOD COUNT 2.1 10^3/uL (4.0-10.0)
[2024-10-07 11:11] LABS: BLOOD UREA NITROGEN 13 MG/DL (9-23); CALCIUM LEVEL 9.1 MG/DL (8.5-10.1); CARBON DIOXIDE LEVEL 27 MMOL/L (20-31); CHLORIDE LEVEL 106 MMOL/L (98-107); GLOMERULAR FILTRATION RATE > 60.0 (>60); GLUCOSE, FASTING 90 MG/DL (60-100); POTASSIUM SERUM 4.2 MMOL/L (3.5-5.1); SODIUM LEVEL 140 MMOL/L (136-145)
[2024-10-10 08:45] VITALS: BP 119/84; O2SAT 100
[2024-10-10 09:00] LABS: BASO % 0.6 % (0.0-1.0); EOS # 0.1 10^3/uL (0.0-0.5); EOS % 1.5 % (0.0-3.0); HEMATOCRIT 28.2 % (42.0-52.0); LYMPH # 0.5 10^3/uL (1.5-5.0); LYMPH % 15.2 % (24.0-44.0); MEAN CORPUSCULAR HEMOGLOBIN 28.9 pg (27.0-33.0); MEAN CORPUSCULAR HGB CONC 31.9 g/dl (32.0-36.5); MEAN CORPUSCULAR VOLUME 90.7 fl (80.0-96.0); MONO # 0.6 10^3/uL (0.0-0.8); MONO % 17.6 % (2.0-8.0); NEUTROPHILS # 2.1 10^3/uL (1.5-8.5); NEUTROPHILS % 63.3 % (36.0-66.0); RED BLOOD COUNT 3.11 10^6/uL (4.30-6.10); WHITE BLOOD COUNT 3.3 10^3/uL (4.0-10.0)
[2024-10-10 09:04] LABS: PLATELET COUNT, AUTOMATED 94 10^3/uL (150-450)
[2024-10-10 09:10] LABS: APPEARANCE, URINE HAZY (CLEAR); BACTERIA, URINE AUTO NEGATIVE (NEGATIVE); BILIRUBIN, URINE AUTO NEGATIVE (NEGATIVE); BLOOD, URINE BLOOD 3+ (NEGATIVE); COLOR, URINE AMBER (YELLOW); GLUCOSE, URINE (UA) AUTO NEGATIVE (NEGATIVE); KETONE, URINE AUTO TRACE mg/dL (NEGATIVE); LEUKOCYTE ESTERASE, URINE AUTO NEGATIVE (NEGATIVE); MUCUS, URINE SMALL (NEGATIVE); NITRITE, URINE AUTO NEGATIVE (NEGATIVE); PROTEIN, URINE AUTO 3+ mg/dL (NEGATIVE); RBC, URINE AUTO 38 /HPF (0-3); SPECIFIC GRAVITY URINE AUTO 1.022 (1.002-1.035); SQUAMOUS EPITHELIAL CELL UR AU 1 /HPF (0-6); WBC, URINE AUTO 6 /HPF (0-3)
[2024-10-10 09:26] LABS: ALBUMIN 3.2 G/DL (3.2-5.2); ALKALINE PHOSPHATASE 97 U/L (40-129); ALT/SGPT < 9 U/L (7.0-40); AST/SGOT 14 U/L (<34); BILIRUBIN,TOTAL 1.5 MG/DL (0.3-1.2); BLOOD UREA NITROGEN 18 MG/DL (9-23); CALCIUM LEVEL 9.2 MG/DL (8.5-10.1); CARBON DIOXIDE LEVEL 25 MMOL/L (20-31); CHLORIDE LEVEL 105 MMOL/L (98-107); CREATININE FOR GFR 1.14 MG/DL (0.70-1.30); GLOMERULAR FILTRATION RATE > 60.0 (>60); GLUCOSE, FASTING 91 MG/DL (60-100); POTASSIUM SERUM 3.8 MMOL/L (3.5-5.1); SODIUM LEVEL 141 MMOL/L (136-145); TOTAL PROTEIN 6.7 G/DL (5.7-8.2)
[2024-10-10] MEDS: SODIUM CHLORIDE 0.9% INJ 10 ML SYR IV PRN (09:59)
[2024-10-23 08:37] VITALS: BP 136/88; O2SAT 100
[2024-10-23 08:47] LABS: BASO # 0.1 10^3/uL (0.0-0.2); BASO % 0.8 % (0.0-1.0); EOS # 0.2 10^3/uL (0.0-0.5); EOS % 1.9 % (0.0-3.0); HEMATOCRIT 30.9 % (42.0-52.0); HEMOGLOBIN 9.9 g/dl (13.5-17.5); LYMPH # 0.8 10^3/uL (1.5-5.0); LYMPH % 6.8 % (24.0-44.0); MEAN CORPUSCULAR HEMOGLOBIN 30.9 pg (27.0-33.0); MEAN CORPUSCULAR VOLUME 96.6 fl (80.0-96.0); MONO % 8.5 % (2.0-8.0); NEUTROPHILS # 9.5 10^3/uL (1.5-8.5); NEUTROPHILS % 81.1 % (36.0-66.0); PLATELET COUNT, AUTOMATED 160 10^3/uL (150-450); WHITE BLOOD COUNT 11.8 10^3/uL (4.0-10.0)
[2024-10-23 09:17] LABS: ALKALINE PHOSPHATASE 156 U/L (40-129); ALT/SGPT < 9 U/L (7.0-40); AST/SGOT 28 U/L (<34); BILIRUBIN,TOTAL 0.9 MG/DL (0.3-1.2); BLOOD UREA NITROGEN 26 MG/DL (9-23); CALCIUM LEVEL 9.1 MG/DL (8.5-10.1); CARBON DIOXIDE LEVEL 25 MMOL/L (20-31); CHLORIDE LEVEL 109 MMOL/L (98-107); CREATININE FOR GFR 1.15 MG/DL (0.70-1.30); GLOMERULAR FILTRATION RATE > 60.0 (>60); GLUCOSE, FASTING 99 MG/DL (60-100); MAGNESIUM LEVEL 1.9 MG/DL (1.8-2.4); POTASSIUM SERUM 3.6 MMOL/L (3.5-5.1); SODIUM LEVEL 141 MMOL/L (136-145)
[2024-10-23] MEDS: PALONOSETRON 0.25MG/5ML VIAL (ALOXI) IV SCH (09:30)
[2024-10-23] MEDS: FOSAPREPITANT 150 MG, VIAL 2 BAG 13MM ADAPTER 1 EACH in NS 250 ML IV SCH (09:31)
[2024-10-23 09:34] LABS: INR 1.13; PARTIAL THROMBOPLASTIN TIME 40.6 SECONDS (24.8-34.2); PROTHROMBIN TIME 14.8 SECONDS (12.5-14.5)
[2024-10-23 09:36] LABS: CA19-9 TUMOR MARKER,CARBOHYDRA 54.6 U/ML (<35.0)
[2024-10-23] MEDS: FLUOROURACIL IVP SCH (13:56)
[2024-10-25] MEDS: SODIUM CHLORIDE 0.9% INJ 10 ML SYR IV PRN (12:05)
[2024-10-25] MEDS: PEGFILGRASTIM 6 MG SC SCH (12:05)
[2024-10-25 12:08] VITALS: BP 135/89; O2SAT 100
[2024-11-07 08:34] LABS: BASO # 0.1 10^3/uL (0.0-0.2); BASO % 0.5 % (0.0-1.0); EOS # 0.2 10^3/uL (0.0-0.5); EOS % 1.6 % (0.0-3.0); HEMOGLOBIN 9.6 g/dl (13.5-17.5); LYMPH # 0.9 10^3/uL (1.5-5.0); LYMPH % 6.8 % (24.0-44.0); MONO # 1.1 10^3/uL (0.0-0.8); MONO % 8.4 % (2.0-8.0); NEUTROPHILS # 10.4 10^3/uL (1.5-8.5); NEUTROPHILS % 79.4 % (36.0-66.0); PLATELET COUNT, AUTOMATED 170 10^3/uL (150-450); WHITE BLOOD COUNT 13.1 10^3/uL (4.0-10.0)
[2024-11-07 09:16] LABS: ALBUMIN 2.9 G/DL (3.2-5.2); ALKALINE PHOSPHATASE 202 U/L (40-129); ALT/SGPT < 9 U/L (7.0-40); AST/SGOT 24 U/L (<34); BILIRUBIN,TOTAL 0.5 MG/DL (0.3-1.2); BLOOD UREA NITROGEN 21 MG/DL (9-23); CALCIUM LEVEL 9.6 MG/DL (8.5-10.1); CARBON DIOXIDE LEVEL 25 MMOL/L (20-31); CHLORIDE LEVEL 108 MMOL/L (98-107); GLOMERULAR FILTRATION RATE > 60.0 (>60); GLUCOSE, FASTING 97 MG/DL (60-100); MAGNESIUM LEVEL 1.8 MG/DL (1.8-2.4); POTASSIUM SERUM 3.9 MMOL/L (3.5-5.1); SODIUM LEVEL 143 MMOL/L (136-145); TOTAL PROTEIN 6.2 G/DL (5.7-8.2)
[2024-11-07 09:37] LABS: CA19-9 TUMOR MARKER,CARBOHYDRA 40.4 U/ML (<35.0)
[2024-11-13 08:24] LABS: BASO # 0.1 10^3/uL (0.0-0.2); BASO % 0.5 % (0.0-1.0); EOS # 0.3 10^3/uL (0.0-0.5); EOS % 2.7 % (0.0-3.0); HEMATOCRIT 26.1 % (42.0-52.0); HEMOGLOBIN 8.2 g/dl (13.5-17.5); LYMPH # 0.8 10^3/uL (1.5-5.0); LYMPH % 7.7 % (24.0-44.0); MEAN CORPUSCULAR HEMOGLOBIN 31.8 pg (27.0-33.0); MEAN CORPUSCULAR HGB CONC 31.4 g/dl (32.0-36.5); MEAN CORPUSCULAR VOLUME 101.2 fl (80.0-96.0); MONO # 1.2 10^3/uL (0.0-0.8); NEUTROPHILS # 8.4 10^3/uL (1.5-8.5); NEUTROPHILS % 76.9 % (36.0-66.0); PLATELET COUNT, AUTOMATED 142 10^3/uL (150-450); RED BLOOD COUNT 2.58 10^6/uL (4.30-6.10)
[2024-11-13 08:26] VITALS: BP 124/92; O2SAT 100
[2024-11-13 09:24] LABS: ALBUMIN 2.8 G/DL (3.2-5.2); ALKALINE PHOSPHATASE 139 U/L (40-129); ALT/SGPT < 9 U/L (7.0-40); AST/SGOT 29 U/L (<34); BILIRUBIN,TOTAL 0.5 MG/DL (0.3-1.2); BLOOD UREA NITROGEN 26 MG/DL (9-23); CALCIUM LEVEL 8.9 MG/DL (8.5-10.1); CARBON DIOXIDE LEVEL 24 MMOL/L (20-31); CHLORIDE LEVEL 111 MMOL/L (98-107); CREATININE FOR GFR 1.09 MG/DL (0.70-1.30); GLOMERULAR FILTRATION RATE > 60.0 (>60); GLUCOSE, FASTING 113 MG/DL (60-100); POTASSIUM SERUM 3.3 MMOL/L (3.5-5.1); SODIUM LEVEL 140 MMOL/L (136-145); TOTAL PROTEIN 5.9 G/DL (5.7-8.2)
[2024-11-13 09:26] LABS: PERCENT SATURATION 24.1 % (19.7-50.0)
[2024-11-13 09:29] LABS: FERRITIN 528.9 NG/ML (10.5-307.3)
[2024-11-13 09:44] LABS: CA19-9 TUMOR MARKER,CARBOHYDRA 52.8 U/ML (<35.0)
[2024-11-13] MEDS: PALONOSETRON 0.25MG/5ML VIAL (ALOXI) IV SCH (10:21)
[2024-11-13] MEDS: FOSAPREPITANT 150 MG, VIAL 2 BAG 13MM ADAPTER 1 EACH in NS 250 ML IV SCH (10:21)
[2024-11-13] MEDS: POTASSIUM CHLORIDE 10MEQ SR TABLET PO ONE (10:40)
[2024-11-13] MEDS: MAG SULF 1GM/100ML (MAG RUN) 100 ML IV ONE (10:41)
[2024-11-13] MEDS: KCL 10MEQ/100ML SWI (KRUN) 100 ML IV ONE (10:42)
[2024-11-13] MEDS: FLUOROURACIL IVP SCH (14:37)
[2024-11-15 13:16] VITALS: BP 130/91; O2SAT 100
[2024-11-15] MEDS: SODIUM CHLORIDE 0.9% INJ 10 ML SYR IV PRN (13:20)
[2024-11-15] MEDS: PEGFILGRASTIM 6 MG SC SCH (13:20)
[2024-12-04 08:07] LABS: BASO # 0.1 10^3/uL (0.0-0.2); BASO % 0.6 % (0.0-1.0); EOS # 0.4 10^3/uL (0.0-0.5); EOS % 2.7 % (0.0-3.0); HEMATOCRIT 31.2 % (42.0-52.0); HEMOGLOBIN 10.4 g/dl (13.5-17.5); LYMPH # 0.8 10^3/uL (1.5-5.0); LYMPH % 5.8 % (24.0-44.0); MEAN CORPUSCULAR HEMOGLOBIN 33.2 pg (27.0-33.0); MEAN CORPUSCULAR HGB CONC 33.3 g/dl (32.0-36.5); MEAN CORPUSCULAR VOLUME 99.7 fl (80.0-96.0); MONO % 7.7 % (2.0-8.0); NEUTROPHILS # 11.1 10^3/uL (1.5-8.5); NEUTROPHILS % 82.2 % (36.0-66.0); PLATELET COUNT, AUTOMATED 101 10^3/uL (150-450); RED BLOOD COUNT 3.13 10^6/uL (4.30-6.10); WHITE BLOOD COUNT 13.5 10^3/uL (4.0-10.0)
[2024-12-04 08:09] VITALS: BP 134/106; O2SAT 100
[2024-12-04 08:36] LABS: ALBUMIN 2.7 G/DL (3.2-5.2); ALKALINE PHOSPHATASE 371 U/L (40-129); ALT/SGPT 12 U/L (7.0-40); AST/SGOT 61 U/L (<34); BILIRUBIN,TOTAL 0.9 MG/DL (0.3-1.2); BLOOD UREA NITROGEN 23 MG/DL (9-23); CALCIUM LEVEL 8.3 MG/DL (8.5-10.1); CARBON DIOXIDE LEVEL 21 MMOL/L (20-31); CHLORIDE LEVEL 107 MMOL/L (98-107); CREATININE FOR GFR 1.13 MG/DL (0.70-1.30); GLOMERULAR FILTRATION RATE > 60.0 (>60); GLUCOSE, FASTING 98 MG/DL (60-100); POTASSIUM SERUM 3.8 MMOL/L (3.5-5.1); SODIUM LEVEL 142 MMOL/L (136-145); TOTAL PROTEIN 5.9 G/DL (5.7-8.2)
[2024-12-04 08:46] VITALS: BP 122/86
[2024-12-04 09:01] LABS: CA19-9 TUMOR MARKER,CARBOHYDRA 48.8 U/ML (<35.0)
[2024-12-04] MEDS: MAG SULF 1GM/100ML (MAG RUN) 100 ML IV ONE (09:10)
[2024-12-04 09:14] LABS: INR 1.03; PROTHROMBIN TIME 13.8 SECONDS (12.5-14.5)
[2024-12-04] MEDS: SODIUM CHLORIDE 0.9% INJ 10 ML SYR IV PRN (10:17)
[2024-12-11 08:44] LABS: BASO # 0.1 10^3/uL (0.0-0.2); BASO % 0.6 % (0.0-1.0); EOS # 0.4 10^3/uL (0.0-0.5); EOS % 3.5 % (0.0-3.0); HEMATOCRIT 30.5 % (42.0-52.0); LYMPH # 0.5 10^3/uL (1.5-5.0); LYMPH % 4.7 % (24.0-44.0); MEAN CORPUSCULAR HEMOGLOBIN 32.7 pg (27.0-33.0); MEAN CORPUSCULAR HGB CONC 32.8 g/dl (32.0-36.5); MEAN CORPUSCULAR VOLUME 99.7 fl (80.0-96.0); MONO # 0.9 10^3/uL (0.0-0.8); MONO % 8.1 % (2.0-8.0); NEUTROPHILS # 9.5 10^3/uL (1.5-8.5); NEUTROPHILS % 82.5 % (36.0-66.0); PLATELET COUNT, AUTOMATED 120 10^3/uL (150-450); RED BLOOD COUNT 3.06 10^6/uL (4.30-6.10); WHITE BLOOD COUNT 11.6 10^3/uL (4.0-10.0)
[2024-12-11 09:09] VITALS: BP 138/101; O2SAT 99
[2024-12-11 09:14] LABS: ALBUMIN 2.5 G/DL (3.2-5.2); ALKALINE PHOSPHATASE 216 U/L (40-129); ALT/SGPT < 9 U/L (7.0-40); AST/SGOT 47 U/L (<34); BILIRUBIN,TOTAL 0.5 MG/DL (0.3-1.2); BLOOD UREA NITROGEN 24 MG/DL (9-23); CALCIUM LEVEL 8.2 MG/DL (8.5-10.1); CARBON DIOXIDE LEVEL 24 MMOL/L (20-31); CHLORIDE LEVEL 107 MMOL/L (98-107); CREATININE FOR GFR 1.15 MG/DL (0.70-1.30); GLOMERULAR FILTRATION RATE > 60.0 (>60); GLUCOSE, FASTING 120 MG/DL (60-100); POTASSIUM SERUM 3.7 MMOL/L (3.5-5.1); SODIUM LEVEL 140 MMOL/L (136-145)
[2024-12-11 09:37] LABS: MAGNESIUM LEVEL 1.7 MG/DL (1.8-2.4)
[2024-12-11 09:59] LABS: CA19-9 TUMOR MARKER,CARBOHYDRA 76.4 U/ML (<35.0)
[2024-12-11] MEDS: MAG SULF 1GM/100ML (MAG RUN) 100 ML IV ONE (10:09)
[2024-12-11] MEDS: SODIUM CHLORIDE 0.9% INJ 10 ML SYR IV PRN (11:04)
[2024-12-18 08:49] LABS: BASO # 0.1 10^3/uL (0.0-0.2); BASO % 0.4 % (0.0-1.0); EOS # 0.7 10^3/uL (0.0-0.5); EOS % 5.8 % (0.0-3.0); HEMATOCRIT 28.7 % (42.0-52.0); HEMOGLOBIN 9.3 g/dl (13.5-17.5); LYMPH # 0.6 10^3/uL (1.5-5.0); LYMPH % 5.6 % (24.0-44.0); MEAN CORPUSCULAR HEMOGLOBIN 32.5 pg (27.0-33.0); MEAN CORPUSCULAR HGB CONC 32.4 g/dl (32.0-36.5); MEAN CORPUSCULAR VOLUME 100.3 fl (80.0-96.0); MONO # 1.1 10^3/uL (0.0-0.8); MONO % 9.2 % (2.0-8.0); NEUTROPHILS % 78.4 % (36.0-66.0); PLATELET COUNT, AUTOMATED 177 10^3/uL (150-450); RED BLOOD COUNT 2.86 10^6/uL (4.30-6.10); WHITE BLOOD COUNT 11.5 10^3/uL (4.0-10.0)
[2024-12-18 09:29] LABS: ALBUMIN 2.3 G/DL (3.2-5.2); ALKALINE PHOSPHATASE 218 U/L (40-129); ALT/SGPT < 9 U/L (7.0-40); AST/SGOT 47 U/L (<34); BILIRUBIN,TOTAL 0.4 MG/DL (0.3-1.2); BLOOD UREA NITROGEN 32 MG/DL (9-23); CALCIUM LEVEL 8.3 MG/DL (8.5-10.1); CARBON DIOXIDE LEVEL 24 MMOL/L (20-31); CHLORIDE LEVEL 107 MMOL/L (98-107); CREATININE FOR GFR 1.01 MG/DL (0.70-1.30); GLOMERULAR FILTRATION RATE > 60.0 (>60); GLUCOSE, FASTING 108 MG/DL (60-100); MAGNESIUM LEVEL 1.9 MG/DL (1.8-2.4); POTASSIUM SERUM 4.1 MMOL/L (3.5-5.1); SODIUM LEVEL 139 MMOL/L (136-145); TOTAL PROTEIN 6.1 G/DL (5.7-8.2)
[2024-12-25 08:15] VITALS: BP 124/96; O2SAT 100
[2024-12-25 09:09] LABS: BASO % 0.3 % (0.0-1.0); EOS # 0.9 10^3/uL (0.0-0.5); EOS % 9.9 % (0.0-3.0); HEMATOCRIT 28.3 % (42.0-52.0); LYMPH # 0.4 10^3/uL (1.5-5.0); MEAN CORPUSCULAR HEMOGLOBIN 31.7 pg (27.0-33.0); MEAN CORPUSCULAR HGB CONC 31.8 g/dl (32.0-36.5); MEAN CORPUSCULAR VOLUME 99.6 fl (80.0-96.0); MONO # 0.7 10^3/uL (0.0-0.8); MONO % 8.2 % (2.0-8.0); NEUTROPHILS # 6.7 10^3/uL (1.5-8.5); NEUTROPHILS % 76.1 % (36.0-66.0); PLATELET COUNT, AUTOMATED 153 10^3/uL (150-450); RED BLOOD COUNT 2.84 10^6/uL (4.30-6.10); WHITE BLOOD COUNT 8.8 10^3/uL (4.0-10.0)
[2024-12-25 09:42] LABS: ALBUMIN 2.3 G/DL (3.2-5.2); ALKALINE PHOSPHATASE 165 U/L (40-129); ALT/SGPT < 9 U/L (7.0-40); AST/SGOT 52 U/L (<34); BILIRUBIN,TOTAL 0.5 MG/DL (0.3-1.2); BLOOD UREA NITROGEN 35 MG/DL (9-23); CALCIUM LEVEL 8.4 MG/DL (8.5-10.1); CARBON DIOXIDE LEVEL 22 MMOL/L (20-31); CHLORIDE LEVEL 105 MMOL/L (98-107); CREATININE FOR GFR 1.01 MG/DL (0.70-1.30); GLOMERULAR FILTRATION RATE > 60.0 (>60); GLUCOSE, FASTING 96 MG/DL (60-100); MAGNESIUM LEVEL 1.9 MG/DL (1.8-2.4); POTASSIUM SERUM 3.9 MMOL/L (3.5-5.1); SODIUM LEVEL 142 MMOL/L (136-145); TOTAL PROTEIN 6.1 G/DL (5.7-8.2)
[2024-12-25] MEDS: SODIUM CHLORIDE 0.9% INJ 10 ML SYR IV PRN (10:21)
[2024-12-25 11:05] VITALS: BP 126/86; O2SAT 100
[2024-12-31] MEDS: SODIUM CHLORIDE 0.9% INJ 10 ML SYR IV PRN (08:19)
[2024-12-31 08:34] LABS: BASO # 0.1 10^3/uL (0.0-0.2); BASO % 0.5 % (0.0-1.0); EOS # 0.4 10^3/uL (0.0-0.5); EOS % 3.8 % (0.0-3.0); HEMATOCRIT 27.9 % (42.0-52.0); HEMOGLOBIN 8.7 g/dl (13.5-17.5); LYMPH # 0.6 10^3/uL (1.5-5.0); LYMPH % 5.9 % (24.0-44.0); MEAN CORPUSCULAR HEMOGLOBIN 30.9 pg (27.0-33.0); MEAN CORPUSCULAR HGB CONC 31.2 g/dl (32.0-36.5); MEAN CORPUSCULAR VOLUME 98.9 fl (80.0-96.0); MONO # 1.1 10^3/uL (0.0-0.8); MONO % 10.2 % (2.0-8.0); NEUTROPHILS # 8.6 10^3/uL (1.5-8.5); PLATELET COUNT, AUTOMATED 152 10^3/uL (150-450); RED BLOOD COUNT 2.82 10^6/uL (4.30-6.10); WHITE BLOOD COUNT 10.8 10^3/uL (4.0-10.0)
[2024-12-31 09:10] LABS: ALBUMIN 2.3 G/DL (3.2-5.2); BILIRUBIN,TOTAL 0.7 MG/DL (0.3-1.2); CALCIUM LEVEL 8.9 MG/DL (8.5-10.1); CREATININE FOR GFR 1.54 MG/DL (0.70-1.30); GLOMERULAR FILTRATION RATE 53.3 (>60); POTASSIUM SERUM 4.3 MMOL/L (3.5-5.1); TOTAL PROTEIN 6.2 G/DL (5.7-8.2)
[2024-12-31 09:30] LABS: CA19-9 TUMOR MARKER,CARBOHYDRA 52.6 U/ML (<35.0)
[~2025-01-08] VITALS: Ht 180.3 cm; Wt 63.4 kg
[~2025-01-08 07:46] MED LIST changes: +ALBUTEROL SULFATE (2.5MG/0.5ML) NEB INH PRN; +ATROPINE SULF 0.4 MG/ML 1ML VIAL IVP ONE; +D5W/0.9% SODIUM CHLORIDE 1,000 ML IV ONE; +EPINEPHrine (1MG/ML) IV IM PRN; +FAMOTIDINE 20MG IVP IV PRN; +FAMOTIDINE 20MG/2ML VIAL IV ONE; +FOSAPREPITANT 150 MG in NS 245 ML IV ONE; +FOSAPREPITANT 150 MG in NS 245 ML IV SCH; +FOSAPREPITANT 150 MG in NS 250 ML IV SCH; +FOSAPREPITANT 150 MG, VIAL 2 BAG 13MM ADAPTER 1 EACH in NS 250 ML IV SCH; -HYDR-3363 PO; +KCL 10MEQ/100ML SWI (KRUN) 100 ML IV SCH; +MAG SULF 1GM/100ML (MAG RUN) 1 GM in IV 1 EA IV SCH; +MAG SULF 1GM/100ML (MAG RUN) 100 ML IV ONE; +MAG SULF 1GM/100ML (MAG RUN) 100 ML IV SCH; +NS (Normal Saline) 0.9% 1,000 ML IV PRN; +NS 50 ML IV PRN; +PALONOSETRON 0.25MG/5ML VIAL (ALOXI) IV ONE; +PALONOSETRON 0.25MG/5ML VIAL (ALOXI) IV SCH; +PEGFILGRASTIM 6 MG SC SCH; +PROCHLORPERAZINE 5MG TAB PO ONE; +SODIUM CHLORIDE 0.9% INJ 10 ML SYR IV PRN; +diphenhydrAMINE (50MG/ML) IV IV PRN; +diphenhydrAMINE 50MG/ML VIAL IV ONE; +methylPREDNISolone (125 MG/2 ML) IV IV PRN
[2025-01-08] MEDS ORDERED: SODIUM CHLORIDE 0.9% INJ 10 ML SYR IV PRN (08:00)
[2025-01-08 08:21] LABS: BASO % 0.2 % (0.0-1.0); EOS # 0.1 10^3/uL (0.0-0.5); EOS % 0.7 % (0.0-3.0); HEMATOCRIT 30.8 % (42.0-52.0); HEMOGLOBIN 9.5 g/dl (13.5-17.5); LYMPH # 0.5 10^3/uL (1.5-5.0); LYMPH % 4.2 % (24.0-44.0); MEAN CORPUSCULAR HEMOGLOBIN 30.7 pg (27.0-33.0); MEAN CORPUSCULAR HGB CONC 30.8 g/dl (32.0-36.5); MEAN CORPUSCULAR VOLUME 99.7 fl (80.0-96.0); MONO # 1.4 10^3/uL (0.0-0.8); MONO % 10.4 % (2.0-8.0); NEUTROPHILS # 10.9 10^3/uL (1.5-8.5); PLATELET COUNT, AUTOMATED 197 10^3/uL (150-450); RED BLOOD COUNT 3.09 10^6/uL (4.30-6.10); WHITE BLOOD COUNT 12.9 10^3/uL (4.0-10.0)
[2025-01-08 08:49] VITALS: BP 91/73; O2SAT 98
[2025-01-08 09:05] LABS: ALBUMIN 2.2 G/DL (3.2-5.2); BILIRUBIN,TOTAL 0.6 MG/DL (0.3-1.2); CALCIUM LEVEL 8.8 MG/DL (8.5-10.1); CREATININE FOR GFR 2.44 MG/DL (0.70-1.30); GLOMERULAR FILTRATION RATE 31.3 (>60); MAGNESIUM LEVEL 2.4 MG/DL (1.8-2.4); POTASSIUM SERUM 6.2 MMOL/L (3.5-5.1); TOTAL PROTEIN 6.2 G/DL (5.7-8.2)
[2025-01-08] MEDS ORDERED: HYDR-3363 PO (12:47)
[2025-01-08] MEDS ORDERED: MORP1SOL5 PO (12:47)
[2025-01-08] MEDS ORDERED: ONDA-282 PO (12:47)
[2025-01-08] MEDS ORDERED: OLAN5ZYD PO (12:47)
[2025-01-09] MEDS ORDERED: DRON2.5C11 PO (13:38)
== END 2025-01-17 | disposition expired ==
LOC: M ONCM 07:46
PROVIDERS: ATTEND Internal Medicine Medical Oncology
DX: Z51.11 Encounter for antineoplastic chemotherapy (principal); C19 Malignant neoplasm of rectosigmoid junction; C78.7 Secondary malignant neoplasm of liver and intrahepatic bile duct; D61.810 Antineoplastic chemotherapy induced pancytopenia; M84.58XD Pathological fracture in neoplastic disease, other specified site, subsequent encounter for fracture with routine healing; R18.8 Other ascites; G89.3 Neoplasm related pain (acute) (chronic); R19.7 Diarrhea, unspecified; Z79.899 Other long term (current) drug therapy; Z90.49 Acquired absence of other specified parts of digestive tract; K72.10 Chronic hepatic failure without coma; D68.32 Hemorrhagic disorder due to extrinsic circulating anticoagulants; C22.0 Liver cell carcinoma; T86.40 Unspecified complication of liver transplant; E87.5 Hyperkalemia; R16.1 Splenomegaly, not elsewhere classified; Z94.4 Liver transplant status; R53.1 Weakness; R94.8 Abnormal results of function studies of other organs and systems; H04.123 Dry eye syndrome of bilateral lacrimal glands; L85.3 Xerosis cutis; R21 Rash and other nonspecific skin eruption; R63.8 Other symptoms and signs concerning food and fluid intake; R53.83 Other fatigue; R09.89 Other specified symptoms and signs involving the circulatory and respiratory systems; R53.0 Neoplastic (malignant) related fatigue; R20.2 Paresthesia of skin; R23.2 Flushing; R11.0 Nausea; T45.1X5A Adverse effect of antineoplastic and immunosuppressive drugs, initial encounter; C18.7 Malignant neoplasm of sigmoid colon
CPT/HCPCS: 36415; 36591; 67159; 71045; 71260; 74177; 80048; 80053; 80197; 81000; 81001; 81002; 81015; 82105; 82378; 82728; 83550; 83735; 84132; 84238; 84403; 84630; 85025; 85049; 85055; 85610; 85730; 86301; 86705; 86706; 87086; 87340; 87486; 87581; 87633; 87798; 96360; 96361; 96365; 96366; 96367; 96368; 96372; 96375; 96377; 96411; 96413; 96415; 96416; 96417; G0463; J0461; J0640; J1100; J1200; J1442; J1453; J1642; J2469; J2506; J3475; J9035; J9190; J9206; J9263; J9303; J9355; Q5101; Q9967

== ENCOUNTER 2025-01-08 09:21 | Inpatient (IN) | payer MEDICARE ==
[2025-01-08] VITALS (18 sets, daily range): BP systolic 91–113; BP diastolic 54–73; TEMP 97.5–98.1; O2SAT 93–100
[~2025-01-08] VITALS: Ht 180.3 cm; Wt 70.8 kg
[2025-01-08] MEDS: DOCUSATE SODIUM 100MG CAPSULE PO SCH (09:00)
[~2025-01-08 09:21] MED LIST changes: -ALBUTEROL SULFATE (2.5MG/0.5ML) NEB INH PRN; -ATROPINE SULF 0.4 MG/ML 1ML VIAL IVP ONE; -D5W/0.9% SODIUM CHLORIDE 1,000 ML IV ONE; -EPINEPHrine (1MG/ML) IV IM PRN; -FAMOTIDINE 20MG IVP IV PRN; -FAMOTIDINE 20MG/2ML VIAL IV ONE; -FOSAPREPITANT 150 MG in NS 245 ML IV ONE; -FOSAPREPITANT 150 MG in NS 245 ML IV SCH; -FOSAPREPITANT 150 MG in NS 250 ML IV SCH; -FOSAPREPITANT 150 MG, VIAL 2 BAG 13MM ADAPTER 1 EACH in NS 250 ML IV SCH; -KCL 10MEQ/100ML SWI (KRUN) 100 ML IV SCH; -MAG SULF 1GM/100ML (MAG RUN) 1 GM in IV 1 EA IV SCH; -MAG SULF 1GM/100ML (MAG RUN) 100 ML IV ONE; -MAG SULF 1GM/100ML (MAG RUN) 100 ML IV SCH; -NS (Normal Saline) 0.9% 1,000 ML IV PRN; -NS 50 ML IV PRN; -PALONOSETRON 0.25MG/5ML VIAL (ALOXI) IV ONE; -PALONOSETRON 0.25MG/5ML VIAL (ALOXI) IV SCH; -PEGFILGRASTIM 6 MG SC SCH; -PROCHLORPERAZINE 5MG TAB PO ONE; -SODIUM CHLORIDE 0.9% INJ 10 ML SYR IV PRN; -diphenhydrAMINE (50MG/ML) IV IV PRN; -diphenhydrAMINE 50MG/ML VIAL IV ONE; -methylPREDNISolone (125 MG/2 ML) IV IV PRN
[2025-01-08] MEDS: NS (Normal Saline) 0.9% 1,000 ML IV ONE ×2 (10:20→12:55)
[2025-01-08] MEDS: TACROLIMUS 0.5MG CAP PO ONE (10:30)
[2025-01-08] MEDS: DEXTROSE 50% 50ML SYRINGE IV ONE (11:22)
[2025-01-08] MEDS: SODIUM BICARBONATE 8.4% INJ 50ML SYRINGE IV ONE (11:24)
[2025-01-08] MEDS: HumuLIN R (REGULAR) INSULIN (NovoLIN R) **100U/ML** PER UNIT IV ONE (11:26)
[2025-01-08] MEDS ORDERED: MOM 30ML SUSPENSION UDC PO PRN (12:20)
[2025-01-08] MEDS ORDERED: ACETAMINOPHEN 325 MG TAB PO PRN (12:20)
[2025-01-08] MEDS ORDERED: OLAN5ZYD PO (12:47)
[2025-01-08] MEDS ORDERED: ONDA-282 PO (12:47)
[2025-01-08] MEDS ORDERED: HYDR-3363 PO (12:47)
[2025-01-08] MEDS ORDERED: MORP1SOL5 PO (12:47)
[2025-01-08] MEDS ORDERED: HOME MED LIST COMPLETE! XX SCH (12:50)
[2025-01-08] MEDS: FUROSEMIDE 100MG/10ML VIAL IV ONE (12:53)
[2025-01-08] MEDS: SOD POLYSTYRENE SULFONATE SUSP 15GM 60ML UD PO ONE (13:02)
[2025-01-08] MEDS: CALCIUM GLUCONATE 1,000 MG in DEXTROSE 5% (D5W) MINI-BAG PLU 100 ML IV SCH ×2 (13:05→20:06)
[2025-01-08 14:03] LABS: PHOSPHORUS LEVEL 5.6 MG/DL (2.5-4.9)
[2025-01-08 14:04] LABS: C REACTIVE PROTEIN QUANTITATIV 11.61 MG/DL (<1.0)
[2025-01-08 14:10] LABS: PROCALCITONIN 1.43 ng/ml
[2025-01-08] MEDS ORDERED: allopurinoL 100 MG TAB PO SCH (14:20)
[2025-01-08] MEDS ORDERED: PIPERACILLIN/TAZOBACTAM SOD 4.5 GM in DEXTROSE 5% (D5W) ADV/MINI-BAG 50 ML IV SCH (14:20)
[2025-01-08] MEDS: LIDOCAINE 1% MDV 20ML VIAL SC STA (15:17)
[2025-01-08] MEDS: MIDAZOLAM INJ 2MG/2ML VIAL IV STA (16:05)
[2025-01-08] MEDS: flumazeniL 0.5MG/5ML VIAL IV STA (16:34)
[2025-01-08] MEDS ORDERED: BISACODYL 10MG SUPP PR PRN (16:45)
[2025-01-08] MEDS: PIPERACILLIN/TAZOBACTAM SOD 3.375 GM in DEXTROSE 5% (D5W) ADV/MINI-BAG 50 ML IV SCH (17:03)
[2025-01-08] MEDS: SODIUM BICARBONATE 150 MEQ in D5W 1,000 ML IV SCH (17:03)
[2025-01-08 17:42] LABS: SOURCE, BODY FLUID PLEURAL
[2025-01-08 17:43] LABS: APPEARANCE, BODY FLUID CLEAR (CLEAR); PLEURAL FL COLOR YELLOW (COLORLESS)
[2025-01-08 17:46] LABS: PH BODY FLUID 7.332 UNITS (NOT ESTABLISHED); SOURCE, BODY FLUID pH PLEURAL
[2025-01-08 18:00] LABS: SOURCE, BODY FLUID ALBUMIN PLEURAL
[2025-01-08 18:05] LABS: SOURCE, BODY FLUID GLUCOSE PLEURAL
[2025-01-08 18:06] LABS: SOURCE, BODY FLUID TOT PROTEIN PLEURAL; SOURCE, BODY FLUID TRIG PLEURAL; TOTAL PROTEIN, BODY FLUID 2.3 G/DL (NOT ESTABLISHED); TRIGLYCERIDE, BODY FLUID 46 MG/DL (NOT ESTABLISHED)
[2025-01-08 18:07] LABS: AMYLASE, BODY FLUID < 20 U/L (NOT ESTABLISHED); LDH, BODY FLUID 671 U/L (NOT ESTABLISHED); SOURCE, BODY FLUID AMYLASE PLEURAL; SOURCE, BODY FLUID LDH PLEURAL
[2025-01-08 18:08] LABS: CHOLESTEROL, BODY FLUID 49 MG/DL (NOT ESTABLISHED); SOURCE, BODY FLUID CHOL PLEURAL
[2025-01-08 18:42] LABS: CALCIUM LEVEL 8.6 MG/DL (8.5-10.1); CREATININE FOR GFR 2.32 MG/DL (0.70-1.30); GLOMERULAR FILTRATION RATE 33.2 (>60); POTASSIUM SERUM 6.3 MMOL/L (3.5-5.1)
[2025-01-08] MEDS ORDERED: HumuLIN R (REGULAR) INSULIN (NovoLIN R) **100U/ML** PER UNIT SC STA (19:05)
[2025-01-08] MEDS: ALBUTEROL SULFATE 2.5MG/0.5ML INH NEB SOLN NEB SCH (19:30)
[2025-01-08] MEDS: LEVALBUTEROL 1.25MG 0.5ML CONCENTRATE NEB NEB SCH (20:29)
[2025-01-08] MEDS: SODIUM BICARBONATE 8.4% INJ 50ML SYRINGE IV STA (20:36)
[2025-01-08] MEDS: PATIROMER SORBITEX CALCIUM 8.4 GM POWDER PACKET (VELTASSA) PO ONE ×2 (20:36→22:12)
[2025-01-08] MEDS: HEPARIN SOD (PORCINE) 5000UNITS/ML 1ML VIAL/SYRINGE SC SCH (20:54)
[2025-01-08] MEDS: PERCOCET 5MG/325MG TAB PO PRN (20:56)
[2025-01-08] MEDS: DEXTROSE 50% 50ML SYRINGE IV STA (21:12)
[2025-01-08] MEDS: HumuLIN R (REGULAR) INSULIN (NovoLIN R) **100U/ML** PER UNIT IV STA (21:13)
[2025-01-09] VITALS (30 sets, daily range): BP systolic 78–153; BP diastolic 49–66; TEMP 97.5–98.8; O2SAT 94–100
[2025-01-09 00:45] LABS: CALCIUM LEVEL 8.4 MG/DL (8.5-10.1); CREATININE FOR GFR 2.44 MG/DL (0.70-1.30); GLOMERULAR FILTRATION RATE 31.3 (>60); POTASSIUM SERUM 5.2 MMOL/L (3.5-5.1)
[2025-01-09] MEDS: ONDANSETRON 4MG 2ML VIAL IV PRN (04:47)
[2025-01-09 06:05] LABS: BASO % 0.2 % (0.0-1.0); EOS # 0.1 10^3/uL (0.0-0.5); EOS % 1.4 % (0.0-3.0); HEMATOCRIT 28.4 % (42.0-52.0); HEMOGLOBIN 8.9 g/dl (13.5-17.5); LYMPH # 0.1 10^3/uL (1.5-5.0); LYMPH % 2.7 % (24.0-44.0); MEAN CORPUSCULAR HEMOGLOBIN 30.7 pg (27.0-33.0); MEAN CORPUSCULAR HGB CONC 31.3 g/dl (32.0-36.5); MEAN CORPUSCULAR VOLUME 97.9 fl (80.0-96.0); MONO # 0.5 10^3/uL (0.0-0.8); MONO % 10.6 % (2.0-8.0); NEUTROPHILS # 4.2 10^3/uL (1.5-8.5); NEUTROPHILS % 84.7 % (36.0-66.0); PLATELET COUNT, AUTOMATED 121 10^3/uL (150-450); WHITE BLOOD COUNT 4.9 10^3/uL (4.0-10.0)
[2025-01-09 06:06] LABS: HEMATOCRIT 28.1 % (42.0-52.0); HEMOGLOBIN 8.9 g/dl (13.5-17.5); MEAN CORPUSCULAR HGB CONC 31.7 g/dl (32.0-36.5); MEAN CORPUSCULAR VOLUME 97.9 fl (80.0-96.0); PLATELET COUNT, AUTOMATED 117 10^3/uL (150-450); RED BLOOD COUNT 2.87 10^6/uL (4.30-6.10)
[2025-01-09 06:32] LABS: URIC ACID 10.5 MG/DL (3.7-9.2)
[2025-01-09 06:35] LABS: ALBUMIN 1.7 G/DL (3.2-5.2); CALCIUM LEVEL 8.5 MG/DL (8.5-10.1); CREATININE FOR GFR 2.56 MG/DL (0.70-1.30); GLOMERULAR FILTRATION RATE 29.6 (>60); PHOSPHORUS LEVEL 4.7 MG/DL (2.5-4.9); POTASSIUM SERUM 4.6 MMOL/L (3.5-5.1)
[2025-01-09] MEDS: PANTOPRAZOLE 40MG TAB (PROTONIX) PO SCH (08:08)
[2025-01-09] MEDS: allopurinoL 100 MG TAB PO SCH (09:17)
[2025-01-09] MEDS: LIDOCAINE 1% MDV 20ML VIAL SC STA (11:30)
[2025-01-09] MEDS: MIDAZOLAM INJ 2MG/2ML VIAL IV STA (11:59)
[2025-01-09] MEDS: flumazeniL 0.5MG/5ML VIAL IV STA (12:31)
[2025-01-09 13:16] LABS: BILIRUBIN,DIRECT 0.3 MG/DL (<0.4); BILIRUBIN,TOTAL 0.5 MG/DL (0.3-1.2); TOTAL PROTEIN 4.9 G/DL (5.7-8.2)
[2025-01-09] MEDS ORDERED: DRON2.5C11 PO (13:38)
[2025-01-09] MEDS: TACROLIMUS 0.5MG CAP PO SCH (13:55)
[2025-01-09 15:00] LABS: APPEARANCE, BODY FLUID HAZY (CLEAR); PLEURAL FL COLOR RED (COLORLESS); SOURCE, BODY FLUID PLEURAL
[2025-01-09 15:15] LABS: PH BODY FLUID 7.443 UNITS (NOT ESTABLISHED); SOURCE, BODY FLUID pH PLEURAL
[2025-01-09 15:19] LABS: SOURCE, BODY FLUID GLUCOSE PLEURAL; SOURCE, BODY FLUID TRIG PLEURAL; TRIGLYCERIDE, BODY FLUID 39 MG/DL (NOT ESTABLISHED)
[2025-01-09 15:20] LABS: LDH, BODY FLUID 307 U/L (NOT ESTABLISHED); SOURCE, BODY FLUID LDH PLEURAL
[2025-01-09 15:21] LABS: AMYLASE, BODY FLUID < 20 U/L (NOT ESTABLISHED); CHOLESTEROL, BODY FLUID 63 MG/DL (NOT ESTABLISHED); SOURCE, BODY FLUID AMYLASE PLEURAL; SOURCE, BODY FLUID CHOL PLEURAL
[2025-01-09] MEDS: PERCOCET 5MG/325MG TAB PO PRN (15:59)
[2025-01-09 16:02] LABS: SOURCE, BODY FLUID TOT PROTEIN PLEURAL; TOTAL PROTEIN, BODY FLUID 2.8 G/DL (NOT ESTABLISHED)
[2025-01-09 16:13] LABS: SOURCE, BODY FLUID ALBUMIN PLEURAL
[2025-01-09] MEDS: OLANZapine ORAL DISINTEGRATING TAB 5MG PO SCH (21:28)
[2025-01-10] VITALS (17 sets, daily range): BP systolic 90–134; BP diastolic 53–76; TEMP 97.6–100.6; O2SAT 94–100
[2025-01-10] MEDS: LEVALBUTEROL 1.25MG 0.5ML CONCENTRATE NEB NEB PRN (05:13)
[2025-01-10 07:23] LABS: EOS % 0.7 % (0.0-3.0); HEMATOCRIT 21.9 % (42.0-52.0); LYMPH # 0.2 10^3/uL (1.5-5.0); LYMPH % 3.5 % (24.0-44.0); MEAN CORPUSCULAR HEMOGLOBIN 31.1 pg (27.0-33.0); MEAN CORPUSCULAR HGB CONC 31.1 g/dl (32.0-36.5); MONO # 0.8 10^3/uL (0.0-0.8); MONO % 15.1 % (2.0-8.0); NEUTROPHILS # 4.3 10^3/uL (1.5-8.5); NEUTROPHILS % 80.3 % (36.0-66.0); RED BLOOD COUNT 2.19 10^6/uL (4.30-6.10); WHITE BLOOD COUNT 5.4 10^3/uL (4.0-10.0)
[2025-01-10 07:28] LABS: HEMOGLOBIN 6.8 g/dl (13.5-17.5)
[2025-01-10 07:33] LABS: PLATELET COUNT, AUTOMATED 67 10^3/uL (150-450)
[2025-01-10 07:49] LABS: URIC ACID 6.6 MG/DL (3.7-9.2)
[2025-01-10 08:04] LABS: HEMATOCRIT 22.3 % (42.0-52.0); MEAN CORPUSCULAR HEMOGLOBIN 30.9 pg (27.0-33.0); MEAN CORPUSCULAR HGB CONC 30.5 g/dl (32.0-36.5); MEAN CORPUSCULAR VOLUME 101.4 fl (80.0-96.0)
[2025-01-10 08:07] LABS: HEMOGLOBIN 6.8 g/dl (13.5-17.5); PLATELET COUNT, AUTOMATED 86 10^3/uL (150-450)
[2025-01-10 08:10] LABS: ALBUMIN 1.9 G/DL (3.2-5.2); CALCIUM LEVEL 7.2 MG/DL (8.5-10.1); CREATININE FOR GFR 2.62 MG/DL (0.70-1.30); GLOMERULAR FILTRATION RATE 28.8 (>60); PHOSPHORUS LEVEL 5.4 MG/DL (2.5-4.9)
[2025-01-10 10:29] LABS: APPEARANCE, BODY FLUID HAZY (CLEAR); ASCITES FL COLOR YELLOW (COLORLESS); SOURCE, BODY FLUID ASCITES
[2025-01-10] MEDS: NS (Normal Saline) 0.9% 1,000 ML IV SCH (10:35)
[2025-01-10 11:10] LABS: SOURCE, BODY FLUID ALBUMIN ASCITES
[2025-01-10 11:15] LABS: SOURCE, BODY FLUID GLUCOSE ASCITES
[2025-01-10 11:16] LABS: SOURCE, BODY FLUID TOT PROTEIN ASCITES; TOTAL PROTEIN, BODY FLUID < 2.0 G/DL (NOT ESTABLISHED)
[2025-01-10] MEDS: MIDODRINE 5 MG TAB PO SCH (12:00)
[2025-01-10 13:08] LABS: PROCALCITONIN 1.29 ng/ml
[2025-01-10] MEDS: OCTREOTIDE ACETATE 100MCG/ML VIAL **IV ADMINISTRATION ONLY IV SCH (15:06)
[2025-01-10 16:26] LABS: HEMATOCRIT 28.2 % (42.0-52.0); HEMOGLOBIN 8.9 g/dl (13.5-17.5); MEAN CORPUSCULAR HEMOGLOBIN 31.3 pg (27.0-33.0); MEAN CORPUSCULAR HGB CONC 31.6 g/dl (32.0-36.5); MEAN CORPUSCULAR VOLUME 99.3 fl (80.0-96.0); RED BLOOD COUNT 2.84 10^6/uL (4.30-6.10)
[2025-01-10 16:38] LABS: INR 1.32; PROTHROMBIN TIME 16.7 SECONDS (12.5-14.5)
[2025-01-10 16:52] LABS: PLATELET COUNT, AUTOMATED 66 10^3/uL (150-450)
[2025-01-11] VITALS (10 sets, daily range): BP systolic 94–147; BP diastolic 57–70; TEMP 98.2–99.3; O2SAT 90–99
[2025-01-11 06:06] LABS: EOS % 0.4 % (0.0-3.0); HEMATOCRIT 23.1 % (42.0-52.0); HEMOGLOBIN 7.3 g/dl (13.5-17.5); LYMPH # 0.2 10^3/uL (1.5-5.0); LYMPH % 2.5 % (24.0-44.0); MEAN CORPUSCULAR HEMOGLOBIN 31.3 pg (27.0-33.0); MEAN CORPUSCULAR HGB CONC 31.6 g/dl (32.0-36.5); MEAN CORPUSCULAR VOLUME 99.1 fl (80.0-96.0); MONO # 0.9 10^3/uL (0.0-0.8); MONO % 13.3 % (2.0-8.0); NEUTROPHILS # 5.6 10^3/uL (1.5-8.5); NEUTROPHILS % 83.5 % (36.0-66.0); RED BLOOD COUNT 2.33 10^6/uL (4.30-6.10); WHITE BLOOD COUNT 6.7 10^3/uL (4.0-10.0)
[2025-01-11 06:12] LABS: PLATELET COUNT, AUTOMATED 51 10^3/uL (150-450)
[2025-01-11 06:28] LABS: URIC ACID 5.3 MG/DL (3.7-9.2)
[2025-01-11 06:31] LABS: ALBUMIN 2.1 G/DL (3.2-5.2); CALCIUM LEVEL 6.9 MG/DL (8.5-10.1); CREATININE FOR GFR 2.36 MG/DL (0.70-1.30); GLOMERULAR FILTRATION RATE 32.5 (>60); PHOSPHORUS LEVEL 5.4 MG/DL (2.5-4.9); POTASSIUM SERUM 3.8 MMOL/L (3.5-5.1)
[2025-01-11] MEDS: ONDANSETRON 4MG 2ML VIAL IV SCH (09:58)
[2025-01-11] MEDS: MIDODRINE 5 MG TAB PO SCH (09:59)
[2025-01-11] MEDS: SCOPOLAMINE 1MG TRANSDERMAL PATCH TOP SCH (10:00)
[2025-01-11 11:09] LABS: INR 1.44; PROTHROMBIN TIME 17.8 SECONDS (12.5-14.5)
[2025-01-11 11:19] LABS: BILIRUBIN,DIRECT 0.5 MG/DL (<0.4); BILIRUBIN,TOTAL 0.9 MG/DL (0.3-1.2); TOTAL PROTEIN 4.4 G/DL (5.7-8.2)
[2025-01-11] MEDS: TACROLIMUS 1MG CAP PO ONE (14:46)
[2025-01-11] MEDS: TACROLIMUS 0.5MG CAP PO SCH (21:22)
[2025-01-11] MEDS: PANTOPRAZOLE 40MG TAB (PROTONIX) PO ONE (23:32)
[2025-01-11 23:58] LABS: HEMOGLOBIN 8.3 g/dl (13.5-17.5); MEAN CORPUSCULAR HEMOGLOBIN 31.7 pg (27.0-33.0); MEAN CORPUSCULAR HGB CONC 31.9 g/dl (32.0-36.5); MEAN CORPUSCULAR VOLUME 99.2 fl (80.0-96.0); PLATELET COUNT, AUTOMATED 100 10^3/uL (150-450); RED BLOOD COUNT 2.62 10^6/uL (4.30-6.10); WHITE BLOOD COUNT 14.4 10^3/uL (4.0-10.0)
[2025-01-12 04:25] VITALS: BP_SYST 93; BP_DIAS 69; BP_DIAS 96; TEMP 99.1; O2SAT 98
[2025-01-12 06:17] LABS: BASO % 0.2 % (0.0-1.0); EOS % 0.3 % (0.0-3.0); HEMATOCRIT 25.8 % (42.0-52.0); LYMPH # 0.3 10^3/uL (1.5-5.0); LYMPH % 2.2 % (24.0-44.0); MEAN CORPUSCULAR HEMOGLOBIN 30.7 pg (27.0-33.0); MEAN CORPUSCULAR VOLUME 98.9 fl (80.0-96.0); MONO # 1.7 10^3/uL (0.0-0.8); MONO % 13.9 % (2.0-8.0); NEUTROPHILS # 9.8 10^3/uL (1.5-8.5); NEUTROPHILS % 82.7 % (36.0-66.0); PLATELET COUNT, AUTOMATED 105 10^3/uL (150-450); RED BLOOD COUNT 2.61 10^6/uL (4.30-6.10); WHITE BLOOD COUNT 11.9 10^3/uL (4.0-10.0)
[2025-01-12 06:23] LABS: INR 1.38; PROTHROMBIN TIME 17.3 SECONDS (12.5-14.5)
[2025-01-12 06:39] LABS: ALBUMIN 1.7 G/DL (3.2-5.2); BILIRUBIN,DIRECT 0.6 MG/DL (<0.4); CALCIUM LEVEL 7.2 MG/DL (8.5-10.1); CREATININE FOR GFR 2.26 MG/DL (0.70-1.30); GLOMERULAR FILTRATION RATE 34.2 (>60); PHOSPHORUS LEVEL 4.5 MG/DL (2.5-4.9); POTASSIUM SERUM 3.2 MMOL/L (3.5-5.1); TOTAL PROTEIN 4.1 G/DL (5.7-8.2)
[2025-01-12 08:03] VITALS: BP 102/65; TEMP 98.9
[2025-01-12] MEDS: POTASSIUM CHLORIDE 10MEQ SR TABLET PO ONE (09:08)
[2025-01-12 12:08] VITALS: BP 98/72; TEMP 98.8; O2SAT 100
[2025-01-12] MEDS: ONDANSETRON 4MG 2ML VIAL IV SCH (14:11)
[2025-01-12] MEDS: LORazepam 0.5 MG TAB PO PRN (14:27)
[2025-01-12 16:13] VITALS: BP 112/76; TEMP 98.7; O2SAT 99
[2025-01-12 20:03] VITALS: BP 108/72; TEMP 97; O2SAT 92
[2025-01-12] MEDS: DOXYCYCLINE HYCLATE 100MG TABLET PO SCH (21:27)
[2025-01-12] MEDS: MIRTAZAPINE 15 MG TAB PO SCH (21:28)
[2025-01-12] MEDS: SODIUM CHLORIDE NASAL 0.65% SPRAY BTL (OCEAN) SCH (21:43)
[2025-01-12 23:47] VITALS: BP 125/80; TEMP 98.4; O2SAT 93
[2025-01-13] VITALS (10 sets, daily range): BP systolic 99–127; BP diastolic 64–83; TEMP 97.3–99.2; O2SAT 90–99
[2025-01-13] MEDS: OLANZapine INTRAMUSCULAR 10MG VIAL IM ONE (03:17)
[2025-01-13 06:02] LABS: VENOUS HCO3 19.7 MMOL/L (23.0-27.0); VENOUS O2 SATURATION 90.7 % (60.0-80.0); VENOUS PARTIAL PRESSURE CO2 44.5 mmHg (38.0-50.0); VENOUS PARTIAL PRESSURE O2 65.5 mmHg (30.0-50.0); VENOUS PH 7.263 UNITS (7.330-7.430); VENOUS STANDARD HCO3 18.6 MMOL/L
[2025-01-13 06:04] LABS: BASO % 0.1 % (0.0-1.0); EOS % 0.2 % (0.0-3.0); HEMATOCRIT 27.8 % (42.0-52.0); HEMOGLOBIN 8.7 g/dl (13.5-17.5); LYMPH # 0.3 10^3/uL (1.5-5.0); LYMPH % 2.1 % (24.0-44.0); MEAN CORPUSCULAR HEMOGLOBIN 31.4 pg (27.0-33.0); MEAN CORPUSCULAR HGB CONC 31.3 g/dl (32.0-36.5); MEAN CORPUSCULAR VOLUME 100.4 fl (80.0-96.0); MONO # 2.1 10^3/uL (0.0-0.8); MONO % 13.2 % (2.0-8.0); NEUTROPHILS # 13.4 10^3/uL (1.5-8.5); NEUTROPHILS % 83.5 % (36.0-66.0); PLATELET COUNT, AUTOMATED 117 10^3/uL (150-450); RED BLOOD COUNT 2.77 10^6/uL (4.30-6.10)
[2025-01-13 06:15] LABS: INR 1.26; PROTHROMBIN TIME 16.1 SECONDS (12.5-14.5)
[2025-01-13 06:29] LABS: ALBUMIN 1.6 G/DL (3.2-5.2); BILIRUBIN,DIRECT 0.6 MG/DL (<0.4); CALCIUM LEVEL 7.5 MG/DL (8.5-10.1); CREATININE FOR GFR 2.67 MG/DL (0.70-1.30); GLOMERULAR FILTRATION RATE 28.2 (>60); PHOSPHORUS LEVEL 4.9 MG/DL (2.5-4.9); POTASSIUM SERUM 3.6 MMOL/L (3.5-5.1); TOTAL PROTEIN 4.2 G/DL (5.7-8.2)
[2025-01-13 07:57] LABS: C REACTIVE PROTEIN QUANTITATIV 16.5 MG/DL (<1.0)
[2025-01-13 08:02] LABS: ERYTHROCYTE SEDIMENTATION RATE 42 mm/hr (0-15)
[2025-01-13 08:09] LABS: PROCALCITONIN 1.41 ng/ml
[2025-01-13] MEDS: MICAFUNGIN SODIUM 100 MG in DEXTROSE 5% (D5W) MINI-BAG PLU 100 ML IV SCH (09:17)
[2025-01-13 09:40] LABS: MAGNESIUM LEVEL 1.6 MG/DL (1.8-2.4)
[2025-01-13] MEDS: HEPARIN SOD (PORCINE) 5000UNITS/ML 1ML VIAL/SYRINGE SQ SCH (12:47)
[2025-01-13] MEDS ORDERED: VANCOMYCIN HCL IV SCH (19:00)
[2025-01-13] MEDS ORDERED: FLUID PLACE HOLDER IV SCH (19:00)
[2025-01-13 19:16] LABS: KETONE, URINE AUTO RFX NEGATIVE (NEGATIVE); LEUKOCYTE ESTERASE UR AUTO RFX NEGATIVE (NEGATIVE); NITRITE, URINE AUTO RFX NEGATIVE (NEGATIVE); RBC, URINE AUTO RFX 3 /HPF (0-3); SQUAM EPITHELIAL CELL UR AURFX 0 /HPF (0-6); WBC, URINE AUTO RFX 1 /HPF (0-3)
[2025-01-13] MEDS: POLYVINYL ALCOHOL OPHTH SOLN 15ML (LIQUITEARS) OU SCH (20:48)
[2025-01-13] MEDS: CEFEPIME HCL 2 GM in DEXTROSE 5% (D5W) ADV/MINI-BAG 50 ML IV SCH (20:48)
[2025-01-13] MEDS: LIDOCAINE 5% (LIDODERM) PATCH TD SCH (20:50)
[2025-01-13] MEDS: VANCOMYCIN HCL 1,250 MG, VIAL MATE ADAPTER 1 EACH in NS 250 ML IV ONE (22:16)
[2025-01-13] MEDS: MORPHINE 10MG/0.5ML ORAL CONCENTRATE SOLUTION U/D SL PRN (22:33)
[2025-01-14] VITALS (14 sets, daily range): BP systolic 114–149; BP diastolic 71–86; TEMP 97.5–99.3; O2SAT 94–98
[2025-01-14 07:07] LABS: BASO % 0.1 % (0.0-1.0); EOS % 0.2 % (0.0-3.0); HEMATOCRIT 26.5 % (42.0-52.0); HEMOGLOBIN 8.1 g/dl (13.5-17.5); LYMPH # 0.4 10^3/uL (1.5-5.0); LYMPH % 2.9 % (24.0-44.0); MEAN CORPUSCULAR HEMOGLOBIN 30.9 pg (27.0-33.0); MEAN CORPUSCULAR HGB CONC 30.6 g/dl (32.0-36.5); MEAN CORPUSCULAR VOLUME 101.1 fl (80.0-96.0); MONO # 1.6 10^3/uL (0.0-0.8); MONO % 12.8 % (2.0-8.0); NEUTROPHILS # 10.6 10^3/uL (1.5-8.5); NEUTROPHILS % 83.4 % (36.0-66.0); PLATELET COUNT, AUTOMATED 102 10^3/uL (150-450); RED BLOOD COUNT 2.62 10^6/uL (4.30-6.10); WHITE BLOOD COUNT 12.7 10^3/uL (4.0-10.0)
[2025-01-14 07:23] LABS: INR 1.33; PROTHROMBIN TIME 16.7 SECONDS (12.5-14.5)
[2025-01-14 07:45] LABS: BILIRUBIN,DIRECT 0.6 MG/DL (<0.4); CALCIUM LEVEL 7.9 MG/DL (8.5-10.1); CREATININE FOR GFR 3.14 MG/DL (0.70-1.30); GLOMERULAR FILTRATION RATE 23.4 (>60); PHOSPHORUS LEVEL 5.5 MG/DL (2.5-4.9); POTASSIUM SERUM 3.6 MMOL/L (3.5-5.1); TOTAL PROTEIN 4.5 G/DL (5.7-8.2)
[2025-01-14 07:55] LABS: VANCOMYCIN RANDOM 19.6 UG/ML
[2025-01-14] MEDS ORDERED: VANCOMYCIN HCL 1,000 MG, VIAL MATE ADAPTER 1 EACH in NS 250 ML IV SCH (10:00)
[2025-01-14] MEDS: VANCOMYCIN HCL 500 MG in DEXTROSE 5% (D5W) MINI-BAG PLU 100 ML IV SCH (11:49)
[2025-01-14] MEDS: LR 1,000 ML IV SCH (11:50)
[2025-01-15] VITALS (14 sets, daily range): BP systolic 94–133; BP diastolic 61–93; TEMP 97.1–98.4; O2SAT 93–100
[2025-01-15] MEDS: LIDOCAINE 2% 5ML JELLY UROJET TOP ONE (01:25)
[2025-01-15] MEDS: MORPHINE 10MG/0.5ML ORAL CONCENTRATE SOLUTION U/D SL PRN (01:27)
[2025-01-15 07:25] LABS: INR 1.31; PROTHROMBIN TIME 16.5 SECONDS (12.5-14.5)
[2025-01-15 07:40] LABS: VANCOMYCIN RANDOM 17.4 UG/ML
[2025-01-15 08:05] LABS: ALBUMIN 2.5 G/DL (3.2-5.2); BILIRUBIN,DIRECT 0.6 MG/DL (<0.4); BILIRUBIN,TOTAL 0.9 MG/DL (0.3-1.2); CALCIUM LEVEL 7.9 MG/DL (8.5-10.1); CREATININE FOR GFR 3.36 MG/DL (0.70-1.30); GLOMERULAR FILTRATION RATE 21.6 (>60); POTASSIUM SERUM 3.6 MMOL/L (3.5-5.1); TOTAL PROTEIN 4.8 G/DL (5.7-8.2)
[2025-01-15] MEDS: CEFEPIME HCL 1 GM in DEXTROSE 5% (D5W) ADV/MINI-BAG 50 ML IV SCH (21:21)
[2025-01-16 04:11] VITALS: BP 90/72; TEMP 97.9; O2SAT 92
[2025-01-16 06:40] LABS: INR 1.38; PROTHROMBIN TIME 17.2 SECONDS (12.5-14.5)
[2025-01-16 06:41] LABS: ALBUMIN 2.3 G/DL (3.2-5.2); BILIRUBIN,DIRECT 0.6 MG/DL (<0.4); CREATININE FOR GFR 3.63 MG/DL (0.70-1.30); GLOMERULAR FILTRATION RATE 19.8 (>60); POTASSIUM SERUM 3.8 MMOL/L (3.5-5.1); TOTAL PROTEIN 4.7 G/DL (5.7-8.2)
[2025-01-16 07:31] VITALS: BP 100/69; TEMP 98; O2SAT 92
[2025-01-16 07:39] LABS: VANCOMYCIN LEVEL TROUGH 20.7 UG/ML (10.0-20.0)
[2025-01-16] MEDS ORDERED: VANCOMYCIN INTERMITTENT/PULSE DOSING BY CLINICAL PHARMACIST PER DOSING PROTOCOL XX SCH (09:35)
[2025-01-16 12:10] VITALS: BP 96/65; TEMP 98.1; O2SAT 99
[2025-01-16 14:44] VITALS: BP 99/73; TEMP 98.3; O2SAT 99
[2025-01-16 16:12] VITALS: BP 108/65; TEMP 98; O2SAT 94
[2025-01-16] MEDS: MAALOX 30 ML SUSP *UDC PO PRN (17:16)
[2025-01-16 19:33] VITALS: BP 107/71; TEMP 97.5; O2SAT 94
[2025-01-16] MEDS: OLANZapine ORAL DISINTEGRATING TAB 5MG PO SCH (21:41)
[2025-01-17] VITALS (11 sets, daily range): BP systolic 46–103; BP diastolic 28–66; TEMP 97.1–98.7; O2SAT 90–94
[2025-01-17] MEDS: NOREPINEPHRINE 4MG IN D5 250ML 4 MG in IV 1 EA IV SCH (05:57)
[2025-01-17] MEDS ORDERED: NOREPINEPHRINE BITARTRATE 16 MG in D5W 484 ML IV SCH (06:00)
[2025-01-17] MEDS ORDERED: LORazepam 2 MG/ML 1ML VIAL IV PRN (08:20)
[2025-01-17] MEDS ORDERED: ONDANSETRON 4MG 2ML VIAL IV PRN (08:20)
[2025-01-17] MEDS: MORPHINE 2 MG/ML 1ML VIAL IV PRN (08:23)
== END 2025-01-17 11:25 | disposition expired | DRG 374 ==
LOC: M ED 09:21 → M ED INP 12:18 → M PCU 15:02 → M ICU 01-17 05:40
PROVIDERS: ADMIT Student in an Organized Health Care Education/Training Program; ATTEND Student in an Organized Health Care Education/Training Program
PROC: 0W9B30Z Drainage of Left Pleural Cavity with Drainage Device, Percutaneous Approach (ICD-10-PCS; principal; 2025-01-08)
PROC: 0W9930Z Drainage of Right Pleural Cavity with Drainage Device, Percutaneous Approach (ICD-10-PCS; 2025-01-09)
PROC: 0W9G3ZZ Drainage of Peritoneal Cavity, Percutaneous Approach (ICD-10-PCS; 2025-01-16)
DX: C19 Malignant neoplasm of rectosigmoid junction (principal); E43 Unspecified severe protein-calorie malnutrition; G92.8 Other toxic encephalopathy; K72.00 Acute and subacute hepatic failure without coma; N17.9 Acute kidney failure, unspecified; C78.7 Secondary malignant neoplasm of liver and intrahepatic bile duct; Z94.4 Liver transplant status; J91.0 Malignant pleural effusion; R18.0 Malignant ascites; E87.20 Acidosis, unspecified; C78.6 Secondary malignant neoplasm of retroperitoneum and peritoneum; Z68.1 Body mass index [BMI] 19.9 or less, adult; C78.2 Secondary malignant neoplasm of pleura; C20 Malignant neoplasm of rectum; C79.51 Secondary malignant neoplasm of bone; Z94.2 Lung transplant status; D84.9 Immunodeficiency, unspecified; J98.11 Atelectasis; E87.3 Alkalosis; R64 Cachexia; E86.9 Volume depletion, unspecified; E87.5 Hyperkalemia; G89.3 Neoplasm related pain (acute) (chronic); D69.6 Thrombocytopenia, unspecified; Z92.21 Personal history of antineoplastic chemotherapy; Z66 Do not resuscitate; Z79.899 Other long term (current) drug therapy

== ENCOUNTER → 2025-01-08 | Outpatient (REF) | payer MEDICARE ==
[2025-01-08 08:22] LABS: BASO % 0.2 % (0.0-1.0); EOS # 0.1 10^3/uL (0.0-0.5); EOS % 0.7 % (0.0-3.0); HEMATOCRIT 30.9 % (42.0-52.0); HEMOGLOBIN 9.6 g/dl (13.5-17.5); LYMPH # 0.5 10^3/uL (1.5-5.0); LYMPH % 3.8 % (24.0-44.0); MEAN CORPUSCULAR HEMOGLOBIN 31.1 pg (27.0-33.0); MEAN CORPUSCULAR HGB CONC 31.1 g/dl (32.0-36.5); MONO # 1.4 10^3/uL (0.0-0.8); MONO % 10.8 % (2.0-8.0); NEUTROPHILS # 10.9 10^3/uL (1.5-8.5); PLATELET COUNT, AUTOMATED 197 10^3/uL (150-450); RED BLOOD COUNT 3.09 10^6/uL (4.30-6.10)
[2025-01-08 09:27] LABS: ALKALINE PHOSPHATASE 355 U/L (40-129); ALT/SGPT 20 U/L (7.0-40); AST/SGOT 91 U/L (<34); BILIRUBIN,TOTAL 0.6 MG/DL (0.3-1.2); BLOOD UREA NITROGEN 107 MG/DL (9-23); CALCIUM LEVEL 8.6 MG/DL (8.5-10.1); CARBON DIOXIDE LEVEL 17 MMOL/L (20-31); CHLORIDE LEVEL 105 MMOL/L (98-107); GLOMERULAR FILTRATION RATE 31.9 (>60); GLUCOSE, FASTING 96 MG/DL (60-100); POTASSIUM SERUM 6.4 MMOL/L (3.5-5.1); SODIUM LEVEL 136 MMOL/L (136-145); TOTAL PROTEIN 5.6 G/DL (5.7-8.2)
== END ==
LOC: M LAB REF 08:01
PROVIDERS: ATTEND Internal Medicine Gastroenterology
DX: K72.10 Chronic hepatic failure without coma (principal); D68.32 Hemorrhagic disorder due to extrinsic circulating anticoagulants; C22.0 Liver cell carcinoma; Z79.899 Other long term (current) drug therapy; T86.40 Unspecified complication of liver transplant; E87.5 Hyperkalemia; Z94.4 Liver transplant status

== ENCOUNTER → 2025-01-08 | Outpatient (REF) | payer MEDICARE ==
[2025-01-08 08:23] LABS: BASO % 0.2 % (0.0-1.0); EOS # 0.1 10^3/uL (0.0-0.5); EOS % 0.6 % (0.0-3.0); HEMATOCRIT 30.9 % (42.0-52.0); HEMOGLOBIN 9.6 g/dl (13.5-17.5); LYMPH # 0.6 10^3/uL (1.5-5.0); LYMPH % 4.2 % (24.0-44.0); MEAN CORPUSCULAR HEMOGLOBIN 31.1 pg (27.0-33.0); MEAN CORPUSCULAR HGB CONC 31.1 g/dl (32.0-36.5); MONO # 1.4 10^3/uL (0.0-0.8); MONO % 10.5 % (2.0-8.0); NEUTROPHILS % 83.9 % (36.0-66.0); PLATELET COUNT, AUTOMATED 193 10^3/uL (150-450); RED BLOOD COUNT 3.09 10^6/uL (4.30-6.10); WHITE BLOOD COUNT 13.1 10^3/uL (4.0-10.0)
[2025-01-08 08:28] LABS: ERYTHROCYTE SEDIMENTATION RATE 81 mm/hr (0-15)
[2025-01-08 09:00] LABS: C REACTIVE PROTEIN QUANTITATIV 13.31 MG/DL (<1.0)
[2025-01-08 09:02] LABS: TOTAL 25(OH) VITAMIN D 34.1 NG/ML (20.0-100.0)
[2025-01-08 09:04] LABS: BILIRUBIN,TOTAL 0.6 MG/DL (0.3-1.2); CALCIUM LEVEL 8.7 MG/DL (8.5-10.1); CREATININE FOR GFR 2.43 MG/DL (0.70-1.30); GLOMERULAR FILTRATION RATE 31.5 (>60); POTASSIUM SERUM 6.3 MMOL/L (3.5-5.1); TOTAL PROTEIN 5.7 G/DL (5.7-8.2)
== END ==
LOC: M LAB REF 08:07
PROVIDERS: ATTEND General Practice
DX: C18.9 Malignant neoplasm of colon, unspecified (principal); Z94.4 Liver transplant status